=== PATIENT | male | born 1965 | race Caucasian/White ===

== ENCOUNTER 2019-11-11 19:24 | Emergency (ER) | payer MEDICAID ==
[~2019-11-11] VITALS: Ht 177.8 cm; Wt 80.2 kg
[~2019-11-11 19:24] MED LIST: AMLO2.5T2 PO; FURO-149 PO; LOSA100T57 PO; MULT-1161 PO; POTA8TAB8 PO; SILD20TA PO
[2019-11-11] MEDS ORDERED: ceFAZolin 1GM/D5W- ADD-VANTAGE 50 ML IV ONE (20:40)
[2019-11-11] MEDS ORDERED: AMBR5TAB3 PO (20:52)
[2019-11-11] MEDS ORDERED: UBID100C16 PO (20:52)
[2019-11-11 21:18] LABS: BASOPHILS # (AUTO) 0.1 X10'3 (0-0.2); BASOPHILS % (AUTO) 0.4 % (0-1); EOSINOPHILS # (AUTO) 0.1 X10'3 (0-0.9); HEMATOCRIT 43.8 % (42.0-52.0); HEMOGLOBIN 14.5 g/dl (14.0-17.9); LYMPHOCYTES % (AUTO) 12.8 % (21-51); MEAN CORPUSCULAR HEMOGLOBIN 31.4 PG (27.0-31.0); MEAN PLATELET VOLUME 8.3 FL (7.4-10.4); MONOCYTES # (AUTO) 2.1 X10'3 (0-0.9); MONOCYTES % (AUTO) 13.5 % (2-12); NEUTROPHILS % (AUTO) 72.3 % (42-75); PLATELET COUNT 187 X10'3 (140-440); RED BLOOD COUNT 4.61 X10'6 (4.70-6.10); RED CELL DISTRIBUTION WIDTH 14.1 % (11.5-14.5); WHITE BLOOD COUNT 15.3 X10'3 (4.5-11.0)
[2019-11-11 21:32] LABS: ALANINE AMINOTRANSFERASE 22 U/L (12-78); ALBUMIN 3.5 G/DL (3.4-5.0); ALBUMIN/GLOBULIN RATIO 0.9 (1.1-1.5); ALKALINE PHOSPHATASE 74 IU/L (46-116); ANION GAP 10 (8-16); ASPARTATE AMINO TRANSFERASE 26 U/L (10-37); BILIRUBIN,TOTAL 0.4 MG/DL (0.1-1.0); BLOOD UREA NITROGEN 28 MG/DL (7-18); BUN/CREATININE RATIO 18.5 (5.4-32.0); C-REACTIVE PROTEIN 7.92 MG/DL (0.0-0.5); CALCIUM 8.6 MG/DL (8.5-10.1); CHLORIDE 106 MMOL/L (99-107); CREATININE 1.51 MG/DL (0.60-1.10); GLUCOSE 103 MG/DL (70-104); SODIUM 141 MMOL/L (135-145); TOTAL CARBON DIOXIDE 24.9 MMOL/L (24-32); TOTAL PROTEIN 7.2 G/DL (6.4-8.2); eGFR 48 ML/MIN
[2019-11-11] MEDS ORDERED: CEPH-572 PO (21:55)
[2019-11-11] MEDS ORDERED: sulfamethoxazole/trimethoprim DS (800/160mg) tablet PO ONE (21:55)
[2019-11-11] MEDS ORDERED: SULF1TAB49 PO (21:55)
[2019-11-11 22:16] VITALS: BP 107/97
== END 2019-11-11 22:19 | disposition home or self-care (01) ==
LOC: ER 19:24
DX: L03.113 Cellulitis of right upper limb (principal); I50.9 Heart failure, unspecified; I11.0 Hypertensive heart disease with heart failure; I25.2 Old myocardial infarction; F41.9 Anxiety disorder, unspecified; F15.90 Other stimulant use, unspecified, uncomplicated; Z98.890 Other specified postprocedural states; Z88.0 Allergy status to penicillin; Z79.899 Other long term (current) drug therapy
CPT/HCPCS: 36415; 80053; 84145; 85025; 86140; 87070; 96365; 99284; J0690; 87077; 87186

== ENCOUNTER 2020-06-05 00:46 | Inpatient (IN) | payer MEDICAID ==
--- NOTE | 2019-07-28 23:45 | NUR ---
Pt had bout of emisis after coughing. Moderate amount of tube feed, estimated about half cup. RN stopped tube feed and connected to LIS. 500ml tube feed colored stomach contents aspirated. RN left Pt on LIS, notified sausage wrapper. No further water flushes given. *Residual at start of shift was 350. *in Report RN received information that Pt has emisis during day shift as well.
[2020-06-05] VITALS (7 sets, daily range): BP systolic 90–106; BP diastolic 57–75
[~2020-06-05] VITALS: Ht 175.3 cm; Wt 69.5 kg
[~2020-06-05 00:46] MED LIST changes: +AMBR5TAB3 PO; -LOSA100T57 PO; -MULT-1161 PO; +UBID100C16 PO
--- NOTE | 2020-06-05 01:21 | NUR ---
x ray at bedside
[2020-06-05 01:31] LABS: ALANINE AMINOTRANSFERASE 33 U/L (12-78); ALBUMIN 3.7 G/DL (3.4-5.0); ALBUMIN/GLOBULIN RATIO 0.9 (1.1-1.5); ALKALINE PHOSPHATASE 68 IU/L (46-116); ANION GAP 13 (8-16); ASPARTATE AMINO TRANSFERASE 42 U/L (10-37); BILIRUBIN,TOTAL 1.1 MG/DL (0.1-1.0); BLOOD UREA NITROGEN 25 MG/DL (7-18); BUN/CREATININE RATIO 14.6 (5.4-32.0); CALCIUM 8.8 MG/DL (8.5-10.1); CHLORIDE 97 MMOL/L (99-107); CREATININE 1.71 MG/DL (0.60-1.10); GLUCOSE 118 MG/DL (70-104); SODIUM 132 MMOL/L (135-145); TOTAL CARBON DIOXIDE 21.7 MMOL/L (24-32); TOTAL PROTEIN 7.9 G/DL (6.4-8.2); eGFR 42 ML/MIN
[2020-06-05 01:32] LABS: BASOPHILS % (AUTO) 0.1 % (0-1); EOSINOPHILS % (AUTO) 0.2 % (0-6); HEMATOCRIT 51.7 % (42.0-52.0); HEMOGLOBIN 17.6 g/dl (14.0-17.9); MEAN CORPUSCULAR HEMOGLOBIN 32.2 PG (27.0-31.0); MEAN CORPUSCULAR VOLUME 94.6 FL (78-98); MEAN PLATELET VOLUME 9.3 FL (7.4-10.4); MONOCYTES # (AUTO) 1.4 X10'3 (0-0.9); MONOCYTES % (AUTO) 13.6 % (2-12); NEUTROPHILS # (AUTO) 7.6 X10'3 (1.8-7.7); NEUTROPHILS % (AUTO) 76.1 % (42-75); PLATELET COUNT 161 X10'3 (140-440); RED BLOOD COUNT 5.47 X10'6 (4.70-6.10); RED CELL DISTRIBUTION WIDTH 13.6 % (11.5-14.5)
[2020-06-05 01:40] LABS: TROPONIN I 0.08 NG/ML (0.0-0.05)
[2020-06-05 01:45] LABS: ABG BASE EXCESS -3.2 mmol/L (-2.0-2.0); ABG HCO3 16.8 mmol/L (22.0-26.0); ABG OXYGEN SATURATION 83.8 % (94-97); ABG PCO2 (T) 21.4 mmHg (35.0-48.0); ABG PO2 (T) 43.4 mmHg (75.0-100.0); FCOHb 0.6 % (0.0-3.9); FLOW 15 L/min; FMetHb 0.1 % (0.0-1.5); FO2Hb 83.2 % (94-97); TOTAL HEMOGLOBIN 17.6 G/dl (14.0-18.0)
[2020-06-05] MEDS ORDERED: levoFLOXACIN-Levaquin 750MG/D5 150 ML IV ONE (01:45)
[2020-06-05] MEDS ORDERED: LORazepam 2 mg/ml vial IV ONE ×3 (01:55→03:25)
[2020-06-05] MEDS ORDERED: dexamethasone sod phosphate 10mg/ml inj IV STA (01:57)
[2020-06-05 02:29] LABS: C-REACTIVE PROTEIN 2.54 MG/DL (0.0-0.5); FERRITIN 945 NG/ML (26-388); LACTATE DEHYDROGENASE 396 U/L (85-227)
[2020-06-05] MEDS ORDERED: LOSA25TA96 PO (02:34)
--- NOTE | 2020-06-05 03:09 | NUR ---
Dereje repeat latic
--- NOTE | 2020-06-05 03:09 | NUR ---
paged rt for repeat abg
[2020-06-05 03:40] LABS: ABG BASE EXCESS -3.8 mmol/L (-2.0-2.0); ABG HCO3 16.3 mmol/L (22.0-26.0); ABG OXYGEN SATURATION 91.9 % (94-97); ABG PCO2 (T) 20.7 mmHg (35.0-48.0); ABG PO2 (T) 57.5 mmHg (75.0-100.0); FCOHb 0.5 % (0.0-3.9); FMetHb 0.1 % (0.0-1.5); FO2Hb 91.3 % (94-97); PATIENT TEMPERATURE 36.8; RESPIRATORY RATE 31 b/min; TOTAL HEMOGLOBIN 16.7 G/dl (14.0-18.0)
[2020-06-05] MEDS ORDERED: potassium CL 10mEq/100ml bag 100 ML IV PRN (04:10)
[2020-06-05] MEDS ORDERED: potassium Cl 20 mEq SR tablet PO PRN ×2 (04:10)
[2020-06-05] MEDS ORDERED: magnesium hydroxide 30ml (MOM) UD suspension PO PRN (04:10)
[2020-06-05] MEDS ORDERED: ipratropium/albuterol 3ml nebule NEB PRN (04:10)
[2020-06-05] MEDS ORDERED: acetaminophen 325mg tablet PO PRN ×2 (04:10)
[2020-06-05] MEDS: K, MAG and/or Phos replacement - Verify level? MC SCH ×2 (05:06→08:00)
[2020-06-05] MEDS: dexamethasone 4mg/ml inj IV SCH (07:39)
[2020-06-05] MEDS: potassium chloride 8mEq ER tablet PO SCH ×2 (07:40→20:26)
[2020-06-05] MEDS: sildenafil citrate 20mg tablet PO SCH ×3 (07:40→20:26)
[2020-06-05] MEDS: amLODIPine 2.5mg tablet PO SCH (07:40)
[2020-06-05] MEDS: furosemide 40mg tablet PO SCH (07:40)
[2020-06-05] MEDS: LORazepam 2 mg/ml vial IV PRN ×6 (07:41→22:23)
[2020-06-05] MEDS: AMBRISENTAN 5 MG PO SCH (08:00)
[2020-06-05] MEDS: levoFLOXACIN-Levaquin 500mg/D5 100 ML IV SCH (08:00)
[2020-06-05] MEDS ORDERED: etomidate 2mg/ml inj. ONE ×2 (08:00→09:00)
[2020-06-05] MEDS ORDERED: enoxaparin 40mg/0.4ml syringe SUBCUT SCH (08:00)
[2020-06-05] MEDS: enoxaparin 40mg/0.4ml syringe SUBCUT SCH ×2 (09:25→20:26)
--- NOTE | 2020-06-05 09:30 | NUR ---
Spoke with Aime in pharmacy regarding pt's home med. He is not sure if they can dispense it to us since he is COVID positive. He states that there are some others they can substitute, but needs to speak with his director first and will let us know.
[2020-06-05] MEDS: losartan 25mg tablet PO SCH (10:01)
--- NOTE | 2020-06-05 10:17 | NUR ---
Pt had a medium sized stool of diarrhea.
[2020-06-05 10:24] LABS: D-DIMER 0.46 MG/L FEU (0-0.50)
--- NOTE | 2020-06-05 11:25 | NUR ---
Pt very anxious asking for something to help him calm down. Let him know that this RN would be back with medication for him.
--- NOTE | 2020-06-05 12:05 | NUR ---
Luis Fernando baker in [facility] - 06/05/20 at 1211 by [email or web address] Spoke with Yosvany, he is heading this way from [place] now and should be here in about 20-30 minutes.
--- NOTE | 2020-06-05 12:06 | NUR ---
Note olivia in ED - 06/05/20 at 1211 by [email or web address] Spoke with Margarita, Grief Counsellor regarding pt and the stress test regarding pt's willingness to have the stress test. We are to call her back when Yosvany gets here to see if he is willing to walk the pt through the test.
--- NOTE | 2020-06-05 13:00 | NUR ---
Pt resting quietly on left side. Pt continues to be tachypnic.
--- NOTE | 2020-06-05 13:10 | NUR ---
Pt would like his significant other, Cornelia, to be the one who is the main contact for him. Called her to give her an update on the pt and answered the questions she had.
--- NOTE | 2020-06-05 13:20 | NUR ---
Pt talking on the phone with Cornelia, his significant other.
--- NOTE | 2020-06-05 13:46 | NUR ---
Pt is anxious. Pt given Ativan and denies any further needs at this time.
--- NOTE | 2020-06-05 14:45 | NUR ---
dr. manzano at bedside.
--- NOTE | 2020-06-05 14:53 | NUR ---
RT paged for decreased oxygen saturation.
--- NOTE | 2020-06-05 15:35 | NUR ---
RT aware of pt's O2 saturation. He is going to talk to the pt and Dr Vidales to see what the plan is.
--- NOTE | 2020-06-05 16:30 | NUR ---
Pt woke up from sleeping and started panicing and pulled off his mask. Pt stated he needed to use the restroom. RN able to get the CPAP mask back on the pt and explained to him the need for the mask. RT peaked into the room and said he will be back to see the pt. Pt asking for something to help him relax. Let pt know that his BP is a little on the low side, so we will wait to see if his BP comes up a little before giving him any. Pt is okay with that. Encouraged pt to focus on his slow breathing.
--- NOTE | 2020-06-05 17:01 | NUR ---
Received report from TONIA Peña
--- NOTE | 2020-06-05 17:42 | NUR ---
Pt arrived from ED via gurney and walked to bed. Transferred on NRB. Placed back on bipap once settled in ICU bed. Pt alert and oriented but in resp distress. Explained to pt importance of not talking and moving around much so that he can rest his lungs and focus on his breathing. Pt placed on monitor and in hospital gown and foam dsg placed on sacrum. Sats low 90s on 100% Fio2 on bipap. Pt tachycardic and tachypnic with labored breathing, but otherwise stable and able to communicate needs. Currently watching TV. Call light in hand
[2020-06-05] MEDS: morphine 2 MG/ML inj. syringe IV PRN (22:23)
[2020-06-06] VITALS (22 sets, daily range): BP systolic 84–108; BP diastolic 52–78
[2020-06-06] MEDS: morphine 2 MG/ML inj. syringe IV PRN (02:25)
[2020-06-06] MEDS: LORazepam 2 mg/ml vial IV PRN ×5 (04:25→21:06)
[2020-06-06 05:16] LABS: BASOPHILS % (AUTO) 0.1 % (0-1); EOSINOPHILS % (AUTO) 0 % (0-6); HEMATOCRIT 49.8 % (42.0-52.0); HEMOGLOBIN 16.7 g/dl (14.0-17.9); LYMPHOCYTES # (AUTO) 1.3 X10'3 (1.1-4.8); LYMPHOCYTES % (AUTO) 11.7 % (21-51); MEAN CORPUSCULAR HEMOGLOBIN 31.6 PG (27.0-31.0); MEAN CORPUSCULAR HGB CONC 33.6 g/dL (33.0-36.5); MEAN CORPUSCULAR VOLUME 94.1 FL (78-98); MEAN PLATELET VOLUME 9.2 FL (7.4-10.4); MONOCYTES # (AUTO) 1.8 X10'3 (0-0.9); MONOCYTES % (AUTO) 15.9 % (2-12); NEUTROPHILS # (AUTO) 8.3 X10'3 (1.8-7.7); NEUTROPHILS % (AUTO) 72.3 % (42-75); PLATELET COUNT 176 X10'3 (140-440); RED BLOOD COUNT 5.29 X10'6 (4.70-6.10); RED CELL DISTRIBUTION WIDTH 13.5 % (11.5-14.5); WHITE BLOOD COUNT 11.5 X10'3 (4.5-11.0)
[2020-06-06 05:17] LABS: D-DIMER 0.31 MG/L FEU (0-0.50)
[2020-06-06 05:25] LABS: ALANINE AMINOTRANSFERASE 35 U/L (12-78); ALBUMIN 3.1 G/DL (3.4-5.0); ALBUMIN/GLOBULIN RATIO 0.7 (1.1-1.5); ALKALINE PHOSPHATASE 60 IU/L (46-116); ANION GAP 10 (8-16); ASPARTATE AMINO TRANSFERASE 36 U/L (10-37); BILIRUBIN,TOTAL 0.6 MG/DL (0.1-1.0); BLOOD UREA NITROGEN 32 MG/DL (7-18); BUN/CREATININE RATIO 19.5 (5.4-32.0); C-REACTIVE PROTEIN 3.18 MG/DL (0.0-0.5); CALCIUM 9.3 MG/DL (8.5-10.1); CHLORIDE 99 MMOL/L (99-107); CREATININE 1.64 MG/DL (0.60-1.10); GLUCOSE 134 MG/DL (70-104); MAGNESIUM 1.9 MG/DL (1.5-2.4); PHOSPHORUS 4.4 MG/DL (2.3-4.5); POTASSIUM 4.5 MMOL/L (3.5-5.1); SODIUM 133 MMOL/L (135-145); TOTAL CARBON DIOXIDE 24.3 MMOL/L (24-32); TOTAL PROTEIN 7.4 G/DL (6.4-8.2); eGFR 44 ML/MIN
[2020-06-06] MEDS: K, MAG and/or Phos replacement - Verify level? MC SCH (06:43)
[2020-06-06] MEDS: potassium chloride 8mEq ER tablet PO SCH ×2 (06:43→21:07)
[2020-06-06] MEDS: losartan 25mg tablet PO SCH (06:43)
[2020-06-06] MEDS: amLODIPine 2.5mg tablet PO SCH (06:44)
[2020-06-06] MEDS: furosemide 40mg tablet PO SCH (06:44)
[2020-06-06] MEDS: levoFLOXACIN-Levaquin 500mg/D5 100 ML IV SCH (08:05)
[2020-06-06] MEDS: dexamethasone 4mg/ml inj IV SCH (08:05)
[2020-06-06] MEDS: enoxaparin 40mg/0.4ml syringe SUBCUT SCH ×2 (08:06→21:08)
[2020-06-06] MEDS: sildenafil citrate 20mg tablet PO SCH ×3 (08:33→21:07)
[2020-06-06] MEDS: AMBRISENTAN 5 MG PO SCH (08:34)
--- NOTE | 2020-06-06 09:00 | NUR ---
Patient on 100% bipap; tried patient on hi-flow 15L- Sats in the low 80's. placed patient back on bipap while RT went to get hi-flow tower. Able to titrate FI02 down to 70 while waiting for tower. Placed patient on 50L/100%; sats tolerated intitially, but after a few min of eating, sats in the low 80's. Placed patient back on bipap and now patient requiring 100% again
[2020-06-06] MEDS ORDERED: REMDESIVIR 100MG inj. 200 MG in normal saline 100ml IV soln 100 ML IV ONE (10:00)
[2020-06-06] MEDS: normal saline 1000ml 1,000 ML IV SCH (13:36)
--- NOTE | 2020-06-06 14:01 | NUR ---
Updated MD on patients lack of reserve on 100% fio2 bipap; orders to increase cpap to 10 and do not take bipap mask off for any reason
--- NOTE | 2020-06-06 19:00 | NUR ---
Patient in room CICU 2006. I have received report from Nnamdi RANDALL and had the opportunity to ask questions and assume patient care.
[2020-06-06] MEDS: lactobacillus rhamnosus 10,000 MMU CELLS/CAPSULE PO SCH (21:07)
[2020-06-07] VITALS (25 sets, daily range): BP systolic 88–107; BP diastolic 56–74
[2020-06-07] MEDS: LORazepam 2 mg/ml vial IV PRN ×8 (00:11→22:00)
[2020-06-07] MEDS: normal saline 1000ml 1,000 ML IV SCH ×2 (02:45→13:04)
[2020-06-07 05:20] LABS: BASOPHILS % (AUTO) 0.1 % (0-1); EOSINOPHILS % (AUTO) 0 % (0-6); HEMATOCRIT 44.1 % (42.0-52.0); HEMOGLOBIN 14.7 g/dl (14.0-17.9); LYMPHOCYTES # (AUTO) 1.4 X10'3 (1.1-4.8); MEAN CORPUSCULAR HGB CONC 33.3 g/dL (33.0-36.5); MEAN PLATELET VOLUME 9.5 FL (7.4-10.4); MONOCYTES # (AUTO) 2.1 X10'3 (0-0.9); NEUTROPHILS # (AUTO) 7.8 X10'3 (1.8-7.7); NEUTROPHILS % (AUTO) 68.9 % (42-75); PLATELET COUNT 192 X10'3 (140-440); RED BLOOD COUNT 4.74 X10'6 (4.70-6.10); RED CELL DISTRIBUTION WIDTH 13.5 % (11.5-14.5); WHITE BLOOD COUNT 11.3 X10'3 (4.5-11.0)
[2020-06-07 05:33] LABS: D-DIMER 0.27 MG/L FEU (0-0.50)
[2020-06-07 05:36] LABS: ALANINE AMINOTRANSFERASE 40 U/L (12-78); ALBUMIN 2.4 G/DL (3.4-5.0); ALBUMIN/GLOBULIN RATIO 0.7 (1.1-1.5); ALKALINE PHOSPHATASE 47 IU/L (46-116); ANION GAP 9 (8-16); ASPARTATE AMINO TRANSFERASE 43 U/L (10-37); BILIRUBIN,TOTAL 0.5 MG/DL (0.1-1.0); BLOOD UREA NITROGEN 30 MG/DL (7-18); BUN/CREATININE RATIO 24.8 (5.4-32.0); C-REACTIVE PROTEIN 2.01 MG/DL (0.0-0.5); CALCIUM 8.1 MG/DL (8.5-10.1); CHLORIDE 105 MMOL/L (99-107); CREATININE 1.21 MG/DL (0.60-1.10); GLUCOSE 107 MG/DL (70-104); MAGNESIUM 1.8 MG/DL (1.5-2.4); PHOSPHORUS 3.5 MG/DL (2.3-4.5); POTASSIUM 4.3 MMOL/L (3.5-5.1); SODIUM 136 MMOL/L (135-145); TOTAL CARBON DIOXIDE 22.3 MMOL/L (24-32); TOTAL PROTEIN 5.9 G/DL (6.4-8.2); eGFR 62 ML/MIN
[2020-06-07 06:43] LABS: PLATELET ESTIMATE NORMAL; TOTAL CELLS COUNTED 100
[2020-06-07] MEDS: levoFLOXACIN-Levaquin 500mg/D5 100 ML IV SCH (07:28)
[2020-06-07] MEDS: REMDESIVIR 100MG inj. 100 MG in normal saline 100ml IV soln 100 ML IV SCH (07:28)
[2020-06-07] MEDS: enoxaparin 40mg/0.4ml syringe SUBCUT SCH ×2 (07:31→20:32)
[2020-06-07] MEDS: dexamethasone 4mg/ml inj IV SCH (07:32)
[2020-06-07] MEDS: furosemide 40mg tablet PO SCH (07:33)
[2020-06-07] MEDS: potassium chloride 8mEq ER tablet PO SCH ×2 (07:34→20:30)
[2020-06-07] MEDS: sildenafil citrate 20mg tablet PO SCH ×3 (07:34→20:30)
[2020-06-07] MEDS: lactobacillus rhamnosus 10,000 MMU CELLS/CAPSULE PO SCH ×2 (07:34→20:29)
[2020-06-07] MEDS: amLODIPine 2.5mg tablet PO SCH (07:35)
[2020-06-07] MEDS: AMBRISENTAN 5 MG PO SCH (07:35)
[2020-06-07] MEDS: losartan 25mg tablet PO SCH (07:36)
[2020-06-07] MEDS: K, MAG and/or Phos replacement - Verify level? MC SCH (07:54)
[2020-06-07] MEDS: morphine 2 MG/ML inj. syringe IV PRN ×2 (13:04→20:34)
--- NOTE | 2020-06-07 13:31 | NUR ---
PICC inserted in Right Upper Arm (Basilic). Propers Provena Catheter Triple Lumen, 5 Fr. REF [id number], Lot [id number], Exp. 04/10/21. Patient tolerated procedure well, catheter tip in distal SVC near cavoatrial junction. 3CG confirmed. 45cm Length, 2cm Out, 36cm Arm Circumference.
--- NOTE | 2020-06-07 15:39 | NUR ---
TPN consult: Pt admit with COVID-19 with hx of a methamphetamine induced cardiomyopathy with an EF of about 20% per MD note. Pt initially on a regular diet documented with average 75% PO intake first meal however now NPO d/t SOB when off of BiPAP. New order in place for BiPAP to not be taken off. PICC already in place. TPN recommendations below have been d/w clinical pharmacist. LBM 06/05. Will continue to follow closely. Recommendations: 1) Continuous 3:1 Clinimix-E 11/28 with 100 mL 20% intralipids with goal rate of 105 mL/hr. To begin at 30 mL/hr and advance to goal after 12 hours if pt tolerating. Once at goal to provide: 2520 mL total volume/day, 2351 kcal, 120 g AA, 480 g dextrose (3.90 mg/kg/min dext load), and 24 g lipids (9.5% of kcal) 2) Prealbumin and TG q Wednesday/; daily weights 3) Bowel care per rx 4) PO diet advancement to heart healthy as medically indicated; regular diet if poor PO intake with diet advancement Addendum: 06/07/20 at [address] Amended: Links added.
[2020-06-07] MEDS ORDERED: Dextrose 10%-water IV solution 1,000 ML IV PRN (16:00)
--- NOTE | 2020-06-07 17:40 | NUR ---
Pt ripping off BiPap/CPAP mask, uncooperative, agitated. Highly anxious and angry about being NPO. Sats dropped down to 68% on RA. Education and instructions given to patient. Dr. Vidales notified. RT trying high flow NC- Sats 83%.
--- NOTE | 2020-06-07 19:00 | NUR ---
Patient in room CICU 2006. I have received report from SAMAN RN and had the opportunity to ask questions and assume patient care.
--- NOTE | 2020-06-07 19:05 | NUR ---
PT is agitated and states he is claustrophobic and refuses to put on his mask. PT informed of the potential risks of not adhering to the treatment. the RT placed him on a high flow nasal canula at 50L at 100% and a nonrebreather at 100%. PT is now having o2 saturations from 86 to 90 %. Will allow patient a rest from the cpap since he has been wearing it for nearly 2 days straight.
[2020-06-07] MEDS: [UNRECOGNIZED DRUG - REMARK] IV SCH (20:23)
[2020-06-08] VITALS (24 sets, daily range): BP systolic 93–121; BP diastolic 65–83
[2020-06-08] MEDS: LORazepam 2 mg/ml vial IV PRN ×9 (01:39→22:27)
[2020-06-08] MEDS: morphine 2 MG/ML inj. syringe IV PRN ×3 (02:30→23:13)
[2020-06-08 02:56] LABS: BASOPHILS % (AUTO) 0.1 % (0-1); EOSINOPHILS % (AUTO) 0.1 % (0-6); HEMATOCRIT 44.3 % (42.0-52.0); HEMOGLOBIN 14.9 g/dl (14.0-17.9); LYMPHOCYTES # (AUTO) 1.3 X10'3 (1.1-4.8); MEAN CORPUSCULAR HEMOGLOBIN 31.4 PG (27.0-31.0); MEAN CORPUSCULAR HGB CONC 33.8 g/dL (33.0-36.5); MEAN CORPUSCULAR VOLUME 92.9 FL (78-98); MEAN PLATELET VOLUME 9.1 FL (7.4-10.4); MONOCYTES # (AUTO) 2.2 X10'3 (0-0.9); NEUTROPHILS # (AUTO) 6.6 X10'3 (1.8-7.7); NEUTROPHILS % (AUTO) 64.8 % (42-75); PLATELET COUNT 199 X10'3 (140-440); RED BLOOD COUNT 4.76 X10'6 (4.70-6.10); RED CELL DISTRIBUTION WIDTH 13.4 % (11.5-14.5); WHITE BLOOD COUNT 10.2 X10'3 (4.5-11.0)
[2020-06-08 03:13] LABS: ALANINE AMINOTRANSFERASE 36 U/L (12-78); ALBUMIN 2.4 G/DL (3.4-5.0); ALBUMIN/GLOBULIN RATIO 0.7 (1.1-1.5); ALKALINE PHOSPHATASE 45 IU/L (46-116); ANION GAP 10 (8-16); ASPARTATE AMINO TRANSFERASE 35 U/L (10-37); BILIRUBIN,TOTAL 0.4 MG/DL (0.1-1.0); BLOOD UREA NITROGEN 27 MG/DL (7-18); BUN/CREATININE RATIO 26.5 (5.4-32.0); C-REACTIVE PROTEIN 1.24 MG/DL (0.0-0.5); CHLORIDE 104 MMOL/L (99-107); CREATININE 1.02 MG/DL (0.60-1.10); GLUCOSE 111 MG/DL (70-104); MAGNESIUM 2.1 MG/DL (1.5-2.4); POTASSIUM 4.4 MMOL/L (3.5-5.1); SODIUM 136 MMOL/L (135-145); TOTAL CARBON DIOXIDE 22.4 MMOL/L (24-32); TOTAL PROTEIN 5.9 G/DL (6.4-8.2); eGFR 76 ML/MIN
[2020-06-08 03:50] LABS: D-DIMER 0.33 MG/L FEU (0-0.50)
[2020-06-08] MEDS: normal saline 1000ml 1,000 ML IV SCH ×2 (05:46→18:01)
--- NOTE | 2020-06-08 06:28 | NUR ---
Patient in room CICU 2005. I have received report from TONIA Anguiano and had the opportunity to ask questions and assume patient care. Patient asleep in bed and in no acute distress.
[2020-06-08] MEDS: dexamethasone 4mg/ml inj IV SCH (07:33)
[2020-06-08] MEDS: enoxaparin 40mg/0.4ml syringe SUBCUT SCH ×2 (07:34→20:00)
[2020-06-08] MEDS: AMBRISENTAN 5 MG PO SCH (07:35)
[2020-06-08] MEDS: lactobacillus rhamnosus 10,000 MMU CELLS/CAPSULE PO SCH ×2 (07:35→20:00)
[2020-06-08] MEDS: potassium chloride 8mEq ER tablet PO SCH ×2 (07:35→20:00)
[2020-06-08] MEDS: sildenafil citrate 20mg tablet PO SCH ×3 (07:35→21:00)
[2020-06-08] MEDS: levoFLOXACIN-Levaquin 500mg/D5 100 ML IV SCH (07:41)
[2020-06-08] MEDS: amLODIPine 2.5mg tablet PO SCH (07:49)
[2020-06-08] MEDS: furosemide 40mg tablet PO SCH (07:49)
[2020-06-08] MEDS: losartan 25mg tablet PO SCH (07:49)
[2020-06-08] MEDS: K, MAG and/or Phos replacement - Verify level? MC SCH (07:49)
[2020-06-08] MEDS: REMDESIVIR 100MG inj. 100 MG in normal saline 100ml IV soln 100 ML IV SCH (08:09)
[2020-06-08] MEDS: [UNRECOGNIZED DRUG - REMARK] IV SCH (08:10)
--- NOTE | 2020-06-08 08:28 | NUR ---
TPN rate increased to goal rate of 105mL/hr.
--- NOTE | 2020-06-08 18:01 | NUR ---
Administered normal saline, bag wouldn't scan.
--- NOTE | 2020-06-08 18:09 | NUR ---
Problems reprioritized. Patient report given, questions answered & plan of care reviewed with TONIA Anguiano. Patient stable at transfer of care.
--- NOTE | 2020-06-08 18:20 | NUR ---
During patient report the patient ripped off his Cpap mask. he was desaturating into the 60's and told me to "stop strapping shit on his face" I tried to explain to him the importance of keeping the mask on and attempted to put on the high flow nasal canula, but he refused that as well. Then he sat there saying "I just want to breathe on my own for a moment". The patient had his oxygen off for 15 minutes while his lips turned blue and his face turned purple and saturating in the 50's and 60's. after giving ativan I was able to get his hi flow nasal canula back on and he saturated in the high 80's.
[2020-06-08] MEDS: morphine 4 MG/ML inj SYRINge IV PRN (19:36)
[2020-06-08] MEDS: ondansetron/PF 4mg/2ml inj IV PRN (19:44)
[2020-06-08] MEDS ORDERED: morphine 2 MG/ML inj. syringe IV ONE (22:40)
--- NOTE | 2020-06-08 23:40 | NUR ---
patient has repeatedly ripped off mask. He sat with 02 saturation dropping to 60's and 50's refusing cpap mask and high flow nasal canula saying he "just wants to breathe" while his lips and face are turning extremely cyanotic. He had no memory of talking to his girlfriend of getting sips of water, his coordination was suffering unable to grasp a cup that was right in front of his face. July POWER BENDER OPERATOR was notified, She said he was suffering from hypoxic encephalopathy and needed to be restrained, so we could keep his cpap mask on.
[2020-06-09] VITALS (24 sets, daily range): BP systolic 80–115; BP diastolic 51–85
[2020-06-09] MEDS: LORazepam 2 mg/ml vial IV PRN ×9 (00:24→17:33)
[2020-06-09] MEDS: [UNRECOGNIZED DRUG - REMARK] IV SCH ×2 (01:21→19:55)
--- NOTE | 2020-06-09 02:27 | NUR ---
Pt is panicking, O2 sats in the 60's and extremely cyanotic. Patient beginning to show signs of hypoxic encephalopathy, pt will not keep cpap on, which delivers high pressure 100% fio2. Restraints ordered so he can keep mask on and oxygenate for once. pt will be closely scrutinized and is already a one to one patient. Addendum: 06/09/20 at 0232 by Ben Silva RN Amended: Links added.
[2020-06-09 03:57] LABS: BASOPHILS % (AUTO) 0 % (0-1); EOSINOPHILS % (AUTO) 0.1 % (0-6); HEMATOCRIT 42.6 % (42.0-52.0); HEMOGLOBIN 14.3 g/dl (14.0-17.9); LYMPHOCYTES # (AUTO) 0.9 X10'3 (1.1-4.8); LYMPHOCYTES % (AUTO) 8.6 % (21-51); MEAN CORPUSCULAR HEMOGLOBIN 31.6 PG (27.0-31.0); MEAN CORPUSCULAR HGB CONC 33.6 g/dL (33.0-36.5); MEAN PLATELET VOLUME 8.9 FL (7.4-10.4); MONOCYTES # (AUTO) 1.8 X10'3 (0-0.9); MONOCYTES % (AUTO) 17.4 % (2-12); NEUTROPHILS # (AUTO) 7.7 X10'3 (1.8-7.7); NEUTROPHILS % (AUTO) 73.9 % (42-75); PLATELET COUNT 219 X10'3 (140-440); RED BLOOD COUNT 4.53 X10'6 (4.70-6.10); RED CELL DISTRIBUTION WIDTH 13.6 % (11.5-14.5); WHITE BLOOD COUNT 10.5 X10'3 (4.5-11.0)
[2020-06-09 04:08] LABS: ALANINE AMINOTRANSFERASE 31 U/L (12-78); ALBUMIN 2.3 G/DL (3.4-5.0); ALBUMIN/GLOBULIN RATIO 0.7 (1.1-1.5); ALKALINE PHOSPHATASE 40 IU/L (46-116); ANION GAP 9 (8-16); ASPARTATE AMINO TRANSFERASE 27 U/L (10-37); BILIRUBIN,TOTAL 0.4 MG/DL (0.1-1.0); BLOOD UREA NITROGEN 25 MG/DL (7-18); BUN/CREATININE RATIO 30.1 (5.4-32.0); CALCIUM 7.8 MG/DL (8.5-10.1); CHLORIDE 107 MMOL/L (99-107); CREATININE 0.83 MG/DL (0.60-1.10); GLUCOSE 142 MG/DL (70-104); PHOSPHORUS 2.6 MG/DL (2.3-4.5); POTASSIUM 4.1 MMOL/L (3.5-5.1); SODIUM 140 MMOL/L (135-145); TOTAL PROTEIN 5.7 G/DL (6.4-8.2); eGFR > 90 ML/MIN
[2020-06-09] MEDS: ondansetron/PF 4mg/2ml inj IV PRN (04:23)
[2020-06-09] MEDS: morphine 4 MG/ML inj SYRINge IV PRN ×2 (04:25→17:33)
[2020-06-09] MEDS: normal saline 1000ml 1,000 ML IV SCH ×2 (06:05→19:55)
[2020-06-09 07:22] LABS: BURR CELLS 1+; PLATELET ESTIMATE NORMAL; TOTAL CELLS COUNTED 100
[2020-06-09] MEDS: potassium chloride 8mEq ER tablet PO SCH ×2 (08:00→19:54)
[2020-06-09] MEDS: losartan 25mg tablet PO SCH (08:00)
[2020-06-09] MEDS: amLODIPine 2.5mg tablet PO SCH (08:00)
[2020-06-09] MEDS: furosemide 40mg tablet PO SCH (08:00)
[2020-06-09] MEDS: sildenafil citrate 20mg tablet PO SCH ×3 (08:00→19:54)
[2020-06-09] MEDS: K, MAG and/or Phos replacement - Verify level? MC SCH (08:00)
[2020-06-09] MEDS: AMBRISENTAN 5 MG PO SCH (08:00)
[2020-06-09] MEDS: lactobacillus rhamnosus 10,000 MMU CELLS/CAPSULE PO SCH ×2 (08:00→19:54)
[2020-06-09] MEDS: levoFLOXACIN-Levaquin 500mg/D5 100 ML IV SCH (08:12)
[2020-06-09] MEDS: enoxaparin 40mg/0.4ml syringe SUBCUT SCH ×2 (08:12→19:54)
[2020-06-09] MEDS: dexamethasone 4mg/ml inj IV SCH (08:12)
[2020-06-09] MEDS: REMDESIVIR 100MG inj. 100 MG in normal saline 100ml IV soln 100 ML IV SCH (08:12)
[2020-06-09] MEDS: dexmedetomidine/D5W 100mL 100 ML IV SCH (15:05)
[2020-06-09] MEDS ORDERED: midazolam 2 mg/2 ml injection ONE (17:16)
[2020-06-09] MEDS ORDERED: midazolam 2 mg/2 ml injection IV ONE (17:25)
[2020-06-09] MEDS ORDERED: ipratropium/albuterol 3ml nebule NEB PRN (17:25)
[2020-06-09] MEDS ORDERED: midazolam 100mg in NS 100ml 100 ML IV PRN (17:25)
[2020-06-09] MEDS ORDERED: fentaNYL/PF 50MCG/1 ML 2ML syringe IV PRN (17:25)
[2020-06-09] MEDS ORDERED: FENTANYL-0.9 % NACL/PF 100 ML IV PRN (17:25)
[2020-06-09] MEDS: midazolam 100mg in NS 100ml 100 ML IV PRN (17:33)
[2020-06-09 17:40] LABS: ABG BASE EXCESS -7.9 mmol/L (-2.0-2.0); ABG HCO3 17.7 mmol/L (22.0-26.0); ABG OXYGEN SATURATION 80.1 % (94-97); ABG PCO2 (T) 36.9 mmHg (35.0-48.0); ABG PO2 (T) 47.6 mmHg (75.0-100.0); ALLEN'S TEST POSITIVE; FCOHb 0.3 % (0.0-3.9); FMetHb 0.1 % (0.0-1.5); FO2Hb 79.8 % (94-97); PEEP 15 cm H2O; RESPIRATORY RATE 20 b/min; TIDAL VOLUME 400 mL; TOTAL HEMOGLOBIN 15.3 G/dl (14.0-18.0)
[2020-06-09] MEDS: FENTANYL-0.9 % NACL/PF 100 ML IV PRN (17:49)
[2020-06-09] MEDS ORDERED: normal saline 1000ml 1,000 ML IV ONE (17:55)
--- NOTE | 2020-06-09 18:18 | NUR ---
Report given to TONIA Rojas
--- NOTE | 2020-06-09 18:18 | NUR ---
Patient intubated at 1730. 15 peep and 100% FiO2.
[2020-06-09] MEDS: ipratropium/albuterol 3ml nebule NEB SCH ×2 (19:26→23:10)
[2020-06-10] VITALS (24 sets, daily range): BP systolic 88–114; BP diastolic 56–86
[2020-06-10] MEDS: dexmedetomidine/D5W 100mL 100 ML IV SCH (00:52)
[2020-06-10 03:29] LABS: BASOPHILS % (AUTO) 0.2 % (0-1); EOSINOPHILS % (AUTO) 0.2 % (0-6); HEMATOCRIT 41.8 % (42.0-52.0); HEMOGLOBIN 13.9 g/dl (14.0-17.9); LYMPHOCYTES % (AUTO) 6.2 % (21-51); MEAN CORPUSCULAR HEMOGLOBIN 31.2 PG (27.0-31.0); MEAN CORPUSCULAR HGB CONC 33.2 g/dL (33.0-36.5); MEAN PLATELET VOLUME 8.3 FL (7.4-10.4); MONOCYTES # (AUTO) 2.8 X10'3 (0-0.9); MONOCYTES % (AUTO) 17.5 % (2-12); NEUTROPHILS # (AUTO) 11.9 X10'3 (1.8-7.7); NEUTROPHILS % (AUTO) 75.9 % (42-75); PLATELET COUNT 283 X10'3 (140-440); RED BLOOD COUNT 4.45 X10'6 (4.70-6.10); RED CELL DISTRIBUTION WIDTH 13.7 % (11.5-14.5); WHITE BLOOD COUNT 15.7 X10'3 (4.5-11.0)
[2020-06-10] MEDS: ipratropium/albuterol 3ml nebule NEB SCH ×6 (03:35→23:13)
[2020-06-10 03:45] LABS: ABG BASE EXCESS -7.3 mmol/L (-2.0-2.0); ABG HCO3 18.8 mmol/L (22.0-26.0); ABG OXYGEN SATURATION 93.5 % (94-97); ABG PCO2 (T) 39.1 mmHg (35.0-48.0); ALLEN'S TEST POSITIVE; FCOHb 0.1 % (0.0-3.9); FMetHb 0.1 % (0.0-1.5); FO2Hb 93.3 % (94-97); PATIENT TEMPERATURE 36.5; PEEP 15 cm H2O; RESPIRATORY RATE 20 b/min; TIDAL VOLUME 400 mL; TOTAL HEMOGLOBIN 14.7 G/dl (14.0-18.0)
[2020-06-10 03:55] LABS: D-DIMER 0.59 MG/L FEU (0-0.50)
[2020-06-10 04:09] LABS: ALANINE AMINOTRANSFERASE 34 U/L (12-78); ALBUMIN 2.3 G/DL (3.4-5.0); ALBUMIN/GLOBULIN RATIO 0.6 (1.1-1.5); ALKALINE PHOSPHATASE 41 IU/L (46-116); ANION GAP 9 (8-16); ASPARTATE AMINO TRANSFERASE 26 U/L (10-37); BILIRUBIN,TOTAL 0.3 MG/DL (0.1-1.0); BLOOD UREA NITROGEN 23 MG/DL (7-18); BUN/CREATININE RATIO 28.8 (5.4-32.0); C-REACTIVE PROTEIN 1.09 MG/DL (0.0-0.5); CALCIUM 7.8 MG/DL (8.5-10.1); CHLORIDE 107 MMOL/L (99-107); GLUCOSE 218 MG/DL (70-104); MAGNESIUM 2.1 MG/DL (1.5-2.4); PHOSPHORUS 3.2 MG/DL (2.3-4.5); POTASSIUM 4.4 MMOL/L (3.5-5.1); PREALBUMIN 15.3 MG/DL (19-36); SODIUM 139 MMOL/L (135-145); TOTAL CARBON DIOXIDE 22.6 MMOL/L (24-32); TOTAL PROTEIN 5.9 G/DL (6.4-8.2); TRIGLYCERIDES 87 MG/DL (20-135); eGFR > 90 ML/MIN
[2020-06-10 04:48] LABS: PLATELET ESTIMATE NORMAL; TOTAL CELLS COUNTED 100
[2020-06-10] MEDS: FENTANYL-0.9 % NACL/PF 100 ML IV PRN ×3 (06:03→18:43)
[2020-06-10] MEDS: midazolam 100mg in NS 100ml 100 ML IV PRN ×3 (06:03→20:38)
--- NOTE | 2020-06-10 06:30 | NUR ---
Report received from TONIA Rojas
[2020-06-10] MEDS: losartan 25mg tablet PO SCH (06:50)
[2020-06-10] MEDS: potassium chloride 8mEq ER tablet PO SCH ×2 (06:51→19:27)
[2020-06-10] MEDS: amLODIPine 2.5mg tablet PO SCH (06:51)
[2020-06-10] MEDS: K, MAG and/or Phos replacement - Verify level? MC SCH (06:52)
[2020-06-10] MEDS: REMDESIVIR 100MG inj. 100 MG in normal saline 100ml IV soln 100 ML IV SCH (08:00)
[2020-06-10] MEDS: furosemide 40mg tablet PO SCH (08:00)
[2020-06-10] MEDS: levoFLOXACIN-Levaquin 500mg/D5 100 ML IV SCH (08:01)
[2020-06-10] MEDS: dexamethasone 4mg/ml inj IV SCH (08:02)
[2020-06-10] MEDS: lactobacillus rhamnosus 10,000 MMU CELLS/CAPSULE PO SCH (08:02)
[2020-06-10] MEDS: sildenafil citrate 20mg tablet PO SCH ×2 (08:02→12:28)
[2020-06-10] MEDS: enoxaparin 40mg/0.4ml syringe SUBCUT SCH ×2 (08:02→19:27)
[2020-06-10] MEDS: normal saline 1000ml 1,000 ML IV SCH ×2 (10:48→20:39)
[2020-06-10] MEDS ORDERED: levoFLOXACIN 500mg tablet PO SCH (11:00)
[2020-06-10 11:01] LABS: OXYGEN SATURATION (MIXED VEN) 79.8 % (60-80)
--- NOTE | 2020-06-10 12:17 | NUR ---
TF Consult: Pt intubated yesterday w/ OG in place to start OGTF per MD. EN recs below; previously tolerating PN at goal. TESSA d/w RN; recommend monitoring initial EN tolerance prior to weaning PN as medically indicated. LBM 06/05; would benefit from routine bowel care and opioid antagonist as medically indicated. Will continue to monitor for EN tolerance. Recommendations: 1) Continuous OGTF per MD using Vital High Protein at 75ml/hr goal; to provide 1800ml volume, 1512ml free water, 1800kcals, and 158g protein. 2) Continuous 3:1 Clinimix-E 11/28 with 100 mL 20% intralipids with goal rate of 105 mL/hr. To begin at 30 mL/hr and advance to goal after 12 hours if pt tolerating. Once at goal to provide: 2520 mL total volume/day, 2351 kcal, 120 g AA, 480 g dextrose (3.90 mg/kg/min dext load), and 24 g lipids (9.5% of kcal) 3) additional water flush per MD; monitor serum Na once off PN 4) monitor for EN/PN tolerance; wean PN as EN advances as medically indicated IF MD agreeable 5) Prealbumin and TG q Wednesday/; daily weights 6) routine bowel care; consider opioid antagonist receiving fentanyl and midazolam 7) upon extubation; advance diet as medically indicated to heart healthy Addendum: 06/10/20 at [address] Amended: Links added.
[2020-06-10] MEDS: AMBRISENTAN 5 MG PO SCH (12:28)
[2020-06-10] MEDS ORDERED: POTASSIUM BICARB 20meq eff tab 20 MEQ TABLET.EFF OGT PRN (15:06)
[2020-06-10] MEDS ORDERED: magnesium hydroxide 30ml (MOM) UD suspension OGT PRN (15:06)
--- NOTE | 2020-06-10 18:30 | NUR ---
Report given to TONIA Rojas
[2020-06-10] MEDS: sildenafil citrate 20mg tablet OGT SCH (19:27)
[2020-06-10] MEDS: lactobacillus rhamnosus 10,000 MMU CELLS/CAPSULE OGT SCH (19:28)
[2020-06-10] MEDS: mineral oil/petrolatum ophthal oint EACHEYE SCH (19:28)
[2020-06-11] VITALS (24 sets, daily range): BP systolic 94–130; BP diastolic 60–90
[2020-06-11] MEDS: mineral oil/petrolatum ophthal oint EACHEYE SCH ×4 (02:00→20:12)
[2020-06-11 02:36] LABS: BASOPHILS % (AUTO) 0.1 % (0-1); EOSINOPHILS % (AUTO) 0.3 % (0-6); HEMATOCRIT 40.9 % (42.0-52.0); HEMOGLOBIN 13.5 g/dl (14.0-17.9); LYMPHOCYTES # (AUTO) 0.9 X10'3 (1.1-4.8); LYMPHOCYTES % (AUTO) 4.9 % (21-51); MEAN CORPUSCULAR HEMOGLOBIN 31.1 PG (27.0-31.0); MEAN CORPUSCULAR VOLUME 94.5 FL (78-98); MEAN PLATELET VOLUME 8.3 FL (7.4-10.4); MONOCYTES # (AUTO) 2.4 X10'3 (0-0.9); NEUTROPHILS # (AUTO) 15.2 X10'3 (1.8-7.7); NEUTROPHILS % (AUTO) 81.7 % (42-75); PLATELET COUNT 312 X10'3 (140-440); RED BLOOD COUNT 4.33 X10'6 (4.70-6.10); RED CELL DISTRIBUTION WIDTH 13.8 % (11.5-14.5); WHITE BLOOD COUNT 18.6 X10'3 (4.5-11.0)
[2020-06-11 02:47] LABS: D-DIMER 0.37 MG/L FEU (0-0.50)
[2020-06-11 02:59] LABS: ALANINE AMINOTRANSFERASE 31 U/L (12-78); ALBUMIN 2.4 G/DL (3.4-5.0); ALBUMIN/GLOBULIN RATIO 0.6 (1.1-1.5); ALKALINE PHOSPHATASE 43 IU/L (46-116); ANION GAP 9 (8-16); ASPARTATE AMINO TRANSFERASE 18 U/L (10-37); BILIRUBIN,TOTAL 0.3 MG/DL (0.1-1.0); BLOOD UREA NITROGEN 21 MG/DL (7-18); BUN/CREATININE RATIO 23.6 (5.4-32.0); C-REACTIVE PROTEIN 2.67 MG/DL (0.0-0.5); CALCIUM 8.3 MG/DL (8.5-10.1); CHLORIDE 109 MMOL/L (99-107); CREATININE 0.89 MG/DL (0.60-1.10); GLUCOSE 101 MG/DL (70-104); MAGNESIUM 2.2 MG/DL (1.5-2.4); PHOSPHORUS 3.5 MG/DL (2.3-4.5); PREALBUMIN 16.7 MG/DL (19-36); SODIUM 141 MMOL/L (135-145); TOTAL CARBON DIOXIDE 23.1 MMOL/L (24-32); TOTAL PROTEIN 6.3 G/DL (6.4-8.2); TRIGLYCERIDES 112 MG/DL (20-135); eGFR 88 ML/MIN
[2020-06-11] MEDS: ipratropium/albuterol 3ml nebule NEB SCH ×6 (03:43→23:13)
[2020-06-11 04:01] LABS: ABG BASE EXCESS -5.8 mmol/L (-2.0-2.0); ABG HCO3 19.8 mmol/L (22.0-26.0); ABG OXYGEN SATURATION 97.8 % (94-97); ABG PCO2 (T) 38.7 mmHg (35.0-48.0); ABG PO2 (T) 103.8 mmHg (75.0-100.0); ALLEN'S TEST POSITIVE; FMetHb 0.1 % (0.0-1.5); FO2Hb 97.7 % (94-97); PATIENT TEMPERATURE 36.6; PEEP 15 cm H2O; RESPIRATORY RATE 20 b/min; TIDAL VOLUME 400 mL
[2020-06-11] MEDS: FENTANYL-0.9 % NACL/PF 100 ML IV PRN ×3 (04:37→20:47)
[2020-06-11] MEDS: midazolam 100mg in NS 100ml 100 ML IV PRN ×3 (05:42→22:15)
--- NOTE | 2020-06-11 06:58 | NUR ---
Patient in room CICU 2006. I have received report from Bob and had the opportunity to ask questions and assume patient care.
[2020-06-11] MEDS: levoFLOXACIN-Levaquin 500mg/D5 100 ML IV SCH (07:42)
[2020-06-11] MEDS: lactobacillus rhamnosus 10,000 MMU CELLS/CAPSULE OGT SCH ×2 (07:43→20:12)
[2020-06-11] MEDS: enoxaparin 40mg/0.4ml syringe SUBCUT SCH ×2 (07:45→20:12)
[2020-06-11] MEDS: dexamethasone 4mg/ml inj IV SCH (07:46)
[2020-06-11] MEDS: AMBRISENTAN 5 MG PO SCH (07:46)
[2020-06-11] MEDS: furosemide 40mg tablet OGT SCH (07:47)
[2020-06-11] MEDS: amLODIPine 2.5mg tablet OGT SCH (08:00)
[2020-06-11] MEDS: sildenafil citrate 20mg tablet OGT SCH ×4 (08:00→20:12)
[2020-06-11] MEDS: losartan 25mg tablet OGT SCH (08:00)
[2020-06-11] MEDS: K, MAG and/or Phos replacement - Verify level? MC SCH (08:00)
[2020-06-11] MEDS: NORepinephrine 8mg/ 250ml NS 250 ML IV PRN (10:41)
--- NOTE | 2020-06-11 11:48 | NUR ---
0800- Patient responds to name and physical stimulation, does not follow commands, attempts to bring arms up to ET tube when repostioned, grimaces with oral care. Edema to bilat hands, elevated on pillows, skin [id number]- Critical care rounds with Dr Taylor- Start bowel regimen,give revatio even while on levo- primarily for pulmonary HTN, decrease PEEP to 12 instead of decreasing FIO2.
--- NOTE | 2020-06-11 13:24 | NUR ---
F/u: Patient's tube feed is running at 60 mL/hr working towards goal rate of 75 mL/hr and pt tolerating with GRV WNL. TPN has been weaned off. Pt still with no BM. Routine Colace and Lactulose added to med list today. Will continue to follow closely. Addendum: 06/11/20 at [address] Amended: Links added.
[2020-06-11] MEDS: lactulose 20gm/30ml cup PO SCH ×2 (13:43→20:12)
--- NOTE | 2020-06-11 18:07 | NUR ---
Problems reprioritized. Patient report given, questions answered & plan of care reviewed with Gege.
--- NOTE | 2020-06-11 18:15 | NUR ---
Patient in room CICU 2006. I have received report from Myrna RANDALL and had the opportunity to ask questions and assume patient care.
--- NOTE | 2020-06-11 18:35 | NUR ---
PT is intubated and sedated. Vent settings are PRVC, FiO2 of 70%, PEEP 12, RR 20 and TV of 400, PT tolerating well with O2 sat >93%. Increased sedation d/t PT waking up agitated with oral care @ ETT suctioning. PT attempts to sit straight up and pulls against restraints (see IV spreadsheet). VSS remain stable on 0.3mcg/kg of Levo, zero changed have been made to Levo. Bed is locked and low, bilat soft wrist restraints in place and secure. Will continue to monitor.
[2020-06-11] MEDS: docusate sodium 100mg/10ml UD cup PO SCH (20:12)
[2020-06-11] MEDS ORDERED: dextrose 50%-water 50ml dispensing syringe IV PRN ×2 (21:00)
[2020-06-11] MEDS ORDERED: MESSAGE TO PHARMACY PO ONE (21:00)
[2020-06-11] MEDS ORDERED: glucagon, human recombinant 1mg kit SUBCUT PRN (21:00)
[2020-06-11] MEDS ORDERED: insulin Lispro (HumaLOG) vial - multi-dose SQ SCH (21:00)
[2020-06-11] MEDS ORDERED: dextrose ORAL solution 15 GM/59 ML bottle PO PRN ×2 (21:00)
[2020-06-11] MEDS: insulin glargine (Lantus) pen - multi-dose SQ SCH (22:33)
[2020-06-11] MEDS: insulin regular, human U-100 3ml vial - multi-dose SQ SCH (22:34)
[2020-06-12] VITALS (24 sets, daily range): BP systolic 84–112; BP diastolic 50–71
--- NOTE | 2020-06-12 00:27 | NUR ---
0000 gastric residual check yielded 355ml. 300ml returned per protocol and TF continued. Will continue to monitor.
[2020-06-12] MEDS: lactulose 20gm/30ml cup PO SCH ×4 (02:07→20:18)
[2020-06-12] MEDS: mineral oil/petrolatum ophthal oint EACHEYE SCH ×4 (02:07→20:19)
[2020-06-12 02:34] LABS: BASOPHILS # (AUTO) 0.1 X10'3 (0-0.2); BASOPHILS % (AUTO) 0.3 % (0-1); EOSINOPHILS % (AUTO) 0.1 % (0-6); HEMATOCRIT 37.2 % (42.0-52.0); HEMOGLOBIN 12.5 g/dl (14.0-17.9); LYMPHOCYTES # (AUTO) 1.1 X10'3 (1.1-4.8); LYMPHOCYTES % (AUTO) 5.5 % (21-51); MEAN CORPUSCULAR HEMOGLOBIN 31.9 PG (27.0-31.0); MEAN CORPUSCULAR HGB CONC 33.7 g/dL (33.0-36.5); MEAN CORPUSCULAR VOLUME 94.6 FL (78-98); MEAN PLATELET VOLUME 7.9 FL (7.4-10.4); MONOCYTES # (AUTO) 2.6 X10'3 (0-0.9); MONOCYTES % (AUTO) 13.6 % (2-12); NEUTROPHILS # (AUTO) 15.4 X10'3 (1.8-7.7); NEUTROPHILS % (AUTO) 80.5 % (42-75); PLATELET COUNT 336 X10'3 (140-440); RED BLOOD COUNT 3.93 X10'6 (4.70-6.10); RED CELL DISTRIBUTION WIDTH 13.5 % (11.5-14.5); WHITE BLOOD COUNT 19.1 X10'3 (4.5-11.0)
[2020-06-12 02:48] LABS: D-DIMER 0.29 MG/L FEU (0-0.50)
[2020-06-12] MEDS: insulin regular, human U-100 3ml vial - multi-dose SQ SCH ×4 (02:50→20:51)
[2020-06-12 02:56] LABS: ALANINE AMINOTRANSFERASE 29 U/L (12-78); ALBUMIN 2.2 G/DL (3.4-5.0); ALBUMIN/GLOBULIN RATIO 0.6 (1.1-1.5); ALKALINE PHOSPHATASE 45 IU/L (46-116); ANION GAP 6 (8-16); ASPARTATE AMINO TRANSFERASE 17 U/L (10-37); BILIRUBIN,TOTAL 0.3 MG/DL (0.1-1.0); BLOOD UREA NITROGEN 27 MG/DL (7-18); BUN/CREATININE RATIO 28.7 (5.4-32.0); CALCIUM 8.5 MG/DL (8.5-10.1); CHLORIDE 109 MMOL/L (99-107); CREATININE 0.94 MG/DL (0.60-1.10); GLUCOSE 127 MG/DL (70-104); MAGNESIUM 2.2 MG/DL (1.5-2.4); PHOSPHORUS 2.9 MG/DL (2.3-4.5); POTASSIUM 4.4 MMOL/L (3.5-5.1); SODIUM 142 MMOL/L (135-145); TOTAL CARBON DIOXIDE 26.9 MMOL/L (24-32); TOTAL PROTEIN 6.1 G/DL (6.4-8.2); eGFR 83 ML/MIN
[2020-06-12 02:59] LABS: HEMOGLOBIN A1C 7.2 % (4.5-6.2)
[2020-06-12] MEDS: ipratropium/albuterol 3ml nebule NEB SCH ×5 (03:26→19:47)
[2020-06-12 03:40] LABS: ABG BASE EXCESS -2.5 mmol/L (-2.0-2.0); ABG OXYGEN SATURATION 91.3 % (94-97); ABG PCO2 (T) 37.2 mmHg (35.0-48.0); ABG PO2 (T) 60.2 mmHg (75.0-100.0); FCOHb 0.3 % (0.0-3.9); FMetHb 0.1 % (0.0-1.5); FO2Hb 90.9 % (94-97); PATIENT TEMPERATURE 36.8; PEEP 12 cm H2O; RESPIRATORY RATE 20 b/min; TIDAL VOLUME 400 mL; TOTAL HEMOGLOBIN 13.6 G/dl (14.0-18.0)
--- NOTE | 2020-06-12 04:15 | NUR ---
0400 gastric residual check yielded 380ml. 300 ml returned per protocol and TF continued. Will continue to monitor.
[2020-06-12] MEDS: FENTANYL-0.9 % NACL/PF 100 ML IV PRN ×3 (05:08→20:18)
--- NOTE | 2020-06-12 06:15 | NUR ---
Problems reprioritized. Patient report given, questions answered & plan of care reviewed with Myrna RANDALL.
--- NOTE | 2020-06-12 06:38 | NUR ---
Patient in room CICU 2006. I have received report from Gege and had the opportunity to ask questions and assume patient care.
[2020-06-12] MEDS: midazolam 100mg in NS 100ml 100 ML IV PRN ×3 (07:09→22:16)
[2020-06-12] MEDS: AMBRISENTAN 5 MG PO SCH (07:10)
[2020-06-12] MEDS: furosemide 40mg tablet OGT SCH (07:11)
[2020-06-12] MEDS: lactobacillus rhamnosus 10,000 MMU CELLS/CAPSULE OGT SCH ×2 (07:11→20:19)
[2020-06-12] MEDS: amLODIPine 2.5mg tablet OGT SCH (07:11)
[2020-06-12] MEDS: sildenafil citrate 20mg tablet OGT SCH ×3 (07:11→20:19)
[2020-06-12] MEDS: docusate sodium 100mg/10ml UD cup PO SCH ×2 (07:11→20:18)
[2020-06-12] MEDS: dexamethasone 4mg/ml inj IV SCH (07:12)
[2020-06-12] MEDS: enoxaparin 40mg/0.4ml syringe SUBCUT SCH (07:12)
[2020-06-12] MEDS: K, MAG and/or Phos replacement - Verify level? MC SCH (08:05)
[2020-06-12] MEDS: losartan 25mg tablet OGT SCH (09:54)
[2020-06-12] MEDS: methylnaltrexone br 12mg/0.6ml inj***SubQ only SQ SCH (09:58)
[2020-06-12] MEDS: mupirocin 2% ointment 22GM TP SCH ×2 (12:45→20:52)
[2020-06-12] MEDS: metoclopramide 5 mg/ml inj IV SCH ×2 (14:03→20:18)
--- NOTE | 2020-06-12 14:24 | NUR ---
0700- swelling to hands pitting edema, trace edema to lower extremities, not following commands, strong cough. open draining abscess to left lower calf, warm, firm, scant amount of purulent, sanguineous drainage noted, cleaned with saline. 0800- Dr Estrada here, notified of abscess, he examined, order for mupirocin, no culture. 0830- Dr Taylor here. PaO2 am abg 61.4, no changes to vent settings. 1000- Critical care rounds, no BM, start relistor and reglan, Hgb A1c of 7.2, tolerated amlodopine and revatio this am, waiting on cozaar, only 1 Letairis in house (pt own med) nursing has been in contact with Dr Billings office and script to be sent here directly from mail rx, reported abscess, level 2 on protocol. 1200- few streaks of blood in residual. 1400- reported to Dr Taylro and that patient not on prophylaxis, protonix BID ordered.
--- NOTE | 2020-06-12 14:45 | NUR ---
Malnutrition consult: Patient's current scaled weight is stable with recent wt hx. Patient with average 75% PO intake x 1 meal and estimated nutrient needs are being met with TF at this time. Pt with no documented significant decrease in muscle strength though with BLE 1+ and bilat hand 3+ moderate edema. Pt seen at bedside with no visible fat or muscle wasting. Pt currently lacks a minimum of two criteria for malnutrition. Pt with A1c 7.2% with no documented hx of DM, RD discussed with care team at rounds. Pt would benefit from nutrition therapy education once patient stable following extubation after receiving official DM dx from physician. Will continue to follow closely. Addendum: 06/12/20 at [address] Amended: Links added.
--- NOTE | 2020-06-12 14:48 | NUR ---
1450- late entry for 1000- reported that sao2 keeps dropping slowly, currently at 89-92%
--- NOTE | 2020-06-12 18:31 | NUR ---
Problems reprioritized. Patient report given, questions answered & plan of care reviewed with Gege.
--- NOTE | 2020-06-12 18:35 | NUR ---
Patient in room CICU 2006. I have received report from Myrna RANDALL and had the opportunity to ask questions and assume patient care.
[2020-06-12] MEDS: pantoprazole 40 MG vial IV SCH (20:18)
[2020-06-12] MEDS: insulin glargine (Lantus) pen - multi-dose SQ SCH (20:52)
[2020-06-13] VITALS (23 sets, daily range): BP systolic 87–114; BP diastolic 55–72
[2020-06-13] MEDS: metoclopramide 5 mg/ml inj IV SCH ×4 (02:23→20:04)
[2020-06-13] MEDS: lactulose 20gm/30ml cup PO SCH ×4 (02:23→20:04)
[2020-06-13] MEDS: insulin regular, human U-100 3ml vial - multi-dose SQ SCH ×3 (02:25→13:49)
[2020-06-13] MEDS: mineral oil/petrolatum ophthal oint EACHEYE SCH ×4 (02:28→20:03)
[2020-06-13] MEDS: FENTANYL-0.9 % NACL/PF 100 ML IV PRN ×4 (03:01→18:57)
[2020-06-13] MEDS: ipratropium/albuterol 3ml nebule NEB SCH ×5 (03:02→19:21)
--- NOTE | 2020-06-13 04:24 | NUR ---
0400 Gastric residual check yielded 350ml. 300ml returned per protocol and TF continued. Will continue to monitor.
[2020-06-13 04:37] LABS: BASOPHILS % (AUTO) 0.1 % (0-1); EOSINOPHILS % (AUTO) 0.1 % (0-6); HEMATOCRIT 39.1 % (42.0-52.0); HEMOGLOBIN 12.9 g/dl (14.0-17.9); LYMPHOCYTES # (AUTO) 1.2 X10'3 (1.1-4.8); LYMPHOCYTES % (AUTO) 5.9 % (21-51); MEAN CORPUSCULAR HEMOGLOBIN 31.7 PG (27.0-31.0); MEAN CORPUSCULAR HGB CONC 33.1 g/dL (33.0-36.5); MEAN CORPUSCULAR VOLUME 95.6 FL (78-98); MEAN PLATELET VOLUME 8.4 FL (7.4-10.4); MONOCYTES # (AUTO) 3.2 X10'3 (0-0.9); MONOCYTES % (AUTO) 15.7 % (2-12); NEUTROPHILS # (AUTO) 15.8 X10'3 (1.8-7.7); NEUTROPHILS % (AUTO) 78.2 % (42-75); PLATELET COUNT 392 X10'3 (140-440); RED BLOOD COUNT 4.09 X10'6 (4.70-6.10); RED CELL DISTRIBUTION WIDTH 13.8 % (11.5-14.5); WHITE BLOOD COUNT 20.2 X10'3 (4.5-11.0)
[2020-06-13] MEDS: midazolam 100mg in NS 100ml 100 ML IV PRN ×4 (04:41→20:53)
[2020-06-13] MEDS: NORepinephrine 8mg/ 250ml NS 250 ML IV PRN (04:42)
[2020-06-13 04:56] LABS: ALANINE AMINOTRANSFERASE 30 U/L (12-78); ALBUMIN 2.2 G/DL (3.4-5.0); ALBUMIN/GLOBULIN RATIO 0.6 (1.1-1.5); ALKALINE PHOSPHATASE 48 IU/L (46-116); ANION GAP 8 (8-16); ASPARTATE AMINO TRANSFERASE 21 U/L (10-37); BILIRUBIN,TOTAL 0.5 MG/DL (0.1-1.0); BLOOD UREA NITROGEN 42 MG/DL (7-18); BUN/CREATININE RATIO 41.2 (5.4-32.0); C-REACTIVE PROTEIN 1.43 MG/DL (0.0-0.5); CALCIUM 8.5 MG/DL (8.5-10.1); CHLORIDE 109 MMOL/L (99-107); CREATININE 1.02 MG/DL (0.60-1.10); GLUCOSE 127 MG/DL (70-104); MAGNESIUM 2.2 MG/DL (1.5-2.4); POTASSIUM 4.2 MMOL/L (3.5-5.1); PREALBUMIN 17.4 MG/DL (19-36); SODIUM 144 MMOL/L (135-145); TOTAL PROTEIN 6.1 G/DL (6.4-8.2); TRIGLYCERIDES 76 MG/DL (20-135); eGFR 76 ML/MIN
[2020-06-13 05:00] LABS: TOTAL CELLS COUNTED 100
[2020-06-13 05:01] LABS: PLATELET ESTIMATE NORMAL
[2020-06-13 05:36] LABS: ABG BASE EXCESS -0.2 mmol/L (-2.0-2.0); ABG HCO3 24.9 mmol/L (22.0-26.0); ABG OXYGEN SATURATION 93.1 % (94-97); ABG PCO2 (T) 43.4 mmHg (35.0-48.0); ABG PO2 (T) 70.4 mmHg (75.0-100.0); ALLEN'S TEST Modified; FMetHb 0.1 % (0.0-1.5); PATIENT TEMPERATURE 37.4; PEEP 12 cm H2O; RESPIRATORY RATE 20 b/min; TIDAL VOLUME 400 mL; TOTAL HEMOGLOBIN 14.2 G/dl (14.0-18.0)
--- NOTE | 2020-06-13 06:30 | NUR ---
Problems reprioritized. Patient report given, questions answered & plan of care reviewed with Selene RANDALL.
[2020-06-13] MEDS: AMBRISENTAN 5 MG PO SCH (07:17)
[2020-06-13] MEDS: sildenafil citrate 20mg tablet OGT SCH ×3 (07:18→20:04)
[2020-06-13] MEDS: amLODIPine 2.5mg tablet OGT SCH (07:18)
[2020-06-13] MEDS: losartan 25mg tablet OGT SCH (07:19)
[2020-06-13] MEDS: docusate sodium 100mg/10ml UD cup PO SCH ×2 (07:20→20:04)
[2020-06-13] MEDS: furosemide 40mg tablet OGT SCH (07:20)
[2020-06-13] MEDS: pantoprazole 40 MG vial IV SCH ×2 (07:20→20:04)
[2020-06-13] MEDS: lactobacillus rhamnosus 10,000 MMU CELLS/CAPSULE OGT SCH ×2 (07:20→20:04)
[2020-06-13] MEDS: dexamethasone 4mg/ml inj IV SCH (07:22)
[2020-06-13] MEDS ORDERED: enoxaparin 40mg/0.4ml syringe SUBCUT SCH (08:00)
[2020-06-13] MEDS: K, MAG and/or Phos replacement - Verify level? MC SCH (08:00)
[2020-06-13] MEDS: mupirocin 2% ointment 22GM TP SCH ×3 (08:15→20:03)
[2020-06-13] MEDS: cefepime 2g/NS 100ml ADVANTAGE 100 ML IV SCH ×2 (12:35→20:04)
[2020-06-13] MEDS: acetaminophen 325mg/10.15ml oral unit dose solution OGT PRN (12:57)
[2020-06-13 14:13] LABS: CLARITY,URINE SLIGHTLY CLOUDY (Clear); COLOR,URINE YELLOW (Yellow); GLUCOSE, URINE NEGATIVE (Neg); KETONES,URINE NEGATIVE (Neg); LEUKOCYTE ESTERASE ,URINE NEGATIVE (Neg); NITRITES, URINE NEGATIVE (Neg); OCCULT BLOOD,URINE NEGATIVE (Neg); PROTEIN,URINE TRACE mg/dl (Neg)
[2020-06-13 14:14] LABS: UA COLLECTION TYPE FOLEY CATH
[2020-06-13 14:24] LABS: BACTERIA,URINE FEW /HPF (Neg); RBC,URINE 0-2 /HPF (0-2); SQUAMOUS EPITHELIAL CELL,UR FEW /LPF (FEW); WBC,URINE 0-4 /HPF (0-4)
[2020-06-13] MEDS: vancomycin/NS 1 GM ADD-VANTAGE 250 ML IV SCH (16:33)
[2020-06-13] MEDS: dextrose 5%-normal saline 1,000 ML IV SCH (16:50)
--- NOTE | 2020-06-13 17:16 | NUR ---
Pt has had multiple episodes of vomiting. Gastric residual remain >300. Pt continues to receive laxatives. LBM 06/05. Per Dr. Taylor hold TF until the morning and start D5NS at 50cc/hr.
--- NOTE | 2020-06-13 18:20 | NUR ---
Patient in room CICU 2006. I have received report from Selene RANDALL and had the opportunity to ask questions and assume patient care.
[2020-06-13] MEDS: insulin glargine (Lantus) pen - multi-dose SQ SCH (20:05)
[2020-06-13] MEDS: enoxaparin 40mg/0.4ml syringe SUBCUT SCH (20:05)
[2020-06-13 23:02] LABS: ALANINE AMINOTRANSFERASE 32 U/L (12-78); ALBUMIN 2.3 G/DL (3.4-5.0); ALBUMIN/GLOBULIN RATIO 0.5 (1.1-1.5); ALKALINE PHOSPHATASE 53 IU/L (46-116); ANION GAP 7 (8-16); ASPARTATE AMINO TRANSFERASE 26 U/L (10-37); BILIRUBIN,TOTAL 0.7 MG/DL (0.1-1.0); BLOOD UREA NITROGEN 51 MG/DL (7-18); BUN/CREATININE RATIO 38.6 (5.4-32.0); CHLORIDE 110 MMOL/L (99-107); CREATININE 1.32 MG/DL (0.60-1.10); GLUCOSE 100 MG/DL (70-104); MAGNESIUM 2.3 MG/DL (1.5-2.4); PHOSPHORUS 4.9 MG/DL (2.3-4.5); POTASSIUM 4.8 MMOL/L (3.5-5.1); PREALBUMIN 18.3 MG/DL (19-36); SODIUM 144 MMOL/L (135-145); TOTAL CARBON DIOXIDE 27.5 MMOL/L (24-32); TOTAL PROTEIN 6.7 G/DL (6.4-8.2); TRIGLYCERIDES 75 MG/DL (20-135); eGFR 56 ML/MIN
[2020-06-14] VITALS (24 sets, daily range): BP systolic 90–111; BP diastolic 56–74
[2020-06-14] MEDS: FENTANYL-0.9 % NACL/PF 100 ML IV PRN ×4 (00:08→21:43)
[2020-06-14] MEDS: ipratropium/albuterol 3ml nebule NEB SCH ×7 (00:19→23:06)
[2020-06-14] MEDS: lactulose 20gm/30ml cup PO SCH ×2 (02:02→07:11)
[2020-06-14] MEDS: vancomycin/NS 1 GM ADD-VANTAGE 250 ML IV SCH ×2 (02:02→13:41)
[2020-06-14] MEDS: metoclopramide 5 mg/ml inj IV SCH ×3 (02:02→13:41)
[2020-06-14] MEDS: mineral oil/petrolatum ophthal oint EACHEYE SCH ×4 (02:08→19:51)
[2020-06-14] MEDS: midazolam 100mg in NS 100ml 100 ML IV PRN ×4 (02:33→19:36)
[2020-06-14 02:41] LABS: BASOPHILS # (AUTO) 0.2 X10'3 (0-0.2); BASOPHILS % (AUTO) 0.8 % (0-1); EOSINOPHILS % (AUTO) 0.1 % (0-6); HEMATOCRIT 43.4 % (42.0-52.0); LYMPHOCYTES # (AUTO) 1.1 X10'3 (1.1-4.8); LYMPHOCYTES % (AUTO) 4.8 % (21-51); MEAN CORPUSCULAR HEMOGLOBIN 30.9 PG (27.0-31.0); MEAN CORPUSCULAR HGB CONC 32.3 g/dL (33.0-36.5); MEAN CORPUSCULAR VOLUME 95.8 FL (78-98); MEAN PLATELET VOLUME 8.1 FL (7.4-10.4); MONOCYTES % (AUTO) 16.7 % (2-12); NEUTROPHILS # (AUTO) 18.4 X10'3 (1.8-7.7); NEUTROPHILS % (AUTO) 77.6 % (42-75); PLATELET COUNT 425 X10'3 (140-440); RED BLOOD COUNT 4.53 X10'6 (4.70-6.10); RED CELL DISTRIBUTION WIDTH 13.9 % (11.5-14.5); WHITE BLOOD COUNT 23.7 X10'3 (4.5-11.0)
[2020-06-14 02:54] LABS: D-DIMER 1.62 MG/L FEU (0-0.50)
[2020-06-14 02:59] LABS: ALANINE AMINOTRANSFERASE 30 U/L (12-78); ALBUMIN 2.3 G/DL (3.4-5.0); ALBUMIN/GLOBULIN RATIO 0.5 (1.1-1.5); ALKALINE PHOSPHATASE 53 IU/L (46-116); ANION GAP 5 (8-16); ASPARTATE AMINO TRANSFERASE 24 U/L (10-37); BILIRUBIN,TOTAL 0.7 MG/DL (0.1-1.0); BLOOD UREA NITROGEN 51 MG/DL (7-18); BUN/CREATININE RATIO 41.8 (5.4-32.0); C-REACTIVE PROTEIN 4.45 MG/DL (0.0-0.5); CALCIUM 8.9 MG/DL (8.5-10.1); CHLORIDE 110 MMOL/L (99-107); CREATININE 1.22 MG/DL (0.60-1.10); GLUCOSE 94 MG/DL (70-104); MAGNESIUM 2.3 MG/DL (1.5-2.4); PHOSPHORUS 4.4 MG/DL (2.3-4.5); POTASSIUM 4.7 MMOL/L (3.5-5.1); SODIUM 144 MMOL/L (135-145); TOTAL CARBON DIOXIDE 28.6 MMOL/L (24-32); TOTAL PROTEIN 6.6 G/DL (6.4-8.2); eGFR 61 ML/MIN
[2020-06-14 03:05] LABS: PLATELET ESTIMATE NORMAL; TOTAL CELLS COUNTED 100
[2020-06-14 04:51] LABS: ABG BASE EXCESS -3.7 mmol/L (-2.0-2.0); ABG HCO3 21.1 mmol/L (22.0-26.0); ABG OXYGEN SATURATION 91.5 % (94-97); ABG PCO2 (T) 39.3 mmHg (35.0-48.0); ABG PO2 (T) 70.5 mmHg (75.0-100.0); ALLEN'S TEST Modified; FCOHb 0.1 % (0.0-3.9); FMetHb 0.3 % (0.0-1.5); FO2Hb 91.1 % (94-97); PATIENT TEMPERATURE 37.9; PEEP 12 cm H2O; RESPIRATORY RATE 20 b/min; TIDAL VOLUME 400 mL; TOTAL HEMOGLOBIN 14.7 G/dl (14.0-18.0)
--- NOTE | 2020-06-14 06:22 | NUR ---
Problems reprioritized. Patient report given, questions answered & plan of care reviewed with Selene RANDALL.
[2020-06-14] MEDS: methylnaltrexone br 12mg/0.6ml inj***SubQ only SQ SCH (07:10)
[2020-06-14] MEDS: pantoprazole 40 MG vial IV SCH ×2 (07:11→20:29)
[2020-06-14] MEDS: docusate sodium 100mg/10ml UD cup PO SCH (07:11)
[2020-06-14] MEDS: dexamethasone 4mg/ml inj IV SCH ×2 (07:11→20:30)
[2020-06-14] MEDS: enoxaparin 40mg/0.4ml syringe SUBCUT SCH ×2 (07:12→20:00)
[2020-06-14] MEDS: lactobacillus rhamnosus 10,000 MMU CELLS/CAPSULE OGT SCH ×2 (07:12→20:30)
[2020-06-14] MEDS: AMBRISENTAN 5 MG PO SCH (07:12)
[2020-06-14] MEDS: cefepime 2g/NS 100ml ADVANTAGE 100 ML IV SCH ×2 (07:12→20:29)
[2020-06-14] MEDS: furosemide 40mg tablet OGT SCH (07:13)
[2020-06-14] MEDS: sildenafil citrate 20mg tablet OGT SCH ×3 (07:13→20:30)
[2020-06-14] MEDS: losartan 25mg tablet OGT SCH (07:13)
[2020-06-14] MEDS: amLODIPine 2.5mg tablet OGT SCH (07:14)
[2020-06-14] MEDS: K, MAG and/or Phos replacement - Verify level? MC SCH (08:00)
[2020-06-14] MEDS ORDERED: mineral oil 133ml enema RC ONE (09:30)
[2020-06-14] MEDS: mupirocin 2% ointment 22GM TP SCH ×3 (10:29→22:13)
[2020-06-14] MEDS: metroNIDAZOLE-Flagyl 500mg/NS 100 ML IV SCH ×2 (10:58→16:02)
[2020-06-14] MEDS ORDERED: dextrose ORAL solution 15 GM/59 ML bottle OGT PRN ×2 (11:23)
--- NOTE | 2020-06-14 13:26 | NUR ---
Reassessment: Patient documented with GRV range of 200-400 mL and per RN notes with multiple episodes of emesis. TF on hold at this time and pt receiving D5 at 50 mL/hr providing 204 kcal. Pt still with no BM since 06/05 despite receiving routine bowel care (started 06/11), opioid antagonist (started 06/12), and a prokinetic agent (started 06/12). Pt received one time dose of mineral oil enema today. Pt s/p KUB which suggests a SBO per report. Pt would benefit from TPN if unable to resume TF in view of possible SBO. Will continue to follow closely. Recommendations: 1) Resume continuous OGTF as medically indicated using Vital High Protein at 75 ml/hr goal; to provide 1800 ml volume, 1512 ml water, 1800 kcals, and 158 g protein. 2) Once TF, additional water flush per MD; monitor serum Na 3) Once TF, prealbumin and TG q Wednesday/; daily weights 4) IF unable to resume TF, continuous TPN using 3:1 Clinimix-E 11/28 with 100 mL 20% intralipids at goal rate of 110 mL/hr 5) IF TPN, prealbumin and TG q Wednesday/; daily weights 6) routine bowel care; opioid antagonist and prokinetic agent per MD 7) upon extubation; advance diet as medically indicated to heart healthy CHO controlled 8) DM education following extubation once stable after receiving official DM dx from physician; A1c 7.2% Addendum: 06/14/20 at [address] Amended: Links added.
[2020-06-14] MEDS: lactulose 20gm/30ml cup OGT SCH ×2 (13:40→20:29)
[2020-06-14] MEDS: insulin regular, human U-100 3ml vial - multi-dose SQ SCH (15:17)
[2020-06-14] MEDS: NORepinephrine 8mg/ 250ml NS 250 ML IV PRN (16:40)
--- NOTE | 2020-06-14 18:03 | NUR ---
Pt abdomen remains firm and distended with hypoactive bowel sounds. TF continued to be held. Enema administered no bm. KUB shows increasing air in small bowel. NGT output 400 green with scants amount of red. Orders for CT abdomen with oral contrast in the am.
[2020-06-14] MEDS: dextrose 5%-normal saline 1,000 ML IV SCH (19:53)
--- NOTE | 2020-06-14 19:57 | NUR ---
1830:Patient in room [facility] 2006. I have received report from Inna RANDALL and had the opportunity to ask questions and assume patient care. 1956: Small amount of blood noted noted via OG tube. Suction device found to be set at high intermittent suction. Turned down to low, intermittent suction per protocol. OG placement reviewed on KUB. Repositioned OG and checked placement via auscultation. Will continue to monitor. Addendum: 06/14/20 at 2006 by Kezia Batista RN Amended: Links added.
[2020-06-14] MEDS: docusate sodium 100mg/10ml UD cup OGT SCH (20:29)
[2020-06-14] MEDS: diatr meglu/diatrizoate 30ml oral sol.-(3 dose) bottle PO SCH (20:31)
[2020-06-14] MEDS: insulin glargine (Lantus) pen - multi-dose SQ SCH (21:46)
[2020-06-14] MEDS ORDERED: insulin Lispro (HumaLOG) vial - multi-dose SQ SCH (21:55)
[2020-06-15] VITALS (24 sets, daily range): BP systolic 94–125; BP diastolic 56–76
[2020-06-15] MEDS: metroNIDAZOLE-Flagyl 500mg/NS 100 ML IV SCH ×3 (00:08→16:27)
[2020-06-15] MEDS ORDERED: VANCOMYCIN LEVEL IV ONE (01:30)
[2020-06-15] MEDS: lactulose 20gm/30ml cup OGT SCH ×4 (02:35→20:00)
[2020-06-15] MEDS: FENTANYL-0.9 % NACL/PF 100 ML IV PRN ×2 (02:36→08:31)
[2020-06-15] MEDS: vancomycin/NS 1 GM ADD-VANTAGE 250 ML IV SCH (02:36)
[2020-06-15] MEDS: mineral oil/petrolatum ophthal oint EACHEYE SCH ×4 (02:37→20:02)
[2020-06-15] MEDS: ipratropium/albuterol 3ml nebule NEB SCH ×6 (02:47→23:38)
[2020-06-15 02:49] LABS: EOSINOPHILS % (AUTO) 0 % (0-6); LYMPHOCYTES # (AUTO) 0.8 X10'3 (1.1-4.8)
[2020-06-15 02:51] LABS: BASOPHILS % (AUTO) 0 % (0-1); HEMOGLOBIN 12.7 g/dl (14.0-17.9); LYMPHOCYTES % (AUTO) 3.3 % (21-51); MEAN CORPUSCULAR HGB CONC 32.5 g/dL (33.0-36.5); MEAN CORPUSCULAR VOLUME 95.5 FL (78-98); MEAN PLATELET VOLUME 8.5 FL (7.4-10.4); MONOCYTES # (AUTO) 1.7 X10'3 (0-0.9); MONOCYTES % (AUTO) 6.8 % (2-12); NEUTROPHILS # (AUTO) 22.1 X10'3 (1.8-7.7); NEUTROPHILS % (AUTO) 89.9 % (42-75); PLATELET COUNT 368 X10'3 (140-440); RED BLOOD COUNT 4.08 X10'6 (4.70-6.10); RED CELL DISTRIBUTION WIDTH 13.6 % (11.5-14.5); WHITE BLOOD COUNT 24.6 X10'3 (4.5-11.0)
[2020-06-15 02:57] LABS: ALANINE AMINOTRANSFERASE 24 U/L (12-78); ALBUMIN 1.9 G/DL (3.4-5.0); ALBUMIN/GLOBULIN RATIO 0.5 (1.1-1.5); ALKALINE PHOSPHATASE 49 IU/L (46-116); ANION GAP 3 (8-16); ASPARTATE AMINO TRANSFERASE 18 U/L (10-37); BILIRUBIN,TOTAL 0.6 MG/DL (0.1-1.0); BLOOD UREA NITROGEN 45 MG/DL (7-18); BUN/CREATININE RATIO 43.7 (5.4-32.0); CALCIUM 8.4 MG/DL (8.5-10.1); CHLORIDE 109 MMOL/L (99-107); CREATININE 1.03 MG/DL (0.60-1.10); GLUCOSE 151 MG/DL (70-104); MAGNESIUM 2.3 MG/DL (1.5-2.4); PHOSPHORUS 3.4 MG/DL (2.3-4.5); POTASSIUM 4.7 MMOL/L (3.5-5.1); SODIUM 140 MMOL/L (135-145); TOTAL CARBON DIOXIDE 27.9 MMOL/L (24-32); TOTAL PROTEIN 5.9 G/DL (6.4-8.2); VANCOMYCIN,TROUGH 13.3 UG/ML (6.0-14.0); eGFR 75 ML/MIN
[2020-06-15 04:06] LABS: ABG BASE EXCESS 1.1 mmol/L (-2.0-2.0); ABG HCO3 26.9 mmol/L (22.0-26.0); ABG OXYGEN SATURATION 93.3 % (94-97); ABG PCO2 (T) 46.7 mmHg (35.0-48.0); ABG PO2 (T) 67.4 mmHg (75.0-100.0); ALLEN'S TEST POSITIVE; FCOHb 0.2 % (0.0-3.9); FMetHb 0.2 % (0.0-1.5); FO2Hb 92.9 % (94-97); PATIENT TEMPERATURE 36.7; PEEP 12 cm H2O; RESPIRATORY RATE 20 b/min; TIDAL VOLUME 400 mL; TOTAL HEMOGLOBIN 13.8 G/dl (14.0-18.0)
[2020-06-15 04:12] LABS: PLATELET ESTIMATE NORMAL; TOTAL CELLS COUNTED 100
--- NOTE | 2020-06-15 04:18 | NUR ---
Titrating sedation for patient comfort and synchrony with ventilator. Titrating Levophed as tolerated to maintain MAP of greater than 65. OG output observed to be light brown to clear.
--- NOTE | 2020-06-15 06:27 | NUR ---
Problems reprioritized. Patient report given, questions answered & plan of care reviewed with Nnamdi RANDALL.
[2020-06-15] MEDS: diatr meglu/diatrizoate 30ml oral sol.-(3 dose) bottle PO SCH ×2 (06:57→11:02)
[2020-06-15] MEDS: losartan 25mg tablet OGT SCH (07:29)
[2020-06-15] MEDS: AMBRISENTAN 5 MG PO SCH (08:00)
[2020-06-15] MEDS: amLODIPine 2.5mg tablet OGT SCH (08:00)
[2020-06-15] MEDS: K, MAG and/or Phos replacement - Verify level? MC SCH (08:00)
[2020-06-15] MEDS: furosemide 40mg tablet OGT SCH (08:21)
[2020-06-15] MEDS: sildenafil citrate 20mg tablet OGT SCH ×3 (08:21→20:08)
[2020-06-15] MEDS: pantoprazole 40 MG vial IV SCH ×2 (08:43→20:08)
[2020-06-15] MEDS: dexamethasone 4mg/ml inj IV SCH ×2 (08:44→20:00)
[2020-06-15] MEDS: lactobacillus rhamnosus 10,000 MMU CELLS/CAPSULE OGT SCH ×2 (08:44→20:00)
[2020-06-15] MEDS: docusate sodium 100mg/10ml UD cup OGT SCH ×2 (08:45→20:00)
[2020-06-15] MEDS: enoxaparin 40mg/0.4ml syringe SUBCUT SCH ×2 (08:45→20:00)
[2020-06-15] MEDS: mupirocin 2% ointment 22GM TP SCH ×3 (08:46→20:09)
[2020-06-15] MEDS: dextrose 5%-normal saline 1,000 ML IV SCH (08:50)
--- NOTE | 2020-06-15 08:54 | NUR ---
Patient on D5 while TF on hold for CT abd. Per DR Taylor, held AM insulin for BG 150, and reduced d5 to 25
[2020-06-15] MEDS: cefepime 2g/NS 100ml ADVANTAGE 100 ML IV SCH ×2 (11:10→20:01)
[2020-06-15] MEDS: midazolam 100mg in NS 100ml 100 ML IV PRN ×3 (12:06→20:02)
--- NOTE | 2020-06-15 12:36 | NUR ---
Echo called with results and asked me to report them to MD. Called Dr Taylor to report RVSP of 80 and EF of 55%. Also reported CT results. Order to increase d5 to 60
[2020-06-15] MEDS: dextrose 5%-1/2 normal saline 1,000 ML IV SCH (13:31)
--- NOTE | 2020-06-15 13:33 | NUR ---
holding lactulose per dr blevins note
[2020-06-15] MEDS: linezolid 600mg/300ml PREMIX 300 ML IV SCH ×2 (13:51→20:01)
[2020-06-15] MEDS ORDERED: VANCOmycin 1250MG/NS 250ml Bag 250 ML IV SCH (14:00)
[2020-06-15] MEDS ORDERED: insulin Lispro (HumaLOG) vial - multi-dose SQ SCH (14:05)
[2020-06-15] MEDS ORDERED: neostigmine methylsulfate 1 MG/ML 10ml vial IV ONE (15:45)
[2020-06-15] MEDS: HYDROmorphone 1 mg/ml syringe IV PRN ×3 (17:16→22:07)
--- NOTE | 2020-06-15 18:30 | NUR ---
Patient in room CICU 2006. I have received report from Nnamdi RANDALL and had the opportunity to ask questions and assume patient care.
[2020-06-15] MEDS: insulin glargine (Lantus) pen - multi-dose SQ SCH (20:20)
[2020-06-16] VITALS (24 sets, daily range): BP systolic 86–126; BP diastolic 50–77
[2020-06-16] MEDS: metroNIDAZOLE-Flagyl 500mg/NS 100 ML IV SCH ×3 (00:14→15:42)
[2020-06-16] MEDS: HYDROmorphone 1 mg/ml syringe IV PRN ×8 (00:18→22:30)
[2020-06-16] MEDS: lactulose 20gm/30ml cup OGT SCH ×3 (01:44→13:12)
[2020-06-16] MEDS: mineral oil/petrolatum ophthal oint EACHEYE SCH ×4 (02:19→20:04)
[2020-06-16] MEDS: midazolam 100mg in NS 100ml 100 ML IV PRN ×5 (02:20→20:03)
[2020-06-16] MEDS: NORepinephrine 8mg/ 250ml NS 250 ML IV PRN (02:20)
[2020-06-16] MEDS: ipratropium/albuterol 3ml nebule NEB SCH ×6 (02:48→23:10)
[2020-06-16 03:30] LABS: BASOPHILS % (AUTO) 0.1 % (0-1); EOSINOPHILS % (AUTO) 0.1 % (0-6); HEMATOCRIT 37.9 % (42.0-52.0); HEMOGLOBIN 12.3 g/dl (14.0-17.9); LYMPHOCYTES # (AUTO) 0.7 X10'3 (1.1-4.8); LYMPHOCYTES % (AUTO) 3.4 % (21-51); MEAN CORPUSCULAR HEMOGLOBIN 30.9 PG (27.0-31.0); MEAN CORPUSCULAR HGB CONC 32.5 g/dL (33.0-36.5); MEAN CORPUSCULAR VOLUME 95.2 FL (78-98); MEAN PLATELET VOLUME 9.7 FL (7.4-10.4); MONOCYTES # (AUTO) 1.1 X10'3 (0-0.9); MONOCYTES % (AUTO) 5.9 % (2-12); NEUTROPHILS # (AUTO) 17.6 X10'3 (1.8-7.7); NEUTROPHILS % (AUTO) 90.5 % (42-75); PLATELET COUNT 279 X10'3 (140-440); RED BLOOD COUNT 3.98 X10'6 (4.70-6.10); RED CELL DISTRIBUTION WIDTH 13.8 % (11.5-14.5); WHITE BLOOD COUNT 19.4 X10'3 (4.5-11.0)
[2020-06-16 03:42] LABS: ALANINE AMINOTRANSFERASE 21 U/L (12-78); ALBUMIN 1.9 G/DL (3.4-5.0); ALBUMIN/GLOBULIN RATIO 0.5 (1.1-1.5); ALKALINE PHOSPHATASE 44 IU/L (46-116); ANION GAP 5 (8-16); ASPARTATE AMINO TRANSFERASE 15 U/L (10-37); BILIRUBIN,TOTAL 0.4 MG/DL (0.1-1.0); BLOOD UREA NITROGEN 43 MG/DL (7-18); BUN/CREATININE RATIO 46.2 (5.4-32.0); C-REACTIVE PROTEIN 5.45 MG/DL (0.0-0.5); CALCIUM 8.8 MG/DL (8.5-10.1); CHLORIDE 111 MMOL/L (99-107); CREATININE 0.93 MG/DL (0.60-1.10); GLUCOSE 143 MG/DL (70-104); MAGNESIUM 2.3 MG/DL (1.5-2.4); POTASSIUM 4.4 MMOL/L (3.5-5.1); SODIUM 145 MMOL/L (135-145); TOTAL CARBON DIOXIDE 29.3 MMOL/L (24-32); TOTAL PROTEIN 5.8 G/DL (6.4-8.2); eGFR 84 ML/MIN
[2020-06-16 04:36] LABS: ABG HCO3 26.8 mmol/L (22.0-26.0); ABG OXYGEN SATURATION 93.2 % (94-97); ABG PCO2 (T) 40.5 mmHg (35.0-48.0); ABG PO2 (T) 63.9 mmHg (75.0-100.0); FCOHb 0.2 % (0.0-3.9); FMetHb 0.1 % (0.0-1.5); FO2Hb 92.9 % (94-97); PATIENT TEMPERATURE 36.1; PEEP 12 cm H2O; RESPIRATORY RATE 20 b/min; TIDAL VOLUME 400 mL; TOTAL HEMOGLOBIN 13.5 G/dl (14.0-18.0)
[2020-06-16] MEDS: dextrose 5%-1/2 normal saline 1,000 ML IV SCH ×2 (05:43→10:28)
--- NOTE | 2020-06-16 06:29 | NUR ---
Problems reprioritized. Patient report given, questions answered & plan of care reviewed with Myrna.
--- NOTE | 2020-06-16 06:54 | NUR ---
Patient in room CICU 2006. I have received report from Vivien and had the opportunity to ask questions and assume patient care.
[2020-06-16] MEDS: linezolid 600mg/300ml PREMIX 300 ML IV SCH ×2 (07:57→20:02)
[2020-06-16] MEDS: cefepime 2g/NS 100ml ADVANTAGE 100 ML IV SCH ×2 (07:57→20:02)
[2020-06-16] MEDS: lactobacillus rhamnosus 10,000 MMU CELLS/CAPSULE OGT SCH ×2 (07:58→20:02)
[2020-06-16] MEDS: dexamethasone 4mg/ml inj IV SCH ×2 (07:59→20:03)
[2020-06-16] MEDS: docusate sodium 100mg/10ml UD cup OGT SCH ×2 (07:59→20:02)
[2020-06-16] MEDS: K, MAG and/or Phos replacement - Verify level? MC SCH (08:00)
[2020-06-16] MEDS: AMBRISENTAN 5 MG PO SCH (08:00)
[2020-06-16] MEDS: sildenafil citrate 20mg tablet OGT SCH ×3 (08:00→20:02)
[2020-06-16] MEDS: losartan 25mg tablet OGT SCH (08:00)
[2020-06-16] MEDS: enoxaparin 40mg/0.4ml syringe SUBCUT SCH ×2 (08:00→20:03)
[2020-06-16] MEDS: amLODIPine 2.5mg tablet OGT SCH (08:00)
[2020-06-16] MEDS: pantoprazole 40 MG vial IV SCH ×2 (08:00→20:17)
[2020-06-16] MEDS: mupirocin 2% ointment 22GM TP SCH ×3 (08:04→20:04)
--- NOTE | 2020-06-16 11:05 | NUR ---
Zyvox consult: Pt started on zyvox today per EMR; ed deferred until more appropriate. Pt s/p CT showing pseudo-obstruction w/ one time neostigmine dosage yesterday per MD note. Small BM's noted yesterday though still no significant BM since admit 11 days; receiving routine lactulose. TF to restart at [facility] today per RN; D5/NS at 60ml/hr currently running w/ Na 145. RD d/w RN regarding opioid antagonist if MD agreeable since pt receiving dilaudid and midazolam; was previously receiving relistor and reglan though they were discontinued per EMR. Will monitor for EN tolerance and additional bowel care needs. Recommendations: 1) Resume continuous OGTF as medically indicated using Vital High Protein at 75 ml/hr goal; to provide 1800 ml volume, 1512 ml water, 1800 kcals, and 158 g protein. 2) Once TF, additional water flush per MD; monitor serum Na 3) prealbumin and TG q Wednesday/; daily weights 4) IF unable to resume TF, continuous TPN using 3:1 Clinimix-E 11/28 with 100 mL 20% intralipids at goal rate of 110 mL/hr 5) routine bowel care; opioid antagonist and prokinetic agent per MD 6) upon extubation; advance diet as medically indicated to heart healthy, CHO controlled 8) DM/zyvox educations following extubation once stable after receiving official DM dx from physician; A1c 7.2%. Started on zyvox this admit. Addendum: 06/16/20 at [address] Amended: Links added.
--- NOTE | 2020-06-16 11:14 | NUR ---
0800- patient opens eyes periodically, not following commands, will raise head and shoulders up off of bed. strong cough, copious oral secretions, generalized edema, with +4 at bilateral hands, patient cool to touch with discoloration at hands. Turned up heat in room and added a cover. abscess to left calf red with a dark open center, cleaned with normal saline and applied mupirocin and optifoam 1000- Dr plascencia
--- NOTE | 2020-06-16 11:17 | NUR ---
1000 Dr Taylor rounds, resume tube feed, start at 20 cc/hr, resume relistor, decrease to discontinue IVF as BGL tolerates, PEEP to decrease to 10, RT at bedside and aware of order.
--- NOTE | 2020-06-16 11:28 | NUR ---
TF Consult "Resume TF at 20ml/hr": Pt prior TF diet was cancelled for consult; will place prior recs again in EMR and monitor for EN tolerance. Recommendations: 1) Continuous OGTF per MD using Vital High Protein at 75 ml/hr goal; to provide 1800 ml volume, 1512 ml water, 1800 kcals, and 158 g protein. 2) additional water flush per MD; monitor serum Na and ensure EN tolerance before considering free water addition 3) prealbumin and TG q Wednesday/; daily weights 4) routine bowel care; opioid antagonist and prokinetic agent per MD 5) upon extubation; advance diet as medically indicated to heart healthy, CHO controlled 6) DM/zyvox educations following extubation once stable after receiving official DM dx from physician; A1c 7.2%. Started on zyvox this admit. Addendum: 06/16/20 at [address] Amended: Links added. Addendum: 06/18/20 at [address] CORRECTION: TF Consult "Resume TF at 20ml/hr": Will place prior recs again in EMR and monitor for EN tolerance.
[2020-06-16] MEDS: insulin regular, human U-100 3ml vial - multi-dose SQ SCH ×2 (13:08→20:16)
[2020-06-16] MEDS: methylnaltrexone br 12mg/0.6ml inj***SubQ only SQ SCH (13:13)
--- NOTE | 2020-06-16 18:23 | NUR ---
Problems reprioritized. Patient report given, questions answered & plan of care reviewed with Vivien.
--- NOTE | 2020-06-16 18:27 | NUR ---
Patient in room CICU 2006. I have received report from Myrna RANDALL and had the opportunity to ask questions and assume patient care.
[2020-06-16] MEDS: insulin glargine (Lantus) pen - multi-dose SQ SCH (20:17)
--- NOTE | 2020-06-16 21:39 | NUR ---
S/O left message that she has not been updated. Attempted to call number back that was left and there was no one at that number by that name. Attempted to call cell phone number that is on the chart and number not able to take calls at this time.
[2020-06-17] VITALS (24 sets, daily range): BP systolic 87–113; BP diastolic 54–71
[2020-06-17] MEDS: metroNIDAZOLE-Flagyl 500mg/NS 100 ML IV SCH ×2 (00:14→07:43)
[2020-06-17] MEDS: midazolam 100mg in NS 100ml 100 ML IV PRN ×6 (00:14→22:59)
[2020-06-17] MEDS ORDERED: VANCOMYCIN LEVEL IV ONE (01:30)
[2020-06-17] MEDS: insulin regular, human U-100 3ml vial - multi-dose SQ SCH ×4 (02:10→20:47)
[2020-06-17] MEDS: HYDROmorphone 1 mg/ml syringe IV PRN ×6 (02:11→18:39)
[2020-06-17] MEDS: mineral oil/petrolatum ophthal oint EACHEYE SCH ×4 (02:11→20:28)
[2020-06-17 03:10] LABS: BASOPHILS # (AUTO) 0.1 X10'3 (0-0.2); BASOPHILS % (AUTO) 0.3 % (0-1); EOSINOPHILS % (AUTO) 0 % (0-6); HEMATOCRIT 36.2 % (42.0-52.0); HEMOGLOBIN 11.7 g/dl (14.0-17.9); LYMPHOCYTES # (AUTO) 0.7 X10'3 (1.1-4.8); LYMPHOCYTES % (AUTO) 3.5 % (21-51); MEAN CORPUSCULAR HEMOGLOBIN 30.7 PG (27.0-31.0); MEAN CORPUSCULAR HGB CONC 32.3 g/dL (33.0-36.5); MEAN CORPUSCULAR VOLUME 95.2 FL (78-98); MONOCYTES # (AUTO) 1.1 X10'3 (0-0.9); MONOCYTES % (AUTO) 5.7 % (2-12); NEUTROPHILS # (AUTO) 18.2 X10'3 (1.8-7.7); NEUTROPHILS % (AUTO) 90.5 % (42-75); PLATELET COUNT 163 X10'3 (140-440); RED CELL DISTRIBUTION WIDTH 13.6 % (11.5-14.5); WHITE BLOOD COUNT 20.1 X10'3 (4.5-11.0)
[2020-06-17] MEDS: ipratropium/albuterol 3ml nebule NEB SCH ×6 (03:17→22:55)
[2020-06-17 03:18] LABS: D-DIMER 1.46 MG/L FEU (0-0.50)
[2020-06-17 03:24] LABS: ALANINE AMINOTRANSFERASE 19 U/L (12-78); ALBUMIN 1.7 G/DL (3.4-5.0); ALBUMIN/GLOBULIN RATIO 0.5 (1.1-1.5); ALKALINE PHOSPHATASE 39 IU/L (46-116); ANION GAP 5 (8-16); ASPARTATE AMINO TRANSFERASE 16 U/L (10-37); BILIRUBIN,TOTAL 0.4 MG/DL (0.1-1.0); BLOOD UREA NITROGEN 42 MG/DL (7-18); BUN/CREATININE RATIO 46.2 (5.4-32.0); C-REACTIVE PROTEIN 2.16 MG/DL (0.0-0.5); CALCIUM 8.3 MG/DL (8.5-10.1); CHLORIDE 111 MMOL/L (99-107); CREATININE 0.91 MG/DL (0.60-1.10); GLUCOSE 127 MG/DL (70-104); PHOSPHORUS 2.4 MG/DL (2.3-4.5); SODIUM 144 MMOL/L (135-145); TOTAL CARBON DIOXIDE 27.8 MMOL/L (24-32); TOTAL PROTEIN 5.2 G/DL (6.4-8.2); TRIGLYCERIDES 106 MG/DL (20-135); eGFR 86 ML/MIN
[2020-06-17 03:30] LABS: ABG BASE EXCESS 0.9 mmol/L (-2.0-2.0); ABG HCO3 24.7 mmol/L (22.0-26.0); ABG OXYGEN SATURATION 95.1 % (94-97); ABG PCO2 (T) 35.4 mmHg (35.0-48.0); ABG PO2 (T) 71.2 mmHg (75.0-100.0); ALLEN'S TEST POSITIVE; FCOHb 0.3 % (0.0-3.9); FO2Hb 94.8 % (94-97); PATIENT TEMPERATURE 36.1; PEEP 10 cm H2O; RESPIRATORY RATE 20 b/min; TIDAL VOLUME 400 mL; TOTAL HEMOGLOBIN 13.1 G/dl (14.0-18.0)
--- NOTE | 2020-06-17 06:20 | NUR ---
Problems reprioritized. Patient report given, questions answered & plan of care reviewed with Myrna RANDALL.
[2020-06-17] MEDS: cefepime 2g/NS 100ml ADVANTAGE 100 ML IV SCH (07:43)
[2020-06-17] MEDS: AMBRISENTAN 5 MG PO SCH (08:00)
[2020-06-17] MEDS: K, MAG and/or Phos replacement - Verify level? MC SCH (08:00)
[2020-06-17] MEDS: linezolid 600mg/300ml PREMIX 300 ML IV SCH ×2 (08:21→20:40)
[2020-06-17] MEDS: dexamethasone 4mg/ml inj IV SCH ×2 (08:21→20:29)
[2020-06-17] MEDS: pantoprazole 40 MG vial IV SCH ×2 (08:21→20:29)
[2020-06-17] MEDS: docusate sodium 100mg/10ml UD cup OGT SCH ×2 (08:22→20:29)
[2020-06-17] MEDS: sildenafil citrate 20mg tablet OGT SCH ×3 (08:23→20:29)
[2020-06-17] MEDS: losartan 25mg tablet OGT SCH (08:23)
[2020-06-17] MEDS: lactobacillus rhamnosus 10,000 MMU CELLS/CAPSULE OGT SCH ×2 (08:23→20:29)
[2020-06-17] MEDS: enoxaparin 40mg/0.4ml syringe SUBCUT SCH ×2 (08:23→20:29)
[2020-06-17] MEDS: amLODIPine 2.5mg tablet OGT SCH (08:23)
[2020-06-17] MEDS: mupirocin 2% ointment 22GM TP SCH ×3 (08:24→20:29)
[2020-06-17] MEDS: furosemide 40mg/4ml inj IV SCH (11:16)
--- NOTE | 2020-06-17 11:47 | NUR ---
0600- Received report, assumed care of patient [id number] Assessed, abdomen remains firm and distended, no worse from yesterdaynot tenderPatient stacking breaths, vent alarming low peak pressures, RT here adjusting settings, attempted spontaneous which patient appeared to "like", however does not maintain spontaneous breaths, adjusted TV to 500 and decreased rate to 18, nursing medicated patient with dilaudid, this seems to calm the cough and decrease the stacking of breaths, residual is 170, kept rate of TF at 60, will reassess. 09- Dr Estrada rounded, changes in anbx, no growth from blood cultures, lasix today. 929- Dr Taylor here, updated on vent settings, continue bowel care as has been occuring. 1100- Spoke with patients girlfriend and updated her on patient status, also discussed patients home med of letairis, GF states that Dr Billings office relayed to her that upon discharge Dr Ramachandran would confer with patients MD and decide upon continuing letairis. Relayed this info to in house pharmacy.
--- NOTE | 2020-06-17 12:52 | NUR ---
1230- Per edi programmer 200cc q 6 free water in light of trending up sodium, per edi programmer MD VALENTE with flush despite edema and lasix order this AM.
--- NOTE | 2020-06-17 18:20 | NUR ---
Problems reprioritized. Patient report given, questions answered & plan of care reviewed with Vivien.
--- NOTE | 2020-06-17 18:30 | NUR ---
Patient in room CICU 2006. I have received report from Myrna RANDALL and had the opportunity to ask questions and assume patient care.
--- NOTE | 2020-06-17 20:30 | NUR ---
Patient has 4 beat run of VTACH while suctioning patient. Will continue to monitor closely.
[2020-06-17] MEDS: insulin glargine (Lantus) pen - multi-dose SQ SCH (20:48)
--- NOTE | 2020-06-17 21:45 | NUR ---
Patient had another 2 beat run of VTACH, rythym now has a wide QRS, labs drawn awaiting results. Will continue to monitor closely.
[2020-06-17 22:17] LABS: BASOPHILS % (AUTO) 0.1 % (0-1); EOSINOPHILS % (AUTO) 0.2 % (0-6); HEMATOCRIT 36.7 % (42.0-52.0); HEMOGLOBIN 11.9 g/dl (14.0-17.9); LYMPHOCYTES % (AUTO) 5.2 % (21-51); MEAN CORPUSCULAR HEMOGLOBIN 30.8 PG (27.0-31.0); MEAN CORPUSCULAR HGB CONC 32.3 g/dL (33.0-36.5); MEAN CORPUSCULAR VOLUME 95.2 FL (78-98); MEAN PLATELET VOLUME 9.1 FL (7.4-10.4); MONOCYTES # (AUTO) 1.6 X10'3 (0-0.9); MONOCYTES % (AUTO) 7.8 % (2-12); NEUTROPHILS # (AUTO) 17.4 X10'3 (1.8-7.7); NEUTROPHILS % (AUTO) 86.7 % (42-75); PLATELET COUNT 200 X10'3 (140-440); RED BLOOD COUNT 3.85 X10'6 (4.70-6.10); RED CELL DISTRIBUTION WIDTH 13.7 % (11.5-14.5)
[2020-06-17 22:32] LABS: ALANINE AMINOTRANSFERASE 22 U/L (12-78); ALBUMIN 1.8 G/DL (3.4-5.0); ALBUMIN/GLOBULIN RATIO 0.5 (1.1-1.5); ALKALINE PHOSPHATASE 39 IU/L (46-116); ANION GAP 5 (8-16); ASPARTATE AMINO TRANSFERASE 21 U/L (10-37); BILIRUBIN,TOTAL 0.5 MG/DL (0.1-1.0); BLOOD UREA NITROGEN 50 MG/DL (7-18); BUN/CREATININE RATIO 53.8 (5.4-32.0); CALCIUM 7.8 MG/DL (8.5-10.1); CHLORIDE 108 MMOL/L (99-107); CREATININE 0.93 MG/DL (0.60-1.10); GLUCOSE 151 MG/DL (70-104); MAGNESIUM 1.8 MG/DL (1.5-2.4); PHOSPHORUS 2.2 MG/DL (2.3-4.5); POTASSIUM 3.8 MMOL/L (3.5-5.1); PREALBUMIN 17.4 MG/DL (19-36); SODIUM 141 MMOL/L (135-145); TOTAL PROTEIN 5.3 G/DL (6.4-8.2); TRIGLYCERIDES 94 MG/DL (20-135); eGFR 84 ML/MIN
[2020-06-18] VITALS (24 sets, daily range): BP systolic 87–114; BP diastolic 55–74
[2020-06-18] MEDS: HYDROmorphone 1 mg/ml syringe IV PRN ×5 (00:07→23:25)
[2020-06-18] MEDS: mineral oil/petrolatum ophthal oint EACHEYE SCH ×4 (02:08→20:00)
[2020-06-18] MEDS: insulin regular, human U-100 3ml vial - multi-dose SQ SCH ×4 (02:16→21:45)
[2020-06-18] MEDS: ipratropium/albuterol 3ml nebule NEB SCH ×6 (02:32→22:52)
[2020-06-18 03:00] LABS: EOSINOPHILS % (AUTO) 0.1 % (0-6); LYMPHOCYTES # (AUTO) 0.8 X10'3 (1.1-4.8); PLATELET COUNT 157 X10'3 (140-440); RED CELL DISTRIBUTION WIDTH 13.7 % (11.5-14.5)
[2020-06-18 03:02] LABS: BASOPHILS % (AUTO) 0.1 % (0-1); HEMATOCRIT 37.7 % (42.0-52.0); HEMOGLOBIN 12.1 g/dl (14.0-17.9); LYMPHOCYTES % (AUTO) 4.2 % (21-51); MEAN CORPUSCULAR HEMOGLOBIN 30.7 PG (27.0-31.0); MEAN CORPUSCULAR HGB CONC 32.2 g/dL (33.0-36.5); MEAN CORPUSCULAR VOLUME 95.2 FL (78-98); MEAN PLATELET VOLUME 10.6 FL (7.4-10.4); MONOCYTES # (AUTO) 1.3 X10'3 (0-0.9); MONOCYTES % (AUTO) 6.6 % (2-12); RED BLOOD COUNT 3.96 X10'6 (4.70-6.10); WHITE BLOOD COUNT 19.1 X10'3 (4.5-11.0)
[2020-06-18 03:05] LABS: D-DIMER 2.07 MG/L FEU (0-0.50)
[2020-06-18 03:14] LABS: ALANINE AMINOTRANSFERASE 25 U/L (12-78); ALBUMIN 1.8 G/DL (3.4-5.0); ALBUMIN/GLOBULIN RATIO 0.5 (1.1-1.5); ALKALINE PHOSPHATASE 42 IU/L (46-116); ANION GAP 5 (8-16); ASPARTATE AMINO TRANSFERASE 23 U/L (10-37); BILIRUBIN,TOTAL 0.5 MG/DL (0.1-1.0); BLOOD UREA NITROGEN 50 MG/DL (7-18); BUN/CREATININE RATIO 59.5 (5.4-32.0); C-REACTIVE PROTEIN 1.02 MG/DL (0.0-0.5); CALCIUM 7.7 MG/DL (8.5-10.1); CHLORIDE 109 MMOL/L (99-107); CREATININE 0.84 MG/DL (0.60-1.10); GLUCOSE 127 MG/DL (70-104); MAGNESIUM 1.8 MG/DL (1.5-2.4); PHOSPHORUS 2.3 MG/DL (2.3-4.5); POTASSIUM 3.9 MMOL/L (3.5-5.1); SODIUM 141 MMOL/L (135-145); TOTAL CARBON DIOXIDE 26.9 MMOL/L (24-32); TOTAL PROTEIN 5.4 G/DL (6.4-8.2); eGFR > 90 ML/MIN
[2020-06-18] MEDS: midazolam 100mg in NS 100ml 100 ML IV PRN ×5 (03:53→22:29)
[2020-06-18 04:40] LABS: ABG BASE EXCESS 0.6 mmol/L (-2.0-2.0); ABG HCO3 24.9 mmol/L (22.0-26.0); ABG OXYGEN SATURATION 96.4 % (94-97); ABG PCO2 (T) 37.3 mmHg (35.0-48.0); ABG PO2 (T) 78.9 mmHg (75.0-100.0); FMetHb 0.1 % (0.0-1.5); FO2Hb 96.3 % (94-97); PATIENT TEMPERATURE 36.1; PEEP 10 cm H2O; RESPIRATORY RATE 18 b/min; TIDAL VOLUME 500 mL; TOTAL HEMOGLOBIN 13.2 G/dl (14.0-18.0)
--- NOTE | 2020-06-18 06:30 | NUR ---
Received report from TONIA Puga
--- NOTE | 2020-06-18 06:40 | NUR ---
Problems reprioritized. Patient report given, questions answered & plan of care reviewed with Norma RANDALL.
[2020-06-18] MEDS: mupirocin 2% ointment 22GM TP SCH ×3 (08:00→21:29)
[2020-06-18] MEDS: K, MAG and/or Phos replacement - Verify level? MC SCH (08:00)
[2020-06-18] MEDS: linezolid 600mg/300ml PREMIX 300 ML IV SCH ×2 (08:31→21:13)
[2020-06-18] MEDS: docusate sodium 100mg/10ml UD cup OGT SCH ×2 (08:32→21:12)
[2020-06-18] MEDS: losartan 25mg tablet OGT SCH (08:32)
[2020-06-18] MEDS: lactobacillus rhamnosus 10,000 MMU CELLS/CAPSULE OGT SCH ×2 (08:32→21:12)
[2020-06-18] MEDS: sildenafil citrate 20mg tablet OGT SCH ×3 (08:32→21:12)
[2020-06-18] MEDS: methylnaltrexone br 12mg/0.6ml inj***SubQ only SQ SCH (08:33)
[2020-06-18] MEDS: amLODIPine 2.5mg tablet OGT SCH (08:33)
[2020-06-18] MEDS: pantoprazole 40 MG vial IV SCH ×2 (08:33→21:12)
[2020-06-18] MEDS: furosemide 40mg/4ml inj IV SCH (08:33)
[2020-06-18] MEDS: enoxaparin 40mg/0.4ml syringe SUBCUT SCH ×2 (08:34→21:13)
[2020-06-18] MEDS: dexamethasone 4mg/ml inj IV SCH ×2 (08:34→21:13)
[2020-06-18 09:21] LABS: TOTAL CELLS COUNTED 100
[2020-06-18 09:22] LABS: ANISOCYTOSIS 1+; LARGE PLATELETS FEW; PLATELET ESTIMATE NORMAL; TOXIC GRANULATION 1+; TOXIC VACUOLATION 2+
--- NOTE | 2020-06-18 18:25 | NUR ---
Patient in room CICU 2006. I have received report from Norma RANDALL and had the opportunity to ask questions and assume patient care.
--- NOTE | 2020-06-18 18:44 | NUR ---
Report given to TONIA De Guzman
[2020-06-18] MEDS: insulin glargine (Lantus) pen - multi-dose SQ SCH (21:44)
[2020-06-19] VITALS (24 sets, daily range): BP systolic 80–115; BP diastolic 52–83
[2020-06-19] MEDS: mineral oil/petrolatum ophthal oint EACHEYE SCH ×4 (02:03→20:00)
[2020-06-19] MEDS: ipratropium/albuterol 3ml nebule NEB SCH ×6 (02:31→23:02)
[2020-06-19] MEDS: insulin regular, human U-100 3ml vial - multi-dose SQ SCH ×3 (02:32→14:14)
[2020-06-19 03:13] LABS: BASOPHILS % (AUTO) 0.2 % (0-1); EOSINOPHILS % (AUTO) 0.3 % (0-6); HEMATOCRIT 38.9 % (42.0-52.0); HEMOGLOBIN 12.5 g/dl (14.0-17.9); LYMPHOCYTES # (AUTO) 1.2 X10'3 (1.1-4.8); LYMPHOCYTES % (AUTO) 6.1 % (21-51); MEAN CORPUSCULAR HEMOGLOBIN 30.5 PG (27.0-31.0); MEAN CORPUSCULAR HGB CONC 32.1 g/dL (33.0-36.5); MEAN CORPUSCULAR VOLUME 95.1 FL (78-98); MONOCYTES # (AUTO) 1.3 X10'3 (0-0.9); MONOCYTES % (AUTO) 6.9 % (2-12); NEUTROPHILS # (AUTO) 16.3 X10'3 (1.8-7.7); NEUTROPHILS % (AUTO) 86.5 % (42-75); PLATELET COUNT 110 X10'3 (140-440); RED BLOOD COUNT 4.09 X10'6 (4.70-6.10); RED CELL DISTRIBUTION WIDTH 13.8 % (11.5-14.5); WHITE BLOOD COUNT 18.8 X10'3 (4.5-11.0)
[2020-06-19 03:20] LABS: D-DIMER 1.81 MG/L FEU (0-0.50)
[2020-06-19 03:24] LABS: ALANINE AMINOTRANSFERASE 40 U/L (12-78); ALBUMIN 1.9 G/DL (3.4-5.0); ALBUMIN/GLOBULIN RATIO 0.5 (1.1-1.5); ALKALINE PHOSPHATASE 43 IU/L (46-116); ANION GAP 7 (8-16); ASPARTATE AMINO TRANSFERASE 35 U/L (10-37); BILIRUBIN,TOTAL 0.4 MG/DL (0.1-1.0); BLOOD UREA NITROGEN 49 MG/DL (7-18); BUN/CREATININE RATIO 60.5 (5.4-32.0); CALCIUM 7.9 MG/DL (8.5-10.1); CHLORIDE 105 MMOL/L (99-107); CREATININE 0.81 MG/DL (0.60-1.10); GLUCOSE 108 MG/DL (70-104); MAGNESIUM 1.7 MG/DL (1.5-2.4); PHOSPHORUS 2.4 MG/DL (2.3-4.5); POTASSIUM 4.1 MMOL/L (3.5-5.1); SODIUM 140 MMOL/L (135-145); TOTAL CARBON DIOXIDE 28.3 MMOL/L (24-32); TOTAL PROTEIN 5.5 G/DL (6.4-8.2); eGFR > 90 ML/MIN
[2020-06-19] MEDS: midazolam 100mg in NS 100ml 100 ML IV PRN ×5 (03:37→23:00)
[2020-06-19 04:35] LABS: ABG BASE EXCESS 3.9 mmol/L (-2.0-2.0); ABG HCO3 27.1 mmol/L (22.0-26.0); ABG OXYGEN SATURATION 95.3 % (94-97); ABG PCO2 (T) 36.1 mmHg (35.0-48.0); ABG PO2 (T) 73.4 mmHg (75.0-100.0); ALLEN'S TEST POSITIVE; FCOHb 0.1 % (0.0-3.9); FMetHb 0.1 % (0.0-1.5); FO2Hb 95.1 % (94-97); PATIENT TEMPERATURE 37.1; PEEP 8 cm H2O; RESPIRATORY RATE 18 b/min; TIDAL VOLUME 500 mL; TOTAL HEMOGLOBIN 13.7 G/dl (14.0-18.0)
[2020-06-19] MEDS: HYDROmorphone 1 mg/ml syringe IV PRN ×4 (05:40→21:18)
--- NOTE | 2020-06-19 06:45 | NUR ---
Problems reprioritized. Patient report given, questions answered & plan of care reviewed with Nnamdi RANDALL.
[2020-06-19] MEDS: pantoprazole 40 MG vial IV SCH ×2 (07:57→21:17)
[2020-06-19] MEDS: docusate sodium 100mg/10ml UD cup OGT SCH ×2 (07:57→21:17)
[2020-06-19] MEDS: linezolid 600mg/300ml PREMIX 300 ML IV SCH ×2 (07:57→21:17)
[2020-06-19] MEDS: sildenafil citrate 20mg tablet OGT SCH ×3 (07:58→21:17)
[2020-06-19] MEDS: lactobacillus rhamnosus 10,000 MMU CELLS/CAPSULE OGT SCH ×2 (07:58→21:17)
[2020-06-19] MEDS: furosemide 40mg/4ml inj IV SCH (07:58)
[2020-06-19] MEDS: enoxaparin 40mg/0.4ml syringe SUBCUT SCH ×2 (07:58→21:18)
[2020-06-19] MEDS: dexamethasone 4mg/ml inj IV SCH ×2 (07:58→21:18)
[2020-06-19] MEDS: K, MAG and/or Phos replacement - Verify level? MC SCH (07:59)
[2020-06-19] MEDS: mupirocin 2% ointment 22GM TP SCH ×3 (08:00→21:25)
[2020-06-19] MEDS: amLODIPine 2.5mg tablet OGT SCH (10:17)
[2020-06-19] MEDS: losartan 25mg tablet OGT SCH (10:17)
[2020-06-19] MEDS: lactulose 20gm/30ml cup OGT PRN (12:15)
--- NOTE | 2020-06-19 12:21 | NUR ---
Reassessment: Pt remains intubated and tolerating TF at goal rate with GRV WNL. LBM 06/17 though documented with only krystyna and smears, MD aware. Pt receiving routine bowel care and opioid antagonist. PRN bowel care available however not documented to be given, left message for RN regarding admin of bowel care. Will continue to follow closely. Recommendations: 1) Continuous OGTF per MD using Vital High Protein at 75 ml/hr goal; to provide 1800 ml volume, 1512 ml water, 1800 kcals, and 158 g protein. 2) additional water flush per MD given CHF hx 3) prealbumin and TG q Wednesday/; daily weights 4) routine bowel care; opioid antagonist per MD; consider resuming prokinetic agent (discontinued 06/14) 5) upon extubation; advance diet as medically indicated to heart healthy, CHO controlled 6) DM/zyvox educations following extubation once stable after receiving official DM dx from physician; A1c 7.2%. Started on zyvox this admit. Addendum: 06/19/20 at [address] Amended: Links added.
--- NOTE | 2020-06-19 18:25 | NUR ---
Patient in room CICU 2006. I have received report from Nnamdi RANDALL and had the opportunity to ask questions and assume patient care.
[2020-06-19] MEDS: insulin glargine (Lantus) pen - multi-dose SQ SCH (22:07)
[2020-06-20] VITALS (24 sets, daily range): BP systolic 83–123; BP diastolic 56–85
[2020-06-20] MEDS: HYDROmorphone 1 mg/ml syringe IV PRN ×3 (00:35→09:16)
[2020-06-20] MEDS: mineral oil/petrolatum ophthal oint EACHEYE SCH ×4 (02:03→20:38)
[2020-06-20] MEDS: insulin regular, human U-100 3ml vial - multi-dose SQ SCH ×3 (02:40→13:42)
[2020-06-20] MEDS: ipratropium/albuterol 3ml nebule NEB SCH ×6 (02:55→23:00)
[2020-06-20 03:48] LABS: D-DIMER 2.58 MG/L FEU (0-0.50)
[2020-06-20 03:51] LABS: BASOPHILS % (AUTO) 0 % (0-1); EOSINOPHILS # (AUTO) 0.1 X10'3 (0-0.9); EOSINOPHILS % (AUTO) 0.4 % (0-6); HEMOGLOBIN 12.8 g/dl (14.0-17.9); LYMPHOCYTES # (AUTO) 1.9 X10'3 (1.1-4.8); LYMPHOCYTES % (AUTO) 8.6 % (21-51); MEAN CORPUSCULAR HEMOGLOBIN 31.3 PG (27.0-31.0); MEAN CORPUSCULAR HGB CONC 32.8 g/dL (33.0-36.5); MEAN CORPUSCULAR VOLUME 95.3 FL (78-98); MEAN PLATELET VOLUME 8.5 FL (7.4-10.4); MONOCYTES # (AUTO) 1.4 X10'3 (0-0.9); MONOCYTES % (AUTO) 6.4 % (2-12); NEUTROPHILS # (AUTO) 18.6 X10'3 (1.8-7.7); NEUTROPHILS % (AUTO) 84.6 % (42-75); PLATELET COUNT 109 X10'3 (140-440); RED CELL DISTRIBUTION WIDTH 13.6 % (11.5-14.5)
[2020-06-20 03:55] LABS: ALANINE AMINOTRANSFERASE 51 U/L (12-78); ALBUMIN 2.1 G/DL (3.4-5.0); ALBUMIN/GLOBULIN RATIO 0.6 (1.1-1.5); ALKALINE PHOSPHATASE 48 IU/L (46-116); ANION GAP 5 (8-16); ASPARTATE AMINO TRANSFERASE 30 U/L (10-37); BILIRUBIN,TOTAL 0.5 MG/DL (0.1-1.0); BLOOD UREA NITROGEN 47 MG/DL (7-18); BUN/CREATININE RATIO 66.2 (5.4-32.0); C-REACTIVE PROTEIN 0.37 MG/DL (0.0-0.5); CALCIUM 8.1 MG/DL (8.5-10.1); CHLORIDE 104 MMOL/L (99-107); CREATININE 0.71 MG/DL (0.60-1.10); GLUCOSE 117 MG/DL (70-104); MAGNESIUM 1.7 MG/DL (1.5-2.4); PHOSPHORUS 2.6 MG/DL (2.3-4.5); POTASSIUM 3.9 MMOL/L (3.5-5.1); PREALBUMIN 31.5 MG/DL (19-36); SODIUM 139 MMOL/L (135-145); TOTAL CARBON DIOXIDE 30.2 MMOL/L (24-32); TOTAL PROTEIN 5.8 G/DL (6.4-8.2); TRIGLYCERIDES 123 MG/DL (20-135); eGFR > 90 ML/MIN
[2020-06-20] MEDS: midazolam 100mg in NS 100ml 100 ML IV PRN ×4 (03:59→20:40)
[2020-06-20 04:20] LABS: ABG BASE EXCESS -2.1 mmol/L (-2.0-2.0); ABG HCO3 21.6 mmol/L (22.0-26.0); ABG OXYGEN SATURATION 90.7 % (94-97); ABG PCO2 (T) 33.4 mmHg (35.0-48.0); ABG PO2 (T) 51.9 mmHg (75.0-100.0); ALLEN'S TEST POSITIVE; FCOHb 0.2 % (0.0-3.9); FMetHb 0.1 % (0.0-1.5); FO2Hb 90.4 % (94-97); PATIENT TEMPERATURE 36.5; PEEP 10 cm H2O; RESPIRATORY RATE 18 b/min; TIDAL VOLUME 500 mL; TOTAL HEMOGLOBIN 13.9 G/dl (14.0-18.0)
--- NOTE | 2020-06-20 04:38 | NUR ---
Critical PO2 on morning ABG, RT increased FiO2 from 50-60%. Will continue to monitor.
--- NOTE | 2020-06-20 06:30 | NUR ---
Patient in room CICU 2006. I have received report from Sheron RANDALL and had the opportunity to ask questions and assume patient care.
--- NOTE | 2020-06-20 06:42 | NUR ---
Problems reprioritized. Patient report given, questions answered & plan of care reviewed with Sheron RANDALL.
[2020-06-20] MEDS: K, MAG and/or Phos replacement - Verify level? MC SCH (08:00)
[2020-06-20] MEDS: linezolid 600mg/300ml PREMIX 300 ML IV SCH ×2 (08:48→20:39)
[2020-06-20] MEDS: lactobacillus rhamnosus 10,000 MMU CELLS/CAPSULE OGT SCH ×2 (08:48→20:39)
[2020-06-20] MEDS: amLODIPine 2.5mg tablet OGT SCH (08:49)
[2020-06-20] MEDS: methylnaltrexone br 12mg/0.6ml inj***SubQ only SQ SCH (08:49)
[2020-06-20] MEDS: losartan 25mg tablet OGT SCH (08:49)
[2020-06-20] MEDS: docusate sodium 100mg/10ml UD cup OGT SCH ×2 (08:49→20:39)
[2020-06-20] MEDS: sildenafil citrate 20mg tablet OGT SCH ×3 (08:49→20:40)
[2020-06-20] MEDS: enoxaparin 40mg/0.4ml syringe SUBCUT SCH ×2 (08:50→20:40)
[2020-06-20] MEDS: mupirocin 2% ointment 22GM TP SCH ×3 (08:50→21:49)
[2020-06-20] MEDS: dexamethasone 4mg/ml inj IV SCH ×2 (08:51→20:39)
[2020-06-20] MEDS: pantoprazole 40 MG vial IV SCH ×2 (08:51→20:39)
[2020-06-20] MEDS: furosemide 40mg/4ml inj IV SCH (08:51)
--- NOTE | 2020-06-20 10:30 | NUR ---
Dr. Taylor at bedside. New order for Morphine gtt for sedation and stop Dilaudid IV push.
[2020-06-20] MEDS: morphine/NS 100mg/100ml bag 100 ML IV SCH (12:06)
[2020-06-20] MEDS: insulin glargine (Lantus) pen - multi-dose SQ SCH (21:00)
[2020-06-21] VITALS (24 sets, daily range): BP systolic 78–105; BP diastolic 49–75
[2020-06-21] MEDS: mineral oil/petrolatum ophthal oint EACHEYE SCH ×4 (02:25→19:48)
[2020-06-21] MEDS: insulin regular, human U-100 3ml vial - multi-dose SQ SCH ×3 (02:27→22:10)
[2020-06-21] MEDS: ipratropium/albuterol 3ml nebule NEB SCH ×6 (03:15→23:49)
[2020-06-21 03:37] LABS: BASOPHILS % (AUTO) 0.1 % (0-1); EOSINOPHILS # (AUTO) 0.1 X10'3 (0-0.9); EOSINOPHILS % (AUTO) 0.4 % (0-6); HEMATOCRIT 37.8 % (42.0-52.0); HEMOGLOBIN 12.4 g/dl (14.0-17.9); LYMPHOCYTES # (AUTO) 1.7 X10'3 (1.1-4.8); LYMPHOCYTES % (AUTO) 8.4 % (21-51); MEAN CORPUSCULAR HEMOGLOBIN 31.2 PG (27.0-31.0); MEAN CORPUSCULAR HGB CONC 32.7 g/dL (33.0-36.5); MEAN CORPUSCULAR VOLUME 95.4 FL (78-98); MEAN PLATELET VOLUME 10.8 FL (7.4-10.4); MONOCYTES # (AUTO) 1.1 X10'3 (0-0.9); MONOCYTES % (AUTO) 5.7 % (2-12); NEUTROPHILS # (AUTO) 17.2 X10'3 (1.8-7.7); NEUTROPHILS % (AUTO) 85.4 % (42-75); PLATELET COUNT 119 X10'3 (140-440); RED BLOOD COUNT 3.97 X10'6 (4.70-6.10); RED CELL DISTRIBUTION WIDTH 13.5 % (11.5-14.5); WHITE BLOOD COUNT 20.1 X10'3 (4.5-11.0)
[2020-06-21 03:38] LABS: D-DIMER 1.79 MG/L FEU (0-0.50)
[2020-06-21 03:40] LABS: ABG BASE EXCESS 2.8 mmol/L (-2.0-2.0); ABG HCO3 27.8 mmol/L (22.0-26.0); ABG OXYGEN SATURATION 93.2 % (94-97); ABG PCO2 (T) 42.5 mmHg (35.0-48.0); ABG PO2 (T) 65.3 mmHg (75.0-100.0); ALLEN'S TEST POSITIVE; FCOHb 0.4 % (0.0-3.9); FMetHb 0.1 % (0.0-1.5); FO2Hb 92.7 % (94-97); PATIENT TEMPERATURE 36.3; PEEP 10 cm H2O; RESPIRATORY RATE 18 b/min; TIDAL VOLUME 500 mL; TOTAL HEMOGLOBIN 13.6 G/dl (14.0-18.0)
[2020-06-21 03:50] LABS: ALANINE AMINOTRANSFERASE 39 U/L (12-78); ALBUMIN 2.1 G/DL (3.4-5.0); ALBUMIN/GLOBULIN RATIO 0.6 (1.1-1.5); ALKALINE PHOSPHATASE 50 IU/L (46-116); ANION GAP 2 (8-16); ASPARTATE AMINO TRANSFERASE 21 U/L (10-37); BILIRUBIN,TOTAL 0.4 MG/DL (0.1-1.0); BLOOD UREA NITROGEN 41 MG/DL (7-18); BUN/CREATININE RATIO 57.7 (5.4-32.0); C-REACTIVE PROTEIN 0.52 MG/DL (0.0-0.5); CHLORIDE 103 MMOL/L (99-107); CREATININE 0.71 MG/DL (0.60-1.10); GLUCOSE 99 MG/DL (70-104); MAGNESIUM 1.8 MG/DL (1.5-2.4); PHOSPHORUS 2.8 MG/DL (2.3-4.5); POTASSIUM 4.3 MMOL/L (3.5-5.1); SODIUM 138 MMOL/L (135-145); TOTAL CARBON DIOXIDE 33.3 MMOL/L (24-32); TOTAL PROTEIN 5.7 G/DL (6.4-8.2); eGFR > 90 ML/MIN
[2020-06-21] MEDS: midazolam 100mg in NS 100ml 100 ML IV PRN ×4 (04:03→23:15)
--- NOTE | 2020-06-21 06:30 | NUR ---
Problems reprioritized. Patient report given, questions answered & plan of care reviewed with Elaine RANDALL.
[2020-06-21] MEDS: dexamethasone 4mg/ml inj IV SCH ×2 (08:14→19:48)
[2020-06-21] MEDS: docusate sodium 100mg/10ml UD cup OGT SCH ×2 (08:14→19:48)
[2020-06-21] MEDS: furosemide 40mg/4ml inj IV SCH (08:14)
[2020-06-21] MEDS: enoxaparin 40mg/0.4ml syringe SUBCUT SCH ×2 (08:14→19:50)
[2020-06-21] MEDS: pantoprazole 40 MG vial IV SCH ×2 (08:14→19:48)
[2020-06-21] MEDS: sildenafil citrate 20mg tablet OGT SCH ×3 (08:15→21:00)
[2020-06-21] MEDS: losartan 25mg tablet OGT SCH (08:15)
[2020-06-21] MEDS: lactobacillus rhamnosus 10,000 MMU CELLS/CAPSULE OGT SCH ×2 (08:15→19:49)
[2020-06-21] MEDS: amLODIPine 2.5mg tablet OGT SCH (08:16)
[2020-06-21] MEDS: mupirocin 2% ointment 22GM TP SCH ×3 (08:16→20:52)
[2020-06-21] MEDS: K, MAG and/or Phos replacement - Verify level? MC SCH (08:17)
[2020-06-21] MEDS: linezolid 600mg/300ml PREMIX 300 ML IV SCH ×2 (08:34→19:44)
--- NOTE | 2020-06-21 18:30 | NUR ---
Patient in room CICU 2006. I have received report from Fawn RANDALL and had the opportunity to ask questions and assume patient care.
[2020-06-21] MEDS: insulin glargine (Lantus) pen - multi-dose SQ SCH (21:00)
--- NOTE | 2020-06-21 21:00 | NUR ---
Pt has had low blood pressures, discussed with Jessica Keen CONSTRUCTION GRIP, Holding night dose of Sildenafil. Also did digital check of rectal vault during bath to make sure pt isn't impacted, vault empty.
[2020-06-21] MEDS: morphine/NS 100mg/100ml bag 100 ML IV SCH (23:35)
[2020-06-22] VITALS (24 sets, daily range): BP systolic 86–119; BP diastolic 56–85
[2020-06-22] MEDS: mineral oil/petrolatum ophthal oint EACHEYE SCH ×4 (02:00→20:05)
[2020-06-22] MEDS: insulin regular, human U-100 3ml vial - multi-dose SQ SCH ×4 (02:31→20:00)
[2020-06-22 03:04] LABS: ALANINE AMINOTRANSFERASE 37 U/L (12-78); ALBUMIN 2.1 G/DL (3.4-5.0); ALBUMIN/GLOBULIN RATIO 0.6 (1.1-1.5); ALKALINE PHOSPHATASE 56 IU/L (46-116); ANION GAP 3 (8-16); ASPARTATE AMINO TRANSFERASE 24 U/L (10-37); BILIRUBIN,TOTAL 0.4 MG/DL (0.1-1.0); BLOOD UREA NITROGEN 40 MG/DL (7-18); C-REACTIVE PROTEIN 0.64 MG/DL (0.0-0.5); CHLORIDE 103 MMOL/L (99-107); CREATININE 0.69 MG/DL (0.60-1.10); GLUCOSE 104 MG/DL (70-104); MAGNESIUM 1.7 MG/DL (1.5-2.4); PHOSPHORUS 2.9 MG/DL (2.3-4.5); POTASSIUM 4.5 MMOL/L (3.5-5.1); SODIUM 138 MMOL/L (135-145); TOTAL CARBON DIOXIDE 31.7 MMOL/L (24-32); TOTAL PROTEIN 5.5 G/DL (6.4-8.2); eGFR > 90 ML/MIN
[2020-06-22 03:26] LABS: D-DIMER 0.94 MG/L FEU (0-0.50)
[2020-06-22] MEDS: ipratropium/albuterol 3ml nebule NEB SCH ×6 (03:29→22:54)
[2020-06-22] MEDS: midazolam 100mg in NS 100ml 100 ML IV PRN ×3 (04:54→19:03)
--- NOTE | 2020-06-22 06:29 | NUR ---
Problems reprioritized. Patient report given, questions answered & plan of care reviewed with Fawn RANDALL.
[2020-06-22] MEDS: enoxaparin 40mg/0.4ml syringe SUBCUT SCH ×2 (08:00→20:07)
[2020-06-22] MEDS: losartan 25mg tablet OGT SCH (08:00)
[2020-06-22] MEDS: K, MAG and/or Phos replacement - Verify level? MC SCH (08:08)
[2020-06-22] MEDS: furosemide 40mg/4ml inj IV SCH (08:18)
[2020-06-22] MEDS: pantoprazole 40 MG vial IV SCH ×2 (08:18→20:05)
[2020-06-22] MEDS: docusate sodium 100mg/10ml UD cup OGT SCH ×2 (08:18→20:06)
[2020-06-22] MEDS: methylnaltrexone br 12mg/0.6ml inj***SubQ only SQ SCH (08:18)
[2020-06-22] MEDS: lactobacillus rhamnosus 10,000 MMU CELLS/CAPSULE OGT SCH ×2 (08:19→20:06)
[2020-06-22] MEDS: amLODIPine 2.5mg tablet OGT SCH (08:19)
[2020-06-22] MEDS: dexamethasone 4mg/ml inj IV SCH ×2 (08:19→20:05)
[2020-06-22] MEDS: sildenafil citrate 20mg tablet OGT SCH ×3 (08:19→21:45)
[2020-06-22] MEDS: mupirocin 2% ointment 22GM TP SCH ×3 (08:19→20:06)
[2020-06-22] MEDS: linezolid 600mg/300ml PREMIX 300 ML IV SCH ×2 (08:20→20:06)
[2020-06-22 09:41] LABS: ABG BASE EXCESS 4.5 mmol/L (-2.0-2.0); ABG HCO3 29.6 mmol/L (22.0-26.0); ABG OXYGEN SATURATION 94.9 % (94-97); ABG PCO2 (T) 44.9 mmHg (35.0-48.0); ABG PO2 (T) 72.8 mmHg (75.0-100.0); ALLEN'S TEST POSITIVE; FCOHb 0.3 % (0.0-3.9); FO2Hb 94.6 % (94-97); PATIENT TEMPERATURE 36.6; PEEP 10 cm H2O; RESPIRATORY RATE 18 b/min; TIDAL VOLUME 500 mL; TOTAL HEMOGLOBIN 13.3 G/dl (14.0-18.0)
[2020-06-22 12:25] LABS: BASOPHILS # (AUTO) 0.1 X10'3 (0-0.2); BASOPHILS % (AUTO) 0.3 % (0-1); EOSINOPHILS # (AUTO) 0.1 X10'3 (0-0.9); EOSINOPHILS % (AUTO) 0.3 % (0-6); LYMPHOCYTES # (AUTO) 1.7 X10'3 (1.1-4.8); LYMPHOCYTES % (AUTO) 6.6 % (21-51); MEAN CORPUSCULAR HEMOGLOBIN 30.7 PG (27.0-31.0); MEAN CORPUSCULAR HGB CONC 32.4 g/dL (33.0-36.5); MEAN CORPUSCULAR VOLUME 94.8 FL (78-98); MEAN PLATELET VOLUME 10.7 FL (7.4-10.4); MONOCYTES # (AUTO) 1.7 X10'3 (0-0.9); MONOCYTES % (AUTO) 6.3 % (2-12); NEUTROPHILS # (AUTO) 22.6 X10'3 (1.8-7.7); NEUTROPHILS % (AUTO) 86.5 % (42-75); PLATELET COUNT 264 X10'3 (140-440); RED BLOOD COUNT 4.22 X10'6 (4.70-6.10); RED CELL DISTRIBUTION WIDTH 13.6 % (11.5-14.5)
[2020-06-22 13:03] LABS: WHITE BLOOD COUNT 26.2 X10'3 (4.5-11.0)
--- NOTE | 2020-06-22 14:23 | NUR ---
Reassessment: Pt remains intubated and tolerating TF at goal rate with GRV 125-350 mL over the last 24 hrs which is WNL. Still no BM since 06/19. Attempted TC with RN to discuss bowel care however RN unavailable. Pt received PRN Lactulose for the first time 06/19 and continues with PRN MoM not yet given as well as routine Colace and Relistor. Pt received one time dose of mineral oil enema 06/14. Will continue to follow closely. Recommendations: 1) Continuous OGTF per MD using Vital High Protein at 75 ml/hr goal; to provide 1800 ml volume, 1512 ml water, 1800 kcals, and 158 g protein. 2) additional water flush per MD given CHF hx 3) prealbumin and TG q Wednesday/; daily weights 4) routine bowel care; opioid antagonist per MD; consider resuming prokinetic agent (discontinued 06/14); would benefit from additional bowel care given no significant BM in 17 days 5) upon extubation; advance diet as medically indicated to heart healthy, CHO controlled 6) DM/low tyramine educations following extubation once stable after receiving official DM dx from physician; A1c 7.2%. Started on Zyvox this admit. Addendum: 06/22/20 at [address] Amended: Links added.
[2020-06-22] MEDS: morphine/NS 100mg/100ml bag 100 ML IV SCH (17:00)
--- NOTE | 2020-06-22 18:30 | NUR ---
Patient in room CICU 2006. I have received report from Fawn RANDALL and had the opportunity to ask questions and assume patient care.
[2020-06-22] MEDS: insulin glargine (Lantus) pen - multi-dose SQ SCH (21:00)
--- NOTE | 2020-06-22 23:26 | NUR ---
FiO2 increased, pt sounds more diminished than previous shift. Discussed with RT and Jessica Keen ANIMAL CARETAKER.
[2020-06-23] VITALS (24 sets, daily range): BP systolic 86–123; BP diastolic 52–83
[2020-06-23] MEDS: midazolam 100mg in NS 100ml 100 ML IV PRN ×5 (01:35→21:11)
[2020-06-23] MEDS: mineral oil/petrolatum ophthal oint EACHEYE SCH ×4 (02:50→20:00)
[2020-06-23] MEDS: insulin regular, human U-100 3ml vial - multi-dose SQ SCH ×4 (02:51→21:45)
[2020-06-23] MEDS: ipratropium/albuterol 3ml nebule NEB SCH ×6 (03:09→22:52)
[2020-06-23 03:22] LABS: ALANINE AMINOTRANSFERASE 35 U/L (12-78); ALBUMIN 2.1 G/DL (3.4-5.0); ALBUMIN/GLOBULIN RATIO 0.6 (1.1-1.5); ALKALINE PHOSPHATASE 59 IU/L (46-116); ANION GAP 3 (8-16); ASPARTATE AMINO TRANSFERASE 24 U/L (10-37); BILIRUBIN,TOTAL 0.4 MG/DL (0.1-1.0); BLOOD UREA NITROGEN 38 MG/DL (7-18); BUN/CREATININE RATIO 55.1 (5.4-32.0); CALCIUM 7.9 MG/DL (8.5-10.1); CHLORIDE 102 MMOL/L (99-107); CREATININE 0.69 MG/DL (0.60-1.10); GLUCOSE 109 MG/DL (70-104); MAGNESIUM 1.6 MG/DL (1.5-2.4); PHOSPHORUS 2.9 MG/DL (2.3-4.5); POTASSIUM 4.2 MMOL/L (3.5-5.1); SODIUM 139 MMOL/L (135-145); TOTAL CARBON DIOXIDE 33.8 MMOL/L (24-32); TOTAL PROTEIN 5.6 G/DL (6.4-8.2); eGFR > 90 ML/MIN
[2020-06-23 03:26] LABS: ABG BASE EXCESS 7.5 mmol/L (-2.0-2.0); ABG HCO3 32.1 mmol/L (22.0-26.0); ABG OXYGEN SATURATION 97.4 % (94-97); ABG PCO2 (T) 43.5 mmHg (35.0-48.0); ABG PO2 (T) 89.2 mmHg (75.0-100.0); ALLEN'S TEST POSITIVE; FCOHb 0.2 % (0.0-3.9); FMetHb 0.1 % (0.0-1.5); FO2Hb 97.1 % (94-97); PATIENT TEMPERATURE 36.3; PEEP 10 cm H2O; RESPIRATORY RATE 18 b/min; TIDAL VOLUME 500 mL; TOTAL HEMOGLOBIN 12.8 G/dl (14.0-18.0)
--- NOTE | 2020-06-23 06:32 | NUR ---
Problems reprioritized. Patient report given, questions answered & plan of care reviewed with Norma RANDALL.
--- NOTE | 2020-06-23 06:43 | NUR ---
Received report from TONIA Meadows
[2020-06-23] MEDS: amLODIPine 2.5mg tablet OGT SCH ×2 (08:00→09:16)
[2020-06-23] MEDS: mupirocin 2% ointment 22GM TP SCH ×3 (08:00→21:02)
[2020-06-23] MEDS: losartan 25mg tablet OGT SCH (08:00)
[2020-06-23] MEDS: K, MAG and/or Phos replacement - Verify level? MC SCH (08:00)
[2020-06-23] MEDS ORDERED: etomidate 2mg/ml inj. IV ONE (08:45)
[2020-06-23] MEDS: docusate sodium 100mg/10ml UD cup OGT SCH ×2 (09:14→21:02)
[2020-06-23] MEDS: linezolid 600mg/300ml PREMIX 300 ML IV SCH ×2 (09:14→21:01)
[2020-06-23] MEDS: dexamethasone 4mg/ml inj IV SCH ×2 (09:15→21:02)
[2020-06-23] MEDS: pantoprazole 40 MG vial IV SCH ×2 (09:15→21:01)
[2020-06-23] MEDS: furosemide 40mg/4ml inj IV SCH (09:15)
[2020-06-23] MEDS: sildenafil citrate 20mg tablet OGT SCH ×3 (09:15→21:01)
[2020-06-23] MEDS: enoxaparin 40mg/0.4ml syringe SUBCUT SCH ×2 (09:15→21:03)
[2020-06-23] MEDS: lactobacillus rhamnosus 10,000 MMU CELLS/CAPSULE OGT SCH ×2 (09:16→21:01)
[2020-06-23 09:45] LABS: HEMATOCRIT 34.5 % (42.0-52.0); HEMOGLOBIN 11.5 g/dl (14.0-17.9); MEAN CORPUSCULAR HEMOGLOBIN 31.9 PG (27.0-31.0); MEAN CORPUSCULAR HGB CONC 33.2 g/dL (33.0-36.5); MEAN CORPUSCULAR VOLUME 95.9 FL (78-98); RED CELL DISTRIBUTION WIDTH 13.3 % (11.5-14.5); WHITE BLOOD COUNT 14.6 X10'3 (4.5-11.0)
[2020-06-23 10:20] LABS: PLATELET ESTIMATE NORMAL; TOTAL CELLS COUNTED 100
[2020-06-23 10:21] LABS: POLYCHROMASIA 1+; TOXIC GRANULATION 1+; TOXIC VACUOLATION 1+
[2020-06-23] MEDS: morphine/NS 100mg/100ml bag 100 ML IV SCH (10:30)
[2020-06-23] MEDS: lactulose 20gm/30ml cup OGT PRN (13:18)
--- NOTE | 2020-06-23 14:10 | NUR ---
F/u 06/23: TESSA d/w rn hemodialysis charge regarding no significant BM since 06/05 only krystyna/smears past 17 days and pt would benefit from additional bowel care if MD agreeable. Addendum: 06/23/20 at [address] Amended: Links added.
--- NOTE | 2020-06-23 17:58 | NUR ---
Late Entry: At 0830 patient was restless and anxious, turning head back and forth forcefully. ETT pushed out. Patient maintained O2 saturation. RT at bedside. Charge nurse notified. Charge nurse called Dr. Grier in ER and he intubated patient at 0850. Size 8 tube at 24 at teeth. 20 mg Etomidate given per Dr. Grier order.
--- NOTE | 2020-06-23 18:29 | NUR ---
Report given to TONIA Rice
[2020-06-23] MEDS: insulin glargine (Lantus) pen - multi-dose SQ SCH (21:46)
[2020-06-24] VITALS (23 sets, daily range): BP systolic 83–107; BP diastolic 54–67
[2020-06-24] MEDS: ipratropium/albuterol 3ml nebule NEB SCH ×6 (02:29→22:41)
[2020-06-24 02:50] LABS: ABG BASE EXCESS 3.8 mmol/L (-2.0-2.0); ABG HCO3 28.4 mmol/L (22.0-26.0); ABG OXYGEN SATURATION 94.5 % (94-97); ABG PCO2 (T) 42.2 mmHg (35.0-48.0); ABG PO2 (T) 71.3 mmHg (75.0-100.0); ALLEN'S TEST POSITIVE; FCOHb 0.3 % (0.0-3.9); FMetHb 0.1 % (0.0-1.5); FO2Hb 94.1 % (94-97); PATIENT TEMPERATURE 36.5; PEEP 10 cm H2O; RESPIRATORY RATE 18 b/min; TIDAL VOLUME 500 mL; TOTAL HEMOGLOBIN 12.5 G/dl (14.0-18.0)
[2020-06-24] MEDS: mineral oil/petrolatum ophthal oint EACHEYE SCH ×4 (02:51→19:58)
[2020-06-24] MEDS: insulin regular, human U-100 3ml vial - multi-dose SQ SCH ×3 (02:55→20:27)
[2020-06-24] MEDS: midazolam 100mg in NS 100ml 100 ML IV PRN ×4 (03:26→19:56)
[2020-06-24 04:11] LABS: ALANINE AMINOTRANSFERASE 37 U/L (12-78); ALBUMIN 2.2 G/DL (3.4-5.0); ALBUMIN/GLOBULIN RATIO 0.6 (1.1-1.5); ALKALINE PHOSPHATASE 60 IU/L (46-116); ANION GAP 4 (8-16); ASPARTATE AMINO TRANSFERASE 23 U/L (10-37); BILIRUBIN,TOTAL 0.4 MG/DL (0.1-1.0); BLOOD UREA NITROGEN 37 MG/DL (7-18); BUN/CREATININE RATIO 48.7 (5.4-32.0); CALCIUM 8.1 MG/DL (8.5-10.1); CHLORIDE 100 MMOL/L (99-107); CREATININE 0.76 MG/DL (0.60-1.10); GLUCOSE 111 MG/DL (70-104); MAGNESIUM 1.6 MG/DL (1.5-2.4); PHOSPHORUS 3.2 MG/DL (2.3-4.5); POTASSIUM 4.3 MMOL/L (3.5-5.1); PREALBUMIN 33.9 MG/DL (19-36); SODIUM 137 MMOL/L (135-145); TOTAL CARBON DIOXIDE 32.7 MMOL/L (24-32); TOTAL PROTEIN 5.7 G/DL (6.4-8.2); TRIGLYCERIDES 62 MG/DL (20-135); eGFR > 90 ML/MIN
--- NOTE | 2020-06-24 06:28 | NUR ---
Problems reprioritized. Patient report given, questions answered & plan of care reviewed with TONIA Green.
[2020-06-24] MEDS: amLODIPine 2.5mg tablet OGT SCH (08:00)
[2020-06-24] MEDS: losartan 25mg tablet OGT SCH (08:00)
[2020-06-24] MEDS: K, MAG and/or Phos replacement - Verify level? MC SCH (08:00)
[2020-06-24] MEDS: linezolid 600mg/300ml PREMIX 300 ML IV SCH ×2 (08:15→20:08)
[2020-06-24] MEDS: furosemide 40mg/4ml inj IV SCH (08:18)
[2020-06-24] MEDS: lactulose 20gm/30ml cup OGT PRN (08:18)
[2020-06-24] MEDS: lactobacillus rhamnosus 10,000 MMU CELLS/CAPSULE OGT SCH ×2 (08:18→19:56)
[2020-06-24] MEDS: pantoprazole 40 MG vial IV SCH ×2 (08:18→19:57)
[2020-06-24] MEDS: docusate sodium 100mg/10ml UD cup OGT SCH ×2 (08:18→19:57)
[2020-06-24] MEDS: dexamethasone 4mg/ml inj IV SCH (08:18)
[2020-06-24] MEDS: sildenafil citrate 20mg tablet OGT SCH ×3 (08:18→20:08)
[2020-06-24] MEDS: methylnaltrexone br 12mg/0.6ml inj***SubQ only SQ SCH (08:19)
[2020-06-24] MEDS: mupirocin 2% ointment 22GM TP SCH ×3 (08:19→21:27)
[2020-06-24] MEDS: enoxaparin 40mg/0.4ml syringe SUBCUT SCH ×2 (08:19→19:58)
[2020-06-24 09:10] LABS: BASOPHILS # (AUTO) 0.1 X10'3 (0-0.2); BASOPHILS % (AUTO) 0.5 % (0-1); EOSINOPHILS # (AUTO) 0.1 X10'3 (0-0.9); EOSINOPHILS % (AUTO) 0.5 % (0-6); HEMATOCRIT 34.6 % (42.0-52.0); HEMOGLOBIN 11.5 g/dl (14.0-17.9); LYMPHOCYTES # (AUTO) 2.1 X10'3 (1.1-4.8); LYMPHOCYTES % (AUTO) 12.9 % (21-51); MEAN CORPUSCULAR HEMOGLOBIN 31.9 PG (27.0-31.0); MEAN CORPUSCULAR HGB CONC 33.3 g/dL (33.0-36.5); MEAN CORPUSCULAR VOLUME 95.9 FL (78-98); MEAN PLATELET VOLUME 9.1 FL (7.4-10.4); MONOCYTES # (AUTO) 1.3 X10'3 (0-0.9); MONOCYTES % (AUTO) 8.3 % (2-12); NEUTROPHILS # (AUTO) 12.6 X10'3 (1.8-7.7); NEUTROPHILS % (AUTO) 77.8 % (42-75); PLATELET COUNT 173 X10'3 (140-440); RED BLOOD COUNT 3.61 X10'6 (4.70-6.10); RED CELL DISTRIBUTION WIDTH 13.3 % (11.5-14.5); WHITE BLOOD COUNT 16.2 X10'3 (4.5-11.0)
--- NOTE | 2020-06-24 18:26 | NUR ---
Patient in room CICU 2006. I have received report from TONIA Green and had the opportunity to ask questions and assume patient care.
[2020-06-24] MEDS: insulin glargine (Lantus) pen - multi-dose SQ SCH (20:28)
[2020-06-25] VITALS (23 sets, daily range): BP systolic 81–150; BP diastolic 50–77
[2020-06-25] MEDS: midazolam 100mg in NS 100ml 100 ML IV PRN ×4 (01:16→18:10)
[2020-06-25] MEDS: mineral oil/petrolatum ophthal oint EACHEYE SCH ×5 (02:28→22:00)
[2020-06-25] MEDS: insulin regular, human U-100 3ml vial - multi-dose SQ SCH ×4 (02:30→22:12)
[2020-06-25] MEDS: ipratropium/albuterol 3ml nebule NEB SCH ×6 (02:42→22:30)
[2020-06-25 03:00] LABS: ABG BASE EXCESS 7.5 mmol/L (-2.0-2.0); ABG HCO3 31.8 mmol/L (22.0-26.0); ABG OXYGEN SATURATION 96.9 % (94-97); ABG PCO2 (T) 43.2 mmHg (35.0-48.0); ABG PO2 (T) 90.5 mmHg (75.0-100.0); ALLEN'S TEST POSITIVE; FCOHb 0.3 % (0.0-3.9); FMetHb 0.1 % (0.0-1.5); FO2Hb 96.5 % (94-97); PATIENT TEMPERATURE 36.8; PEEP 10 cm H2O; RESPIRATORY RATE 18 b/min; TOTAL HEMOGLOBIN 12.4 G/dl (14.0-18.0)
[2020-06-25 03:16] LABS: BASOPHILS # (AUTO) 0.1 X10'3 (0-0.2); BASOPHILS % (AUTO) 0.4 % (0-1); EOSINOPHILS # (AUTO) 0.1 X10'3 (0-0.9); EOSINOPHILS % (AUTO) 0.8 % (0-6); HEMATOCRIT 34.7 % (42.0-52.0); HEMOGLOBIN 11.7 g/dl (14.0-17.9); LYMPHOCYTES # (AUTO) 2.7 X10'3 (1.1-4.8); LYMPHOCYTES % (AUTO) 16.3 % (21-51); MEAN CORPUSCULAR HEMOGLOBIN 32.1 PG (27.0-31.0); MEAN CORPUSCULAR HGB CONC 33.6 g/dL (33.0-36.5); MEAN CORPUSCULAR VOLUME 95.4 FL (78-98); MEAN PLATELET VOLUME 9.1 FL (7.4-10.4); MONOCYTES # (AUTO) 1.5 X10'3 (0-0.9); MONOCYTES % (AUTO) 9.2 % (2-12); NEUTROPHILS % (AUTO) 73.3 % (42-75); RED BLOOD COUNT 3.64 X10'6 (4.70-6.10); RED CELL DISTRIBUTION WIDTH 13.5 % (11.5-14.5); WHITE BLOOD COUNT 16.4 X10'3 (4.5-11.0)
[2020-06-25 03:21] LABS: PLATELET COUNT 131 X10'3 (140-440)
[2020-06-25 04:03] LABS: ALANINE AMINOTRANSFERASE 36 U/L (12-78); ALBUMIN 2.2 G/DL (3.4-5.0); ALBUMIN/GLOBULIN RATIO 0.6 (1.1-1.5); ALKALINE PHOSPHATASE 65 IU/L (46-116); ANION GAP 5 (8-16); ASPARTATE AMINO TRANSFERASE 23 U/L (10-37); BILIRUBIN,TOTAL 0.4 MG/DL (0.1-1.0); BLOOD UREA NITROGEN 32 MG/DL (7-18); BUN/CREATININE RATIO 38.1 (5.4-32.0); C-REACTIVE PROTEIN 0.69 MG/DL (0.0-0.5); CALCIUM 7.8 MG/DL (8.5-10.1); CHLORIDE 101 MMOL/L (99-107); CREATININE 0.84 MG/DL (0.60-1.10); GLUCOSE 85 MG/DL (70-104); MAGNESIUM 1.6 MG/DL (1.5-2.4); PHOSPHORUS 3.2 MG/DL (2.3-4.5); POTASSIUM 4.2 MMOL/L (3.5-5.1); PREALBUMIN 32.3 MG/DL (19-36); SODIUM 139 MMOL/L (135-145); TOTAL CARBON DIOXIDE 33.4 MMOL/L (24-32); TOTAL PROTEIN 5.7 G/DL (6.4-8.2); TRIGLYCERIDES 56 MG/DL (20-135); eGFR > 90 ML/MIN
--- NOTE | 2020-06-25 06:25 | NUR ---
Problems reprioritized. Patient report given, questions answered & plan of care reviewed with TONIA Carballo.
[2020-06-25] MEDS: dexamethasone 4mg/ml inj IV SCH (07:34)
[2020-06-25] MEDS: pantoprazole 40 MG vial IV SCH ×2 (07:34→21:59)
[2020-06-25] MEDS: furosemide 40mg/4ml inj IV SCH (07:35)
[2020-06-25] MEDS: docusate sodium 100mg/10ml UD cup OGT SCH ×2 (07:35→21:58)
[2020-06-25] MEDS: lactobacillus rhamnosus 10,000 MMU CELLS/CAPSULE OGT SCH ×2 (07:35→21:58)
[2020-06-25] MEDS: linezolid 600mg/300ml PREMIX 300 ML IV SCH ×2 (07:35→21:57)
[2020-06-25] MEDS: sildenafil citrate 20mg tablet OGT SCH ×3 (07:35→21:59)
[2020-06-25] MEDS: amLODIPine 2.5mg tablet OGT SCH (08:00)
[2020-06-25] MEDS: K, MAG and/or Phos replacement - Verify level? MC SCH (08:00)
[2020-06-25] MEDS: losartan 25mg tablet OGT SCH (08:00)
[2020-06-25] MEDS: enoxaparin 40mg/0.4ml syringe SUBCUT SCH ×2 (08:04→21:59)
[2020-06-25] MEDS: morphine/NS 100mg/100ml bag 100 ML IV SCH ×2 (09:11→22:41)
[2020-06-25 10:56] LABS: ABG BASE EXCESS 9.1 mmol/L (-2.0-2.0); ABG HCO3 34.6 mmol/L (22.0-26.0); ABG OXYGEN SATURATION 92.3 % (94-97); ABG PCO2 (T) 50.4 mmHg (35.0-48.0); ABG PO2 (T) 63.3 mmHg (75.0-100.0); ALLEN'S TEST POSITIVE; FCOHb 0.4 % (0.0-3.9); FMetHb 0.1 % (0.0-1.5); FO2Hb 91.8 % (94-97); PEEP 10 cm H2O; RESPIRATORY RATE 18 b/min; TIDAL VOLUME 500 mL; TOTAL HEMOGLOBIN 13.4 G/dl (14.0-18.0)
[2020-06-25] MEDS: mupirocin 2% ointment 22GM TP SCH ×3 (12:59→21:00)
--- NOTE | 2020-06-25 13:58 | NUR ---
Reassessment: Pt remains intubated and tolerating TF at goal rate with GRV WNL. LBM 06/24 though documented as a smear, still with no significant BM since 06/05 (20 days), d/w interdisciplinary team at critical care rounds. Pt receiving routine Colace and Relistor and was last given PRN Lactulose 06/24. PRN MoM given for the first time today. Will continue to follow closely. Recommendations: 1) Continuous OGTF per MD using Vital High Protein at 75 ml/hr goal; to provide 1800 ml volume, 1512 ml water, 1800 kcals, and 158 g protein. 2) additional water flush per MD given CHF hx 3) prealbumin and TG q Wednesday/; daily weights 4) routine bowel care; opioid antagonist per MD; would benefit from additional bowel care given no significant BM in 20 days 5) upon extubation; advance diet as medically indicated to heart healthy, CHO controlled 6) DM/low tyramine educations following extubation once stable after receiving official DM dx from physician; A1c 7.2%. Started on Zyvox this admit. Addendum: 06/25/20 at [address] Amended: Links added.
[2020-06-25] MEDS: lactulose 20gm/30ml cup OGT PRN (15:16)
[2020-06-25] MEDS: acetaZOLAMIDE 250mg tablet PO SCH ×2 (16:56→22:09)
--- NOTE | 2020-06-25 18:20 | NUR ---
Patient in room CICU 2006. I have received report from TONIA Carballo and had the opportunity to ask questions and assume patient care.
--- NOTE | 2020-06-25 19:58 | NUR ---
Problems reprioritized. Patient report given, questions answered & plan of care reviewed with TONIA Do.
[2020-06-25] MEDS: insulin glargine (Lantus) pen - multi-dose SQ SCH (22:13)
[2020-06-26] VITALS (23 sets, daily range): BP systolic 84–121; BP diastolic 36–81
[2020-06-26] MEDS: ipratropium/albuterol 3ml nebule NEB SCH ×6 (02:31→23:08)
[2020-06-26] MEDS: insulin regular, human U-100 3ml vial - multi-dose SQ SCH ×4 (02:52→20:51)
[2020-06-26 02:55] LABS: ABG BASE EXCESS 5.9 mmol/L (-2.0-2.0); ABG HCO3 31.4 mmol/L (22.0-26.0); ABG OXYGEN SATURATION 97.2 % (94-97); ABG PCO2 (T) 48.9 mmHg (35.0-48.0); ABG PO2 (T) 92.6 mmHg (75.0-100.0); ALLEN'S TEST POSITIVE; FCOHb 0.1 % (0.0-3.9); FMetHb 0.1 % (0.0-1.5); PATIENT TEMPERATURE 36.9; PEEP 10 cm H2O; RESPIRATORY RATE 18 b/min; TIDAL VOLUME 500 mL; TOTAL HEMOGLOBIN 13.1 G/dl (14.0-18.0)
[2020-06-26 03:25] LABS: ALANINE AMINOTRANSFERASE 34 U/L (12-78); ALBUMIN 2.3 G/DL (3.4-5.0); ALBUMIN/GLOBULIN RATIO 0.7 (1.1-1.5); ALKALINE PHOSPHATASE 88 IU/L (46-116); ANION GAP 4 (8-16); ASPARTATE AMINO TRANSFERASE 22 U/L (10-37); BILIRUBIN,TOTAL 0.3 MG/DL (0.1-1.0); BLOOD UREA NITROGEN 33 MG/DL (7-18); BUN/CREATININE RATIO 41.8 (5.4-32.0); CALCIUM 7.9 MG/DL (8.5-10.1); CHLORIDE 100 MMOL/L (99-107); CREATININE 0.79 MG/DL (0.60-1.10); GLUCOSE 130 MG/DL (70-104); MAGNESIUM 1.8 MG/DL (1.5-2.4); PHOSPHORUS 3.3 MG/DL (2.3-4.5); POTASSIUM 3.3 MMOL/L (3.5-5.1); SODIUM 136 MMOL/L (135-145); TOTAL CARBON DIOXIDE 32.1 MMOL/L (24-32); TOTAL PROTEIN 5.8 G/DL (6.4-8.2); eGFR > 90 ML/MIN
[2020-06-26] MEDS: midazolam 100mg in NS 100ml 100 ML IV PRN ×3 (04:35→19:32)
[2020-06-26] MEDS: POTASSIUM BICARB 20meq eff tab 20 MEQ TABLET.EFF OGT PRN ×3 (05:35→15:08)
[2020-06-26] MEDS: furosemide 40mg/4ml inj IV SCH (08:00)
[2020-06-26] MEDS: amLODIPine 2.5mg tablet OGT SCH (08:00)
[2020-06-26] MEDS: losartan 25mg tablet OGT SCH (08:00)
[2020-06-26] MEDS: K, MAG and/or Phos replacement - Verify level? MC SCH (08:00)
[2020-06-26] MEDS: mupirocin 2% ointment 22GM TP SCH ×3 (08:00→20:53)
[2020-06-26] MEDS: mineral oil/petrolatum ophthal oint EACHEYE SCH ×3 (08:55→20:30)
[2020-06-26] MEDS: pantoprazole 40 MG vial IV SCH ×2 (08:56→20:30)
[2020-06-26] MEDS: enoxaparin 40mg/0.4ml syringe SUBCUT SCH ×2 (08:56→20:25)
[2020-06-26] MEDS: methylnaltrexone br 12mg/0.6ml inj***SubQ only SQ SCH (08:57)
[2020-06-26] MEDS: docusate sodium 100mg/10ml UD cup OGT SCH ×2 (08:57→20:24)
[2020-06-26] MEDS: lactobacillus rhamnosus 10,000 MMU CELLS/CAPSULE OGT SCH ×2 (08:57→20:24)
[2020-06-26] MEDS: sildenafil citrate 20mg tablet OGT SCH ×3 (08:58→20:30)
[2020-06-26] MEDS: dexamethasone 4mg/ml inj IV SCH (08:58)
[2020-06-26] MEDS: acetaZOLAMIDE 250mg tablet PO SCH ×3 (08:59→17:08)
[2020-06-26] MEDS: linezolid 600mg/300ml PREMIX 300 ML IV SCH ×2 (09:05→20:24)
--- NOTE | 2020-06-26 10:40 | NUR ---
Dr. Vidales at bedside, no new orders at this time .
[2020-06-26] MEDS: morphine/NS 100mg/100ml bag 100 ML IV SCH (19:35)
[2020-06-26] MEDS: insulin glargine (Lantus) pen - multi-dose SQ SCH (20:52)
[2020-06-27] VITALS (24 sets, daily range): BP systolic 77–106; BP diastolic 7–69
[2020-06-27 02:22] LABS: BASOPHILS # (AUTO) 0.1 X10'3 (0-0.2); BASOPHILS % (AUTO) 0.4 % (0-1); EOSINOPHILS # (AUTO) 0.2 X10'3 (0-0.9); EOSINOPHILS % (AUTO) 1.3 % (0-6); HEMATOCRIT 36.3 % (42.0-52.0); HEMOGLOBIN 11.8 g/dl (14.0-17.9); LYMPHOCYTES # (AUTO) 1.8 X10'3 (1.1-4.8); LYMPHOCYTES % (AUTO) 12.5 % (21-51); MEAN CORPUSCULAR HEMOGLOBIN 31.4 PG (27.0-31.0); MEAN CORPUSCULAR HGB CONC 32.6 g/dL (33.0-36.5); MEAN CORPUSCULAR VOLUME 96.5 FL (78-98); MEAN PLATELET VOLUME 9.4 FL (7.4-10.4); MONOCYTES # (AUTO) 1.3 X10'3 (0-0.9); MONOCYTES % (AUTO) 8.9 % (2-12); NEUTROPHILS % (AUTO) 76.9 % (42-75); PLATELET COUNT 117 X10'3 (140-440); RED BLOOD COUNT 3.76 X10'6 (4.70-6.10); RED CELL DISTRIBUTION WIDTH 14.2 % (11.5-14.5); WHITE BLOOD COUNT 14.4 X10'3 (4.5-11.0)
[2020-06-27] MEDS: mineral oil/petrolatum ophthal oint EACHEYE SCH ×4 (02:30→20:00)
[2020-06-27 02:46] LABS: ALANINE AMINOTRANSFERASE 32 U/L (12-78); ALBUMIN 2.4 G/DL (3.4-5.0); ALBUMIN/GLOBULIN RATIO 0.6 (1.1-1.5); ALKALINE PHOSPHATASE 79 IU/L (46-116); ANION GAP 3 (8-16); ASPARTATE AMINO TRANSFERASE 21 U/L (10-37); BILIRUBIN,TOTAL 0.4 MG/DL (0.1-1.0); BLOOD UREA NITROGEN 35 MG/DL (7-18); BUN/CREATININE RATIO 42.7 (5.4-32.0); C-REACTIVE PROTEIN 3.37 MG/DL (0.0-0.5); CALCIUM 8.4 MG/DL (8.5-10.1); CHLORIDE 99 MMOL/L (99-107); CREATININE 0.82 MG/DL (0.60-1.10); GLUCOSE 92 MG/DL (70-104); POTASSIUM 3.4 MMOL/L (3.5-5.1); PREALBUMIN 27.5 MG/DL (19-36); SODIUM 135 MMOL/L (135-145); TOTAL CARBON DIOXIDE 33.3 MMOL/L (24-32); TOTAL PROTEIN 6.1 G/DL (6.4-8.2); TRIGLYCERIDES 42 MG/DL (20-135); eGFR > 90 ML/MIN
[2020-06-27] MEDS: insulin regular, human U-100 3ml vial - multi-dose SQ SCH ×4 (02:50→21:30)
[2020-06-27] MEDS: ipratropium/albuterol 3ml nebule NEB SCH ×6 (03:09→23:15)
[2020-06-27 03:10] LABS: ABG BASE EXCESS 3.7 mmol/L (-2.0-2.0); ABG HCO3 28.7 mmol/L (22.0-26.0); ABG OXYGEN SATURATION 98.5 % (94-97); ABG PCO2 (T) 44.5 mmHg (35.0-48.0); ABG PO2 (T) 126.6 mmHg (75.0-100.0); ALLEN'S TEST POSITIVE; FCOHb 0.1 % (0.0-3.9); FMetHb 0.2 % (0.0-1.5); FO2Hb 98.2 % (94-97); PATIENT TEMPERATURE 36.8; PEEP 10 cm H2O; RESPIRATORY RATE 18 b/min; TIDAL VOLUME 500 mL; TOTAL HEMOGLOBIN 13.1 G/dl (14.0-18.0)
[2020-06-27] MEDS: midazolam 100mg in NS 100ml 100 ML IV PRN ×4 (04:46→23:34)
[2020-06-27] MEDS: potassium CL 10mEq/100ml bag 100 ML IV PRN ×4 (05:48→12:44)
--- NOTE | 2020-06-27 06:31 | NUR ---
report given to EMILY RANDALL
[2020-06-27 07:27] LABS: MAGNESIUM 1.8 MG/DL (1.5-2.4)
[2020-06-27] MEDS: furosemide 40mg/4ml inj IV SCH (07:51)
[2020-06-27] MEDS: pantoprazole 40 MG vial IV SCH ×2 (07:52→21:39)
[2020-06-27] MEDS: linezolid 600mg/300ml PREMIX 300 ML IV SCH ×2 (07:52→21:49)
[2020-06-27] MEDS: enoxaparin 40mg/0.4ml syringe SUBCUT SCH ×2 (07:52→21:42)
[2020-06-27] MEDS: dexamethasone 4mg/ml inj IV SCH (07:52)
[2020-06-27] MEDS: docusate sodium 100mg/10ml UD cup OGT SCH ×2 (07:52→21:44)
[2020-06-27] MEDS: lactobacillus rhamnosus 10,000 MMU CELLS/CAPSULE OGT SCH ×2 (07:52→21:43)
[2020-06-27] MEDS: sildenafil citrate 20mg tablet OGT SCH ×3 (07:53→21:43)
[2020-06-27] MEDS: mupirocin 2% ointment 22GM TP SCH ×3 (07:53→21:00)
[2020-06-27] MEDS: K, MAG and/or Phos replacement - Verify level? MC SCH (08:00)
[2020-06-27] MEDS: amLODIPine 2.5mg tablet OGT SCH (08:00)
[2020-06-27] MEDS: losartan 25mg tablet OGT SCH (08:00)
[2020-06-27] MEDS: morphine/NS 100mg/100ml bag 100 ML IV SCH (17:58)
[2020-06-27] MEDS: insulin glargine (Lantus) pen - multi-dose SQ SCH (21:32)
[2020-06-28] VITALS (24 sets, daily range): BP systolic 81–120; BP diastolic 45–69
[2020-06-28] MEDS: mineral oil/petrolatum ophthal oint EACHEYE SCH ×4 (02:00→20:00)
[2020-06-28] MEDS: ipratropium/albuterol 3ml nebule NEB SCH ×6 (02:59→23:29)
[2020-06-28 03:15] LABS: ABG BASE EXCESS 4.3 mmol/L (-2.0-2.0); ABG HCO3 29.5 mmol/L (22.0-26.0); ABG PCO2 (T) 45.8 mmHg (35.0-48.0); ABG PO2 (T) 73.4 mmHg (75.0-100.0); ALLEN'S TEST POSITIVE; FCOHb 0.1 % (0.0-3.9); FMetHb 0.1 % (0.0-1.5); FO2Hb 94.8 % (94-97); PATIENT TEMPERATURE 36.6; PEEP 10 cm H2O; RESPIRATORY RATE 18 b/min; TIDAL VOLUME 500 mL; TOTAL HEMOGLOBIN 12.6 G/dl (14.0-18.0)
[2020-06-28 04:02] LABS: BASOPHILS # (AUTO) 0.1 X10'3 (0-0.2); BASOPHILS % (AUTO) 0.6 % (0-1); EOSINOPHILS # (AUTO) 0.2 X10'3 (0-0.9); EOSINOPHILS % (AUTO) 1.5 % (0-6); HEMATOCRIT 35.1 % (42.0-52.0); HEMOGLOBIN 11.5 g/dl (14.0-17.9); LYMPHOCYTES % (AUTO) 16.9 % (21-51); MEAN CORPUSCULAR HEMOGLOBIN 31.4 PG (27.0-31.0); MEAN CORPUSCULAR HGB CONC 32.6 g/dL (33.0-36.5); MEAN CORPUSCULAR VOLUME 96.2 FL (78-98); MEAN PLATELET VOLUME 9.5 FL (7.4-10.4); MONOCYTES # (AUTO) 1.1 X10'3 (0-0.9); MONOCYTES % (AUTO) 9.3 % (2-12); NEUTROPHILS # (AUTO) 8.5 X10'3 (1.8-7.7); NEUTROPHILS % (AUTO) 71.7 % (42-75); PLATELET COUNT 106 X10'3 (140-440); RED BLOOD COUNT 3.65 X10'6 (4.70-6.10); RED CELL DISTRIBUTION WIDTH 14.1 % (11.5-14.5); WHITE BLOOD COUNT 11.9 X10'3 (4.5-11.0)
[2020-06-28 04:17] LABS: ALANINE AMINOTRANSFERASE 34 U/L (12-78); ALBUMIN 2.4 G/DL (3.4-5.0); ALBUMIN/GLOBULIN RATIO 0.6 (1.1-1.5); ALKALINE PHOSPHATASE 74 IU/L (46-116); ANION GAP 6 (8-16); ASPARTATE AMINO TRANSFERASE 20 U/L (10-37); BILIRUBIN,TOTAL 0.3 MG/DL (0.1-1.0); BLOOD UREA NITROGEN 45 MG/DL (7-18); C-REACTIVE PROTEIN 2.99 MG/DL (0.0-0.5); CALCIUM 8.5 MG/DL (8.5-10.1); CHLORIDE 98 MMOL/L (99-107); GLUCOSE 86 MG/DL (70-104); MAGNESIUM 1.9 MG/DL (1.5-2.4); PHOSPHORUS 3.7 MG/DL (2.3-4.5); POTASSIUM 3.6 MMOL/L (3.5-5.1); PREALBUMIN 25.4 MG/DL (19-36); SODIUM 136 MMOL/L (135-145); TOTAL CARBON DIOXIDE 31.9 MMOL/L (24-32); TOTAL PROTEIN 6.2 G/DL (6.4-8.2); TRIGLYCERIDES 46 MG/DL (20-135); eGFR 87 ML/MIN
[2020-06-28] MEDS: midazolam 100mg in NS 100ml 100 ML IV PRN ×4 (05:14→21:47)
[2020-06-28] MEDS: amLODIPine 2.5mg tablet OGT SCH (08:00)
[2020-06-28] MEDS: losartan 25mg tablet OGT SCH (08:00)
[2020-06-28] MEDS: furosemide 40mg/4ml inj IV SCH (08:04)
[2020-06-28] MEDS: dexamethasone 4mg/ml inj IV SCH (08:07)
[2020-06-28] MEDS: pantoprazole 40 MG vial IV SCH ×2 (08:08→20:59)
[2020-06-28] MEDS: linezolid 600mg/300ml PREMIX 300 ML IV SCH ×2 (08:09→21:05)
[2020-06-28] MEDS: docusate sodium 100mg/10ml UD cup OGT SCH ×2 (08:12→21:08)
[2020-06-28] MEDS: K, MAG and/or Phos replacement - Verify level? MC SCH (08:12)
[2020-06-28] MEDS: lactobacillus rhamnosus 10,000 MMU CELLS/CAPSULE OGT SCH ×2 (08:12→21:08)
[2020-06-28] MEDS: sildenafil citrate 20mg tablet OGT SCH ×3 (08:13→21:08)
[2020-06-28] MEDS: methylnaltrexone br 12mg/0.6ml inj***SubQ only SQ SCH (08:13)
[2020-06-28] MEDS: enoxaparin 40mg/0.4ml syringe SUBCUT SCH ×2 (08:14→21:09)
[2020-06-28] MEDS: mupirocin 2% ointment 22GM TP SCH ×3 (08:14→21:15)
[2020-06-28] MEDS: insulin regular, human U-100 3ml vial - multi-dose SQ SCH (08:16)
[2020-06-28 12:08] LABS: D-DIMER 1.38 MG/L FEU (0-0.50)
--- NOTE | 2020-06-28 12:24 | NUR ---
Reassessment: Pt remains intubated and tolerating TF at goal rate with GRV WNL. Noted that pt documented to be receiving 200 mL water flushes Q6H despite order for water flush being discontinued the day of order (06/17). Serum Na 136 today. D/w RN recommendation to hold water flushes at this time given no active order. Will monitor serum Na and make further recommendations as appropriate. Still no BM since 06/24 which was a smear. Now 23 days with no significant BM. Pt receiving routine Colace and Relistor and has not received PRN bowel care since 06/25. RD f/u with RN today to discuss recommendation to admin PRN bowel care for bowel regularity. Will continue to follow closely. Recommendations: 1) Continuous OGTF per MD using Vital High Protein at 75 ml/hr goal; to provide 1800 ml volume, 1512 ml water, 1800 kcals, and 158 g protein. 2) additional water flush per MD given CHF hx; monitor serum Na 3) prealbumin and TG q Wednesday/; daily weights 4) routine bowel care; opioid antagonist per MD; would benefit from additional bowel care given no significant BM in 20 days 5) upon extubation; advance diet as medically indicated to heart healthy, CHO controlled 6) DM/low tyramine educations following extubation once stable after receiving official DM dx from physician; A1c 7.2%. Started on Zyvox this admit. Addendum: 06/28/20 at [address] Amended: Links added.
[2020-06-28] MEDS: morphine/NS 100mg/100ml bag 100 ML IV SCH (15:03)
[2020-06-28] MEDS: insulin glargine (Lantus) pen - multi-dose SQ SCH (21:00)
[2020-06-29] VITALS (24 sets, daily range): BP systolic 81–156; BP diastolic 51–96
[2020-06-29] MEDS: mineral oil/petrolatum ophthal oint EACHEYE SCH ×4 (02:25→20:12)
[2020-06-29] MEDS: midazolam 100mg in NS 100ml 100 ML IV PRN ×5 (02:26→23:15)
[2020-06-29] MEDS: ipratropium/albuterol 3ml nebule NEB SCH ×6 (03:37→23:29)
[2020-06-29 03:54] LABS: BASOPHILS # (AUTO) 0.1 X10'3 (0-0.2); BASOPHILS % (AUTO) 0.5 % (0-1); EOSINOPHILS # (AUTO) 0.2 X10'3 (0-0.9); EOSINOPHILS % (AUTO) 1.7 % (0-6); HEMATOCRIT 32.9 % (42.0-52.0); HEMOGLOBIN 10.8 g/dl (14.0-17.9); LYMPHOCYTES # (AUTO) 2.2 X10'3 (1.1-4.8); LYMPHOCYTES % (AUTO) 20.4 % (21-51); MEAN CORPUSCULAR HEMOGLOBIN 31.8 PG (27.0-31.0); MEAN CORPUSCULAR HGB CONC 32.9 g/dL (33.0-36.5); MEAN CORPUSCULAR VOLUME 96.7 FL (78-98); MEAN PLATELET VOLUME 10.6 FL (7.4-10.4); MONOCYTES % (AUTO) 9.6 % (2-12); NEUTROPHILS # (AUTO) 7.4 X10'3 (1.8-7.7); NEUTROPHILS % (AUTO) 67.8 % (42-75); PLATELET COUNT 99 X10'3 (140-440); RED BLOOD COUNT 3.41 X10'6 (4.70-6.10); RED CELL DISTRIBUTION WIDTH 14.1 % (11.5-14.5); WHITE BLOOD COUNT 10.9 X10'3 (4.5-11.0)
[2020-06-29 04:05] LABS: D-DIMER 1.16 MG/L FEU (0-0.50)
[2020-06-29 04:09] LABS: ALANINE AMINOTRANSFERASE 31 U/L (12-78); ALBUMIN 2.2 G/DL (3.4-5.0); ALBUMIN/GLOBULIN RATIO 0.6 (1.1-1.5); ALKALINE PHOSPHATASE 62 IU/L (46-116); ANION GAP 4 (8-16); ASPARTATE AMINO TRANSFERASE 20 U/L (10-37); BILIRUBIN,TOTAL 0.3 MG/DL (0.1-1.0); BLOOD UREA NITROGEN 44 MG/DL (7-18); C-REACTIVE PROTEIN 2.03 MG/DL (0.0-0.5); CALCIUM 8.3 MG/DL (8.5-10.1); CHLORIDE 100 MMOL/L (99-107); CREATININE 0.88 MG/DL (0.60-1.10); GLUCOSE 65 MG/DL (70-104); MAGNESIUM 1.9 MG/DL (1.5-2.4); PHOSPHORUS 3.2 MG/DL (2.3-4.5); POTASSIUM 3.4 MMOL/L (3.5-5.1); SODIUM 137 MMOL/L (135-145); TOTAL CARBON DIOXIDE 33.5 MMOL/L (24-32); TOTAL PROTEIN 5.7 G/DL (6.4-8.2); eGFR 90 ML/MIN
[2020-06-29 04:30] LABS: ABG BASE EXCESS 4.5 mmol/L (-2.0-2.0); ABG HCO3 27.8 mmol/L (22.0-26.0); ABG OXYGEN SATURATION 89.5 % (94-97); ABG PCO2 (T) 35.4 mmHg (35.0-48.0); ABG PO2 (T) 53.7 mmHg (75.0-100.0); ALLEN'S TEST POSITIVE; FCOHb 0.3 % (0.0-3.9); FMetHb 0.3 % (0.0-1.5); PATIENT TEMPERATURE 36.2; PEEP 10 cm H2O; RESPIRATORY RATE 18 b/min; TIDAL VOLUME 500 mL; TOTAL HEMOGLOBIN 11.5 G/dl (14.0-18.0)
[2020-06-29] MEDS: potassium CL 10mEq/100ml bag 100 ML IV PRN ×4 (06:16→17:16)
[2020-06-29] MEDS: mupirocin 2% ointment 22GM TP SCH ×3 (07:07→20:13)
[2020-06-29] MEDS: linezolid 600mg/300ml PREMIX 300 ML IV SCH (07:07)
[2020-06-29] MEDS: enoxaparin 40mg/0.4ml syringe SUBCUT SCH ×2 (07:08→20:12)
[2020-06-29] MEDS: furosemide 40mg/4ml inj IV SCH (07:08)
[2020-06-29] MEDS: lactulose 20gm/30ml cup OGT PRN (07:09)
[2020-06-29] MEDS: sildenafil citrate 20mg tablet OGT SCH ×3 (07:09→20:12)
[2020-06-29] MEDS: losartan 25mg tablet OGT SCH (07:09)
[2020-06-29] MEDS: lactobacillus rhamnosus 10,000 MMU CELLS/CAPSULE OGT SCH ×2 (07:09→20:12)
[2020-06-29] MEDS: docusate sodium 100mg/10ml UD cup OGT SCH ×2 (07:09→20:12)
[2020-06-29] MEDS: pantoprazole 40 MG vial IV SCH ×2 (07:09→20:12)
[2020-06-29] MEDS: amLODIPine 2.5mg tablet OGT SCH (07:09)
[2020-06-29] MEDS: K, MAG and/or Phos replacement - Verify level? MC SCH (07:10)
[2020-06-29] MEDS: dexamethasone 4mg/ml inj IV SCH (07:11)
[2020-06-29] MEDS: morphine/NS 100mg/100ml bag 100 ML IV SCH (11:36)
[2020-06-29] MEDS: insulin glargine (Lantus) pen - multi-dose SQ SCH (20:13)
[2020-06-30] VITALS (24 sets, daily range): BP systolic 79–116; BP diastolic 50–80
[2020-06-30] MEDS: mineral oil/petrolatum ophthal oint EACHEYE SCH ×4 (02:00→20:27)
[2020-06-30 02:30] LABS: BASOPHILS % (AUTO) 0.3 % (0-1); MEAN CORPUSCULAR HEMOGLOBIN 32.2 PG (27.0-31.0); MEAN CORPUSCULAR HGB CONC 33.5 g/dL (33.0-36.5)
[2020-06-30 02:32] LABS: EOSINOPHILS # (AUTO) 0.2 X10'3 (0-0.9); HEMATOCRIT 31.6 % (42.0-52.0); HEMOGLOBIN 10.6 g/dl (14.0-17.9); LYMPHOCYTES # (AUTO) 1.9 X10'3 (1.1-4.8); MEAN CORPUSCULAR VOLUME 96.3 FL (78-98); MEAN PLATELET VOLUME 8.3 FL (7.4-10.4); MONOCYTES # (AUTO) 1.1 X10'3 (0-0.9); MONOCYTES % (AUTO) 10.3 % (2-12); NEUTROPHILS # (AUTO) 7.7 X10'3 (1.8-7.7); NEUTROPHILS % (AUTO) 70.4 % (42-75); PLATELET COUNT 95 X10'3 (140-440); RED BLOOD COUNT 3.29 X10'6 (4.70-6.10); RED CELL DISTRIBUTION WIDTH 13.9 % (11.5-14.5)
[2020-06-30 02:47] LABS: ALANINE AMINOTRANSFERASE 30 U/L (12-78); ALBUMIN 2.2 G/DL (3.4-5.0); ALBUMIN/GLOBULIN RATIO 0.7 (1.1-1.5); ALKALINE PHOSPHATASE 63 IU/L (46-116); ANION GAP 7 (8-16); ASPARTATE AMINO TRANSFERASE 30 U/L (10-37); BILIRUBIN,TOTAL 0.4 MG/DL (0.1-1.0); BLOOD UREA NITROGEN 36 MG/DL (7-18); BUN/CREATININE RATIO 38.7 (5.4-32.0); C-REACTIVE PROTEIN 2.14 MG/DL (0.0-0.5); CHLORIDE 101 MMOL/L (99-107); CREATININE 0.93 MG/DL (0.60-1.10); GLUCOSE 72 MG/DL (70-104); MAGNESIUM 1.8 MG/DL (1.5-2.4); PHOSPHORUS 3.5 MG/DL (2.3-4.5); POTASSIUM 3.7 MMOL/L (3.5-5.1); SODIUM 138 MMOL/L (135-145); TOTAL CARBON DIOXIDE 30.3 MMOL/L (24-32); TOTAL PROTEIN 5.5 G/DL (6.4-8.2); eGFR 84 ML/MIN
[2020-06-30] MEDS: ipratropium/albuterol 3ml nebule NEB SCH ×6 (04:06→23:43)
[2020-06-30] MEDS: midazolam 100mg in NS 100ml 100 ML IV PRN ×3 (04:36→17:09)
[2020-06-30 05:01] LABS: ABG BASE EXCESS 4.9 mmol/L (-2.0-2.0); ABG OXYGEN SATURATION 95.8 % (94-97); ABG PCO2 (T) 40.2 mmHg (35.0-48.0); ABG PO2 (T) 78.9 mmHg (75.0-100.0); ALLEN'S TEST POSITIVE; FCOHb 0.3 % (0.0-3.9); FMetHb 0.1 % (0.0-1.5); FO2Hb 95.4 % (94-97); PATIENT TEMPERATURE 36.4; PEEP 10 cm H2O; RESPIRATORY RATE 18 b/min; TIDAL VOLUME 500 mL
[2020-06-30] MEDS: methylnaltrexone br 12mg/0.6ml inj***SubQ only SQ SCH (07:09)
[2020-06-30] MEDS: dexamethasone 4mg/ml inj IV SCH (07:09)
[2020-06-30] MEDS: docusate sodium 100mg/10ml UD cup OGT SCH ×2 (07:09→20:26)
[2020-06-30] MEDS: enoxaparin 40mg/0.4ml syringe SUBCUT SCH ×2 (07:09→20:26)
[2020-06-30] MEDS: furosemide 40mg/4ml inj IV SCH (07:09)
[2020-06-30] MEDS: pantoprazole 40 MG vial IV SCH ×2 (07:09→20:26)
[2020-06-30] MEDS: amLODIPine 2.5mg tablet OGT SCH (07:10)
[2020-06-30] MEDS: lactobacillus rhamnosus 10,000 MMU CELLS/CAPSULE OGT SCH ×2 (07:10→20:26)
[2020-06-30] MEDS: losartan 25mg tablet OGT SCH (07:10)
[2020-06-30] MEDS: sildenafil citrate 20mg tablet OGT SCH ×3 (07:10→20:26)
[2020-06-30] MEDS: mupirocin 2% ointment 22GM TP SCH ×3 (07:11→20:27)
[2020-06-30] MEDS: K, MAG and/or Phos replacement - Verify level? MC SCH (08:00)
--- NOTE | 2020-06-30 18:30 | NUR ---
Patient in room CICU 2009. I have received report from TONIA Shelley and had the opportunity to ask questions and assume patient care.
[2020-06-30] MEDS: insulin glargine (Lantus) pen - multi-dose SQ SCH (20:29)
[2020-07-01] VITALS (24 sets, daily range): BP systolic 84–123; BP diastolic 51–81
[2020-07-01] MEDS: midazolam 100mg in NS 100ml 100 ML IV PRN ×4 (00:24→21:51)
[2020-07-01] MEDS: mineral oil/petrolatum ophthal oint EACHEYE SCH ×4 (02:08→20:20)
[2020-07-01 03:19] LABS: BASOPHILS % (AUTO) 0.3 % (0-1); EOSINOPHILS # (AUTO) 0.2 X10'3 (0-0.9); EOSINOPHILS % (AUTO) 1.9 % (0-6); HEMATOCRIT 31.3 % (42.0-52.0); HEMOGLOBIN 10.5 g/dl (14.0-17.9); LYMPHOCYTES # (AUTO) 1.7 X10'3 (1.1-4.8); MEAN CORPUSCULAR HEMOGLOBIN 32.3 PG (27.0-31.0); MEAN CORPUSCULAR HGB CONC 33.4 g/dL (33.0-36.5); MEAN CORPUSCULAR VOLUME 96.8 FL (78-98); MEAN PLATELET VOLUME 9.8 FL (7.4-10.4); MONOCYTES # (AUTO) 1.1 X10'3 (0-0.9); MONOCYTES % (AUTO) 10.8 % (2-12); NEUTROPHILS # (AUTO) 6.9 X10'3 (1.8-7.7); PLATELET COUNT 70 X10'3 (140-440); RED BLOOD COUNT 3.24 X10'6 (4.70-6.10); RED CELL DISTRIBUTION WIDTH 14.5 % (11.5-14.5); WHITE BLOOD COUNT 9.9 X10'3 (4.5-11.0)
[2020-07-01] MEDS: ipratropium/albuterol 3ml nebule NEB SCH ×6 (03:20→23:21)
[2020-07-01 03:26] LABS: ALANINE AMINOTRANSFERASE 35 U/L (12-78); ALBUMIN 2.1 G/DL (3.4-5.0); ALBUMIN/GLOBULIN RATIO 0.7 (1.1-1.5); ALKALINE PHOSPHATASE 63 IU/L (46-116); ANION GAP 5 (8-16); ASPARTATE AMINO TRANSFERASE 35 U/L (10-37); BILIRUBIN,TOTAL 0.5 MG/DL (0.1-1.0); BLOOD UREA NITROGEN 30 MG/DL (7-18); BUN/CREATININE RATIO 37.5 (5.4-32.0); CALCIUM 8.2 MG/DL (8.5-10.1); CHLORIDE 101 MMOL/L (99-107); GLUCOSE 82 MG/DL (70-104); MAGNESIUM 1.9 MG/DL (1.5-2.4); PHOSPHORUS 2.7 MG/DL (2.3-4.5); POTASSIUM 3.2 MMOL/L (3.5-5.1); SODIUM 138 MMOL/L (135-145); TOTAL CARBON DIOXIDE 31.7 MMOL/L (24-32); TOTAL PROTEIN 5.3 G/DL (6.4-8.2); TRIGLYCERIDES 82 MG/DL (20-135); eGFR > 90 ML/MIN
[2020-07-01] MEDS: potassium Cl 20mEq/100mL bag 100 ML IV PRN ×2 (04:30→05:54)
[2020-07-01 05:25] LABS: ABG BASE EXCESS 5.4 mmol/L (-2.0-2.0); ABG HCO3 28.8 mmol/L (22.0-26.0); ABG OXYGEN SATURATION 95.9 % (94-97); ABG PCO2 (T) 37.5 mmHg (35.0-48.0); ABG PO2 (T) 80.5 mmHg (75.0-100.0); ALLEN'S TEST POSITIVE; FCOHb 0.3 % (0.0-3.9); FMetHb 0.1 % (0.0-1.5); FO2Hb 95.5 % (94-97); PATIENT TEMPERATURE 36.8; PEEP 10 cm H2O; RESPIRATORY RATE 18 b/min; TIDAL VOLUME 500 mL; TOTAL HEMOGLOBIN 12.1 G/dl (14.0-18.0)
--- NOTE | 2020-07-01 06:18 | NUR ---
Problems reprioritized. Patient report given, questions answered & plan of care reviewed with TONIA Catherine.
[2020-07-01] MEDS: furosemide 40mg/4ml inj IV SCH (07:04)
[2020-07-01] MEDS: pantoprazole 40 MG vial IV SCH ×2 (07:04→20:18)
[2020-07-01] MEDS: dexamethasone 4mg/ml inj IV SCH (07:04)
[2020-07-01] MEDS: POTASSIUM BICARB 20meq eff tab 20 MEQ TABLET.EFF OGT PRN ×2 (07:05→13:09)
[2020-07-01] MEDS: enoxaparin 40mg/0.4ml syringe SUBCUT SCH ×2 (07:05→20:20)
[2020-07-01] MEDS: lactobacillus rhamnosus 10,000 MMU CELLS/CAPSULE OGT SCH ×2 (07:06→20:18)
[2020-07-01] MEDS: sildenafil citrate 20mg tablet OGT SCH ×3 (07:06→20:21)
[2020-07-01] MEDS: mupirocin 2% ointment 22GM TP SCH ×3 (07:08→20:20)
[2020-07-01] MEDS: docusate sodium 100mg/10ml UD cup OGT SCH ×2 (07:18→20:00)
[2020-07-01] MEDS: amLODIPine 2.5mg tablet OGT SCH (07:19)
[2020-07-01] MEDS: losartan 25mg tablet OGT SCH (07:19)
[2020-07-01] MEDS: K, MAG and/or Phos replacement - Verify level? MC SCH (08:43)
--- NOTE | 2020-07-01 13:56 | NUR ---
Reassessment: Pt remains intubated. Per MD note TF has been on hold since Wednesday (06/28) d/t ileus. Pt having good BMs now with LBM 06/30 documented with moderate to large BMs. Pt previously without a significant BM since admit. Pt started on PRN Reglan and TF resumed at 10 mL/hr per MD. Pt possibly to get trach/PEG per MD. Recommend advancing TF to goal as medically indicated as pt previously tolerating with GRV WNL and now with adequate BMs. Zyvox discontinued 06/29. Will continue to follow closely. Recommendations: 1) Continuous OGTF per MD using Vital High Protein at 75 ml/hr goal; to provide 1800 ml volume, 1512 ml water, 1800 kcals, and 158 g protein. 2) additional water flush per MD given CHF hx; monitor serum Na 3) prealbumin and TG q Wednesday/; daily weights 4) routine bowel care; opioid antagonist and prokinetic agent per MD 5) upon extubation; advance diet as medically indicated to heart healthy, CHO controlled 6) DM education following extubation once stable after receiving official DM dx from physician; A1c 7.2% Addendum: 07/01/20 at [address] Amended: Links added.
[2020-07-01] MEDS: morphine/NS 100mg/100ml bag 100 ML IV SCH (17:17)
--- NOTE | 2020-07-01 18:00 | NUR ---
Patient in room CICU 2008. I have received report from TONIA Augustine and had the opportunity to ask questions and assume patient care.
--- NOTE | 2020-07-01 18:30 | NUR ---
Patient in room CICU 2008. I have received report from TONIA Catherine and had the opportunity to ask questions and assume patient care.
[2020-07-01] MEDS: insulin glargine (Lantus) pen - multi-dose SQ SCH (20:36)
[2020-07-02] VITALS (24 sets, daily range): BP systolic 78–138; BP diastolic 48–103
[2020-07-02] MEDS: mineral oil/petrolatum ophthal oint EACHEYE SCH ×4 (02:18→20:25)
[2020-07-02] MEDS: ipratropium/albuterol 3ml nebule NEB SCH ×6 (02:56→23:14)
[2020-07-02 03:00] LABS: BASOPHILS # (AUTO) 0.1 X10'3 (0-0.2); BASOPHILS % (AUTO) 0.7 % (0-1); EOSINOPHILS # (AUTO) 0.3 X10'3 (0-0.9); EOSINOPHILS % (AUTO) 2.9 % (0-6); HEMOGLOBIN 11.1 g/dl (14.0-17.9); LYMPHOCYTES # (AUTO) 1.8 X10'3 (1.1-4.8); LYMPHOCYTES % (AUTO) 17.2 % (21-51); MEAN CORPUSCULAR HEMOGLOBIN 32.5 PG (27.0-31.0); MEAN CORPUSCULAR HGB CONC 33.6 g/dL (33.0-36.5); MEAN CORPUSCULAR VOLUME 96.6 FL (78-98); MEAN PLATELET VOLUME 8.9 FL (7.4-10.4); MONOCYTES # (AUTO) 1.3 X10'3 (0-0.9); MONOCYTES % (AUTO) 12.4 % (2-12); NEUTROPHILS # (AUTO) 7.1 X10'3 (1.8-7.7); NEUTROPHILS % (AUTO) 66.8 % (42-75); PLATELET COUNT 89 X10'3 (140-440); RED BLOOD COUNT 3.41 X10'6 (4.70-6.10); RED CELL DISTRIBUTION WIDTH 14.6 % (11.5-14.5); WHITE BLOOD COUNT 10.6 X10'3 (4.5-11.0)
[2020-07-02 03:10] LABS: ABG HCO3 28.1 mmol/L (22.0-26.0); ABG OXYGEN SATURATION 91.8 % (94-97); ABG PCO2 (T) 36.1 mmHg (35.0-48.0); ABG PO2 (T) 62.7 mmHg (75.0-100.0); ALLEN'S TEST POSITIVE; FCOHb 0.3 % (0.0-3.9); FMetHb 0.1 % (0.0-1.5); FO2Hb 91.4 % (94-97); PEEP 10 cm H2O; RESPIRATORY RATE 18 b/min; TIDAL VOLUME 500 mL; TOTAL HEMOGLOBIN 11.8 G/dl (14.0-18.0)
[2020-07-02 03:31] LABS: ALANINE AMINOTRANSFERASE 50 U/L (12-78); ALBUMIN 2.4 G/DL (3.4-5.0); ALBUMIN/GLOBULIN RATIO 0.8 (1.1-1.5); ALKALINE PHOSPHATASE 68 IU/L (46-116); ANION GAP 6 (8-16); ASPARTATE AMINO TRANSFERASE 54 U/L (10-37); BILIRUBIN,TOTAL 0.5 MG/DL (0.1-1.0); BLOOD UREA NITROGEN 24 MG/DL (7-18); BUN/CREATININE RATIO 27.9 (5.4-32.0); C-REACTIVE PROTEIN 3.03 MG/DL (0.0-0.5); CALCIUM 8.2 MG/DL (8.5-10.1); CHLORIDE 103 MMOL/L (99-107); CREATININE 0.86 MG/DL (0.60-1.10); GLUCOSE 83 MG/DL (70-104); MAGNESIUM 1.8 MG/DL (1.5-2.4); PHOSPHORUS 2.5 MG/DL (2.3-4.5); POTASSIUM 3.7 MMOL/L (3.5-5.1); PREALBUMIN 17.5 MG/DL (19-36); SODIUM 140 MMOL/L (135-145); TOTAL CARBON DIOXIDE 30.7 MMOL/L (24-32); TOTAL PROTEIN 5.6 G/DL (6.4-8.2); TRIGLYCERIDES 89 MG/DL (20-135); eGFR > 90 ML/MIN
[2020-07-02] MEDS: midazolam 100mg in NS 100ml 100 ML IV PRN ×3 (03:53→22:25)
--- NOTE | 2020-07-02 06:30 | NUR ---
I have reviewed and agree with all interventions, assessments, and medication administrations performed and documented by TONIA Mast.
--- NOTE | 2020-07-02 06:36 | NUR ---
Problems reprioritized. Patient report given, questions answered & plan of care reviewed with TONIA Ornelas.
[2020-07-02] MEDS: docusate sodium 100mg/10ml UD cup OGT SCH ×2 (08:00→20:00)
[2020-07-02] MEDS: K, MAG and/or Phos replacement - Verify level? MC SCH (08:00)
[2020-07-02] MEDS: methylnaltrexone br 12mg/0.6ml inj***SubQ only SQ SCH (08:00)
[2020-07-02] MEDS: amLODIPine 2.5mg tablet OGT SCH (08:00)
[2020-07-02] MEDS: losartan 25mg tablet OGT SCH (08:00)
[2020-07-02] MEDS: enoxaparin 40mg/0.4ml syringe SUBCUT SCH ×2 (08:33→20:23)
[2020-07-02] MEDS: furosemide 40mg/4ml inj IV SCH (08:33)
[2020-07-02] MEDS: mupirocin 2% ointment 22GM TP SCH ×2 (08:33→13:47)
[2020-07-02] MEDS: lactobacillus rhamnosus 10,000 MMU CELLS/CAPSULE OGT SCH ×2 (08:33→20:23)
[2020-07-02] MEDS: sildenafil citrate 20mg tablet OGT SCH ×3 (08:33→20:23)
[2020-07-02] MEDS: pantoprazole 40 MG vial IV SCH ×2 (08:33→20:22)
--- NOTE | 2020-07-02 09:00 | NUR ---
Report received from nurse Ornelas this AM. Obtained patient care at 0900.
[2020-07-02] MEDS: dexmedetomidine/D5W 100mL 100 ML IV SCH ×2 (09:57→18:32)
[2020-07-02] MEDS ORDERED: normal saline 1000ml 1,000 ML IV ONE ×2 (16:35→16:40)
[2020-07-02] MEDS: morphine/NS 100mg/100ml bag 100 ML IV SCH (16:51)
[2020-07-02] MEDS: insulin glargine (Lantus) pen - multi-dose SQ SCH (21:00)
--- NOTE | 2020-07-02 22:25 | NUR ---
Aime Hester, BLOOD TYPER notified of patient's QT being 0.60. Patient was started on precedex earlier today during day shift. QT was charted as 0.44 during day shift and 0.36 the night before. Patient is now in sinus bradycardia with a first degree heart block. BLOOD TYPER ordered to have precedex turned off and continue to monitor patient and bolus patient with morphine or versed for agitation. Will continue to monitor.
[2020-07-03] VITALS (24 sets, daily range): BP systolic 82–129; BP diastolic 49–87
[2020-07-03] MEDS: mupirocin 2% ointment 22GM TP SCH ×4 (00:02→21:00)
[2020-07-03] MEDS ORDERED: Dextrose 10%-water IV solution 1,000 ML IV SCH (00:25)
[2020-07-03] MEDS: mineral oil/petrolatum ophthal oint EACHEYE SCH ×4 (02:51→20:51)
[2020-07-03 03:47] LABS: BASOPHILS # (AUTO) 0.1 X10'3 (0-0.2); BASOPHILS % (AUTO) 0.6 % (0-1); EOSINOPHILS # (AUTO) 0.3 X10'3 (0-0.9); EOSINOPHILS % (AUTO) 2.6 % (0-6); HEMATOCRIT 35.7 % (42.0-52.0); LYMPHOCYTES # (AUTO) 1.8 X10'3 (1.1-4.8); LYMPHOCYTES % (AUTO) 16.9 % (21-51); MEAN CORPUSCULAR HEMOGLOBIN 32.4 PG (27.0-31.0); MEAN CORPUSCULAR HGB CONC 33.5 g/dL (33.0-36.5); MEAN CORPUSCULAR VOLUME 96.9 FL (78-98); MEAN PLATELET VOLUME 9.8 FL (7.4-10.4); MONOCYTES # (AUTO) 1.1 X10'3 (0-0.9); MONOCYTES % (AUTO) 10.8 % (2-12); NEUTROPHILS # (AUTO) 7.3 X10'3 (1.8-7.7); NEUTROPHILS % (AUTO) 69.1 % (42-75); PLATELET COUNT 98 X10'3 (140-440); RED BLOOD COUNT 3.69 X10'6 (4.70-6.10); RED CELL DISTRIBUTION WIDTH 15.1 % (11.5-14.5); WHITE BLOOD COUNT 10.5 X10'3 (4.5-11.0)
[2020-07-03] MEDS: ipratropium/albuterol 3ml nebule NEB SCH ×6 (03:47→23:26)
[2020-07-03 04:10] LABS: ABG BASE EXCESS -1.1 mmol/L (-2.0-2.0); ABG HCO3 20.8 mmol/L (22.0-26.0); ABG OXYGEN SATURATION 96.3 % (94-97); ABG PCO2 (T) 26.2 mmHg (35.0-48.0); ABG PO2 (T) 77.7 mmHg (75.0-100.0); ALLEN'S TEST POSITIVE; FCOHb 0.2 % (0.0-3.9); FMetHb 0.3 % (0.0-1.5); FO2Hb 95.8 % (94-97); PATIENT TEMPERATURE 36.4; PEEP 10 cm H2O; RESPIRATORY RATE 18 b/min; TIDAL VOLUME 500 mL; TOTAL HEMOGLOBIN 12.6 G/dl (14.0-18.0)
[2020-07-03 04:13] LABS: ALANINE AMINOTRANSFERASE 61 U/L (12-78); ALBUMIN 2.4 G/DL (3.4-5.0); ALBUMIN/GLOBULIN RATIO 0.7 (1.1-1.5); ALKALINE PHOSPHATASE 79 IU/L (46-116); ANION GAP 4 (8-16); ASPARTATE AMINO TRANSFERASE 46 U/L (10-37); BILIRUBIN,TOTAL 0.4 MG/DL (0.1-1.0); BLOOD UREA NITROGEN 26 MG/DL (7-18); BUN/CREATININE RATIO 32.9 (5.4-32.0); C-REACTIVE PROTEIN 3.01 MG/DL (0.0-0.5); CALCIUM 8.4 MG/DL (8.5-10.1); CHLORIDE 103 MMOL/L (99-107); CREATININE 0.79 MG/DL (0.60-1.10); GLUCOSE 104 MG/DL (70-104); MAGNESIUM 1.8 MG/DL (1.5-2.4); PHOSPHORUS 2.8 MG/DL (2.3-4.5); SODIUM 139 MMOL/L (135-145); TOTAL CARBON DIOXIDE 31.6 MMOL/L (24-32); eGFR > 90 ML/MIN
[2020-07-03] MEDS: midazolam 100mg in NS 100ml 100 ML IV PRN ×3 (06:11→18:02)
--- NOTE | 2020-07-03 06:16 | NUR ---
I have reviewed and agree with all interventions, assessments, and medication administrations performed and documented by TONIA Mast.
--- NOTE | 2020-07-03 06:43 | NUR ---
Problems reprioritized. Patient report given, questions answered & plan of care reviewed with TONIA Rausch.
[2020-07-03] MEDS: dexmedetomidine/D5W 100mL 100 ML IV SCH (07:32)
[2020-07-03] MEDS: K, MAG and/or Phos replacement - Verify level? MC SCH (09:21)
[2020-07-03] MEDS: enoxaparin 40mg/0.4ml syringe SUBCUT SCH ×2 (09:32→20:42)
[2020-07-03] MEDS: losartan 25mg tablet OGT SCH (09:32)
[2020-07-03] MEDS: sildenafil citrate 20mg tablet OGT SCH ×3 (09:33→20:41)
[2020-07-03] MEDS: furosemide 40mg/4ml inj IV SCH (09:33)
[2020-07-03] MEDS: pantoprazole 40 MG vial IV SCH ×2 (09:33→20:38)
[2020-07-03] MEDS: amLODIPine 2.5mg tablet OGT SCH (09:34)
[2020-07-03] MEDS: lactobacillus rhamnosus 10,000 MMU CELLS/CAPSULE OGT SCH ×2 (09:34→20:41)
[2020-07-03] MEDS: docusate sodium 100mg/10ml UD cup OGT SCH ×2 (09:34→20:00)
[2020-07-03] MEDS: morphine/NS 100mg/100ml bag 100 ML IV SCH (17:04)
--- NOTE | 2020-07-03 19:00 | NUR ---
Patient in room CICU 2008. I have received report from Shalom Doty RN and had the opportunity to ask questions and assume patient care.
[2020-07-03] MEDS: insulin glargine (Lantus) pen - multi-dose SQ SCH (21:00)
[2020-07-04] VITALS (24 sets, daily range): BP systolic 80–122; BP diastolic 49–83
[2020-07-04] MEDS: midazolam 100mg in NS 100ml 100 ML IV PRN ×4 (02:09→18:59)
[2020-07-04] MEDS: mineral oil/petrolatum ophthal oint EACHEYE SCH ×4 (02:14→20:00)
[2020-07-04] MEDS: ipratropium/albuterol 3ml nebule NEB SCH ×6 (03:16→23:18)
[2020-07-04 03:39] LABS: BASOPHILS % (AUTO) 0.4 % (0-1); EOSINOPHILS # (AUTO) 0.3 X10'3 (0-0.9); EOSINOPHILS % (AUTO) 3.1 % (0-6); HEMATOCRIT 33.6 % (42.0-52.0); HEMOGLOBIN 11.1 g/dl (14.0-17.9); LYMPHOCYTES # (AUTO) 1.6 X10'3 (1.1-4.8); LYMPHOCYTES % (AUTO) 17.6 % (21-51); MEAN CORPUSCULAR HEMOGLOBIN 32.3 PG (27.0-31.0); MEAN CORPUSCULAR HGB CONC 32.9 g/dL (33.0-36.5); MEAN CORPUSCULAR VOLUME 98.2 FL (78-98); MEAN PLATELET VOLUME 10.1 FL (7.4-10.4); MONOCYTES % (AUTO) 11.6 % (2-12); NEUTROPHILS # (AUTO) 6.1 X10'3 (1.8-7.7); NEUTROPHILS % (AUTO) 67.3 % (42-75); PLATELET COUNT 69 X10'3 (140-440); RED BLOOD COUNT 3.42 X10'6 (4.70-6.10); RED CELL DISTRIBUTION WIDTH 16.9 % (11.5-14.5)
[2020-07-04 03:40] LABS: ABG BASE EXCESS 3.5 mmol/L (-2.0-2.0); ABG HCO3 27.6 mmol/L (22.0-26.0); ABG PCO2 (T) 39.4 mmHg (35.0-48.0); ABG PO2 (T) 63.9 mmHg (75.0-100.0); ALLEN'S TEST POSITIVE; FCOHb 0.3 % (0.0-3.9); FO2Hb 93.7 % (94-97); PATIENT TEMPERATURE 36.6; PEEP 8 cm H2O; RESPIRATORY RATE 14 b/min; TIDAL VOLUME 500 mL; TOTAL HEMOGLOBIN 12.2 G/dl (14.0-18.0)
[2020-07-04 03:57] LABS: ALANINE AMINOTRANSFERASE 60 U/L (12-78); ALBUMIN 2.3 G/DL (3.4-5.0); ALBUMIN/GLOBULIN RATIO 0.7 (1.1-1.5); ALKALINE PHOSPHATASE 83 IU/L (46-116); ANION GAP 5 (8-16); ASPARTATE AMINO TRANSFERASE 39 U/L (10-37); BILIRUBIN,TOTAL 0.3 MG/DL (0.1-1.0); BLOOD UREA NITROGEN 29 MG/DL (7-18); BUN/CREATININE RATIO 37.7 (5.4-32.0); C-REACTIVE PROTEIN 2.28 MG/DL (0.0-0.5); CALCIUM 7.7 MG/DL (8.5-10.1); CHLORIDE 106 MMOL/L (99-107); CREATININE 0.77 MG/DL (0.60-1.10); GLUCOSE 106 MG/DL (70-104); MAGNESIUM 1.7 MG/DL (1.5-2.4); PHOSPHORUS 3.5 MG/DL (2.3-4.5); POTASSIUM 3.4 MMOL/L (3.5-5.1); PREALBUMIN 16.3 MG/DL (19-36); SODIUM 142 MMOL/L (135-145); TOTAL CARBON DIOXIDE 30.6 MMOL/L (24-32); TOTAL PROTEIN 5.7 G/DL (6.4-8.2); TRIGLYCERIDES 79 MG/DL (20-135); eGFR > 90 ML/MIN
[2020-07-04] MEDS: furosemide 40mg/4ml inj IV SCH (07:26)
[2020-07-04] MEDS: mupirocin 2% ointment 22GM TP SCH ×3 (07:26→21:55)
[2020-07-04] MEDS: sildenafil citrate 20mg tablet OGT SCH ×3 (07:26→21:45)
[2020-07-04] MEDS: pantoprazole 40 MG vial IV SCH ×2 (07:26→21:45)
[2020-07-04] MEDS: docusate sodium 100mg/10ml UD cup OGT SCH ×2 (07:26→21:45)
[2020-07-04] MEDS: amLODIPine 2.5mg tablet OGT SCH (07:27)
[2020-07-04] MEDS: methylnaltrexone br 12mg/0.6ml inj***SubQ only SQ SCH (07:27)
[2020-07-04] MEDS: lactobacillus rhamnosus 10,000 MMU CELLS/CAPSULE OGT SCH ×2 (07:27→21:46)
[2020-07-04] MEDS: potassium Cl 20mEq/100mL bag 100 ML IV PRN ×2 (07:28→08:53)
[2020-07-04] MEDS: losartan 25mg tablet OGT SCH (08:00)
[2020-07-04] MEDS: K, MAG and/or Phos replacement - Verify level? MC SCH (08:00)
[2020-07-04] MEDS: enoxaparin 40mg/0.4ml syringe SUBCUT SCH ×2 (11:29→21:46)
--- NOTE | 2020-07-04 12:32 | NUR ---
Reassessment: Intubated, sedated. TF at goal rate. Residuals under 20 ml.Last BM 07/04. Tolerating TF, meeting nutrition needs. Recommendations: 1) Continuous OGTF per MD using Vital High Protein at 75 ml/hr goal; to provide 1800 ml volume, 1512 ml water, 1800 kcals, and 158 g protein. 2) additional water flush per MD given CHF hx; monitor serum Na 3) prealbumin and TG q Wednesday/; daily weights 4) routine bowel care; opioid antagonist and prokinetic agent per MD Addendum: 07/04/20 at [address] Amended: Links added.
--- NOTE | 2020-07-04 18:15 | NUR ---
Patient in room CICU 2008. I have received report from Rozina RANDALL and had the opportunity to ask questions and assume patient care.
[2020-07-04] MEDS: morphine/NS 100mg/100ml bag 100 ML IV SCH (19:01)
[2020-07-04] MEDS: insulin glargine (Lantus) pen - multi-dose SQ SCH (21:00)
[2020-07-05] VITALS (24 sets, daily range): BP systolic 83–97; BP diastolic 54–68
[2020-07-05] MEDS: midazolam 100mg in NS 100ml 100 ML IV PRN ×3 (01:19→14:22)
[2020-07-05] MEDS: mineral oil/petrolatum ophthal oint EACHEYE SCH ×4 (02:00→20:27)
[2020-07-05] MEDS: ipratropium/albuterol 3ml nebule NEB SCH ×6 (03:13→23:09)
[2020-07-05 03:25] LABS: BASOPHILS % (AUTO) 0.4 % (0-1); EOSINOPHILS # (AUTO) 0.3 X10'3 (0-0.9); EOSINOPHILS % (AUTO) 3.2 % (0-6); HEMATOCRIT 32.5 % (42.0-52.0); HEMOGLOBIN 10.6 g/dl (14.0-17.9); LYMPHOCYTES # (AUTO) 1.4 X10'3 (1.1-4.8); LYMPHOCYTES % (AUTO) 16.2 % (21-51); MEAN CORPUSCULAR HGB CONC 32.7 g/dL (33.0-36.5); MEAN CORPUSCULAR VOLUME 97.9 FL (78-98); MEAN PLATELET VOLUME 10.8 FL (7.4-10.4); MONOCYTES % (AUTO) 11.2 % (2-12); PLATELET COUNT 92 X10'3 (140-440); RED BLOOD COUNT 3.32 X10'6 (4.70-6.10); RED CELL DISTRIBUTION WIDTH 16.1 % (11.5-14.5); WHITE BLOOD COUNT 8.6 X10'3 (4.5-11.0)
[2020-07-05 03:45] LABS: ABG BASE EXCESS 3.8 mmol/L (-2.0-2.0); ABG OXYGEN SATURATION 95.4 % (94-97); ABG PCO2 (T) 38.5 mmHg (35.0-48.0); ABG PO2 (T) 70.4 mmHg (75.0-100.0); ALLEN'S TEST POSITIVE; FCOHb 0.2 % (0.0-3.9); FMetHb 0.3 % (0.0-1.5); FO2Hb 94.9 % (94-97); PATIENT TEMPERATURE 35.8; PEEP 8 cm H2O; RESPIRATORY RATE 14 b/min; TIDAL VOLUME 500 mL; TOTAL HEMOGLOBIN 11.9 G/dl (14.0-18.0)
[2020-07-05 03:46] LABS: ALANINE AMINOTRANSFERASE 71 U/L (12-78); ALBUMIN 2.2 G/DL (3.4-5.0); ALBUMIN/GLOBULIN RATIO 0.6 (1.1-1.5); ALKALINE PHOSPHATASE 101 IU/L (46-116); ANION GAP 6 (8-16); ASPARTATE AMINO TRANSFERASE 57 U/L (10-37); BILIRUBIN,TOTAL 0.4 MG/DL (0.1-1.0); BLOOD UREA NITROGEN 32 MG/DL (7-18); BUN/CREATININE RATIO 46.4 (5.4-32.0); CALCIUM 7.7 MG/DL (8.5-10.1); CHLORIDE 106 MMOL/L (99-107); CREATININE 0.69 MG/DL (0.60-1.10); GLUCOSE 105 MG/DL (70-104); MAGNESIUM 1.7 MG/DL (1.5-2.4); PHOSPHORUS 3.2 MG/DL (2.3-4.5); POTASSIUM 3.7 MMOL/L (3.5-5.1); SODIUM 143 MMOL/L (135-145); TOTAL CARBON DIOXIDE 31.5 MMOL/L (24-32); TOTAL PROTEIN 5.6 G/DL (6.4-8.2); eGFR > 90 ML/MIN
--- NOTE | 2020-07-05 06:34 | NUR ---
Problems reprioritized. Patient report given, questions answered & plan of care reviewed with Fawn RANDALL.
[2020-07-05] MEDS: losartan 25mg tablet OGT SCH (08:00)
[2020-07-05] MEDS: docusate sodium 100mg/10ml UD cup OGT SCH ×2 (08:00→20:27)
[2020-07-05] MEDS: amLODIPine 2.5mg tablet OGT SCH (08:00)
[2020-07-05] MEDS: furosemide 40mg/4ml inj IV SCH ×3 (08:00→08:20)
[2020-07-05] MEDS: sildenafil citrate 20mg tablet OGT SCH ×3 (08:18→20:27)
[2020-07-05] MEDS: lactobacillus rhamnosus 10,000 MMU CELLS/CAPSULE OGT SCH ×2 (08:18→20:26)
[2020-07-05] MEDS: pantoprazole 40 MG vial IV SCH ×2 (08:18→20:27)
[2020-07-05] MEDS: mupirocin 2% ointment 22GM TP SCH ×2 (08:20→13:18)
[2020-07-05] MEDS: enoxaparin 40mg/0.4ml syringe SUBCUT SCH ×2 (08:20→20:26)
[2020-07-05] MEDS: K, MAG and/or Phos replacement - Verify level? MC SCH (08:36)
[2020-07-05] MEDS: insulin glargine (Lantus) pen - multi-dose SQ SCH (21:00)
[2020-07-05] MEDS ORDERED: mupirocin 2% nasal ointment 1gm UD NS ONE (22:30)
--- NOTE | 2020-07-05 22:58 | NUR ---
Patient had 8 beat run of V-tach
[2020-07-06] VITALS (25 sets, daily range): BP systolic 90–123; BP diastolic 57–97
[2020-07-06] MEDS: morphine/NS 100mg/100ml bag 100 ML IV SCH (00:38)
[2020-07-06] MEDS: midazolam 100mg in NS 100ml 100 ML IV PRN ×2 (02:13→11:21)
[2020-07-06] MEDS: mineral oil/petrolatum ophthal oint EACHEYE SCH ×4 (02:14→20:59)
[2020-07-06 03:10] LABS: BASOPHILS # (AUTO) 0.1 X10'3 (0-0.2); EOSINOPHILS # (AUTO) 0.3 X10'3 (0-0.9); EOSINOPHILS % (AUTO) 3.5 % (0-6); HEMATOCRIT 33.8 % (42.0-52.0); HEMOGLOBIN 11.4 g/dl (14.0-17.9); LYMPHOCYTES # (AUTO) 1.3 X10'3 (1.1-4.8); LYMPHOCYTES % (AUTO) 14.6 % (21-51); MEAN CORPUSCULAR HGB CONC 33.6 g/dL (33.0-36.5); MEAN CORPUSCULAR VOLUME 98.3 FL (78-98); MEAN PLATELET VOLUME 8.8 FL (7.4-10.4); MONOCYTES # (AUTO) 1.1 X10'3 (0-0.9); MONOCYTES % (AUTO) 12.2 % (2-12); NEUTROPHILS # (AUTO) 6.2 X10'3 (1.8-7.7); NEUTROPHILS % (AUTO) 68.7 % (42-75); PLATELET COUNT 66 X10'3 (140-440); RED BLOOD COUNT 3.44 X10'6 (4.70-6.10); RED CELL DISTRIBUTION WIDTH 16.1 % (11.5-14.5)
[2020-07-06] MEDS: ipratropium/albuterol 3ml nebule NEB SCH ×6 (03:10→22:57)
[2020-07-06 03:20] LABS: ABG BASE EXCESS 2.1 mmol/L (-2.0-2.0); ABG HCO3 26.7 mmol/L (22.0-26.0); ABG OXYGEN SATURATION 95.7 % (94-97); ABG PCO2 (T) 42.4 mmHg (35.0-48.0); ABG PO2 (T) 83.4 mmHg (75.0-100.0); ALLEN'S TEST POSITIVE; FCOHb 0.3 % (0.0-3.9); FMetHb 0.3 % (0.0-1.5); FO2Hb 95.1 % (94-97); PATIENT TEMPERATURE 37.4; PEEP 8 cm H2O; RESPIRATORY RATE 14 b/min; TIDAL VOLUME 500 mL; TOTAL HEMOGLOBIN 12.2 G/dl (14.0-18.0)
[2020-07-06 03:24] LABS: ALANINE AMINOTRANSFERASE 68 U/L (12-78); ALBUMIN 2.3 G/DL (3.4-5.0); ALBUMIN/GLOBULIN RATIO 0.6 (1.1-1.5); ALKALINE PHOSPHATASE 123 IU/L (46-116); ANION GAP 8 (8-16); ASPARTATE AMINO TRANSFERASE 34 U/L (10-37); BILIRUBIN,TOTAL 0.3 MG/DL (0.1-1.0); BLOOD UREA NITROGEN 37 MG/DL (7-18); BUN/CREATININE RATIO 52.9 (5.4-32.0); CALCIUM 8.2 MG/DL (8.5-10.1); CHLORIDE 105 MMOL/L (99-107); GLUCOSE 110 MG/DL (70-104); MAGNESIUM 1.7 MG/DL (1.5-2.4); PHOSPHORUS 3.7 MG/DL (2.3-4.5); POTASSIUM 3.8 MMOL/L (3.5-5.1); SODIUM 143 MMOL/L (135-145); TOTAL CARBON DIOXIDE 29.7 MMOL/L (24-32); TOTAL PROTEIN 5.9 G/DL (6.4-8.2); eGFR > 90 ML/MIN
[2020-07-06] MEDS: methylnaltrexone br 12mg/0.6ml inj***SubQ only SQ SCH (07:36)
[2020-07-06] MEDS: docusate sodium 100mg/10ml UD cup OGT SCH ×2 (07:37→20:59)
[2020-07-06] MEDS: pantoprazole 40 MG vial IV SCH ×2 (07:37→20:58)
[2020-07-06] MEDS: enoxaparin 40mg/0.4ml syringe SUBCUT SCH ×2 (07:37→20:58)
[2020-07-06] MEDS: furosemide 40mg/4ml inj IV SCH (07:37)
[2020-07-06] MEDS: mupirocin 2% nasal ointment 1gm UD NS SCH ×3 (07:38→20:59)
[2020-07-06] MEDS: sildenafil citrate 20mg tablet OGT SCH ×3 (07:39→21:02)
[2020-07-06] MEDS: amLODIPine 2.5mg tablet OGT SCH ×2 (07:39→08:00)
[2020-07-06] MEDS: losartan 25mg tablet OGT SCH (07:39)
[2020-07-06] MEDS: lactobacillus rhamnosus 10,000 MMU CELLS/CAPSULE OGT SCH ×2 (07:40→20:59)
[2020-07-06] MEDS: K, MAG and/or Phos replacement - Verify level? MC SCH (08:06)
[2020-07-06] MEDS: insulin glargine (Lantus) pen - multi-dose SQ SCH (20:59)
[2020-07-07] VITALS (24 sets, daily range): BP systolic 83–128; BP diastolic 54–85
[2020-07-07] MEDS: ipratropium/albuterol 3ml nebule NEB SCH ×6 (02:50→23:58)
[2020-07-07 04:06] LABS: ALANINE AMINOTRANSFERASE 55 U/L (12-78); ALBUMIN 2.3 G/DL (3.4-5.0); ALBUMIN/GLOBULIN RATIO 0.7 (1.1-1.5); ALKALINE PHOSPHATASE 129 IU/L (46-116); ANION GAP 8 (8-16); ASPARTATE AMINO TRANSFERASE 26 U/L (10-37); BILIRUBIN,TOTAL 0.4 MG/DL (0.1-1.0); BLOOD UREA NITROGEN 37 MG/DL (7-18); BUN/CREATININE RATIO 56.9 (5.4-32.0); CALCIUM 8.2 MG/DL (8.5-10.1); CHLORIDE 106 MMOL/L (99-107); CREATININE 0.65 MG/DL (0.60-1.10); GLUCOSE 105 MG/DL (70-104); MAGNESIUM 1.7 MG/DL (1.5-2.4); PHOSPHORUS 3.1 MG/DL (2.3-4.5); POTASSIUM 3.3 MMOL/L (3.5-5.1); SODIUM 145 MMOL/L (135-145); TOTAL CARBON DIOXIDE 31.4 MMOL/L (24-32); TOTAL PROTEIN 5.8 G/DL (6.4-8.2); eGFR > 90 ML/MIN
[2020-07-07 04:14] LABS: BASOPHILS % (AUTO) 0.7 % (0-1); EOSINOPHILS # (AUTO) 0.3 X10'3 (0-0.9); EOSINOPHILS % (AUTO) 4.1 % (0-6); HEMATOCRIT 32.2 % (42.0-52.0); HEMOGLOBIN 10.5 g/dl (14.0-17.9); LYMPHOCYTES # (AUTO) 1.2 X10'3 (1.1-4.8); LYMPHOCYTES % (AUTO) 17.1 % (21-51); MEAN CORPUSCULAR HEMOGLOBIN 32.2 PG (27.0-31.0); MEAN CORPUSCULAR HGB CONC 32.6 g/dL (33.0-36.5); MEAN CORPUSCULAR VOLUME 98.8 FL (78-98); MEAN PLATELET VOLUME 11.2 FL (7.4-10.4); MONOCYTES # (AUTO) 0.9 X10'3 (0-0.9); MONOCYTES % (AUTO) 12.9 % (2-12); NEUTROPHILS # (AUTO) 4.7 X10'3 (1.8-7.7); NEUTROPHILS % (AUTO) 65.2 % (42-75); PLATELET COUNT 69 X10'3 (140-440); RED BLOOD COUNT 3.26 X10'6 (4.70-6.10); RED CELL DISTRIBUTION WIDTH 16.3 % (11.5-14.5); WHITE BLOOD COUNT 7.2 X10'3 (4.5-11.0)
[2020-07-07 05:11] LABS: ABG BASE EXCESS 4.6 mmol/L (-2.0-2.0); ABG HCO3 28.6 mmol/L (22.0-26.0); ABG OXYGEN SATURATION 92.5 % (94-97); ABG PCO2 (T) 38.8 mmHg (35.0-48.0); ABG PO2 (T) 62.6 mmHg (75.0-100.0); ALLEN'S TEST POSITIVE; FCOHb 0.3 % (0.0-3.9); FMetHb 0.1 % (0.0-1.5); FO2Hb 92.1 % (94-97); PATIENT TEMPERATURE 36.2; PEEP 8 cm H2O; RESPIRATORY RATE 14 b/min; TIDAL VOLUME 500 mL; TOTAL HEMOGLOBIN 11.6 G/dl (14.0-18.0)
[2020-07-07] MEDS: mineral oil/petrolatum ophthal oint EACHEYE SCH ×4 (05:50→20:54)
[2020-07-07] MEDS: morphine/NS 100mg/100ml bag 100 ML IV SCH (05:50)
--- NOTE | 2020-07-07 06:34 | NUR ---
Patient in room CICU 2008. I have received report from Reena and had the opportunity to ask questions and assume patient care.
--- NOTE | 2020-07-07 06:35 | NUR ---
Problems reprioritized. Patient report given, questions answered & plan of care reviewed with Myrna RANDALL.
[2020-07-07] MEDS: docusate sodium 100mg/10ml UD cup OGT SCH ×2 (08:00→20:54)
[2020-07-07] MEDS: K, MAG and/or Phos replacement - Verify level? MC SCH (08:00)
[2020-07-07] MEDS: enoxaparin 40mg/0.4ml syringe SUBCUT SCH ×2 (09:18→20:54)
[2020-07-07] MEDS: mupirocin 2% nasal ointment 1gm UD NS SCH ×3 (09:18→20:54)
[2020-07-07] MEDS: pantoprazole 40 MG vial IV SCH ×2 (09:19→20:54)
[2020-07-07] MEDS: losartan 25mg tablet OGT SCH (09:19)
[2020-07-07] MEDS: furosemide 40mg/4ml inj IV SCH (09:19)
[2020-07-07] MEDS: sildenafil citrate 20mg tablet OGT SCH ×3 (09:20→20:54)
[2020-07-07] MEDS: amLODIPine 2.5mg tablet OGT SCH (09:20)
[2020-07-07] MEDS: midazolam 100mg in NS 100ml 100 ML IV PRN ×3 (09:21→22:20)
[2020-07-07] MEDS: lactobacillus rhamnosus 10,000 MMU CELLS/CAPSULE OGT SCH ×2 (09:21→20:54)
[2020-07-07] MEDS: potassium Cl 20mEq/100mL bag 100 ML IV PRN ×2 (09:22→13:13)
--- NOTE | 2020-07-07 14:49 | NUR ---
1100- intertriginous dermatitis at neck and groin, severe edema to scrotum and penis, interdry to stated areas, with sling made at scrotum. Diffuse white fluid filled pustules over upper back, cleaned and sheet between patient and bed. generalized edema, with increase at hands, elevated on pillows. Sats running 85%, tolerated SBT for a couple hours, call placed to RT to place back on a rate and increased FIO2 up to 70%, after reposition copious amounts of urine drained and patient settled down. 1400- Spoke with Dr Schwartz via phone, reported rash, FIO2 demands, and stable BGL. 1500- Dr Schwartz rounded, ok to dc accucheck, ok to start fluconzole today vs. morning.
[2020-07-07] MEDS: fluconazole/NS 400mg/200ml bag 200 ML IV SCH (15:09)
--- NOTE | 2020-07-07 18:22 | NUR ---
Problems reprioritized. Patient report given, questions answered & plan of care reviewed with Bob.
[2020-07-07] MEDS: insulin glargine (Lantus) pen - multi-dose SQ SCH (20:57)
[2020-07-08] VITALS (24 sets, daily range): BP systolic 88–107; BP diastolic 44–72
[2020-07-08] MEDS: mineral oil/petrolatum ophthal oint EACHEYE SCH ×4 (02:00→21:54)
[2020-07-08 02:06] LABS: ALANINE AMINOTRANSFERASE 47 U/L (12-78); ALBUMIN 2.3 G/DL (3.4-5.0); ALBUMIN/GLOBULIN RATIO 0.7 (1.1-1.5); ALKALINE PHOSPHATASE 130 IU/L (46-116); ANION GAP 5 (8-16); ASPARTATE AMINO TRANSFERASE 24 U/L (10-37); BILIRUBIN,TOTAL 0.4 MG/DL (0.1-1.0); BLOOD UREA NITROGEN 36 MG/DL (7-18); BUN/CREATININE RATIO 52.2 (5.4-32.0); CALCIUM 8.1 MG/DL (8.5-10.1); CHLORIDE 105 MMOL/L (99-107); CREATININE 0.69 MG/DL (0.60-1.10); GLUCOSE 117 MG/DL (70-104); MAGNESIUM 1.6 MG/DL (1.5-2.4); PHOSPHORUS 3.3 MG/DL (2.3-4.5); POTASSIUM 3.6 MMOL/L (3.5-5.1); SODIUM 143 MMOL/L (135-145); TOTAL CARBON DIOXIDE 32.9 MMOL/L (24-32); TOTAL PROTEIN 5.7 G/DL (6.4-8.2); eGFR > 90 ML/MIN
[2020-07-08 02:16] LABS: BASOPHILS % (AUTO) 0.3 % (0-1); EOSINOPHILS # (AUTO) 0.3 X10'3 (0-0.9); EOSINOPHILS % (AUTO) 2.9 % (0-6); HEMATOCRIT 32.1 % (42.0-52.0); HEMOGLOBIN 10.5 g/dl (14.0-17.9); LYMPHOCYTES # (AUTO) 1.3 X10'3 (1.1-4.8); LYMPHOCYTES % (AUTO) 14.6 % (21-51); MEAN CORPUSCULAR HEMOGLOBIN 32.5 PG (27.0-31.0); MEAN CORPUSCULAR HGB CONC 32.9 g/dL (33.0-36.5); MEAN CORPUSCULAR VOLUME 98.8 FL (78-98); MEAN PLATELET VOLUME 10.4 FL (7.4-10.4); MONOCYTES # (AUTO) 1.2 X10'3 (0-0.9); MONOCYTES % (AUTO) 13.9 % (2-12); NEUTROPHILS # (AUTO) 6.1 X10'3 (1.8-7.7); NEUTROPHILS % (AUTO) 68.3 % (42-75); PLATELET COUNT 133 X10'3 (140-440); RED BLOOD COUNT 3.25 X10'6 (4.70-6.10); RED CELL DISTRIBUTION WIDTH 16.9 % (11.5-14.5); WHITE BLOOD COUNT 8.9 X10'3 (4.5-11.0)
[2020-07-08 03:46] LABS: ABG BASE EXCESS 1.7 mmol/L (-2.0-2.0); ABG HCO3 25.7 mmol/L (22.0-26.0); ABG OXYGEN SATURATION 88.1 % (94-97); ABG PCO2 (T) 36.1 mmHg (35.0-48.0); ALLEN'S TEST POSITIVE; FCOHb 0.2 % (0.0-3.9); FO2Hb 87.9 % (94-97); PATIENT TEMPERATURE 35.9; PEEP 8 cm H2O; RESPIRATORY RATE 14 b/min; TIDAL VOLUME 500 mL; TOTAL HEMOGLOBIN 11.4 G/dl (14.0-18.0)
[2020-07-08] MEDS: midazolam 100mg in NS 100ml 100 ML IV PRN ×2 (03:53→09:06)
[2020-07-08] MEDS: ipratropium/albuterol 3ml nebule NEB SCH ×6 (03:56→23:28)
[2020-07-08] MEDS: morphine/NS 100mg/100ml bag 100 ML IV SCH (07:50)
[2020-07-08] MEDS: K, MAG and/or Phos replacement - Verify level? MC SCH (08:00)
[2020-07-08] MEDS: docusate sodium 100mg/10ml UD cup OGT SCH ×2 (08:00→21:54)
[2020-07-08] MEDS: mupirocin 2% nasal ointment 1gm UD NS SCH ×3 (08:11→21:57)
[2020-07-08] MEDS: pantoprazole 40 MG vial IV SCH ×2 (08:11→21:54)
[2020-07-08] MEDS: fluconazole/NS 400mg/200ml bag 200 ML IV SCH (08:11)
[2020-07-08] MEDS: losartan 25mg tablet OGT SCH (08:12)
[2020-07-08] MEDS: sildenafil citrate 20mg tablet OGT SCH ×3 (08:12→21:54)
[2020-07-08] MEDS: amLODIPine 2.5mg tablet OGT SCH (08:12)
[2020-07-08] MEDS: furosemide 40mg/4ml inj IV SCH (08:12)
[2020-07-08] MEDS: lactobacillus rhamnosus 10,000 MMU CELLS/CAPSULE OGT SCH ×2 (08:17→21:54)
[2020-07-08] MEDS: methylnaltrexone br 12mg/0.6ml inj***SubQ only SQ SCH (08:18)
[2020-07-08] MEDS: enoxaparin 40mg/0.4ml syringe SUBCUT SCH ×2 (08:18→21:57)
--- NOTE | 2020-07-08 12:20 | NUR ---
F/u 07/08: Pt tolerating TF at goal GRV WNL. Rectal tube output 400ml 07/06 w/ no since and last significant output 07/02 following prior 17 days constipation. Will continue to monitor EN tolerance and additional protein needs on vent. Recommendations: 1) Continuous OGTF per MD using Vital High Protein at 75 ml/hr goal; to provide 1800 ml volume, 1512 ml water, 1800 kcals, and 158 g protein. 2) additional water flush per MD given CHF hx; monitor serum Na 3) prealbumin and TG q Wednesday/; daily weights 4) routine bowel care; opioid antagonist and prokinetic agent per MD 5) DM DX following extubation as medically indicated given A1C 7.2 w/ no hx DM Addendum: 07/08/20 at [address] Amended: Links added.
--- NOTE | 2020-07-08 12:30 | NUR ---
1230- Pt desating to 84- 85 % on FIO2 of 64, sat patient up higher, suctioned and alerted RT. Placed on 100% for a couple minutes for a sat of 89- 90
--- NOTE | 2020-07-08 13:35 | NUR ---
1330- Patient is much less responsive and resistant to care today, continue to wean off sedation.
--- NOTE | 2020-07-08 15:45 | NUR ---
1545- per RT, the ET tube was at 22, advanced to 24 at the teeth, sats now 88 % on 100 % FIO2 with a peep 8.
--- NOTE | 2020-07-08 16:44 | NUR ---
1353- 0161- Dr Schwartz here, bronchial wash with ET tube placement. Sputum sent
--- NOTE | 2020-07-08 18:30 | NUR ---
Patient in room [facility] 2008. I have received report from Myrna RANDALL and had the opportunity to ask questions and assume patient care. Addendum: 07/08/20 at 2252 by Kezia Batista RN Amended: Links added.
[2020-07-08] MEDS: insulin glargine (Lantus) pen - multi-dose SQ SCH (21:00)
[2020-07-09] VITALS (27 sets, daily range): BP systolic 86–100; BP diastolic 53–71
[2020-07-09] MEDS: acetaminophen 325mg/10.15ml oral unit dose solution OGT PRN (00:49)
[2020-07-09] MEDS: midazolam 100mg in NS 100ml 100 ML IV PRN ×2 (00:59→22:42)
[2020-07-09] MEDS: mineral oil/petrolatum ophthal oint EACHEYE SCH ×4 (02:00→22:42)
[2020-07-09] MEDS: ipratropium/albuterol 3ml nebule NEB SCH ×6 (03:16→23:24)
[2020-07-09] MEDS: morphine/NS 100mg/100ml bag 100 ML IV SCH (03:28)
[2020-07-09 04:26] LABS: ABG BASE EXCESS -1.2 mmol/L (-2.0-2.0); ABG HCO3 23.8 mmol/L (22.0-26.0); ABG OXYGEN SATURATION 93.3 % (94-97); ABG PCO2 (T) 39.6 mmHg (35.0-48.0); ABG PO2 (T) 72.3 mmHg (75.0-100.0); FCOHb 0.3 % (0.0-3.9); FMetHb 0.1 % (0.0-1.5); FO2Hb 92.9 % (94-97); PATIENT TEMPERATURE 36.3; PEEP 8 cm H2O; RESPIRATORY RATE 14 b/min; TIDAL VOLUME 500 mL; TOTAL HEMOGLOBIN 11.5 G/dl (14.0-18.0)
[2020-07-09 04:44] LABS: BASOPHILS % (AUTO) 0.3 % (0-1); EOSINOPHILS # (AUTO) 0.2 X10'3 (0-0.9); EOSINOPHILS % (AUTO) 1.5 % (0-6); HEMOGLOBIN 10.5 g/dl (14.0-17.9); LYMPHOCYTES # (AUTO) 1.2 X10'3 (1.1-4.8); LYMPHOCYTES % (AUTO) 11.4 % (21-51); MEAN CORPUSCULAR HEMOGLOBIN 32.5 PG (27.0-31.0); MEAN CORPUSCULAR HGB CONC 32.7 g/dL (33.0-36.5); MEAN CORPUSCULAR VOLUME 99.4 FL (78-98); MEAN PLATELET VOLUME 9.1 FL (7.4-10.4); MONOCYTES # (AUTO) 1.7 X10'3 (0-0.9); MONOCYTES % (AUTO) 16.3 % (2-12); NEUTROPHILS # (AUTO) 7.4 X10'3 (1.8-7.7); NEUTROPHILS % (AUTO) 70.5 % (42-75); PLATELET COUNT 174 X10'3 (140-440); RED BLOOD COUNT 3.22 X10'6 (4.70-6.10); RED CELL DISTRIBUTION WIDTH 16.8 % (11.5-14.5); WHITE BLOOD COUNT 10.4 X10'3 (4.5-11.0)
[2020-07-09 05:00] LABS: ALANINE AMINOTRANSFERASE 42 U/L (12-78); ALBUMIN 2.2 G/DL (3.4-5.0); ALBUMIN/GLOBULIN RATIO 0.6 (1.1-1.5); ALKALINE PHOSPHATASE 144 IU/L (46-116); ANION GAP 3 (8-16); ASPARTATE AMINO TRANSFERASE 22 U/L (10-37); BILIRUBIN,TOTAL 0.4 MG/DL (0.1-1.0); BLOOD UREA NITROGEN 51 MG/DL (7-18); BUN/CREATININE RATIO 42.1 (5.4-32.0); CALCIUM 8.2 MG/DL (8.5-10.1); CHLORIDE 105 MMOL/L (99-107); CREATININE 1.21 MG/DL (0.60-1.10); GLUCOSE 132 MG/DL (70-104); MAGNESIUM 1.7 MG/DL (1.5-2.4); PHOSPHORUS 4.8 MG/DL (2.3-4.5); POTASSIUM 4.2 MMOL/L (3.5-5.1); SODIUM 141 MMOL/L (135-145); TOTAL CARBON DIOXIDE 32.6 MMOL/L (24-32); TOTAL PROTEIN 5.9 G/DL (6.4-8.2); eGFR 62 ML/MIN
--- NOTE | 2020-07-09 06:38 | NUR ---
Problems reprioritized. Patient report given, questions answered & plan of care reviewed with Sarah RANDALL.
[2020-07-09] MEDS: amLODIPine 2.5mg tablet OGT SCH (08:00)
[2020-07-09] MEDS: K, MAG and/or Phos replacement - Verify level? MC SCH (08:00)
[2020-07-09] MEDS: losartan 25mg tablet OGT SCH (08:00)
[2020-07-09] MEDS: furosemide 40mg/4ml inj IV SCH (08:27)
[2020-07-09] MEDS: sildenafil citrate 20mg tablet OGT SCH ×3 (08:27→21:00)
[2020-07-09] MEDS: pantoprazole 40 MG vial IV SCH ×2 (08:27→22:42)
[2020-07-09] MEDS: enoxaparin 40mg/0.4ml syringe SUBCUT SCH ×2 (08:27→20:00)
[2020-07-09] MEDS: mupirocin 2% nasal ointment 1gm UD NS SCH ×3 (08:27→22:42)
[2020-07-09] MEDS: lactobacillus rhamnosus 10,000 MMU CELLS/CAPSULE OGT SCH ×2 (08:27→20:00)
[2020-07-09] MEDS: fluconazole/NS 400mg/200ml bag 200 ML IV SCH (08:27)
[2020-07-09] MEDS: docusate sodium 100mg/10ml UD cup OGT SCH ×2 (08:28→20:00)
[2020-07-09] MEDS ORDERED: LIDOcaine 1% 30ml preserv. free vial ONE (17:25)
--- NOTE | 2020-07-09 18:30 | NUR ---
Patient in room [facility] 2009. I have received report from Sarah RANDALL and had the opportunity to ask questions and assume patient care. Addendum: 07/09/20 at 2347 by Kezia Batista RN Amended: Links added.
[2020-07-09] MEDS ORDERED: sevoflurane 250ml liquid IH ONE (19:32)
[2020-07-09] MEDS ORDERED: rocuronium 10mg/ml inj IV ONE (19:42)
--- NOTE | 2020-07-09 19:45 | NUR ---
To OR with anesthesia and surgical crew via ICU bed.
[2020-07-09] MEDS ORDERED: ceFAZolin 1000mg inj ONE ×2 (20:07)
--- NOTE | 2020-07-09 20:45 | NUR ---
Received to room 2009 from OR accompanied by anesthesia and surgical crew. Placed on ventilator, to plant maintenance mechanic. Hilliard cath to gravity drainage. Received report from circulating RN and anesthesia. See assessment record.
[2020-07-09] MEDS: insulin glargine (Lantus) pen - multi-dose SQ SCH (21:00)
[2020-07-09 22:19] LABS: ABG BASE EXCESS -0.2 mmol/L (-2.0-2.0); ABG HCO3 25.6 mmol/L (22.0-26.0); ABG OXYGEN SATURATION 90.7 % (94-97); ABG PCO2 (T) 45.6 mmHg (35.0-48.0); ABG PO2 (T) 62.1 mmHg (75.0-100.0); ALLEN'S TEST POSITIVE; FCOHb 0.2 % (0.0-3.9); FMetHb 0.1 % (0.0-1.5); FO2Hb 90.4 % (94-97); PATIENT TEMPERATURE 36.7; PEEP 10 cm H2O; RESPIRATORY RATE 14 b/min; TIDAL VOLUME 500 mL; TOTAL HEMOGLOBIN 11.7 G/dl (14.0-18.0)
[2020-07-10] VITALS (24 sets, daily range): BP systolic 97–148; BP diastolic 57–92
[2020-07-10] MEDS: ipratropium/albuterol 3ml nebule NEB SCH ×6 (03:13→23:25)
[2020-07-10 03:48] LABS: BASOPHILS # (AUTO) 0.1 X10'3 (0-0.2); BASOPHILS % (AUTO) 0.6 % (0-1); EOSINOPHILS # (AUTO) 0.1 X10'3 (0-0.9); EOSINOPHILS % (AUTO) 1.4 % (0-6); HEMATOCRIT 33.4 % (42.0-52.0); HEMOGLOBIN 11.1 g/dl (14.0-17.9); LYMPHOCYTES # (AUTO) 1.4 X10'3 (1.1-4.8); LYMPHOCYTES % (AUTO) 13.7 % (21-51); MEAN CORPUSCULAR HEMOGLOBIN 32.6 PG (27.0-31.0); MEAN CORPUSCULAR HGB CONC 33.1 g/dL (33.0-36.5); MEAN CORPUSCULAR VOLUME 98.5 FL (78-98); MEAN PLATELET VOLUME 9.3 FL (7.4-10.4); MONOCYTES # (AUTO) 1.4 X10'3 (0-0.9); MONOCYTES % (AUTO) 14.6 % (2-12); NEUTROPHILS # (AUTO) 6.9 X10'3 (1.8-7.7); NEUTROPHILS % (AUTO) 69.7 % (42-75); PLATELET COUNT 199 X10'3 (140-440); RED BLOOD COUNT 3.39 X10'6 (4.70-6.10); RED CELL DISTRIBUTION WIDTH 16.8 % (11.5-14.5); WHITE BLOOD COUNT 9.9 X10'3 (4.5-11.0)
[2020-07-10 04:00] LABS: ALANINE AMINOTRANSFERASE 38 U/L (12-78); ALBUMIN 2.2 G/DL (3.4-5.0); ALBUMIN/GLOBULIN RATIO 0.6 (1.1-1.5); ALKALINE PHOSPHATASE 136 IU/L (46-116); ANION GAP 6 (8-16); ASPARTATE AMINO TRANSFERASE 24 U/L (10-37); BILIRUBIN,TOTAL 0.5 MG/DL (0.1-1.0); BLOOD UREA NITROGEN 59 MG/DL (7-18); BUN/CREATININE RATIO 56.2 (5.4-32.0); CALCIUM 8.7 MG/DL (8.5-10.1); CHLORIDE 104 MMOL/L (99-107); CREATININE 1.05 MG/DL (0.60-1.10); GLUCOSE 106 MG/DL (70-104); MAGNESIUM 1.8 MG/DL (1.5-2.4); PHOSPHORUS 4.3 MG/DL (2.3-4.5); POTASSIUM 4.7 MMOL/L (3.5-5.1); SODIUM 142 MMOL/L (135-145); TOTAL CARBON DIOXIDE 31.9 MMOL/L (24-32); eGFR 73 ML/MIN
[2020-07-10] MEDS: mineral oil/petrolatum ophthal oint EACHEYE SCH ×4 (04:38→20:36)
--- NOTE | 2020-07-10 06:35 | NUR ---
Problems reprioritized. Patient report given, questions answered & plan of care reviewed with Sheron RANDALL.
[2020-07-10] MEDS: K, MAG and/or Phos replacement - Verify level? MC SCH (08:00)
[2020-07-10] MEDS: furosemide 40mg/4ml inj IV SCH (10:17)
[2020-07-10] MEDS: methylnaltrexone br 12mg/0.6ml inj***SubQ only SQ SCH (10:17)
[2020-07-10] MEDS: metoclopramide 5 mg/ml inj IV PRN (10:17)
[2020-07-10] MEDS: sildenafil citrate 20mg tablet OGT SCH ×3 (10:17→20:36)
[2020-07-10] MEDS: fluconazole/NS 400mg/200ml bag 200 ML IV SCH (10:17)
[2020-07-10] MEDS: amLODIPine 2.5mg tablet OGT SCH (10:18)
[2020-07-10] MEDS: lactobacillus rhamnosus 10,000 MMU CELLS/CAPSULE OGT SCH ×2 (10:18→20:36)
[2020-07-10] MEDS: docusate sodium 100mg/10ml UD cup OGT SCH ×2 (10:18→20:36)
[2020-07-10] MEDS: enoxaparin 40mg/0.4ml syringe SUBCUT SCH ×2 (10:18→20:36)
[2020-07-10] MEDS: pantoprazole 40 MG vial IV SCH ×2 (10:18→20:36)
[2020-07-10] MEDS: mupirocin 2% nasal ointment 1gm UD NS SCH ×3 (10:23→20:36)
[2020-07-10] MEDS: losartan 25mg tablet OGT SCH (10:23)
[2020-07-10] MEDS: morphine/NS 100mg/100ml bag 100 ML IV SCH (11:18)
--- NOTE | 2020-07-10 11:25 | NUR ---
TF Consult: Pt s/p PEG and trach yesterday w/ TF to restart today per surgeon. TF recs below; will monitor for tolerance post-op. Recommendations: 1) Continuous PEG TF per MD using Vital High Protein at 75 ml/hr goal; to provide 1800 ml volume, 1512 ml water, 1800 kcals, and 158 g protein. Initiate at 30ml/hr and advance 20ml Q8 to goal as tolerated. 2) additional water flush per MD given CHF hx; +27L fluid balance receiving lasix 3) prealbumin and TG q Wednesday/; daily weights 4) routine bowel care; opioid antagonist and prokinetic agent per MD 5) DM DX following extubation as medically indicated given A1C 7.2 w/ no hx DM Addendum: 07/10/20 at [address] Amended: Links added.
[2020-07-10 12:26] LABS: D-DIMER 1.37 MG/L FEU (0-0.50)
--- NOTE | 2020-07-10 13:57 | NUR ---
5F DUAL LUMEN MIDLINE PLACEMENT TO LEFT BASILIC VEIN X'S 1 ATTEMPT WITH SUCCESS USING ULTRASOUND GUIDANCE, TIP ENDS MID-AXILLARY. BOTH LUMENS ASPIRATE BLOOD EASILY AND FLUSH WITHOUT DIFFICULTY. UNABLE TO TAKE PICTURE DUE TO COVID STATUS. Tim MCCLENDON PICC RN
[2020-07-10] MEDS: insulin glargine (Lantus) pen - multi-dose SQ SCH (20:35)
[2020-07-10] MEDS: midazolam 100mg in NS 100ml 100 ML IV PRN (20:46)
[2020-07-11] VITALS (24 sets, daily range): BP systolic 116–152; BP diastolic 63–95
[2020-07-11] MEDS: mineral oil/petrolatum ophthal oint EACHEYE SCH ×4 (02:21→21:41)
[2020-07-11] MEDS: ipratropium/albuterol 3ml nebule NEB SCH ×6 (02:36→23:31)
[2020-07-11 02:49] LABS: ABG BASE EXCESS 3.8 mmol/L (-2.0-2.0); ABG HCO3 26.6 mmol/L (22.0-26.0); ABG OXYGEN SATURATION 94.9 % (94-97); ABG PCO2 (T) 33.6 mmHg (35.0-48.0); ABG PO2 (T) 72.4 mmHg (75.0-100.0); ALLEN'S TEST POSITIVE; FO2Hb 94.9 % (94-97); PATIENT TEMPERATURE 36.7; PEEP 10 cm H2O; RESPIRATORY RATE 14 b/min; TIDAL VOLUME 500 mL; TOTAL HEMOGLOBIN 11.5 G/dl (14.0-18.0)
[2020-07-11 03:09] LABS: ALANINE AMINOTRANSFERASE 33 U/L (12-78); ALBUMIN 2.2 G/DL (3.4-5.0); ALBUMIN/GLOBULIN RATIO 0.6 (1.1-1.5); ALKALINE PHOSPHATASE 123 IU/L (46-116); ANION GAP 5 (8-16); ASPARTATE AMINO TRANSFERASE 21 U/L (10-37); BILIRUBIN,TOTAL 0.5 MG/DL (0.1-1.0); BLOOD UREA NITROGEN 50 MG/DL (7-18); BUN/CREATININE RATIO 52.1 (5.4-32.0); CALCIUM 8.4 MG/DL (8.5-10.1); CHLORIDE 105 MMOL/L (99-107); CREATININE 0.96 MG/DL (0.60-1.10); GLUCOSE 146 MG/DL (70-104); MAGNESIUM 1.8 MG/DL (1.5-2.4); PHOSPHORUS 2.8 MG/DL (2.3-4.5); POTASSIUM 3.9 MMOL/L (3.5-5.1); PREALBUMIN 13.4 MG/DL (19-36); SODIUM 142 MMOL/L (135-145); TOTAL CARBON DIOXIDE 32.3 MMOL/L (24-32); eGFR 81 ML/MIN
[2020-07-11 03:11] LABS: BASOPHILS % (AUTO) 0.5 % (0-1); EOSINOPHILS # (AUTO) 0.1 X10'3 (0-0.9); EOSINOPHILS % (AUTO) 1.2 % (0-6); HEMATOCRIT 31.7 % (42.0-52.0); HEMOGLOBIN 10.6 g/dl (14.0-17.9); LYMPHOCYTES # (AUTO) 1.1 X10'3 (1.1-4.8); LYMPHOCYTES % (AUTO) 11.2 % (21-51); MEAN CORPUSCULAR HEMOGLOBIN 32.6 PG (27.0-31.0); MEAN CORPUSCULAR HGB CONC 33.3 g/dL (33.0-36.5); MEAN CORPUSCULAR VOLUME 97.8 FL (78-98); MEAN PLATELET VOLUME 9.4 FL (7.4-10.4); MONOCYTES # (AUTO) 1.6 X10'3 (0-0.9); MONOCYTES % (AUTO) 15.8 % (2-12); NEUTROPHILS # (AUTO) 7.1 X10'3 (1.8-7.7); NEUTROPHILS % (AUTO) 71.3 % (42-75); PLATELET COUNT 212 X10'3 (140-440); RED BLOOD COUNT 3.24 X10'6 (4.70-6.10); RED CELL DISTRIBUTION WIDTH 16.5 % (11.5-14.5); WHITE BLOOD COUNT 9.9 X10'3 (4.5-11.0)
[2020-07-11] MEDS: K, MAG and/or Phos replacement - Verify level? MC SCH (08:00)
[2020-07-11] MEDS: fluconazole/NS 400mg/200ml bag 200 ML IV SCH (08:54)
[2020-07-11] MEDS: lactobacillus rhamnosus 10,000 MMU CELLS/CAPSULE OGT SCH ×2 (08:55→21:41)
[2020-07-11] MEDS: pantoprazole 40 MG vial IV SCH ×2 (08:55→21:41)
[2020-07-11] MEDS: sildenafil citrate 20mg tablet OGT SCH ×3 (08:55→21:41)
[2020-07-11] MEDS: furosemide 40mg/4ml inj IV SCH (08:55)
[2020-07-11] MEDS: enoxaparin 40mg/0.4ml syringe SUBCUT SCH ×2 (08:55→21:42)
[2020-07-11] MEDS: docusate sodium 100mg/10ml UD cup OGT SCH ×2 (08:55→21:41)
[2020-07-11] MEDS: losartan 25mg tablet OGT SCH (08:55)
[2020-07-11] MEDS: mupirocin 2% nasal ointment 1gm UD NS SCH ×3 (08:56→21:42)
[2020-07-11] MEDS: amLODIPine 2.5mg tablet OGT SCH (08:56)
--- NOTE | 2020-07-11 10:55 | NUR ---
Bjorn Consult: Bjorn 12; L calf abscess present otherwise skin intact per EMR. Addendum: 07/11/20 at [address] Amended: Links added.
[2020-07-11] MEDS: morphine/NS 100mg/100ml bag 100 ML IV SCH (12:46)
[2020-07-11] MEDS: midazolam 100mg in NS 100ml 100 ML IV PRN (18:55)
[2020-07-11] MEDS: insulin glargine (Lantus) pen - multi-dose SQ SCH (21:00)
[2020-07-12] VITALS (24 sets, daily range): BP systolic 90–156; BP diastolic 61–99
[2020-07-12] MEDS: mineral oil/petrolatum ophthal oint EACHEYE SCH ×4 (02:00→20:22)
[2020-07-12] MEDS: ipratropium/albuterol 3ml nebule NEB SCH ×6 (03:20→23:22)
[2020-07-12 03:33] LABS: ABG BASE EXCESS 3.9 mmol/L (-2.0-2.0); ABG HCO3 27.6 mmol/L (22.0-26.0); ABG PCO2 (T) 38.5 mmHg (35.0-48.0); ALLEN'S TEST POSITIVE; PATIENT TEMPERATURE 37.1; PEEP 10 cm H2O; RESPIRATORY RATE 12 b/min; TIDAL VOLUME 500 mL; TOTAL HEMOGLOBIN 11.1 G/dl (14.0-18.0)
[2020-07-12 03:56] LABS: ALANINE AMINOTRANSFERASE 31 U/L (12-78); ALBUMIN 2.2 G/DL (3.4-5.0); ALBUMIN/GLOBULIN RATIO 0.6 (1.1-1.5); ALKALINE PHOSPHATASE 114 IU/L (46-116); ANION GAP 7 (8-16); ASPARTATE AMINO TRANSFERASE 23 U/L (10-37); BILIRUBIN,TOTAL 0.5 MG/DL (0.1-1.0); BLOOD UREA NITROGEN 37 MG/DL (7-18); BUN/CREATININE RATIO 53.6 (5.4-32.0); C-REACTIVE PROTEIN 8.09 MG/DL (0.0-0.5); CALCIUM 8.5 MG/DL (8.5-10.1); CHLORIDE 108 MMOL/L (99-107); CREATININE 0.69 MG/DL (0.60-1.10); GLUCOSE 120 MG/DL (70-104); MAGNESIUM 1.9 MG/DL (1.5-2.4); PHOSPHORUS 2.5 MG/DL (2.3-4.5); POTASSIUM 3.4 MMOL/L (3.5-5.1); SODIUM 148 MMOL/L (135-145); TOTAL CARBON DIOXIDE 32.6 MMOL/L (24-32); TOTAL PROTEIN 6.1 G/DL (6.4-8.2); eGFR > 90 ML/MIN
[2020-07-12 03:59] LABS: BASOPHILS # (AUTO) 0.1 X10'3 (0-0.2); BASOPHILS % (AUTO) 0.7 % (0-1); EOSINOPHILS # (AUTO) 0.2 X10'3 (0-0.9); EOSINOPHILS % (AUTO) 1.7 % (0-6); LYMPHOCYTES # (AUTO) 1.5 X10'3 (1.1-4.8); LYMPHOCYTES % (AUTO) 15.1 % (21-51); MEAN CORPUSCULAR HEMOGLOBIN 32.6 PG (27.0-31.0); MEAN CORPUSCULAR HGB CONC 33.3 g/dL (33.0-36.5); MEAN CORPUSCULAR VOLUME 97.9 FL (78-98); MEAN PLATELET VOLUME 9.6 FL (7.4-10.4); MONOCYTES # (AUTO) 1.6 X10'3 (0-0.9); MONOCYTES % (AUTO) 15.8 % (2-12); NEUTROPHILS # (AUTO) 6.6 X10'3 (1.8-7.7); NEUTROPHILS % (AUTO) 66.7 % (42-75); PLATELET COUNT 215 X10'3 (140-440); RED BLOOD COUNT 3.06 X10'6 (4.70-6.10); RED CELL DISTRIBUTION WIDTH 16.8 % (11.5-14.5); WHITE BLOOD COUNT 9.9 X10'3 (4.5-11.0)
--- NOTE | 2020-07-12 06:30 | NUR ---
Received report from TONIA Rojas
[2020-07-12] MEDS: K, MAG and/or Phos replacement - Verify level? MC SCH (07:04)
[2020-07-12] MEDS: potassium Cl 20mEq/100mL bag 100 ML IV PRN (08:10)
[2020-07-12] MEDS: methylnaltrexone br 12mg/0.6ml inj***SubQ only SQ SCH (08:11)
[2020-07-12] MEDS: lactobacillus rhamnosus 10,000 MMU CELLS/CAPSULE OGT SCH ×2 (08:11→20:23)
[2020-07-12] MEDS: enoxaparin 40mg/0.4ml syringe SUBCUT SCH ×2 (08:11→20:24)
[2020-07-12] MEDS: pantoprazole 40 MG vial IV SCH ×2 (08:11→20:23)
[2020-07-12] MEDS: sildenafil citrate 20mg tablet OGT SCH ×3 (08:12→20:23)
[2020-07-12] MEDS: docusate sodium 100mg/10ml UD cup OGT SCH ×2 (08:12→20:23)
[2020-07-12] MEDS: furosemide 40mg/4ml inj IV SCH (08:12)
[2020-07-12] MEDS: losartan 25mg tablet OGT SCH (08:12)
[2020-07-12] MEDS: amLODIPine 2.5mg tablet OGT SCH (08:12)
[2020-07-12] MEDS: mupirocin 2% nasal ointment 1gm UD NS SCH ×3 (08:18→20:24)
[2020-07-12] MEDS: midazolam 100mg in NS 100ml 100 ML IV PRN (16:07)
--- NOTE | 2020-07-12 18:35 | NUR ---
Patient in room CICU 2008. I have received report from TONIA Gr and had the opportunity to ask questions and assume patient care.
--- NOTE | 2020-07-12 18:36 | NUR ---
Problems reprioritized. Patient report given, questions answered & plan of care reviewed with Rhea color worker [facility] .
[2020-07-12] MEDS ORDERED: furosemide 20 MG/2 ML vial IV ONE (19:40)
--- NOTE | 2020-07-12 19:40 | NUR ---
Spoke with Joey Hester NP re: urine output of 25ml/hr. Order for 20mg Lasix IV once.
[2020-07-12] MEDS: insulin glargine (Lantus) pen - multi-dose SQ SCH (21:00)
[2020-07-12] MEDS: POTASSIUM BICARB 20meq eff tab 20 MEQ TABLET.EFF OGT PRN (21:20)
--- NOTE | 2020-07-12 22:30 | NUR ---
Patient with a short 6 beat run of V-Tach. Joey Hester NP notified. Potassium is currently being replaced. No new orders.
[2020-07-13] VITALS (24 sets, daily range): BP systolic 98–128; BP diastolic 62–87
[2020-07-13] MEDS ORDERED: midazolam 2 mg/2 ml injection IV PRN (00:55)
[2020-07-13] MEDS: mineral oil/petrolatum ophthal oint EACHEYE SCH ×4 (01:54→20:24)
[2020-07-13] MEDS: POTASSIUM BICARB 20meq eff tab 20 MEQ TABLET.EFF OGT PRN ×4 (02:08→14:10)
[2020-07-13 02:29] LABS: ABG BASE EXCESS 5.5 mmol/L (-2.0-2.0); ABG HCO3 29.7 mmol/L (22.0-26.0); ABG OXYGEN SATURATION 97.4 % (94-97); ABG PCO2 (T) 41.2 mmHg (35.0-48.0); ABG PO2 (T) 97.5 mmHg (75.0-100.0); ALLEN'S TEST POSITIVE; FCOHb 0.3 % (0.0-3.9); FMetHb 0.3 % (0.0-1.5); FO2Hb 96.8 % (94-97); PATIENT TEMPERATURE 36.7; PEEP 10 cm H2O; RESPIRATORY RATE 12 b/min; TIDAL VOLUME 500 mL; TOTAL HEMOGLOBIN 10.7 G/dl (14.0-18.0)
--- NOTE | 2020-07-13 02:36 | NUR ---
Patient restless and at times agitated throughout shift. Continues to have eye contact and respond to his name. Patient not following commands. Patient moves all extremities independently. Patient pulling at wrist restraints and will attempt to sit up in bed. Patient over breathing the ventilator at a rate of 15-20 when agitated. Patient repositioned frequently, patient does not tolerate being on his left side and will desaturated to 88-90%. Patient requiring boluses of versed and increase in rate of Morphine secondary to agitation and increased restlessness and facial grimace. Patient with improved comfort and appears to have restful periods after increased rate. Please see IV spreadsheet for more information. Unable to draw 0200 labs from midline, line continues to flush well. During period of restlessness and agitation patient saturation maintained 90-91%, increased FiO2 over 2 hours to 70% with improved SpO2 to 93-94%. After morning ABG FiO2 was titrated back to 60% per RT patients pO2 97.5 mmHg.
[2020-07-13] MEDS: ipratropium/albuterol 3ml nebule NEB SCH ×6 (03:02→23:16)
--- NOTE | 2020-07-13 06:17 | NUR ---
Problems reprioritized. Patient report given, questions answered & plan of care reviewed with TONIA Rausch.
[2020-07-13 06:20] LABS: BASOPHILS # (AUTO) 0.1 X10'3 (0-0.2); BASOPHILS % (AUTO) 0.6 % (0-1); EOSINOPHILS # (AUTO) 0.3 X10'3 (0-0.9); EOSINOPHILS % (AUTO) 2.6 % (0-6); HEMATOCRIT 29.5 % (42.0-52.0); HEMOGLOBIN 9.7 g/dl (14.0-17.9); LYMPHOCYTES # (AUTO) 1.7 X10'3 (1.1-4.8); LYMPHOCYTES % (AUTO) 17.6 % (21-51); MEAN CORPUSCULAR HEMOGLOBIN 32.5 PG (27.0-31.0); MEAN CORPUSCULAR VOLUME 98.7 FL (78-98); MONOCYTES # (AUTO) 1.3 X10'3 (0-0.9); MONOCYTES % (AUTO) 13.6 % (2-12); NEUTROPHILS # (AUTO) 6.5 X10'3 (1.8-7.7); NEUTROPHILS % (AUTO) 65.6 % (42-75); PLATELET COUNT 220 X10'3 (140-440); RED BLOOD COUNT 2.99 X10'6 (4.70-6.10); RED CELL DISTRIBUTION WIDTH 17.1 % (11.5-14.5); WHITE BLOOD COUNT 9.9 X10'3 (4.5-11.0)
[2020-07-13 06:42] LABS: ALANINE AMINOTRANSFERASE 32 U/L (12-78); ALBUMIN 2.1 G/DL (3.4-5.0); ALBUMIN/GLOBULIN RATIO 0.5 (1.1-1.5); ALKALINE PHOSPHATASE 114 IU/L (46-116); ANION GAP 4 (8-16); ASPARTATE AMINO TRANSFERASE 20 U/L (10-37); BILIRUBIN,TOTAL 0.3 MG/DL (0.1-1.0); BLOOD UREA NITROGEN 36 MG/DL (7-18); BUN/CREATININE RATIO 56.3 (5.4-32.0); CALCIUM 8.1 MG/DL (8.5-10.1); CHLORIDE 107 MMOL/L (99-107); CREATININE 0.64 MG/DL (0.60-1.10); GLUCOSE 114 MG/DL (70-104); MAGNESIUM 1.8 MG/DL (1.5-2.4); PHOSPHORUS 2.8 MG/DL (2.3-4.5); POTASSIUM 3.4 MMOL/L (3.5-5.1); SODIUM 144 MMOL/L (135-145); TOTAL CARBON DIOXIDE 32.8 MMOL/L (24-32); eGFR > 90 ML/MIN
[2020-07-13] MEDS: furosemide 40mg/4ml inj IV SCH (07:42)
[2020-07-13] MEDS: enoxaparin 40mg/0.4ml syringe SUBCUT SCH ×2 (07:42→20:23)
[2020-07-13] MEDS: docusate sodium 100mg/10ml UD cup OGT SCH ×2 (07:42→20:23)
[2020-07-13] MEDS: pantoprazole 40 MG vial IV SCH ×2 (07:42→20:23)
[2020-07-13] MEDS: amLODIPine 2.5mg tablet OGT SCH (07:43)
[2020-07-13] MEDS: sildenafil citrate 20mg tablet OGT SCH ×3 (07:43→20:23)
[2020-07-13] MEDS: losartan 25mg tablet OGT SCH (07:43)
[2020-07-13] MEDS: lactobacillus rhamnosus 10,000 MMU CELLS/CAPSULE OGT SCH ×2 (07:43→20:23)
[2020-07-13] MEDS: mupirocin 2% nasal ointment 1gm UD NS SCH ×3 (07:44→20:24)
[2020-07-13] MEDS: K, MAG and/or Phos replacement - Verify level? MC SCH (07:44)
[2020-07-13] MEDS: midazolam 100mg in NS 100ml 100 ML IV PRN ×2 (10:26→22:48)
--- NOTE | 2020-07-13 13:56 | NUR ---
Reassessment: pt with trach and PEG. Pt tolerating TF at goal GRV WNL. Awaiting transfer to LTAC per MD note. Will continue to follow. Recommendations: 1) Continuous PEG TF per MD using Vital High Protein at 75 ml/hr goal; to provide 1800 ml volume, 1512 ml water, 1800 kcals, and 158 g protein. Initiate at 30ml/hr and advance 20ml Q8 to goal as tolerated. 2) additional water flush per MD given CHF hx; +27L fluid balance receiving lasix 3) prealbumin and TG q Wednesday/; daily weights 4) routine bowel care; opioid antagonist and prokinetic agent per MD Addendum: 07/13/20 at [address] Amended: Links added.
--- NOTE | 2020-07-13 15:39 | NUR ---
New 16fr valencia placed
[2020-07-13] MEDS: morphine/NS 100mg/100ml bag 100 ML IV SCH (17:45)
--- NOTE | 2020-07-13 18:20 | NUR ---
Patient in room CICU 2008. I have received report from TONIA Rausch and had the opportunity to ask questions and assume patient care.
--- NOTE | 2020-07-13 18:30 | NUR ---
Patient sitting with head of bed in high fowlers position. Patient is awake, able to nod head to yes and no questions. Patient follows commands to move extremities and squeeze hands. Patient is calm at this time. Patient remains on the ventilator at 60% FiO2 with oxygen saturation 88%-90%. Patient with sedation and pain medications infusing per MD order. See IV spreadsheet.
[2020-07-13] MEDS: insulin glargine (Lantus) pen - multi-dose SQ SCH (20:24)
--- NOTE | 2020-07-13 22:39 | NUR ---
Bed bath complete, Patient not tolerating turning on his left side. Desaturating to the low 80's with a purple color change to his face. Patient recovered when placed back supine. Patient tolerates a reposition with pillows to his right side to off load pressure. Addendum: 07/14/20 at 0620 by Chery Major RN Foot drop boots on patient. Arms and hands elevated on pillows and towels to allow for a reduction in swelling.
[2020-07-14] VITALS (23 sets, daily range): BP systolic 98–128; BP diastolic 57–88
[2020-07-14 02:05] LABS: ABG BASE EXCESS 9.2 mmol/L (-2.0-2.0); ABG HCO3 34.1 mmol/L (22.0-26.0); ABG OXYGEN SATURATION 95.3 % (94-97); ABG PCO2 (T) 48.4 mmHg (35.0-48.0); ABG PO2 (T) 75.9 mmHg (75.0-100.0); ALLEN'S TEST POSITIVE; FMetHb 0.3 % (0.0-1.5); PATIENT TEMPERATURE 37.1; PEEP 10 cm H2O; RESPIRATORY RATE 12 b/min; TIDAL VOLUME 500 mL; TOTAL HEMOGLOBIN 11.2 G/dl (14.0-18.0)
[2020-07-14] MEDS: mineral oil/petrolatum ophthal oint EACHEYE SCH ×4 (02:45→20:52)
[2020-07-14] MEDS: ipratropium/albuterol 3ml nebule NEB SCH ×6 (03:05→23:13)
--- NOTE | 2020-07-14 06:21 | NUR ---
Patient is awake and calm this morning. Attempting to mouth words. Reassurance and reorientation given. Raised head of bed. Patient appears to be watching TV. Denies any pain at this time.
--- NOTE | 2020-07-14 06:32 | NUR ---
Problems reprioritized. Patient report given, questions answered & plan of care reviewed with TONIA Lane.
[2020-07-14 07:00] LABS: BASOPHILS % (AUTO) 0.4 % (0-1); EOSINOPHILS # (AUTO) 0.3 X10'3 (0-0.9); EOSINOPHILS % (AUTO) 2.4 % (0-6); HEMATOCRIT 31.3 % (42.0-52.0); HEMOGLOBIN 10.3 g/dl (14.0-17.9); LYMPHOCYTES # (AUTO) 1.6 X10'3 (1.1-4.8); LYMPHOCYTES % (AUTO) 15.4 % (21-51); MEAN CORPUSCULAR HEMOGLOBIN 32.6 PG (27.0-31.0); MEAN CORPUSCULAR HGB CONC 32.9 g/dL (33.0-36.5); MEAN CORPUSCULAR VOLUME 99.2 FL (78-98); MEAN PLATELET VOLUME 9.5 FL (7.4-10.4); MONOCYTES # (AUTO) 1.4 X10'3 (0-0.9); MONOCYTES % (AUTO) 13.5 % (2-12); NEUTROPHILS # (AUTO) 7.2 X10'3 (1.8-7.7); NEUTROPHILS % (AUTO) 68.3 % (42-75); PLATELET COUNT 249 X10'3 (140-440); RED BLOOD COUNT 3.15 X10'6 (4.70-6.10); RED CELL DISTRIBUTION WIDTH 17.1 % (11.5-14.5); WHITE BLOOD COUNT 10.5 X10'3 (4.5-11.0)
[2020-07-14 07:22] LABS: ALANINE AMINOTRANSFERASE 31 U/L (12-78); ALBUMIN 2.1 G/DL (3.4-5.0); ALBUMIN/GLOBULIN RATIO 0.5 (1.1-1.5); ALKALINE PHOSPHATASE 112 IU/L (46-116); ANION GAP 3 (8-16); ASPARTATE AMINO TRANSFERASE 19 U/L (10-37); BILIRUBIN,TOTAL 0.3 MG/DL (0.1-1.0); BLOOD UREA NITROGEN 39 MG/DL (7-18); BUN/CREATININE RATIO 67.2 (5.4-32.0); CALCIUM 8.3 MG/DL (8.5-10.1); CHLORIDE 105 MMOL/L (99-107); CREATININE 0.58 MG/DL (0.60-1.10); GLUCOSE 104 MG/DL (70-104); MAGNESIUM 1.8 MG/DL (1.5-2.4); PHOSPHORUS 3.3 MG/DL (2.3-4.5); POTASSIUM 4.2 MMOL/L (3.5-5.1); SODIUM 142 MMOL/L (135-145); TOTAL CARBON DIOXIDE 34.2 MMOL/L (24-32); eGFR > 90 ML/MIN
[2020-07-14] MEDS: K, MAG and/or Phos replacement - Verify level? MC SCH (08:00)
[2020-07-14] MEDS: methylnaltrexone br 12mg/0.6ml inj***SubQ only SQ SCH (09:59)
[2020-07-14] MEDS: enoxaparin 40mg/0.4ml syringe SUBCUT SCH ×2 (09:59→20:52)
[2020-07-14] MEDS: docusate sodium 100mg/10ml UD cup OGT SCH ×2 (10:00→20:52)
[2020-07-14] MEDS: furosemide 40mg/4ml inj IV SCH (10:00)
[2020-07-14] MEDS: pantoprazole 40 MG vial IV SCH ×2 (10:00→20:52)
[2020-07-14] MEDS: losartan 25mg tablet OGT SCH (10:00)
[2020-07-14] MEDS: lactobacillus rhamnosus 10,000 MMU CELLS/CAPSULE OGT SCH ×2 (10:01→20:52)
[2020-07-14] MEDS: mupirocin 2% nasal ointment 1gm UD NS SCH ×3 (10:01→21:00)
[2020-07-14] MEDS: sildenafil citrate 20mg tablet OGT SCH ×3 (10:01→20:51)
[2020-07-14] MEDS: amLODIPine 2.5mg tablet OGT SCH (10:01)
[2020-07-14] MEDS: midazolam 100mg in NS 100ml 100 ML IV PRN ×2 (12:36→23:33)
[2020-07-14] MEDS: morphine/NS 100mg/100ml bag 100 ML IV SCH (16:39)
--- NOTE | 2020-07-14 18:12 | NUR ---
Patient in room CICU 2008. I have received report from TONIA Lane and had the opportunity to ask questions and assume patient care.
[2020-07-14] MEDS: insulin glargine (Lantus) pen - multi-dose SQ SCH (21:00)
[2020-07-15] VITALS (24 sets, daily range): BP systolic 105–134; BP diastolic 57–86
[2020-07-15] MEDS: mineral oil/petrolatum ophthal oint EACHEYE SCH ×4 (02:00→20:00)
[2020-07-15] MEDS: ipratropium/albuterol 3ml nebule NEB SCH ×6 (03:09→23:32)
[2020-07-15 03:26] LABS: ABG BASE EXCESS 0.4 mmol/L (-2.0-2.0); ABG HCO3 23.7 mmol/L (22.0-26.0); ABG OXYGEN SATURATION 96.3 % (94-97); ABG PCO2 (T) 34.1 mmHg (35.0-48.0); ABG PO2 (T) 91.4 mmHg (75.0-100.0); ALLEN'S TEST POSITIVE; FCOHb 0.3 % (0.0-3.9); FMetHb 0.2 % (0.0-1.5); FO2Hb 95.8 % (94-97); PATIENT TEMPERATURE 37.4; PEEP 10 cm H2O; RESPIRATORY RATE 12 b/min; TIDAL VOLUME 500 mL; TOTAL HEMOGLOBIN 10.7 G/dl (14.0-18.0)
[2020-07-15 06:03] LABS: BASOPHILS # (AUTO) 0.1 X10'3 (0-0.2); BASOPHILS % (AUTO) 0.5 % (0-1); EOSINOPHILS # (AUTO) 0.1 X10'3 (0-0.9); HEMATOCRIT 32.2 % (42.0-52.0); HEMOGLOBIN 10.5 g/dl (14.0-17.9); LYMPHOCYTES # (AUTO) 1.5 X10'3 (1.1-4.8); LYMPHOCYTES % (AUTO) 13.4 % (21-51); MEAN CORPUSCULAR HEMOGLOBIN 32.1 PG (27.0-31.0); MEAN CORPUSCULAR HGB CONC 32.6 g/dL (33.0-36.5); MEAN CORPUSCULAR VOLUME 98.5 FL (78-98); MEAN PLATELET VOLUME 8.7 FL (7.4-10.4); MONOCYTES # (AUTO) 1.5 X10'3 (0-0.9); MONOCYTES % (AUTO) 13.2 % (2-12); NEUTROPHILS # (AUTO) 8.2 X10'3 (1.8-7.7); NEUTROPHILS % (AUTO) 71.9 % (42-75); PLATELET COUNT 259 X10'3 (140-440); RED BLOOD COUNT 3.26 X10'6 (4.70-6.10); RED CELL DISTRIBUTION WIDTH 17.5 % (11.5-14.5); WHITE BLOOD COUNT 11.5 X10'3 (4.5-11.0)
[2020-07-15 06:19] LABS: ALANINE AMINOTRANSFERASE 30 U/L (12-78); ALBUMIN 2.1 G/DL (3.4-5.0); ALBUMIN/GLOBULIN RATIO 0.6 (1.1-1.5); ALKALINE PHOSPHATASE 128 IU/L (46-116); ANION GAP 3 (8-16); ASPARTATE AMINO TRANSFERASE 20 U/L (10-37); BILIRUBIN,TOTAL 0.3 MG/DL (0.1-1.0); BLOOD UREA NITROGEN 34 MG/DL (7-18); BUN/CREATININE RATIO 51.5 (5.4-32.0); CALCIUM 8.2 MG/DL (8.5-10.1); CHLORIDE 105 MMOL/L (99-107); CREATININE 0.66 MG/DL (0.60-1.10); GLUCOSE 106 MG/DL (70-104); MAGNESIUM 1.7 MG/DL (1.5-2.4); PHOSPHORUS 3.4 MG/DL (2.3-4.5); POTASSIUM 3.9 MMOL/L (3.5-5.1); SODIUM 141 MMOL/L (135-145); TOTAL CARBON DIOXIDE 32.7 MMOL/L (24-32); TOTAL PROTEIN 5.8 G/DL (6.4-8.2); eGFR > 90 ML/MIN
[2020-07-15] MEDS: furosemide 40mg/4ml inj IV SCH (10:57)
[2020-07-15] MEDS: pantoprazole 40 MG vial IV SCH ×2 (10:57→20:23)
[2020-07-15] MEDS: docusate sodium 100mg/10ml UD cup OGT SCH ×2 (10:57→20:23)
[2020-07-15] MEDS: losartan 25mg tablet OGT SCH (10:58)
[2020-07-15] MEDS: sildenafil citrate 20mg tablet OGT SCH ×3 (10:58→20:23)
[2020-07-15] MEDS: amLODIPine 2.5mg tablet OGT SCH (10:58)
[2020-07-15] MEDS: lactobacillus rhamnosus 10,000 MMU CELLS/CAPSULE OGT SCH ×2 (10:58→20:23)
[2020-07-15] MEDS: enoxaparin 40mg/0.4ml syringe SUBCUT SCH ×2 (10:59→20:24)
[2020-07-15] MEDS: mupirocin 2% nasal ointment 1gm UD NS SCH ×3 (11:09→20:23)
[2020-07-15] MEDS: midazolam 100mg in NS 100ml 100 ML IV PRN ×2 (12:17→23:46)
[2020-07-15] MEDS: morphine/NS 100mg/100ml bag 100 ML IV SCH (13:51)
--- NOTE | 2020-07-15 18:30 | NUR ---
Patient in room CICU 2008. I have received report from Ariana RANDALL and had the opportunity to ask questions and assume patient care.
[2020-07-15] MEDS: K, MAG and/or Phos replacement - Verify level? MC SCH (19:53)
[2020-07-15] MEDS: insulin glargine (Lantus) pen - multi-dose SQ SCH (21:00)
[2020-07-16] VITALS (24 sets, daily range): BP systolic 98–133; BP diastolic 64–91
[2020-07-16] MEDS: mineral oil/petrolatum ophthal oint EACHEYE SCH ×4 (02:00→22:05)
[2020-07-16] MEDS: ipratropium/albuterol 3ml nebule NEB SCH ×6 (03:06→23:37)
[2020-07-16 03:18] LABS: ABG BASE EXCESS 2.6 mmol/L (-2.0-2.0); ABG HCO3 26.1 mmol/L (22.0-26.0); ABG OXYGEN SATURATION 93.8 % (94-97); ABG PCO2 (T) 35.3 mmHg (35.0-48.0); ABG PO2 (T) 68.7 mmHg (75.0-100.0); ALLEN'S TEST POSITIVE; FCOHb 0.3 % (0.0-3.9); FMetHb 0.3 % (0.0-1.5); FO2Hb 93.2 % (94-97); PATIENT TEMPERATURE 36.3; PEEP 10 cm H2O; RESPIRATORY RATE 12 b/min; TIDAL VOLUME 500 mL; TOTAL HEMOGLOBIN 11.3 G/dl (14.0-18.0)
[2020-07-16 03:23] LABS: BASOPHILS # (AUTO) 0.1 X10'3 (0-0.2); BASOPHILS % (AUTO) 0.5 % (0-1); EOSINOPHILS # (AUTO) 0.1 X10'3 (0-0.9); HEMATOCRIT 32.1 % (42.0-52.0); HEMOGLOBIN 10.4 g/dl (14.0-17.9); LYMPHOCYTES # (AUTO) 1.7 X10'3 (1.1-4.8); LYMPHOCYTES % (AUTO) 13.5 % (21-51); MEAN CORPUSCULAR HEMOGLOBIN 32.2 PG (27.0-31.0); MEAN CORPUSCULAR HGB CONC 32.5 g/dL (33.0-36.5); MEAN CORPUSCULAR VOLUME 99.1 FL (78-98); MONOCYTES # (AUTO) 1.6 X10'3 (0-0.9); MONOCYTES % (AUTO) 12.5 % (2-12); NEUTROPHILS # (AUTO) 9.1 X10'3 (1.8-7.7); NEUTROPHILS % (AUTO) 72.5 % (42-75); PLATELET COUNT 261 X10'3 (140-440); RED BLOOD COUNT 3.24 X10'6 (4.70-6.10); WHITE BLOOD COUNT 12.5 X10'3 (4.5-11.0)
[2020-07-16 03:42] LABS: ALANINE AMINOTRANSFERASE 29 U/L (12-78); ALBUMIN 2.2 G/DL (3.4-5.0); ALBUMIN/GLOBULIN RATIO 0.6 (1.1-1.5); ALKALINE PHOSPHATASE 137 IU/L (46-116); ANION GAP 2 (8-16); ASPARTATE AMINO TRANSFERASE 21 U/L (10-37); BILIRUBIN,TOTAL 0.3 MG/DL (0.1-1.0); BLOOD UREA NITROGEN 33 MG/DL (7-18); BUN/CREATININE RATIO 48.5 (5.4-32.0); CALCIUM 8.2 MG/DL (8.5-10.1); CHLORIDE 105 MMOL/L (99-107); CREATININE 0.68 MG/DL (0.60-1.10); GLUCOSE 107 MG/DL (70-104); MAGNESIUM 1.6 MG/DL (1.5-2.4); PHOSPHORUS 3.7 MG/DL (2.3-4.5); POTASSIUM 3.9 MMOL/L (3.5-5.1); SODIUM 142 MMOL/L (135-145); TOTAL CARBON DIOXIDE 34.8 MMOL/L (24-32); eGFR > 90 ML/MIN
--- NOTE | 2020-07-16 06:30 | NUR ---
Received report from TONIA Holbrook.
--- NOTE | 2020-07-16 06:38 | NUR ---
Problems reprioritized. Patient report given, questions answered & plan of care reviewed with Norma RANDALL.
[2020-07-16] MEDS: K, MAG and/or Phos replacement - Verify level? MC SCH (08:00)
[2020-07-16] MEDS: amLODIPine 2.5mg tablet OGT SCH (08:00)
[2020-07-16] MEDS: losartan 25mg tablet OGT SCH (08:00)
[2020-07-16] MEDS: sildenafil citrate 20mg tablet OGT SCH ×3 (08:59→22:06)
[2020-07-16] MEDS: methylnaltrexone br 12mg/0.6ml inj***SubQ only SQ SCH (08:59)
[2020-07-16] MEDS: docusate sodium 100mg/10ml UD cup OGT SCH ×2 (08:59→22:05)
[2020-07-16] MEDS: pantoprazole 40 MG vial IV SCH ×2 (08:59→22:06)
[2020-07-16] MEDS: mupirocin 2% nasal ointment 1gm UD NS SCH ×3 (08:59→22:15)
[2020-07-16] MEDS: lactobacillus rhamnosus 10,000 MMU CELLS/CAPSULE OGT SCH ×2 (08:59→22:06)
[2020-07-16] MEDS: furosemide 40mg/4ml inj IV SCH (08:59)
[2020-07-16] MEDS: enoxaparin 40mg/0.4ml syringe SUBCUT SCH ×2 (09:00→22:07)
[2020-07-16] MEDS: morphine/NS 100mg/100ml bag 100 ML IV SCH (09:24)
[2020-07-16] MEDS: midazolam 100mg in NS 100ml 100 ML IV PRN ×2 (10:44→22:09)
--- NOTE | 2020-07-16 14:17 | NUR ---
Reassessment: Pt remains intubated with trach, tolerating TF via PEG at goal rate with GRV WNL. LBM 07/15, receiving routine bowel care. No changes to nutrition intervention at this time. Will continue to follow. Recommendations: 1) Continuous PEG TF per MD using Vital High Protein at 75 ml/hr goal; to provide 1800 ml volume, 1512 ml water, 1800 kcals, and 158 g protein. Initiate at 30ml/hr and advance 20ml Q8 to goal as tolerated. 2) additional water flush per MD given CHF hx; +27L fluid balance receiving lasix 3) prealbumin and TG q Wednesday/; daily weights 4) routine bowel care; opioid antagonist and prokinetic agent per MD Addendum: 07/16/20 at [address] Amended: Links added.
--- NOTE | 2020-07-16 18:30 | NUR ---
Patient in room CICU 2008. I have received report from TERI RANDALL and had the opportunity to ask questions and assume patient care.
[2020-07-16] MEDS: insulin glargine (Lantus) pen - multi-dose SQ SCH (21:00)
[2020-07-17] VITALS (24 sets, daily range): BP systolic 94–153; BP diastolic 57–93
[2020-07-17] MEDS: morphine/NS 100mg/100ml bag 100 ML IV SCH ×2 (01:51→17:10)
[2020-07-17] MEDS: ipratropium/albuterol 3ml nebule NEB SCH ×6 (03:16→23:36)
[2020-07-17 03:19] LABS: BASOPHILS # (AUTO) 0.1 X10'3 (0-0.2); BASOPHILS % (AUTO) 0.4 % (0-1); EOSINOPHILS # (AUTO) 0.1 X10'3 (0-0.9); EOSINOPHILS % (AUTO) 0.9 % (0-6); HEMATOCRIT 32.5 % (42.0-52.0); HEMOGLOBIN 10.6 g/dl (14.0-17.9); LYMPHOCYTES # (AUTO) 1.3 X10'3 (1.1-4.8); LYMPHOCYTES % (AUTO) 10.5 % (21-51); MEAN CORPUSCULAR HEMOGLOBIN 32.3 PG (27.0-31.0); MEAN CORPUSCULAR HGB CONC 32.6 g/dL (33.0-36.5); MEAN CORPUSCULAR VOLUME 99.3 FL (78-98); MEAN PLATELET VOLUME 9.7 FL (7.4-10.4); MONOCYTES # (AUTO) 1.4 X10'3 (0-0.9); MONOCYTES % (AUTO) 11.1 % (2-12); NEUTROPHILS # (AUTO) 9.7 X10'3 (1.8-7.7); NEUTROPHILS % (AUTO) 77.1 % (42-75); PLATELET COUNT 265 X10'3 (140-440); RED BLOOD COUNT 3.28 X10'6 (4.70-6.10); RED CELL DISTRIBUTION WIDTH 17.2 % (11.5-14.5); WHITE BLOOD COUNT 12.6 X10'3 (4.5-11.0)
[2020-07-17] MEDS: mineral oil/petrolatum ophthal oint EACHEYE SCH ×4 (03:29→21:34)
[2020-07-17 03:36] LABS: ALANINE AMINOTRANSFERASE 27 U/L (12-78); ALBUMIN 2.2 G/DL (3.4-5.0); ALBUMIN/GLOBULIN RATIO 0.6 (1.1-1.5); ALKALINE PHOSPHATASE 141 IU/L (46-116); ANION GAP 6 (8-16); ASPARTATE AMINO TRANSFERASE 25 U/L (10-37); BILIRUBIN,TOTAL 0.3 MG/DL (0.1-1.0); BLOOD UREA NITROGEN 30 MG/DL (7-18); BUN/CREATININE RATIO 45.5 (5.4-32.0); C-REACTIVE PROTEIN 5.09 MG/DL (0.0-0.5); CALCIUM 8.5 MG/DL (8.5-10.1); CHLORIDE 103 MMOL/L (99-107); CREATININE 0.66 MG/DL (0.60-1.10); GLUCOSE 110 MG/DL (70-104); MAGNESIUM 1.7 MG/DL (1.5-2.4); PHOSPHORUS 4.1 MG/DL (2.3-4.5); POTASSIUM 4.2 MMOL/L (3.5-5.1); SODIUM 142 MMOL/L (135-145); TOTAL CARBON DIOXIDE 33.4 MMOL/L (24-32); TOTAL PROTEIN 6.1 G/DL (6.4-8.2); eGFR > 90 ML/MIN
[2020-07-17 04:42] LABS: ABG BASE EXCESS 4.6 mmol/L (-2.0-2.0); ABG HCO3 29.1 mmol/L (22.0-26.0); ABG OXYGEN SATURATION 91.6 % (94-97); ABG PCO2 (T) 41.7 mmHg (35.0-48.0); ABG PO2 (T) 60.3 mmHg (75.0-100.0); ALLEN'S TEST POSITIVE; FCOHb 0.2 % (0.0-3.9); FMetHb 0.3 % (0.0-1.5); FO2Hb 91.1 % (94-97); PATIENT TEMPERATURE 36.3; PEEP 10 cm H2O; RESPIRATORY RATE 12 b/min; TIDAL VOLUME 500 mL; TOTAL HEMOGLOBIN 11.5 G/dl (14.0-18.0)
[2020-07-17] MEDS: K, MAG and/or Phos replacement - Verify level? MC SCH (08:00)
[2020-07-17] MEDS: mupirocin 2% nasal ointment 1gm UD NS SCH ×2 (08:00→13:00)
[2020-07-17] MEDS: amLODIPine 2.5mg tablet OGT SCH (08:42)
[2020-07-17] MEDS: lactobacillus rhamnosus 10,000 MMU CELLS/CAPSULE OGT SCH ×2 (08:42→21:35)
[2020-07-17] MEDS: sildenafil citrate 20mg tablet OGT SCH ×3 (08:42→21:33)
[2020-07-17] MEDS: pantoprazole 40 MG vial IV SCH ×2 (08:42→21:33)
[2020-07-17] MEDS: losartan 25mg tablet OGT SCH (08:42)
[2020-07-17] MEDS: furosemide 40mg/4ml inj IV SCH ×4 (08:43→21:33)
[2020-07-17] MEDS: midazolam 100mg in NS 100ml 100 ML IV PRN ×2 (08:43→17:09)
[2020-07-17] MEDS: docusate sodium 100mg/10ml UD cup OGT SCH ×2 (08:43→21:33)
[2020-07-17] MEDS: enoxaparin 40mg/0.4ml syringe SUBCUT SCH ×2 (08:43→21:33)
[2020-07-17] MEDS: OLANZAPINE 5 MG TABLET PO SCH (15:07)
--- NOTE | 2020-07-17 17:23 | NUR ---
stoma site red and crusty beginning to have slight odor. sutures removed with permission of Dr Vidales for more access to clean. flange beginning to create pressure sore now clean and properly protected. Addendum: 07/17/20 at 1725 by Dana Meyer RT Amended: Links added.
--- NOTE | 2020-07-17 18:30 | NUR ---
Patient in room CICU 2008. I have received report from Norma RANDALL and had the opportunity to ask questions and assume patient care.
[2020-07-17] MEDS: insulin glargine (Lantus) pen - multi-dose SQ SCH (21:00)
[2020-07-18] VITALS (23 sets, daily range): BP systolic 84–133; BP diastolic 52–88
[2020-07-18] MEDS: ipratropium/albuterol 3ml nebule NEB SCH ×6 (03:08→23:31)
[2020-07-18 03:22] LABS: BASOPHILS # (AUTO) 0.1 X10'3 (0-0.2); BASOPHILS % (AUTO) 0.8 % (0-1); EOSINOPHILS # (AUTO) 0.1 X10'3 (0-0.9); EOSINOPHILS % (AUTO) 0.4 % (0-6); HEMATOCRIT 32.7 % (42.0-52.0); HEMOGLOBIN 10.7 g/dl (14.0-17.9); LYMPHOCYTES # (AUTO) 1.6 X10'3 (1.1-4.8); LYMPHOCYTES % (AUTO) 10.4 % (21-51); MEAN CORPUSCULAR HEMOGLOBIN 31.9 PG (27.0-31.0); MEAN CORPUSCULAR HGB CONC 32.6 g/dL (33.0-36.5); MEAN CORPUSCULAR VOLUME 97.6 FL (78-98); MEAN PLATELET VOLUME 9.4 FL (7.4-10.4); MONOCYTES # (AUTO) 1.9 X10'3 (0-0.9); MONOCYTES % (AUTO) 12.4 % (2-12); NEUTROPHILS # (AUTO) 11.9 X10'3 (1.8-7.7); PLATELET COUNT 289 X10'3 (140-440); RED BLOOD COUNT 3.35 X10'6 (4.70-6.10); RED CELL DISTRIBUTION WIDTH 16.7 % (11.5-14.5); WHITE BLOOD COUNT 15.7 X10'3 (4.5-11.0)
[2020-07-18] MEDS: furosemide 40mg/4ml inj IV SCH ×4 (03:30→21:14)
[2020-07-18] MEDS: mineral oil/petrolatum ophthal oint EACHEYE SCH ×4 (03:30→21:14)
[2020-07-18 03:39] LABS: ALANINE AMINOTRANSFERASE 24 U/L (12-78); ALBUMIN 2.1 G/DL (3.4-5.0); ALBUMIN/GLOBULIN RATIO 0.5 (1.1-1.5); ALKALINE PHOSPHATASE 123 IU/L (46-116); ANION GAP 5 (8-16); ASPARTATE AMINO TRANSFERASE 19 U/L (10-37); BILIRUBIN,TOTAL 0.4 MG/DL (0.1-1.0); BLOOD UREA NITROGEN 30 MG/DL (7-18); BUN/CREATININE RATIO 46.9 (5.4-32.0); CALCIUM 8.3 MG/DL (8.5-10.1); CHLORIDE 102 MMOL/L (99-107); CREATININE 0.64 MG/DL (0.60-1.10); GLUCOSE 113 MG/DL (70-104); MAGNESIUM 1.7 MG/DL (1.5-2.4); PHOSPHORUS 3.7 MG/DL (2.3-4.5); SODIUM 141 MMOL/L (135-145); TOTAL CARBON DIOXIDE 34.1 MMOL/L (24-32); TOTAL PROTEIN 6.1 G/DL (6.4-8.2); eGFR > 90 ML/MIN
[2020-07-18 04:14] LABS: ABG BASE EXCESS 4.7 mmol/L (-2.0-2.0); ABG HCO3 28.4 mmol/L (22.0-26.0); ABG OXYGEN SATURATION 93.2 % (94-97); ABG PCO2 (T) 38.5 mmHg (35.0-48.0); ABG PO2 (T) 65.8 mmHg (75.0-100.0); FCOHb 0.4 % (0.0-3.9); FO2Hb 92.8 % (94-97); PATIENT TEMPERATURE 36.8; PEEP 10 cm H2O; RESPIRATORY RATE 12 b/min; TIDAL VOLUME 500 mL; TOTAL HEMOGLOBIN 12.1 G/dl (14.0-18.0)
[2020-07-18] MEDS: midazolam 100mg in NS 100ml 100 ML IV PRN ×2 (05:34→17:25)
--- NOTE | 2020-07-18 06:27 | NUR ---
Problems reprioritized. Patient report given, questions answered & plan of care reviewed with Nnamdi RANDALL.
[2020-07-18] MEDS: morphine/NS 100mg/100ml bag 100 ML IV SCH (06:47)
[2020-07-18] MEDS: losartan 25mg tablet OGT SCH (07:37)
[2020-07-18] MEDS: lactobacillus rhamnosus 10,000 MMU CELLS/CAPSULE OGT SCH ×2 (07:37→21:14)
[2020-07-18] MEDS: methylnaltrexone br 12mg/0.6ml inj***SubQ only SQ SCH (07:37)
[2020-07-18] MEDS: OLANZAPINE 5 MG TABLET PO SCH (07:37)
[2020-07-18] MEDS: amLODIPine 2.5mg tablet OGT SCH (07:37)
[2020-07-18] MEDS: pantoprazole 40 MG vial IV SCH ×2 (07:37→21:14)
[2020-07-18] MEDS: enoxaparin 40mg/0.4ml syringe SUBCUT SCH ×2 (07:38→21:32)
[2020-07-18] MEDS: sildenafil citrate 20mg tablet OGT SCH ×3 (07:41→21:14)
[2020-07-18] MEDS: K, MAG and/or Phos replacement - Verify level? MC SCH (07:41)
[2020-07-18] MEDS: docusate sodium 100mg/10ml UD cup OGT SCH ×2 (08:00→21:14)
[2020-07-18] MEDS: insulin glargine (Lantus) pen - multi-dose SQ SCH (21:00)
[2020-07-18] MEDS: acetaminophen 325mg/10.15ml oral unit dose solution OGT PRN (23:40)
[2020-07-19] VITALS (25 sets, daily range): BP systolic 84–150; BP diastolic 51–96
[2020-07-19] MEDS: furosemide 40mg/4ml inj IV SCH ×4 (03:07→20:43)
[2020-07-19] MEDS: mineral oil/petrolatum ophthal oint EACHEYE SCH ×4 (03:07→20:48)
[2020-07-19] MEDS: ipratropium/albuterol 3ml nebule NEB SCH ×6 (03:31→23:17)
[2020-07-19 03:43] LABS: BASOPHILS # (AUTO) 0.1 X10'3 (0-0.2); BASOPHILS % (AUTO) 0.7 % (0-1); EOSINOPHILS # (AUTO) 0.1 X10'3 (0-0.9); EOSINOPHILS % (AUTO) 0.5 % (0-6); HEMATOCRIT 33.7 % (42.0-52.0); LYMPHOCYTES # (AUTO) 1.8 X10'3 (1.1-4.8); LYMPHOCYTES % (AUTO) 9.4 % (21-51); MEAN CORPUSCULAR HEMOGLOBIN 31.7 PG (27.0-31.0); MEAN CORPUSCULAR HGB CONC 32.6 g/dL (33.0-36.5); MEAN CORPUSCULAR VOLUME 97.3 FL (78-98); MEAN PLATELET VOLUME 9.5 FL (7.4-10.4); MONOCYTES # (AUTO) 2.5 X10'3 (0-0.9); MONOCYTES % (AUTO) 13.3 % (2-12); NEUTROPHILS # (AUTO) 14.3 X10'3 (1.8-7.7); NEUTROPHILS % (AUTO) 76.1 % (42-75); PLATELET COUNT 351 X10'3 (140-440); RED BLOOD COUNT 3.46 X10'6 (4.70-6.10); RED CELL DISTRIBUTION WIDTH 16.8 % (11.5-14.5); WHITE BLOOD COUNT 18.8 X10'3 (4.5-11.0)
[2020-07-19 03:50] LABS: ALBUMIN 2.4 G/DL (3.4-5.0); ANION GAP 7 (8-16); BLOOD UREA NITROGEN 34 MG/DL (7-18); CALCIUM 8.9 MG/DL (8.5-10.1); CHLORIDE 100 MMOL/L (99-107); CREATININE 0.83 MG/DL (0.60-1.10); GLUCOSE 122 MG/DL (70-104); MAGNESIUM 1.7 MG/DL (1.5-2.4); POTASSIUM 3.8 MMOL/L (3.5-5.1); SODIUM 141 MMOL/L (135-145); TOTAL CARBON DIOXIDE 33.9 MMOL/L (24-32); eGFR > 90 ML/MIN
[2020-07-19] MEDS: midazolam 100mg in NS 100ml 100 ML IV PRN ×2 (05:02→14:55)
[2020-07-19 05:05] LABS: ABG BASE EXCESS 6.5 mmol/L (-2.0-2.0); ABG HCO3 29.7 mmol/L (22.0-26.0); ABG PCO2 (T) 37.2 mmHg (35.0-48.0); ABG PO2 (T) 63.7 mmHg (75.0-100.0); ALLEN'S TEST POSITIVE; FCOHb 0.3 % (0.0-3.9); FMetHb 0.1 % (0.0-1.5); FO2Hb 92.6 % (94-97); PATIENT TEMPERATURE 36.7; PEEP 10 cm H2O; RESPIRATORY RATE 12 b/min; TIDAL VOLUME 500 mL; TOTAL HEMOGLOBIN 11.7 G/dl (14.0-18.0)
[2020-07-19] MEDS: K, MAG and/or Phos replacement - Verify level? MC SCH (08:00)
[2020-07-19] MEDS: losartan 25mg tablet OGT SCH (08:00)
[2020-07-19] MEDS: amLODIPine 2.5mg tablet OGT SCH (08:00)
[2020-07-19] MEDS: docusate sodium 100mg/10ml UD cup OGT SCH ×2 (08:28→20:42)
[2020-07-19] MEDS: OLANZAPINE 5 MG TABLET PO SCH (08:28)
[2020-07-19] MEDS: lactobacillus rhamnosus 10,000 MMU CELLS/CAPSULE OGT SCH ×2 (08:28→20:42)
[2020-07-19] MEDS: enoxaparin 40mg/0.4ml syringe SUBCUT SCH ×2 (08:28→20:43)
[2020-07-19] MEDS: pantoprazole 40 MG vial IV SCH ×2 (08:28→20:43)
[2020-07-19] MEDS: sildenafil citrate 20mg tablet OGT SCH ×3 (08:28→20:47)
[2020-07-19] MEDS: FENTANYL-0.9 % NACL/PF 100 ML IV PRN ×2 (08:45→18:42)
[2020-07-19] MEDS ORDERED: olanzapine 10mg tablet PO SCH (10:30)
[2020-07-19] MEDS ORDERED: OLANZAPINE 5 MG TABLET PO ONE (10:35)
--- NOTE | 2020-07-19 10:43 | NUR ---
Notified MD that patient with decreased BP this morning; maintaining map of 60. orders for kirk culture.
--- NOTE | 2020-07-19 10:57 | NUR ---
Reassessment: Pt remains intubated with trach, tolerating TF via PEG at goal rate with GRV WNL. New order for 200 mL water flushes Q4H per MD. LBM 07/18, receiving routine bowel care. No changes to nutrition intervention at this time. Will continue to follow. Recommendations: 1) Continuous PEG TF per MD using Vital High Protein at 75 ml/hr goal; to provide 1800 ml volume, 1512 ml water, 1800 kcals, and 158 g protein. Initiate at 30ml/hr and advance 20ml Q8 to goal as tolerated. 2) additional 200 mL water flush Q4H per MD 3) prealbumin and TG q Wednesday/; daily weights 4) routine bowel care; opioid antagonist and prokinetic agent per MD Addendum: 07/19/20 at [address] Amended: Links added.
[2020-07-19 12:57] LABS: CLARITY,URINE CLOUDY (Clear); COLOR,URINE YELLOW (Yellow); GLUCOSE, URINE NEGATIVE (Neg); KETONES,URINE NEGATIVE (Neg); LEUKOCYTE ESTERASE ,URINE TRACE (Neg); NITRITES, URINE NEGATIVE (Neg); OCCULT BLOOD,URINE LARGE (Neg); PH,URINE 6.5 (4.8-8.0); PROTEIN,URINE 30 mg/dl (Neg); UROBILINOGEN,URINE >=8.0 E.U/dL (0.2-1.0)
[2020-07-19 13:07] LABS: BACTERIA,URINE NONE SEEN /HPF (Neg); RBC,URINE 50-100 /HPF (0-2); UA COLLECTION TYPE NON-SPECIFIED; WBC,URINE 0-4 /HPF (0-4)
[2020-07-19 13:08] LABS: MUCUS STRANDS NONE SEEN /LPF (Neg); SQUAMOUS EPITHELIAL CELL,UR NONE SEEN /LPF (FEW)
--- NOTE | 2020-07-19 18:15 | NUR ---
Patient in room CICU 2008. I have received report and had the opportunity to ask questions and assume patient care.
[2020-07-19] MEDS: insulin glargine (Lantus) pen - multi-dose SQ SCH (21:00)
--- NOTE | 2020-07-19 23:00 | NUR ---
Valencia cath found absent balloon inflation. Bed linen soaked with urine. Complete CHG bath rendered. New #16F valencia cath placed. Pt also moved bowels, soft brown stool passed.
[2020-07-20] VITALS (24 sets, daily range): BP systolic 90–128; BP diastolic 60–85
[2020-07-20] MEDS: midazolam 100mg in NS 100ml 100 ML IV PRN ×3 (00:02→18:25)
[2020-07-20] MEDS: furosemide 40mg/4ml inj IV SCH ×4 (02:00→19:42)
--- NOTE | 2020-07-20 02:00 | NUR ---
Douglas held pending K+ results.
[2020-07-20 02:33] LABS: BASOPHILS # (AUTO) 0.1 X10'3 (0-0.2); BASOPHILS % (AUTO) 0.4 % (0-1); EOSINOPHILS # (AUTO) 0.1 X10'3 (0-0.9); EOSINOPHILS % (AUTO) 0.4 % (0-6); HEMOGLOBIN 10.4 g/dl (14.0-17.9); LYMPHOCYTES # (AUTO) 1.3 X10'3 (1.1-4.8); LYMPHOCYTES % (AUTO) 7.1 % (21-51); MEAN CORPUSCULAR HEMOGLOBIN 32.5 PG (27.0-31.0); MEAN CORPUSCULAR HGB CONC 33.6 g/dL (33.0-36.5); MEAN CORPUSCULAR VOLUME 96.6 FL (78-98); MEAN PLATELET VOLUME 9.2 FL (7.4-10.4); MONOCYTES # (AUTO) 2.6 X10'3 (0-0.9); MONOCYTES % (AUTO) 13.7 % (2-12); NEUTROPHILS # (AUTO) 14.7 X10'3 (1.8-7.7); NEUTROPHILS % (AUTO) 78.4 % (42-75); PLATELET COUNT 306 X10'3 (140-440); RED BLOOD COUNT 3.21 X10'6 (4.70-6.10); WHITE BLOOD COUNT 18.8 X10'3 (4.5-11.0)
[2020-07-20 02:41] LABS: ALBUMIN 2.3 G/DL (3.4-5.0); ANION GAP 4 (8-16); BLOOD UREA NITROGEN 30 MG/DL (7-18); BUN/CREATININE RATIO 42.9 (5.4-32.0); CALCIUM 8.5 MG/DL (8.5-10.1); CHLORIDE 99 MMOL/L (99-107); GLUCOSE 114 MG/DL (70-104); MAGNESIUM 1.6 MG/DL (1.5-2.4); POTASSIUM 3.2 MMOL/L (3.5-5.1); SODIUM 135 MMOL/L (135-145); TOTAL CARBON DIOXIDE 32.4 MMOL/L (24-32); eGFR > 90 ML/MIN
[2020-07-20] MEDS: ipratropium/albuterol 3ml nebule NEB SCH ×6 (02:47→22:58)
[2020-07-20] MEDS: POTASSIUM BICARB 20meq eff tab 20 MEQ TABLET.EFF OGT PRN ×3 (03:23→13:36)
[2020-07-20] MEDS: mineral oil/petrolatum ophthal oint EACHEYE SCH ×4 (03:23→19:42)
[2020-07-20 04:28] LABS: ABG BASE EXCESS 5.2 mmol/L (-2.0-2.0); ABG HCO3 27.1 mmol/L (22.0-26.0); ABG PCO2 (T) 31.3 mmHg (35.0-48.0); ABG PO2 (T) 80.9 mmHg (75.0-100.0); ALLEN'S TEST POSITIVE; FCOHb 0.2 % (0.0-3.9); FMetHb 0.3 % (0.0-1.5); FO2Hb 95.5 % (94-97); PATIENT TEMPERATURE 37.4; PEEP 10 cm H2O; RESPIRATORY RATE 12 b/min; TIDAL VOLUME 500 mL; TOTAL HEMOGLOBIN 11.3 G/dl (14.0-18.0)
[2020-07-20] MEDS: docusate sodium 100mg/10ml UD cup OGT SCH ×2 (06:45→19:25)
[2020-07-20] MEDS: methylnaltrexone br 12mg/0.6ml inj***SubQ only SQ SCH (06:47)
[2020-07-20] MEDS: FENTANYL-0.9 % NACL/PF 100 ML IV PRN ×2 (07:58→18:24)
[2020-07-20] MEDS: pantoprazole 40 MG vial IV SCH ×2 (07:59→19:42)
[2020-07-20] MEDS: amLODIPine 2.5mg tablet OGT SCH (07:59)
[2020-07-20] MEDS: sildenafil citrate 20mg tablet OGT SCH ×3 (07:59→20:32)
[2020-07-20] MEDS: lactobacillus rhamnosus 10,000 MMU CELLS/CAPSULE OGT SCH ×2 (08:00→19:42)
[2020-07-20] MEDS: losartan 25mg tablet OGT SCH (08:00)
[2020-07-20] MEDS: olanzapine 10mg tablet OGT SCH (08:00)
[2020-07-20] MEDS: acetaminophen 325mg/10.15ml oral unit dose solution OGT PRN (08:01)
[2020-07-20] MEDS: K, MAG and/or Phos replacement - Verify level? MC SCH (08:03)
[2020-07-20] MEDS: enoxaparin 40mg/0.4ml syringe SUBCUT SCH ×2 (08:03→19:42)
--- NOTE | 2020-07-20 12:34 | NUR ---
Care of patient assumed by this nurse. Patient sedated on fentanyl and versed. Will open eyes spontaneously but no eye contact or tracking. Patient moves extremities. Unable to follow commands. Patient had large soft BM. 110cc residual. Patient had small emesis which looked like tube feed. Patient suctioned for scan amount clear sputum. Patient temp. 38.0. Tylenol given with good results. Will continue to monitor.
[2020-07-20] MEDS: insulin glargine (Lantus) pen - multi-dose SQ SCH (20:32)
[2020-07-21] VITALS (24 sets, daily range): BP systolic 91–126; BP diastolic 38–90
[2020-07-21] MEDS: mineral oil/petrolatum ophthal oint EACHEYE SCH ×4 (01:48→20:00)
[2020-07-21] MEDS: furosemide 40mg/4ml inj IV SCH ×4 (01:48→20:47)
[2020-07-21 02:55] LABS: ABG HCO3 28.8 mmol/L (22.0-26.0); ABG OXYGEN SATURATION 94.8 % (94-97); ABG PCO2 (T) 34.3 mmHg (35.0-48.0); ABG PO2 (T) 73.4 mmHg (75.0-100.0); ALLEN'S TEST POSITIVE; FMetHb 0.3 % (0.0-1.5); FO2Hb 94.5 % (94-97); PATIENT TEMPERATURE 36.7; PEEP 10 cm H2O; RESPIRATORY RATE 22 b/min; TIDAL VOLUME 500 mL; TOTAL HEMOGLOBIN 11.1 G/dl (14.0-18.0)
[2020-07-21] MEDS: ipratropium/albuterol 3ml nebule NEB SCH ×6 (03:20→23:50)
[2020-07-21 03:35] LABS: BASOPHILS % (AUTO) 0.1 % (0-1); EOSINOPHILS # (AUTO) 0.1 X10'3 (0-0.9); EOSINOPHILS % (AUTO) 0.3 % (0-6); HEMATOCRIT 31.9 % (42.0-52.0); HEMOGLOBIN 10.4 g/dl (14.0-17.9); LYMPHOCYTES # (AUTO) 1.4 X10'3 (1.1-4.8); LYMPHOCYTES % (AUTO) 6.7 % (21-51); MEAN CORPUSCULAR HEMOGLOBIN 31.8 PG (27.0-31.0); MEAN CORPUSCULAR HGB CONC 32.8 g/dL (33.0-36.5); MEAN CORPUSCULAR VOLUME 97.2 FL (78-98); MEAN PLATELET VOLUME 9.6 FL (7.4-10.4); MONOCYTES # (AUTO) 2.7 X10'3 (0-0.9); MONOCYTES % (AUTO) 12.7 % (2-12); NEUTROPHILS # (AUTO) 16.9 X10'3 (1.8-7.7); NEUTROPHILS % (AUTO) 80.2 % (42-75); PLATELET COUNT 316 X10'3 (140-440); RED BLOOD COUNT 3.28 X10'6 (4.70-6.10); RED CELL DISTRIBUTION WIDTH 16.8 % (11.5-14.5)
[2020-07-21 03:40] LABS: ALBUMIN 2.4 G/DL (3.4-5.0); ANION GAP 9 (8-16); BLOOD UREA NITROGEN 31 MG/DL (7-18); BUN/CREATININE RATIO 39.2 (5.4-32.0); CALCIUM 8.7 MG/DL (8.5-10.1); CHLORIDE 100 MMOL/L (99-107); CREATININE 0.79 MG/DL (0.60-1.10); GLUCOSE 142 MG/DL (70-104); MAGNESIUM 1.6 MG/DL (1.5-2.4); POTASSIUM 3.6 MMOL/L (3.5-5.1); SODIUM 141 MMOL/L (135-145); TOTAL CARBON DIOXIDE 31.8 MMOL/L (24-32); eGFR > 90 ML/MIN
[2020-07-21] MEDS: FENTANYL-0.9 % NACL/PF 100 ML IV PRN ×2 (04:55→16:40)
[2020-07-21] MEDS: enoxaparin 40mg/0.4ml syringe SUBCUT SCH ×2 (07:17→20:48)
[2020-07-21] MEDS: pantoprazole 40 MG vial IV SCH ×2 (07:17→20:47)
[2020-07-21] MEDS: losartan 25mg tablet OGT SCH (07:18)
[2020-07-21] MEDS: sildenafil citrate 20mg tablet OGT SCH ×3 (07:18→20:48)
[2020-07-21] MEDS: lactobacillus rhamnosus 10,000 MMU CELLS/CAPSULE OGT SCH ×2 (07:18→20:47)
[2020-07-21] MEDS: olanzapine 10mg tablet OGT SCH (07:18)
[2020-07-21] MEDS: amLODIPine 2.5mg tablet OGT SCH (07:18)
[2020-07-21] MEDS: docusate sodium 100mg/10ml UD cup OGT SCH ×2 (07:19→19:56)
[2020-07-21] MEDS: K, MAG and/or Phos replacement - Verify level? MC SCH (07:19)
[2020-07-21] MEDS: midazolam 100mg in NS 100ml 100 ML IV PRN (09:12)
[2020-07-21] MEDS: insulin glargine (Lantus) pen - multi-dose SQ SCH (20:48)
--- NOTE | 2020-07-21 21:43 | NUR ---
Upon assessment this evening patient is on versed at 10 and fentanyl at 100. Versed titrated to 6 and fentanyl left at 100. Patient is able to track and make eye contact, nod yes and no. Patient peg tube site has redness noted around it that was not present last night, purulent drainage that could be tube feed or infection, and hardness noted around site. NIP WRAPPER notified and came to bedside. No new orders. No residual at 1999. Patient with BM so Diya held this evening.
[2020-07-22] VITALS (24 sets, daily range): BP systolic 97–135; BP diastolic 63–85
[2020-07-22] MEDS: FENTANYL-0.9 % NACL/PF 100 ML IV PRN ×4 (00:42→22:28)
[2020-07-22] MEDS: furosemide 40mg/4ml inj IV SCH ×4 (01:56→20:35)
[2020-07-22] MEDS: mineral oil/petrolatum ophthal oint EACHEYE SCH ×4 (01:56→20:00)
[2020-07-22 02:40] LABS: BASOPHILS # (AUTO) 0.1 X10'3 (0-0.2); BASOPHILS % (AUTO) 0.3 % (0-1); EOSINOPHILS # (AUTO) 0.1 X10'3 (0-0.9); EOSINOPHILS % (AUTO) 0.5 % (0-6); HEMATOCRIT 32.3 % (42.0-52.0); HEMOGLOBIN 10.8 g/dl (14.0-17.9); LYMPHOCYTES # (AUTO) 1.8 X10'3 (1.1-4.8); LYMPHOCYTES % (AUTO) 8.5 % (21-51); MEAN CORPUSCULAR HEMOGLOBIN 32.2 PG (27.0-31.0); MEAN CORPUSCULAR HGB CONC 33.4 g/dL (33.0-36.5); MEAN CORPUSCULAR VOLUME 96.6 FL (78-98); MEAN PLATELET VOLUME 9.3 FL (7.4-10.4); MONOCYTES # (AUTO) 2.6 X10'3 (0-0.9); MONOCYTES % (AUTO) 11.9 % (2-12); NEUTROPHILS % (AUTO) 78.8 % (42-75); PLATELET COUNT 310 X10'3 (140-440); RED BLOOD COUNT 3.34 X10'6 (4.70-6.10); RED CELL DISTRIBUTION WIDTH 16.6 % (11.5-14.5); WHITE BLOOD COUNT 21.5 X10'3 (4.5-11.0)
[2020-07-22 02:53] LABS: ALANINE AMINOTRANSFERASE 30 U/L (12-78); ALBUMIN 2.3 G/DL (3.4-5.0); ALBUMIN/GLOBULIN RATIO 0.5 (1.1-1.5); ALKALINE PHOSPHATASE 134 IU/L (46-116); ANION GAP 7 (8-16); ASPARTATE AMINO TRANSFERASE 23 U/L (10-37); BILIRUBIN,TOTAL 0.5 MG/DL (0.1-1.0); BLOOD UREA NITROGEN 38 MG/DL (7-18); BUN/CREATININE RATIO 48.7 (5.4-32.0); CHLORIDE 100 MMOL/L (99-107); CREATININE 0.78 MG/DL (0.60-1.10); GLUCOSE 127 MG/DL (70-104); MAGNESIUM 1.7 MG/DL (1.5-2.4); PHOSPHORUS 3.8 MG/DL (2.3-4.5); POTASSIUM 3.5 MMOL/L (3.5-5.1); SODIUM 140 MMOL/L (135-145); TOTAL CARBON DIOXIDE 32.9 MMOL/L (24-32); TOTAL PROTEIN 6.7 G/DL (6.4-8.2); eGFR > 90 ML/MIN
[2020-07-22 02:54] LABS: CALCIUM 8.4 MG/DL (8.5-10.1)
[2020-07-22] MEDS: ipratropium/albuterol 3ml nebule NEB SCH ×6 (03:44→23:16)
[2020-07-22 03:54] LABS: ABG BASE EXCESS 6.2 mmol/L (-2.0-2.0); ABG HCO3 29.4 mmol/L (22.0-26.0); ABG OXYGEN SATURATION 95.5 % (94-97); ABG PCO2 (T) 37.7 mmHg (35.0-48.0); ABG PO2 (T) 79.1 mmHg (75.0-100.0); ALLEN'S TEST POSITIVE; FCOHb 0.2 % (0.0-3.9); FO2Hb 95.3 % (94-97); PATIENT TEMPERATURE 37.3; PEEP 10 cm H2O; TIDAL VOLUME 500 mL; TOTAL HEMOGLOBIN 11.5 G/dl (14.0-18.0)
[2020-07-22] MEDS: pantoprazole 40 MG vial IV SCH ×2 (07:46→20:34)
[2020-07-22] MEDS: sildenafil citrate 20mg tablet OGT SCH ×3 (07:46→20:35)
[2020-07-22] MEDS: losartan 25mg tablet OGT SCH (07:46)
[2020-07-22] MEDS: olanzapine 10mg tablet OGT SCH (07:46)
[2020-07-22] MEDS: enoxaparin 40mg/0.4ml syringe SUBCUT SCH ×2 (07:47→20:35)
[2020-07-22] MEDS: lactobacillus rhamnosus 10,000 MMU CELLS/CAPSULE OGT SCH ×2 (07:47→20:35)
[2020-07-22] MEDS: amLODIPine 2.5mg tablet OGT SCH (07:47)
[2020-07-22] MEDS: methylnaltrexone br 12mg/0.6ml inj***SubQ only SQ SCH (07:48)
[2020-07-22] MEDS: K, MAG and/or Phos replacement - Verify level? MC SCH (07:48)
[2020-07-22] MEDS: docusate sodium 100mg/10ml UD cup OGT SCH ×2 (07:48→20:35)
--- NOTE | 2020-07-22 11:02 | NUR ---
F/u 07/22: Pt tolerating tube feeds at goal GRV WNL. LBM 07/21 receiving routine colace and relistor. Will continue to monitor for TF tolerance and additional protein needs on vent. Recommendations: 1) Continuous PEG TF per MD using Vital High Protein at 75 ml/hr goal; to provide 1800 ml volume, 1512 ml water, 1800 kcals, and 158 g protein. Initiate at 30ml/hr and advance 20ml Q8 to goal as tolerated. 2) additional 200 mL water flush Q4H per MD 3) prealbumin and TG q Wednesday/; daily weights 4) routine bowel care; opioid antagonist and prokinetic agent per MD Addendum: 07/22/20 at [address] Amended: Links added.
[2020-07-22] MEDS: VANCOmycin 1250MG/NS 250ml Bag 250 ML IV SCH ×2 (11:49→22:28)
[2020-07-22] MEDS: midazolam 100mg in NS 100ml 100 ML IV PRN (12:35)
--- NOTE | 2020-07-22 18:57 | NUR ---
Patient is awake tonight, following simple commands, wiggle toes, thumbs up. Patient is trying to mouth words. Patient versed drip decreased to 2 mg/hr with goals of stopping drip overnight. Fentanyl drip is infusing at 150 mcg/hr. Patient has 2+ peripheral pulses x 4. Patient abdomen is red around PEG site with hardness noted around site as well. No obvious drainage noted. Patient is able to nod yes and no to simple questions. Patient has tenderness to palpation on the left side of the abdomen.
[2020-07-22] MEDS: insulin glargine (Lantus) pen - multi-dose SQ SCH (20:34)
[2020-07-22] MEDS: nystatin 15 GM powder TP SCH (20:35)
[2020-07-23] VITALS (24 sets, daily range): BP systolic 95–130; BP diastolic 60–88
[2020-07-23] MEDS: mineral oil/petrolatum ophthal oint EACHEYE SCH ×4 (01:54→20:13)
[2020-07-23] MEDS: furosemide 40mg/4ml inj IV SCH ×4 (02:27→20:25)
[2020-07-23] MEDS: ipratropium/albuterol 3ml nebule NEB SCH ×6 (03:11→23:12)
[2020-07-23 03:30] LABS: BASOPHILS # (AUTO) 0.1 X10'3 (0-0.2); BASOPHILS % (AUTO) 0.3 % (0-1); EOSINOPHILS # (AUTO) 0.1 X10'3 (0-0.9); EOSINOPHILS % (AUTO) 0.3 % (0-6); HEMATOCRIT 33.2 % (42.0-52.0); HEMOGLOBIN 10.7 g/dl (14.0-17.9); LYMPHOCYTES # (AUTO) 1.5 X10'3 (1.1-4.8); LYMPHOCYTES % (AUTO) 6.1 % (21-51); MEAN CORPUSCULAR HEMOGLOBIN 31.5 PG (27.0-31.0); MEAN CORPUSCULAR HGB CONC 32.3 g/dL (33.0-36.5); MEAN CORPUSCULAR VOLUME 97.7 FL (78-98); MEAN PLATELET VOLUME 8.9 FL (7.4-10.4); MONOCYTES # (AUTO) 2.9 X10'3 (0-0.9); NEUTROPHILS # (AUTO) 19.5 X10'3 (1.8-7.7); NEUTROPHILS % (AUTO) 81.3 % (42-75); PLATELET COUNT 389 X10'3 (140-440); RED CELL DISTRIBUTION WIDTH 16.4 % (11.5-14.5); WHITE BLOOD COUNT 23.9 X10'3 (4.5-11.0)
[2020-07-23 03:45] LABS: ALANINE AMINOTRANSFERASE 32 U/L (12-78); ALBUMIN 2.5 G/DL (3.4-5.0); ALBUMIN/GLOBULIN RATIO 0.6 (1.1-1.5); ALKALINE PHOSPHATASE 131 IU/L (46-116); ANION GAP 5 (8-16); ASPARTATE AMINO TRANSFERASE 24 U/L (10-37); BILIRUBIN,TOTAL 0.7 MG/DL (0.1-1.0); BLOOD UREA NITROGEN 30 MG/DL (7-18); BUN/CREATININE RATIO 39.5 (5.4-32.0); CALCIUM 9.1 MG/DL (8.5-10.1); CHLORIDE 99 MMOL/L (99-107); CREATININE 0.76 MG/DL (0.60-1.10); GLUCOSE 116 MG/DL (70-104); MAGNESIUM 1.7 MG/DL (1.5-2.4); PHOSPHORUS 3.7 MG/DL (2.3-4.5); SODIUM 135 MMOL/L (135-145); TOTAL CARBON DIOXIDE 30.7 MMOL/L (24-32); TOTAL PROTEIN 6.8 G/DL (6.4-8.2); eGFR > 90 ML/MIN
[2020-07-23] MEDS: POTASSIUM BICARB 20meq eff tab 20 MEQ TABLET.EFF OGT PRN ×3 (03:57→13:26)
[2020-07-23] MEDS: lactobacillus rhamnosus 10,000 MMU CELLS/CAPSULE OGT SCH ×2 (07:47→20:15)
[2020-07-23] MEDS: docusate sodium 100mg/10ml UD cup OGT SCH ×2 (07:47→20:15)
[2020-07-23] MEDS: amLODIPine 2.5mg tablet OGT SCH (07:48)
[2020-07-23] MEDS: sildenafil citrate 20mg tablet OGT SCH ×3 (07:48→20:15)
[2020-07-23] MEDS: olanzapine 10mg tablet OGT SCH (07:48)
[2020-07-23] MEDS: losartan 25mg tablet OGT SCH (07:48)
[2020-07-23] MEDS: pantoprazole 40 MG vial IV SCH ×2 (07:48→20:13)
[2020-07-23] MEDS: enoxaparin 40mg/0.4ml syringe SUBCUT SCH ×2 (07:55→20:25)
[2020-07-23] MEDS: nystatin 15 GM powder TP SCH ×3 (07:55→20:44)
[2020-07-23] MEDS: K, MAG and/or Phos replacement - Verify level? MC SCH (08:00)
[2020-07-23] MEDS: FENTANYL-0.9 % NACL/PF 100 ML IV PRN ×2 (08:13→17:19)
[2020-07-23] MEDS: VANCOmycin 1250MG/NS 250ml Bag 250 ML IV SCH ×2 (10:38→23:28)
[2020-07-23] MEDS: dexmedetomidine/D5W 100mL 100 ML IV SCH ×2 (10:38→17:19)
--- NOTE | 2020-07-23 18:10 | NUR ---
Problems reprioritized. Patient report given, questions answered & plan of care reviewed with TONIA Rojas.
--- NOTE | 2020-07-23 19:59 | NUR ---
Patient in room CICU 2008. I have received report from TONIA Polk and had the opportunity to ask questions and assume patient care.
[2020-07-23] MEDS: insulin glargine (Lantus) pen - multi-dose SQ SCH (20:37)
[2020-07-23] MEDS: LORazepam 2 mg/ml vial IV PRN (21:53)
[2020-07-23] MEDS ORDERED: VANCOMYCIN LEVEL IV ONE (22:30)
--- NOTE | 2020-07-23 23:12 | NUR ---
Please review vanco trough and order. Trough 19.7. Dose due now. Thank you Sharron RANDALL [phone]. Pharmacy response: Per Sema in Pharmacy, give this dose as ordered, pharmacy will adjust next dose.
--- NOTE | 2020-07-23 23:28 | NUR ---
Verbally notified July DUONG Keen of current vanco trough of 19.7. Provider indicated to proceed per pharmacy.
[2020-07-24] VITALS (23 sets, daily range): BP systolic 83–130; BP diastolic 43–90
[2020-07-24] MEDS: LORazepam 2 mg/ml vial IV PRN ×3 (01:33→22:14)
[2020-07-24] MEDS: mineral oil/petrolatum ophthal oint EACHEYE SCH ×4 (01:34→20:00)
--- NOTE | 2020-07-24 02:09 | NUR ---
Paged RT: Dennys Watt 2009: order for sputum culture. Please see humidifier. Keeps alarming. Thank you!
[2020-07-24] MEDS: furosemide 40mg/4ml inj IV SCH ×4 (02:18→20:49)
[2020-07-24 02:40] LABS: BASOPHILS # (AUTO) 0.1 X10'3 (0-0.2); BASOPHILS % (AUTO) 0.7 % (0-1); EOSINOPHILS # (AUTO) 0.1 X10'3 (0-0.9); EOSINOPHILS % (AUTO) 0.8 % (0-6); HEMATOCRIT 30.1 % (42.0-52.0); HEMOGLOBIN 9.8 g/dl (14.0-17.9); LYMPHOCYTES % (AUTO) 10.8 % (21-51); MEAN CORPUSCULAR HEMOGLOBIN 31.8 PG (27.0-31.0); MEAN CORPUSCULAR HGB CONC 32.6 g/dL (33.0-36.5); MEAN CORPUSCULAR VOLUME 97.7 FL (78-98); MEAN PLATELET VOLUME 9.4 FL (7.4-10.4); MONOCYTES # (AUTO) 2.2 X10'3 (0-0.9); NEUTROPHILS # (AUTO) 13.9 X10'3 (1.8-7.7); NEUTROPHILS % (AUTO) 75.7 % (42-75); PLATELET COUNT 258 X10'3 (140-440); RED BLOOD COUNT 3.08 X10'6 (4.70-6.10); RED CELL DISTRIBUTION WIDTH 16.3 % (11.5-14.5); WHITE BLOOD COUNT 18.3 X10'3 (4.5-11.0)
[2020-07-24 02:55] LABS: ALANINE AMINOTRANSFERASE 29 U/L (12-78); ALBUMIN 2.4 G/DL (3.4-5.0); ALBUMIN/GLOBULIN RATIO 0.6 (1.1-1.5); ALKALINE PHOSPHATASE 114 IU/L (46-116); ANION GAP 10 (8-16); ASPARTATE AMINO TRANSFERASE 15 U/L (10-37); BILIRUBIN,TOTAL 0.4 MG/DL (0.1-1.0); BLOOD UREA NITROGEN 38 MG/DL (7-18); BUN/CREATININE RATIO 49.4 (5.4-32.0); CALCIUM 8.8 MG/DL (8.5-10.1); CHLORIDE 100 MMOL/L (99-107); CREATININE 0.77 MG/DL (0.60-1.10); GLUCOSE 150 MG/DL (70-104); MAGNESIUM 1.8 MG/DL (1.5-2.4); PHOSPHORUS 3.5 MG/DL (2.3-4.5); POTASSIUM 3.4 MMOL/L (3.5-5.1); SODIUM 142 MMOL/L (135-145); TOTAL CARBON DIOXIDE 32.1 MMOL/L (24-32); TOTAL PROTEIN 6.5 G/DL (6.4-8.2); eGFR > 90 ML/MIN
[2020-07-24] MEDS: ipratropium/albuterol 3ml nebule NEB SCH ×6 (03:06→23:00)
[2020-07-24 03:18] LABS: ABG HCO3 28.8 mmol/L (22.0-26.0); ABG OXYGEN SATURATION 96.4 % (94-97); ABG PCO2 (T) 33.9 mmHg (35.0-48.0); ABG PO2 (T) 80.5 mmHg (75.0-100.0); ALLEN'S TEST POSITIVE; FCOHb 0.3 % (0.0-3.9); FMetHb 0.1 % (0.0-1.5); PATIENT TEMPERATURE 36.2; PEEP 10 cm H2O; RESPIRATORY RATE 12 b/min; TIDAL VOLUME 500 mL
[2020-07-24] MEDS: potassium Cl 20mEq/100mL bag 100 ML IV PRN ×2 (03:27→04:38)
--- NOTE | 2020-07-24 04:38 | NUR ---
K+ 3.4 per 0200 lab draw. Replacement per protocol initiated: 20 mEq x2 doses.
[2020-07-24] MEDS: dexmedetomidine/D5W 100mL 100 ML IV SCH ×3 (05:04→19:02)
--- NOTE | 2020-07-24 06:15 | NUR ---
Patient in room [facility] 2008. I have received report from TONIA Altman and had the opportunity to ask questions and assume patient care. Addendum: 07/24/20 at 0616 by Sharron Delcid RN Addendum d/t note indicates receiving report, report was given. Problems reprioritized. Patient report given, questions answered & plan of care reviewed with TONIA Altman.
[2020-07-24] MEDS: olanzapine 10mg tablet OGT SCH (07:41)
[2020-07-24] MEDS: lactobacillus rhamnosus 10,000 MMU CELLS/CAPSULE OGT SCH ×2 (07:41→20:49)
[2020-07-24] MEDS: sildenafil citrate 20mg tablet OGT SCH ×3 (07:41→20:49)
[2020-07-24] MEDS: losartan 25mg tablet OGT SCH (07:42)
[2020-07-24] MEDS: enoxaparin 40mg/0.4ml syringe SUBCUT SCH ×2 (07:42→20:49)
[2020-07-24] MEDS: pantoprazole 40 MG vial IV SCH ×2 (07:42→20:49)
[2020-07-24] MEDS: amLODIPine 2.5mg tablet OGT SCH (07:42)
[2020-07-24] MEDS: nystatin 15 GM powder TP SCH ×3 (07:43→20:49)
[2020-07-24] MEDS: methylnaltrexone br 12mg/0.6ml inj***SubQ only SQ SCH (07:43)
[2020-07-24] MEDS: docusate sodium 100mg/10ml UD cup OGT SCH ×2 (07:43→20:49)
[2020-07-24] MEDS: K, MAG and/or Phos replacement - Verify level? MC SCH (07:44)
[2020-07-24] MEDS: FENTANYL-0.9 % NACL/PF 100 ML IV PRN (08:38)
[2020-07-24] MEDS: VANCOmycin 1250MG/NS 250ml Bag 250 ML IV SCH ×2 (10:36→22:52)
--- NOTE | 2020-07-24 15:45 | NUR ---
I have reviewed and agree with all medications administered and interventions performed by [facility] Student Gabriela Mendoza Addendum: 07/24/20 at 1545 by Dana Meyer RT Amended: Links added.
[2020-07-24] MEDS: insulin glargine (Lantus) pen - multi-dose SQ SCH (21:00)
--- NOTE | 2020-07-24 22:14 | NUR ---
Patient messing with trach and ventilator tubing. RN went into room and patient trach collar off, vent tubing off. Vent tubing reconnected and trach in place. Trach assessed and not dislodged. Patient did not have a change in vital signs and no desaturation. patient given 1 mg of Ativan.
[2020-07-25] VITALS (24 sets, daily range): BP systolic 84–123; BP diastolic 57–85
[2020-07-25] MEDS: mineral oil/petrolatum ophthal oint EACHEYE SCH ×4 (01:21→20:00)
[2020-07-25] MEDS: furosemide 40mg/4ml inj IV SCH ×4 (02:24→20:43)
[2020-07-25 02:59] LABS: BASOPHILS # (AUTO) 0.2 X10'3 (0-0.2); BASOPHILS % (AUTO) 0.8 % (0-1); EOSINOPHILS # (AUTO) 0.2 X10'3 (0-0.9); EOSINOPHILS % (AUTO) 1.1 % (0-6); HEMATOCRIT 31.4 % (42.0-52.0); HEMOGLOBIN 10.5 g/dl (14.0-17.9); LYMPHOCYTES # (AUTO) 2.9 X10'3 (1.1-4.8); LYMPHOCYTES % (AUTO) 16.2 % (21-51); MEAN CORPUSCULAR HEMOGLOBIN 32.6 PG (27.0-31.0); MEAN CORPUSCULAR HGB CONC 33.3 g/dL (33.0-36.5); MEAN CORPUSCULAR VOLUME 97.8 FL (78-98); MEAN PLATELET VOLUME 8.5 FL (7.4-10.4); MONOCYTES # (AUTO) 2.1 X10'3 (0-0.9); MONOCYTES % (AUTO) 11.9 % (2-12); NEUTROPHILS # (AUTO) 12.5 X10'3 (1.8-7.7); PLATELET COUNT 357 X10'3 (140-440); RED BLOOD COUNT 3.21 X10'6 (4.70-6.10); RED CELL DISTRIBUTION WIDTH 16.4 % (11.5-14.5); WHITE BLOOD COUNT 17.9 X10'3 (4.5-11.0)
[2020-07-25 03:18] LABS: ALANINE AMINOTRANSFERASE 30 U/L (12-78); ALBUMIN 2.4 G/DL (3.4-5.0); ALBUMIN/GLOBULIN RATIO 0.6 (1.1-1.5); ALKALINE PHOSPHATASE 118 IU/L (46-116); ANION GAP 8 (8-16); ASPARTATE AMINO TRANSFERASE 16 U/L (10-37); BILIRUBIN,TOTAL 0.4 MG/DL (0.1-1.0); BLOOD UREA NITROGEN 48 MG/DL (7-18); BUN/CREATININE RATIO 71.6 (5.4-32.0); CALCIUM 8.6 MG/DL (8.5-10.1); CHLORIDE 101 MMOL/L (99-107); CREATININE 0.67 MG/DL (0.60-1.10); GLUCOSE 136 MG/DL (70-104); MAGNESIUM 1.7 MG/DL (1.5-2.4); PHOSPHORUS 4.1 MG/DL (2.3-4.5); POTASSIUM 3.8 MMOL/L (3.5-5.1); SODIUM 140 MMOL/L (135-145); TOTAL CARBON DIOXIDE 31.1 MMOL/L (24-32); TOTAL PROTEIN 6.4 G/DL (6.4-8.2); eGFR > 90 ML/MIN
[2020-07-25] MEDS: ipratropium/albuterol 3ml nebule NEB SCH ×6 (03:32→23:26)
[2020-07-25] MEDS: LORazepam 2 mg/ml vial IV PRN ×6 (04:57→18:37)
[2020-07-25] MEDS: dexmedetomidine/D5W 100mL 100 ML IV SCH ×3 (05:57→21:41)
--- NOTE | 2020-07-25 06:30 | NUR ---
Patient in room CICU 2008. I have received report from RN and had the opportunity to ask questions and assume patient care.
[2020-07-25] MEDS: pantoprazole 40 MG vial IV SCH ×2 (07:26→20:43)
[2020-07-25] MEDS: docusate sodium 100mg/10ml UD cup OGT SCH ×2 (07:27→20:43)
[2020-07-25] MEDS: losartan 25mg tablet OGT SCH ×3 (07:27→07:31)
[2020-07-25] MEDS: enoxaparin 40mg/0.4ml syringe SUBCUT SCH ×2 (07:27→20:43)
[2020-07-25] MEDS: sildenafil citrate 20mg tablet OGT SCH ×3 (07:28→20:43)
[2020-07-25] MEDS: olanzapine 10mg tablet OGT SCH (07:28)
[2020-07-25] MEDS: lactobacillus rhamnosus 10,000 MMU CELLS/CAPSULE OGT SCH ×2 (07:28→20:43)
[2020-07-25] MEDS: amLODIPine 2.5mg tablet OGT SCH (07:29)
[2020-07-25] MEDS: K, MAG and/or Phos replacement - Verify level? MC SCH (08:00)
[2020-07-25] MEDS: nystatin 15 GM powder TP SCH ×3 (08:00→20:43)
--- NOTE | 2020-07-25 10:52 | NUR ---
Reassessment: Pt tolerating tube feeds at goal rate with GRV WNL. LBM 07/23 receiving routine Colace and Relistor though Relistor documented to be held 07/24 d/t pt with diarrhea. No GI symptoms documented at this time. No changes to nutrition intervention at this time. Will continue to follow closely. Recommendations: 1) Continuous PEG TF per MD using Vital High Protein at 75 ml/hr goal; to provide 1800 ml volume, 1512 ml water, 1800 kcals, and 158 g protein. Initiate at 30ml/hr and advance 20ml Q8 to goal as tolerated. 2) additional 200 mL water flush Q4H per MD 3) prealbumin and TG q Wednesday/; daily weights 4) routine bowel care; opioid antagonist per MD Addendum: 07/25/20 at [address] Amended: Links added.
[2020-07-25] MEDS: VANCOmycin 1250MG/NS 250ml Bag 250 ML IV SCH ×2 (10:58→22:55)
[2020-07-25] MEDS: FENTANYL-0.9 % NACL/PF 100 ML IV PRN (11:12)
--- NOTE | 2020-07-25 18:01 | NUR ---
I have reviewed and agree with all medications administered and interventions performed by [facility] Student Gabriela Mendoza Addendum: 07/25/20 at 1801 by Dana Meyer RT Amended: Links added.
--- NOTE | 2020-07-25 18:37 | NUR ---
Patient pulling himself off ventilator, trying to climb out of bed. Patient given 1 mg of Ativan.
--- NOTE | 2020-07-25 19:03 | NUR ---
Patient continues to pull at trach and attempts to get out of bed despite Ativan. Multiple attempts to redirect patient. Patient is extremely impulsive and difficult to console. Patient placed in bilateral soft wrist restraints at this time for his protection and for protection of his airway. Patient has made multiple attempts to pull at his trach since change of shift. Joey Hester notified.
[2020-07-25] MEDS: insulin glargine (Lantus) pen - multi-dose SQ SCH (20:45)
[2020-07-26] VITALS (24 sets, daily range): BP systolic 91–132; BP diastolic 61–90
[2020-07-26] MEDS: mineral oil/petrolatum ophthal oint EACHEYE SCH ×4 (01:29→19:33)
[2020-07-26] MEDS: furosemide 40mg/4ml inj IV SCH ×4 (02:00→19:11)
[2020-07-26] MEDS: ipratropium/albuterol 3ml nebule NEB SCH ×6 (03:22→22:36)
[2020-07-26 04:42] LABS: BASOPHILS % (AUTO) 0.2 % (0-1); EOSINOPHILS # (AUTO) 0.2 X10'3 (0-0.9); EOSINOPHILS % (AUTO) 1.2 % (0-6); HEMATOCRIT 33.2 % (42.0-52.0); HEMOGLOBIN 10.9 g/dl (14.0-17.9); LYMPHOCYTES # (AUTO) 2.5 X10'3 (1.1-4.8); LYMPHOCYTES % (AUTO) 15.8 % (21-51); MEAN CORPUSCULAR HGB CONC 32.7 g/dL (33.0-36.5); MEAN CORPUSCULAR VOLUME 97.8 FL (78-98); MEAN PLATELET VOLUME 8.8 FL (7.4-10.4); MONOCYTES # (AUTO) 1.9 X10'3 (0-0.9); MONOCYTES % (AUTO) 12.1 % (2-12); NEUTROPHILS # (AUTO) 11.1 X10'3 (1.8-7.7); NEUTROPHILS % (AUTO) 70.7 % (42-75); PLATELET COUNT 370 X10'3 (140-440); RED CELL DISTRIBUTION WIDTH 16.1 % (11.5-14.5); WHITE BLOOD COUNT 15.6 X10'3 (4.5-11.0)
--- NOTE | 2020-07-26 04:42 | NUR ---
RN attempted to change midline dressing as due to be changed today, but site was red. Midline D/C. 18g placed in right forearm
[2020-07-26 05:02] LABS: ALANINE AMINOTRANSFERASE 35 U/L (12-78); ALBUMIN 2.6 G/DL (3.4-5.0); ALBUMIN/GLOBULIN RATIO 0.7 (1.1-1.5); ALKALINE PHOSPHATASE 118 IU/L (46-116); ANION GAP 10 (8-16); ASPARTATE AMINO TRANSFERASE 21 U/L (10-37); BILIRUBIN,TOTAL 0.4 MG/DL (0.1-1.0); BLOOD UREA NITROGEN 48 MG/DL (7-18); CALCIUM 8.9 MG/DL (8.5-10.1); CHLORIDE 101 MMOL/L (99-107); GLUCOSE 131 MG/DL (70-104); MAGNESIUM 1.7 MG/DL (1.5-2.4); PHOSPHORUS 4.3 MG/DL (2.3-4.5); POTASSIUM 3.3 MMOL/L (3.5-5.1); SODIUM 141 MMOL/L (135-145); TOTAL CARBON DIOXIDE 30.3 MMOL/L (24-32); TOTAL PROTEIN 6.6 G/DL (6.4-8.2); eGFR > 90 ML/MIN
[2020-07-26] MEDS: POTASSIUM BICARB 20meq eff tab 20 MEQ TABLET.EFF OGT PRN ×3 (05:17→13:45)
--- NOTE | 2020-07-26 06:30 | NUR ---
Patient in room CICU 2008. I have received report from Rn and had the opportunity to ask questions and assume patient care.
[2020-07-26] MEDS: dexmedetomidine/D5W 100mL 100 ML IV SCH ×3 (06:31→21:48)
[2020-07-26] MEDS: pantoprazole 40 MG vial IV SCH ×2 (08:00→19:12)
[2020-07-26] MEDS: K, MAG and/or Phos replacement - Verify level? MC SCH (08:00)
[2020-07-26] MEDS: olanzapine 10mg tablet OGT SCH (08:26)
[2020-07-26] MEDS: sildenafil citrate 20mg tablet OGT SCH ×3 (08:26→21:42)
[2020-07-26] MEDS: amLODIPine 2.5mg tablet OGT SCH (08:26)
[2020-07-26] MEDS: methylnaltrexone br 12mg/0.6ml inj***SubQ only SQ SCH (08:26)
[2020-07-26] MEDS: lactobacillus rhamnosus 10,000 MMU CELLS/CAPSULE OGT SCH ×2 (08:26→19:12)
[2020-07-26] MEDS: losartan 25mg tablet OGT SCH (08:26)
[2020-07-26] MEDS: docusate sodium 100mg/10ml UD cup OGT SCH ×2 (08:27→19:12)
[2020-07-26] MEDS: enoxaparin 40mg/0.4ml syringe SUBCUT SCH ×2 (08:27→19:12)
[2020-07-26] MEDS: nystatin 15 GM powder TP SCH ×3 (08:28→21:51)
[2020-07-26] MEDS: VANCOmycin 1250MG/NS 250ml Bag 250 ML IV SCH ×2 (12:57→22:09)
[2020-07-26] MEDS: LORazepam 2 mg/ml vial IV PRN ×2 (15:33→19:11)
[2020-07-26] MEDS: insulin glargine (Lantus) pen - multi-dose SQ SCH (21:00)
[2020-07-27] VITALS (24 sets, daily range): BP systolic 90–134; BP diastolic 63–89
[2020-07-27] MEDS: mineral oil/petrolatum ophthal oint EACHEYE SCH ×4 (02:00→20:00)
[2020-07-27] MEDS: ipratropium/albuterol 3ml nebule NEB SCH ×6 (02:53→23:44)
[2020-07-27] MEDS: furosemide 40mg/4ml inj IV SCH ×4 (04:06→21:44)
[2020-07-27] MEDS: LORazepam 2 mg/ml vial IV PRN ×5 (04:50→21:45)
[2020-07-27] MEDS: dexmedetomidine/D5W 100mL 100 ML IV SCH (05:23)
--- NOTE | 2020-07-27 06:30 | NUR ---
Received report from shift leader RN. On assessment, PT is complaining about feeling SOB. He is diaphoretic and possible st changes visualized. RT and charge notified. CBG 153. EKG being done. Monitoring.
--- NOTE | 2020-07-27 06:50 | NUR ---
precedex turned off. PT slightly lexus.
[2020-07-27 07:03] LABS: BASOPHILS # (AUTO) 0.1 X10'3 (0-0.2); BASOPHILS % (AUTO) 0.5 % (0-1); EOSINOPHILS # (AUTO) 0.2 X10'3 (0-0.9); EOSINOPHILS % (AUTO) 1.2 % (0-6); HEMATOCRIT 30.5 % (42.0-52.0); HEMOGLOBIN 10.1 g/dl (14.0-17.9); LYMPHOCYTES # (AUTO) 2.1 X10'3 (1.1-4.8); LYMPHOCYTES % (AUTO) 11.1 % (21-51); MEAN CORPUSCULAR HEMOGLOBIN 32.4 PG (27.0-31.0); MEAN CORPUSCULAR HGB CONC 33.1 g/dL (33.0-36.5); MEAN CORPUSCULAR VOLUME 98.1 FL (78-98); MEAN PLATELET VOLUME 8.8 FL (7.4-10.4); MONOCYTES # (AUTO) 2.6 X10'3 (0-0.9); MONOCYTES % (AUTO) 13.6 % (2-12); NEUTROPHILS # (AUTO) 13.9 X10'3 (1.8-7.7); NEUTROPHILS % (AUTO) 73.6 % (42-75); PLATELET COUNT 398 X10'3 (140-440); RED CELL DISTRIBUTION WIDTH 16.1 % (11.5-14.5); WHITE BLOOD COUNT 18.9 X10'3 (4.5-11.0)
[2020-07-27 07:34] LABS: ALANINE AMINOTRANSFERASE 29 U/L (12-78); ALBUMIN 2.7 G/DL (3.4-5.0); ALBUMIN/GLOBULIN RATIO 0.7 (1.1-1.5); ALKALINE PHOSPHATASE 115 IU/L (46-116); ANION GAP 11 (8-16); ASPARTATE AMINO TRANSFERASE 14 U/L (10-37); BILIRUBIN,TOTAL 0.4 MG/DL (0.1-1.0); BLOOD UREA NITROGEN 42 MG/DL (7-18); BUN/CREATININE RATIO 55.3 (5.4-32.0); CALCIUM 8.4 MG/DL (8.5-10.1); CHLORIDE 99 MMOL/L (99-107); CREATININE 0.76 MG/DL (0.60-1.10); GLUCOSE 117 MG/DL (70-104); MAGNESIUM 1.7 MG/DL (1.5-2.4); PHOSPHORUS 3.7 MG/DL (2.3-4.5); POTASSIUM 3.3 MMOL/L (3.5-5.1); SODIUM 139 MMOL/L (135-145); TOTAL CARBON DIOXIDE 29.4 MMOL/L (24-32); TOTAL PROTEIN 6.6 G/DL (6.4-8.2); eGFR > 90 ML/MIN
[2020-07-27] MEDS: pantoprazole 40 MG vial IV SCH ×2 (07:45→21:43)
[2020-07-27] MEDS: docusate sodium 100mg/10ml UD cup OGT SCH ×2 (07:45→20:00)
[2020-07-27] MEDS: POTASSIUM BICARB 20meq eff tab 20 MEQ TABLET.EFF OGT PRN ×4 (07:46→17:24)
[2020-07-27] MEDS: lactobacillus rhamnosus 10,000 MMU CELLS/CAPSULE OGT SCH ×2 (07:46→21:45)
[2020-07-27] MEDS: enoxaparin 40mg/0.4ml syringe SUBCUT SCH ×2 (07:46→21:44)
[2020-07-27] MEDS: K, MAG and/or Phos replacement - Verify level? MC SCH (07:50)
[2020-07-27] MEDS: nystatin 15 GM powder TP SCH ×3 (07:51→21:45)
[2020-07-27] MEDS: FENTANYL-0.9 % NACL/PF 100 ML IV PRN (07:54)
[2020-07-27] MEDS: OLANZAPINE 5 MG TABLET PO SCH (08:00)
[2020-07-27 08:37] LABS: ABG BASE EXCESS 4.2 mmol/L (-2.0-2.0); ABG HCO3 27.2 mmol/L (22.0-26.0); ABG OXYGEN SATURATION 98.8 % (94-97); ABG PCO2 (T) 33.9 mmHg (35.0-48.0); ABG PO2 (T) 138.2 mmHg (75.0-100.0); ALLEN'S TEST POSITIVE; FCOHb 0.3 % (0.0-3.9); FMetHb 0.2 % (0.0-1.5); FO2Hb 98.3 % (94-97); PATIENT TEMPERATURE 36.3; RESPIRATORY RATE 12 b/min; TOTAL HEMOGLOBIN 11.9 G/dl (14.0-18.0)
[2020-07-27] MEDS: losartan 25mg tablet OGT SCH (10:27)
[2020-07-27] MEDS: sildenafil citrate 20mg tablet OGT SCH ×3 (10:28→21:45)
[2020-07-27] MEDS: amLODIPine 2.5mg tablet OGT SCH (10:28)
[2020-07-27] MEDS: VANCOmycin 1250MG/NS 250ml Bag 250 ML IV SCH (11:42)
[2020-07-27 12:02] LABS: TROPONIN I < 0.04 NG/ML (0.0-0.05)
[2020-07-27] MEDS: ondansetron/PF 4mg/2ml inj IV PRN (15:50)
[2020-07-27] MEDS: acetaminophen 325mg/10.15ml oral unit dose solution OGT PRN (16:31)
--- NOTE | 2020-07-27 16:44 | NUR ---
PT spiked a rapid fever, threw up approximately 500ml of tube feed. (Note that Residuals have been 0) Zofran provided (per MD order). Tube feed turned off for 30 minutes. HR elevated.Treated with tylenol (per md order) and a fan. Re-Cleansed soiled Peg tube site and dressed with foam. PT is doing a little better , fever coming down. Re started tube feed.
[2020-07-27] MEDS: metoclopramide 5 mg/ml inj IV PRN (18:00)
[2020-07-27] MEDS: insulin glargine (Lantus) pen - multi-dose SQ SCH (21:00)
[2020-07-28] VITALS (23 sets, daily range): BP systolic 85–131; BP diastolic 52–94
[2020-07-28] MEDS: VANCOmycin 1250MG/NS 250ml Bag 250 ML IV SCH ×2 (00:42→11:55)
[2020-07-28] MEDS: LORazepam 2 mg/ml vial IV PRN ×5 (00:56→20:39)
[2020-07-28] MEDS: mineral oil/petrolatum ophthal oint EACHEYE SCH ×4 (01:00→19:51)
[2020-07-28] MEDS: furosemide 40mg/4ml inj IV SCH ×4 (01:03→19:48)
[2020-07-28] MEDS: ipratropium/albuterol 3ml nebule NEB SCH ×6 (02:56→22:28)
[2020-07-28] MEDS: metoclopramide 5 mg/ml inj IV PRN (03:47)
[2020-07-28] MEDS: dexmedetomidine/D5W 100mL 100 ML IV SCH ×2 (03:52→20:19)
[2020-07-28 06:46] LABS: BASOPHILS # (AUTO) 0.1 X10'3 (0-0.2); BASOPHILS % (AUTO) 0.5 % (0-1); EOSINOPHILS # (AUTO) 0.3 X10'3 (0-0.9); EOSINOPHILS % (AUTO) 1.8 % (0-6); HEMATOCRIT 29.2 % (42.0-52.0); HEMOGLOBIN 9.9 g/dl (14.0-17.9); MEAN CORPUSCULAR HEMOGLOBIN 32.6 PG (27.0-31.0); MEAN CORPUSCULAR HGB CONC 33.8 g/dL (33.0-36.5); MEAN CORPUSCULAR VOLUME 96.5 FL (78-98); MEAN PLATELET VOLUME 8.6 FL (7.4-10.4); MONOCYTES # (AUTO) 2.5 X10'3 (0-0.9); MONOCYTES % (AUTO) 14.8 % (2-12); NEUTROPHILS % (AUTO) 70.9 % (42-75); PLATELET COUNT 373 X10'3 (140-440); RED BLOOD COUNT 3.02 X10'6 (4.70-6.10); RED CELL DISTRIBUTION WIDTH 16.4 % (11.5-14.5)
[2020-07-28 07:11] LABS: ALANINE AMINOTRANSFERASE 26 U/L (12-78); ALBUMIN 2.6 G/DL (3.4-5.0); ALBUMIN/GLOBULIN RATIO 0.7 (1.1-1.5); ALKALINE PHOSPHATASE 107 IU/L (46-116); ANION GAP 8 (8-16); ASPARTATE AMINO TRANSFERASE 13 U/L (10-37); BILIRUBIN,TOTAL 0.4 MG/DL (0.1-1.0); BLOOD UREA NITROGEN 33 MG/DL (7-18); BUN/CREATININE RATIO 39.8 (5.4-32.0); CALCIUM 8.7 MG/DL (8.5-10.1); CHLORIDE 102 MMOL/L (99-107); CREATININE 0.83 MG/DL (0.60-1.10); GLUCOSE 133 MG/DL (70-104); MAGNESIUM 1.8 MG/DL (1.5-2.4); PHOSPHORUS 3.8 MG/DL (2.3-4.5); POTASSIUM 3.4 MMOL/L (3.5-5.1); SODIUM 141 MMOL/L (135-145); TOTAL CARBON DIOXIDE 30.8 MMOL/L (24-32); TOTAL PROTEIN 6.3 G/DL (6.4-8.2); eGFR > 90 ML/MIN
[2020-07-28 07:39] LABS: ANISOCYTOSIS 1+; PLATELET ESTIMATE NORMAL; TOTAL CELLS COUNTED 100
[2020-07-28 07:40] LABS: POLYCHROMASIA 2+
[2020-07-28] MEDS: losartan 25mg tablet OGT SCH (08:00)
[2020-07-28] MEDS: amLODIPine 2.5mg tablet OGT SCH (08:00)
[2020-07-28] MEDS: K, MAG and/or Phos replacement - Verify level? MC SCH (08:00)
--- NOTE | 2020-07-28 08:30 | NUR ---
Received report from TONIA Millard. Assumed care of pt.
[2020-07-28] MEDS: pantoprazole 40 MG vial IV SCH ×2 (08:52→19:49)
[2020-07-28] MEDS: OLANZAPINE 5 MG TABLET PO SCH (08:52)
[2020-07-28] MEDS: lactobacillus rhamnosus 10,000 MMU CELLS/CAPSULE OGT SCH ×2 (08:52→19:48)
[2020-07-28] MEDS: methylnaltrexone br 12mg/0.6ml inj***SubQ only SQ SCH (08:52)
[2020-07-28] MEDS: docusate sodium 100mg/10ml UD cup OGT SCH ×2 (08:52→19:51)
[2020-07-28] MEDS: enoxaparin 40mg/0.4ml syringe SUBCUT SCH ×2 (08:54→19:49)
[2020-07-28] MEDS: sildenafil citrate 20mg tablet OGT SCH ×3 (09:07→20:30)
[2020-07-28] MEDS: nystatin 15 GM powder TP SCH ×3 (09:08→20:32)
--- NOTE | 2020-07-28 10:49 | NUR ---
F/u: Pt tolerating TF at goal GRV WNL. LBM 07/27 receiving routine colace and relistor. Will continue to monitor for additional protein needs on vent. Recommendations: 1) Continuous PEG TF per MD using Vital High Protein at 75 ml/hr goal; to provide 1800 ml volume, 1512 ml water, 1800 kcals, and 158 g protein. Initiate at 30ml/hr and advance 20ml Q8 to goal as tolerated. 2) additional 200 mL water flush Q4H per MD 3) prealbumin and TG q Wednesday/; daily weights 4) routine bowel care; opioid antagonist per MD Addendum: 07/28/20 at [address] Amended: Links added.
[2020-07-28] MEDS: POTASSIUM BICARB 20meq eff tab 20 MEQ TABLET.EFF OGT PRN (12:00)
--- NOTE | 2020-07-28 17:52 | NUR ---
PT off restraints. Pt alert and oriented x4. Cooperative with care. Sitter at bedside. Will continue to monitor.
--- NOTE | 2020-07-28 18:30 | NUR ---
Problems reprioritized. Patient report given, questions answered & plan of care reviewed with TONIA Mae.
[2020-07-28] MEDS: insulin glargine (Lantus) pen - multi-dose SQ SCH (20:31)
[2020-07-29] VITALS (24 sets, daily range): BP systolic 103–134; BP diastolic 63–87
[2020-07-29] MEDS: mineral oil/petrolatum ophthal oint EACHEYE SCH ×4 (02:18→20:00)
[2020-07-29] MEDS: furosemide 40mg/4ml inj IV SCH ×4 (02:18→20:28)
[2020-07-29] MEDS: VANCOmycin 1250MG/NS 250ml Bag 250 ML IV SCH ×3 (02:22→23:01)
[2020-07-29] MEDS: ipratropium/albuterol 3ml nebule NEB SCH ×6 (02:48→22:43)
[2020-07-29 06:34] LABS: BASOPHILS # (AUTO) 0.1 X10'3 (0-0.2); BASOPHILS % (AUTO) 0.9 % (0-1); EOSINOPHILS # (AUTO) 0.3 X10'3 (0-0.9); EOSINOPHILS % (AUTO) 1.8 % (0-6); HEMATOCRIT 31.8 % (42.0-52.0); HEMOGLOBIN 10.5 g/dl (14.0-17.9); LYMPHOCYTES # (AUTO) 2.4 X10'3 (1.1-4.8); LYMPHOCYTES % (AUTO) 14.2 % (21-51); MEAN CORPUSCULAR HEMOGLOBIN 31.8 PG (27.0-31.0); MEAN CORPUSCULAR VOLUME 96.6 FL (78-98); MEAN PLATELET VOLUME 8.6 FL (7.4-10.4); MONOCYTES # (AUTO) 2.2 X10'3 (0-0.9); NEUTROPHILS # (AUTO) 11.7 X10'3 (1.8-7.7); NEUTROPHILS % (AUTO) 70.1 % (42-75); PLATELET COUNT 362 X10'3 (140-440); RED BLOOD COUNT 3.29 X10'6 (4.70-6.10); RED CELL DISTRIBUTION WIDTH 16.4 % (11.5-14.5); WHITE BLOOD COUNT 16.6 X10'3 (4.5-11.0)
[2020-07-29 06:57] LABS: ALANINE AMINOTRANSFERASE 27 U/L (12-78); ALBUMIN 2.9 G/DL (3.4-5.0); ALBUMIN/GLOBULIN RATIO 0.8 (1.1-1.5); ALKALINE PHOSPHATASE 104 IU/L (46-116); ANION GAP 9 (8-16); ASPARTATE AMINO TRANSFERASE 17 U/L (10-37); BILIRUBIN,TOTAL 0.5 MG/DL (0.1-1.0); BLOOD UREA NITROGEN 28 MG/DL (7-18); BUN/CREATININE RATIO 35.4 (5.4-32.0); CALCIUM 8.8 MG/DL (8.5-10.1); CHLORIDE 103 MMOL/L (99-107); CREATININE 0.79 MG/DL (0.60-1.10); GLUCOSE 124 MG/DL (70-104); MAGNESIUM 1.7 MG/DL (1.5-2.4); PHOSPHORUS 3.8 MG/DL (2.3-4.5); POTASSIUM 3.2 MMOL/L (3.5-5.1); SODIUM 141 MMOL/L (135-145); TOTAL CARBON DIOXIDE 29.5 MMOL/L (24-32); TOTAL PROTEIN 6.6 G/DL (6.4-8.2); eGFR > 90 ML/MIN
[2020-07-29] MEDS: enoxaparin 40mg/0.4ml syringe SUBCUT SCH ×2 (07:16→20:28)
[2020-07-29] MEDS: docusate sodium 100mg/10ml UD cup OGT SCH ×2 (07:17→20:00)
[2020-07-29] MEDS: lactobacillus rhamnosus 10,000 MMU CELLS/CAPSULE OGT SCH ×2 (07:18→20:27)
[2020-07-29] MEDS: sildenafil citrate 20mg tablet OGT SCH ×3 (07:18→20:27)
[2020-07-29] MEDS: LORazepam 2 mg/ml vial IV PRN ×4 (07:18→23:00)
[2020-07-29] MEDS: pantoprazole 40 MG vial IV SCH ×2 (07:30→20:28)
[2020-07-29] MEDS: POTASSIUM BICARB 20meq eff tab 20 MEQ TABLET.EFF OGT PRN ×2 (07:37→17:29)
[2020-07-29] MEDS: nystatin 15 GM powder TP SCH ×3 (08:00→23:01)
[2020-07-29] MEDS: OLANZAPINE 5 MG TABLET PO SCH (08:00)
[2020-07-29] MEDS: K, MAG and/or Phos replacement - Verify level? MC SCH (08:00)
--- NOTE | 2020-07-29 08:34 | NUR ---
Patient in room CICU 2008. I have received report from TONIA Mae and had the opportunity to ask questions and assume patient care.
[2020-07-29] MEDS ORDERED: metoclopramide 5 mg/ml inj IV PRN (08:35)
--- NOTE | 2020-07-29 08:35 | NUR ---
New orders from Dr. Taylor for Reglan 10mg q. 6 hours and hold olanzapine until tomorrow.
[2020-07-29] MEDS: amLODIPine 2.5mg tablet OGT SCH (09:58)
[2020-07-29] MEDS: losartan 25mg tablet OGT SCH (09:58)
--- NOTE | 2020-07-29 11:20 | NUR ---
Patient in room CICU 2008. I have received report from tim acevedo and had the opportunity to ask questions and assume patient care.
--- NOTE | 2020-07-29 11:20 | NUR ---
Patient in room CICU 2008. I have received report from TONIA Stallwotrh and had the opportunity to ask questions and assume patient care.
--- NOTE | 2020-07-29 12:36 | NUR ---
DM Consult: A1C result 7.2; likely steroid-induced per import/export clerk at rounds. Pt has no DM hx pending official DX and is not appropriate for DM ed at this time. Addendum: 07/29/20 at [address] Amended: Links added.
--- NOTE | 2020-07-29 12:40 | NUR ---
Patient in room [facility] 2008. I have received report from TONIA Dumont and had the opportunity to ask questions and assume patient care. Addendum: 07/29/20 at 1318 by Monique Moreno RN VOID incorrect pt.
--- NOTE | 2020-07-29 12:49 | NUR ---
Pt arrived to unit via aviva with TONIA Taylor, finishing lab technician, and RT. Assessed vitals, 2 RN skin check, and physical assessment. VS: 123/59-105-94% HFNC 60% and 100% FiO2d- RR 33 Addendum: 07/29/20 at 1315 by Monique Moreno RN incorrect pt VOID
--- NOTE | 2020-07-29 18:29 | NUR ---
Problems reprioritized. Patient report given, questions answered & plan of care reviewed with TONIA Mae.
[2020-07-29] MEDS: dexmedetomidine/D5W 100mL 100 ML IV SCH (19:57)
[2020-07-29] MEDS: insulin glargine (Lantus) pen - multi-dose SQ SCH (21:00)
[2020-07-30] VITALS (24 sets, daily range): BP systolic 103–142; BP diastolic 68–99
[2020-07-30] MEDS ORDERED: ziprasidone IM 20mg inj **IM only IM ONE ×2 (00:35→00:50)
--- NOTE | 2020-07-30 00:51 | NUR ---
RN received order for Geodon 10 mg IM from REPRESENTATIVE. First med pull was reconstituted incorrectly and discarded with witness Jaylin RANDALL,, RN called pharmacy and was instructed to re-enter the order for a new med draw
[2020-07-30] MEDS: furosemide 40mg/4ml inj IV SCH ×4 (01:34→20:15)
[2020-07-30] MEDS: mineral oil/petrolatum ophthal oint EACHEYE SCH ×4 (01:34→20:00)
[2020-07-30] MEDS: LORazepam 2 mg/ml vial IV PRN ×3 (01:34→12:17)
[2020-07-30] MEDS: POTASSIUM BICARB 20meq eff tab 20 MEQ TABLET.EFF OGT PRN ×4 (02:18→17:41)
--- NOTE | 2020-07-30 02:30 | NUR ---
RN notifies DIRECTOR OF PUBLIC WORKS. Pt not following commands, little to no safety awareness, continuously pulling trach collar and IV lines, Pt attempting to get out of bed. Pt has sitter but still pulling after reorienting, seemingly on purpose. Pt was adamantly trying to get out of bed. DIRECTOR OF PUBLIC WORKS ordered soft wrist restraints.
[2020-07-30] MEDS: ipratropium/albuterol 3ml nebule NEB SCH ×6 (03:44→22:52)
[2020-07-30 06:05] LABS: BASOPHILS # (AUTO) 0.1 X10'3 (0-0.2); BASOPHILS % (AUTO) 0.5 % (0-1); EOSINOPHILS # (AUTO) 0.4 X10'3 (0-0.9); EOSINOPHILS % (AUTO) 2.2 % (0-6); HEMATOCRIT 34.4 % (42.0-52.0); HEMOGLOBIN 11.4 g/dl (14.0-17.9); LYMPHOCYTES # (AUTO) 2.1 X10'3 (1.1-4.8); LYMPHOCYTES % (AUTO) 10.6 % (21-51); MEAN CORPUSCULAR HEMOGLOBIN 31.8 PG (27.0-31.0); MEAN CORPUSCULAR HGB CONC 33.1 g/dL (33.0-36.5); MEAN CORPUSCULAR VOLUME 96.1 FL (78-98); MEAN PLATELET VOLUME 8.4 FL (7.4-10.4); MONOCYTES # (AUTO) 2.5 X10'3 (0-0.9); MONOCYTES % (AUTO) 12.3 % (2-12); NEUTROPHILS # (AUTO) 14.9 X10'3 (1.8-7.7); NEUTROPHILS % (AUTO) 74.4 % (42-75); PLATELET COUNT 448 X10'3 (140-440); RED BLOOD COUNT 3.58 X10'6 (4.70-6.10); RED CELL DISTRIBUTION WIDTH 16.6 % (11.5-14.5)
[2020-07-30 06:13] LABS: ALANINE AMINOTRANSFERASE 25 U/L (12-78); ALBUMIN/GLOBULIN RATIO 0.8 (1.1-1.5); ALKALINE PHOSPHATASE 101 IU/L (46-116); ANION GAP 11 (8-16); ASPARTATE AMINO TRANSFERASE 14 U/L (10-37); BILIRUBIN,TOTAL 0.6 MG/DL (0.1-1.0); BLOOD UREA NITROGEN 22 MG/DL (7-18); BUN/CREATININE RATIO 23.9 (5.4-32.0); CALCIUM 8.8 MG/DL (8.5-10.1); CHLORIDE 103 MMOL/L (99-107); CREATININE 0.92 MG/DL (0.60-1.10); GLUCOSE 127 MG/DL (70-104); MAGNESIUM 1.7 MG/DL (1.5-2.4); PHOSPHORUS 3.8 MG/DL (2.3-4.5); POTASSIUM 3.3 MMOL/L (3.5-5.1); SODIUM 142 MMOL/L (135-145); TOTAL CARBON DIOXIDE 28.3 MMOL/L (24-32); TOTAL PROTEIN 6.9 G/DL (6.4-8.2); eGFR 85 ML/MIN
[2020-07-30] MEDS: enoxaparin 40mg/0.4ml syringe SUBCUT SCH ×2 (07:22→20:15)
[2020-07-30] MEDS: pantoprazole 40 MG vial IV SCH ×2 (07:22→20:15)
[2020-07-30] MEDS: docusate sodium 100mg/10ml UD cup OGT SCH ×2 (07:22→20:00)
[2020-07-30] MEDS: sildenafil citrate 20mg tablet OGT SCH ×3 (07:23→20:15)
[2020-07-30] MEDS: losartan 25mg tablet OGT SCH (07:23)
[2020-07-30] MEDS: OLANZAPINE 5 MG TABLET PO SCH (07:23)
[2020-07-30] MEDS: lactobacillus rhamnosus 10,000 MMU CELLS/CAPSULE OGT SCH ×2 (07:24→20:15)
[2020-07-30] MEDS: amLODIPine 2.5mg tablet OGT SCH (07:24)
[2020-07-30] MEDS: nystatin 15 GM powder TP SCH ×3 (07:26→20:16)
[2020-07-30] MEDS: dexmedetomidine/D5W 100mL 100 ML IV SCH ×4 (07:46→21:08)
[2020-07-30] MEDS: methylnaltrexone br 12mg/0.6ml inj***SubQ only SQ SCH (08:00)
[2020-07-30] MEDS: K, MAG and/or Phos replacement - Verify level? MC SCH (08:00)
[2020-07-30] MEDS ORDERED: VANCOMYCIN LEVEL IV ONE (10:30)
--- NOTE | 2020-07-30 18:24 | NUR ---
Problems reprioritized. Patient report given, questions answered & plan of care reviewed with TONIA Talavera.
[2020-07-30] MEDS: insulin glargine (Lantus) pen - multi-dose SQ SCH (20:32)
[2020-07-30] MEDS: vancomycin/NS 1 GM ADD-VANTAGE 250 ML IV SCH (23:52)
[2020-07-31] VITALS (24 sets, daily range): BP systolic 101–137; BP diastolic 67–94
[2020-07-31] MEDS: mineral oil/petrolatum ophthal oint EACHEYE SCH ×4 (02:00→20:00)
[2020-07-31] MEDS: furosemide 40mg/4ml inj IV SCH ×4 (02:21→20:30)
[2020-07-31] MEDS: ipratropium/albuterol 3ml nebule NEB SCH ×6 (03:14→23:34)
[2020-07-31] MEDS: dexmedetomidine/D5W 100mL 100 ML IV SCH ×2 (03:21→11:45)
[2020-07-31 06:19] LABS: BASOPHILS # (AUTO) 0.1 X10'3 (0-0.2); BASOPHILS % (AUTO) 0.7 % (0-1); EOSINOPHILS # (AUTO) 0.7 X10'3 (0-0.9); EOSINOPHILS % (AUTO) 4.2 % (0-6); HEMATOCRIT 34.4 % (42.0-52.0); HEMOGLOBIN 11.2 g/dl (14.0-17.9); LYMPHOCYTES # (AUTO) 2.2 X10'3 (1.1-4.8); LYMPHOCYTES % (AUTO) 14.3 % (21-51); MEAN CORPUSCULAR HEMOGLOBIN 31.5 PG (27.0-31.0); MEAN CORPUSCULAR HGB CONC 32.6 g/dL (33.0-36.5); MEAN CORPUSCULAR VOLUME 96.7 FL (78-98); MEAN PLATELET VOLUME 8.5 FL (7.4-10.4); NEUTROPHILS # (AUTO) 10.6 X10'3 (1.8-7.7); NEUTROPHILS % (AUTO) 67.8 % (42-75); PLATELET COUNT 342 X10'3 (140-440); RED BLOOD COUNT 3.56 X10'6 (4.70-6.10); RED CELL DISTRIBUTION WIDTH 16.7 % (11.5-14.5); WHITE BLOOD COUNT 15.6 X10'3 (4.5-11.0)
[2020-07-31 06:43] LABS: ALANINE AMINOTRANSFERASE 25 U/L (12-78); ALBUMIN/GLOBULIN RATIO 0.8 (1.1-1.5); ALKALINE PHOSPHATASE 94 IU/L (46-116); ANION GAP 10 (8-16); ASPARTATE AMINO TRANSFERASE 12 U/L (10-37); BILIRUBIN,TOTAL 0.4 MG/DL (0.1-1.0); BLOOD UREA NITROGEN 21 MG/DL (7-18); BUN/CREATININE RATIO 26.6 (5.4-32.0); CALCIUM 8.9 MG/DL (8.5-10.1); CHLORIDE 103 MMOL/L (99-107); CREATININE 0.79 MG/DL (0.60-1.10); GLUCOSE 132 MG/DL (70-104); PHOSPHORUS 5.4 MG/DL (2.3-4.5); POTASSIUM 3.3 MMOL/L (3.5-5.1); SODIUM 143 MMOL/L (135-145); TOTAL CARBON DIOXIDE 30.1 MMOL/L (24-32); TOTAL PROTEIN 6.9 G/DL (6.4-8.2); eGFR > 90 ML/MIN
[2020-07-31] MEDS: pantoprazole 40 MG vial IV SCH ×2 (07:06→20:30)
[2020-07-31] MEDS: enoxaparin 40mg/0.4ml syringe SUBCUT SCH ×2 (07:07→20:31)
[2020-07-31] MEDS: sildenafil citrate 20mg tablet OGT SCH ×3 (07:07→20:30)
[2020-07-31] MEDS: amLODIPine 2.5mg tablet OGT SCH (07:08)
[2020-07-31] MEDS: lactobacillus rhamnosus 10,000 MMU CELLS/CAPSULE OGT SCH ×2 (07:08→20:30)
[2020-07-31] MEDS: OLANZAPINE 5 MG TABLET PO SCH (07:08)
[2020-07-31] MEDS: losartan 25mg tablet OGT SCH (07:08)
[2020-07-31] MEDS: docusate sodium 100mg/10ml UD cup OGT SCH ×2 (07:09→20:00)
[2020-07-31] MEDS: nystatin 15 GM powder TP SCH ×3 (07:13→20:31)
[2020-07-31] MEDS: POTASSIUM BICARB 20meq eff tab 20 MEQ TABLET.EFF OGT PRN ×3 (07:13→17:42)
[2020-07-31] MEDS: K, MAG and/or Phos replacement - Verify level? MC SCH (08:09)
[2020-07-31] MEDS: LORazepam 2 mg/ml vial IV PRN (11:05)
[2020-07-31] MEDS: vancomycin/NS 1 GM ADD-VANTAGE 250 ML IV SCH ×2 (11:05→23:24)
--- NOTE | 2020-07-31 13:10 | NUR ---
F/u: Pt tolerating TF at goal GRV WNL. Last BM 07/27 receiving routine colace and relistor. Continues to be confused and has sitter. Awaiting placement. Recommendations: 1) Continuous PEG TF per MD using Vital High Protein at 75 ml/hr goal; to provide 1800 ml volume, 1512 ml water, 1800 kcals, and 158 g protein. Initiate at 30ml/hr and advance 20ml Q8 to goal as tolerated. 2) additional 200 mL water flush Q4H per MD 3) prealbumin and TG q Wednesday/; daily weights 4) routine bowel care Addendum: 07/31/20 at [address] Amended: Links added.
--- NOTE | 2020-07-31 18:20 | NUR ---
Problems reprioritized. Patient report given, questions answered & plan of care reviewed with TONIA Mae.
[2020-07-31] MEDS: insulin glargine (Lantus) pen - multi-dose SQ SCH (20:33)
[2020-08-01] VITALS (20 sets, daily range): BP systolic 99–138; BP diastolic 68–88
[2020-08-01] MEDS: furosemide 40mg/4ml inj IV SCH ×4 (01:42→19:49)
[2020-08-01] MEDS: mineral oil/petrolatum ophthal oint EACHEYE SCH ×3 (01:42→20:00)
[2020-08-01] MEDS: dexmedetomidine/D5W 100mL 100 ML IV SCH (01:56)
[2020-08-01] MEDS: ipratropium/albuterol 3ml nebule NEB SCH ×6 (03:07→22:56)
[2020-08-01 06:26] LABS: BASOPHILS # (AUTO) 0.1 X10'3 (0-0.2); BASOPHILS % (AUTO) 0.5 % (0-1); EOSINOPHILS # (AUTO) 0.7 X10'3 (0-0.9); EOSINOPHILS % (AUTO) 3.5 % (0-6); HEMATOCRIT 36.8 % (42.0-52.0); HEMOGLOBIN 12.1 g/dl (14.0-17.9); LYMPHOCYTES % (AUTO) 10.4 % (21-51); MEAN CORPUSCULAR HEMOGLOBIN 32.2 PG (27.0-31.0); MEAN CORPUSCULAR VOLUME 97.7 FL (78-98); MEAN PLATELET VOLUME 8.5 FL (7.4-10.4); MONOCYTES # (AUTO) 2.1 X10'3 (0-0.9); MONOCYTES % (AUTO) 10.9 % (2-12); NEUTROPHILS # (AUTO) 14.3 X10'3 (1.8-7.7); NEUTROPHILS % (AUTO) 74.7 % (42-75); PLATELET COUNT 336 X10'3 (140-440); RED BLOOD COUNT 3.76 X10'6 (4.70-6.10); RED CELL DISTRIBUTION WIDTH 17.4 % (11.5-14.5); WHITE BLOOD COUNT 19.1 X10'3 (4.5-11.0)
[2020-08-01 06:44] LABS: ALANINE AMINOTRANSFERASE 22 U/L (12-78); ALBUMIN 3.2 G/DL (3.4-5.0); ALBUMIN/GLOBULIN RATIO 0.8 (1.1-1.5); ALKALINE PHOSPHATASE 96 IU/L (46-116); ANION GAP 12 (8-16); ASPARTATE AMINO TRANSFERASE 14 U/L (10-37); BILIRUBIN,TOTAL 0.5 MG/DL (0.1-1.0); BLOOD UREA NITROGEN 26 MG/DL (7-18); BUN/CREATININE RATIO 30.2 (5.4-32.0); CALCIUM 9.2 MG/DL (8.5-10.1); CHLORIDE 101 MMOL/L (99-107); CREATININE 0.86 MG/DL (0.60-1.10); GLUCOSE 96 MG/DL (70-104); MAGNESIUM 1.9 MG/DL (1.5-2.4); PHOSPHORUS 4.2 MG/DL (2.3-4.5); POTASSIUM 3.7 MMOL/L (3.5-5.1); SODIUM 139 MMOL/L (135-145); TOTAL CARBON DIOXIDE 25.6 MMOL/L (24-32); TOTAL PROTEIN 7.4 G/DL (6.4-8.2); eGFR > 90 ML/MIN
[2020-08-01] MEDS: K, MAG and/or Phos replacement - Verify level? MC SCH (08:00)
[2020-08-01] MEDS: docusate sodium 100mg/10ml UD cup OGT SCH ×2 (08:44→19:49)
[2020-08-01] MEDS: sildenafil citrate 20mg tablet OGT SCH ×3 (08:44→19:49)
[2020-08-01] MEDS: pantoprazole 40 MG vial IV SCH ×2 (08:44→19:49)
[2020-08-01] MEDS: OLANZAPINE 5 MG TABLET PO SCH (08:44)
[2020-08-01] MEDS: methylnaltrexone br 12mg/0.6ml inj***SubQ only SQ SCH (08:45)
[2020-08-01] MEDS: nystatin 15 GM powder TP SCH ×3 (08:45→19:49)
[2020-08-01] MEDS: losartan 25mg tablet OGT SCH (08:46)
[2020-08-01] MEDS: lactobacillus rhamnosus 10,000 MMU CELLS/CAPSULE OGT SCH ×2 (08:46→19:49)
[2020-08-01] MEDS: amLODIPine 2.5mg tablet OGT SCH (08:47)
[2020-08-01] MEDS: enoxaparin 40mg/0.4ml syringe SUBCUT SCH ×2 (08:48→19:50)
[2020-08-01 09:21] LABS: ANISOCYTOSIS 1+; BURR CELLS FEW; PLATELET ESTIMATE NORMAL
--- NOTE | 2020-08-01 10:02 | NUR ---
rounded with Dr. Taylor, EMAR reviewed, plan of care updated, sbar given.
[2020-08-01] MEDS ORDERED: VANCOMYCIN LEVEL IV ONE (10:30)
[2020-08-01] MEDS: vancomycin/NS 1 GM ADD-VANTAGE 250 ML IV SCH (10:56)
--- NOTE | 2020-08-01 11:10 | NUR ---
as per benjie "dont hold vancomycin while waiting for results", vancomycin stopped due to critical trough of 29. Spoke to Josué from pharmacy who stated it will get redosed.
[2020-08-01] MEDS: LORazepam 2 mg/ml vial IV PRN ×3 (15:33→23:44)
[2020-08-01] MEDS: insulin glargine (Lantus) pen - multi-dose SQ SCH (21:00)
[2020-08-02] VITALS (24 sets, daily range): BP systolic 110–136; BP diastolic 61–93
[2020-08-02] MEDS: ipratropium/albuterol 3ml nebule NEB SCH ×6 (03:00→23:00)
[2020-08-02] MEDS: furosemide 40mg/4ml inj IV SCH ×4 (03:38→19:41)
[2020-08-02 06:06] LABS: BASOPHILS # (AUTO) 0.1 X10'3 (0-0.2); BASOPHILS % (AUTO) 0.6 % (0-1); EOSINOPHILS # (AUTO) 0.5 X10'3 (0-0.9); EOSINOPHILS % (AUTO) 2.5 % (0-6); HEMATOCRIT 40.5 % (42.0-52.0); HEMOGLOBIN 13.2 g/dl (14.0-17.9); LYMPHOCYTES # (AUTO) 2.2 X10'3 (1.1-4.8); LYMPHOCYTES % (AUTO) 10.8 % (21-51); MEAN CORPUSCULAR HEMOGLOBIN 31.5 PG (27.0-31.0); MEAN CORPUSCULAR HGB CONC 32.7 g/dL (33.0-36.5); MEAN CORPUSCULAR VOLUME 96.6 FL (78-98); MEAN PLATELET VOLUME 7.9 FL (7.4-10.4); MONOCYTES # (AUTO) 2.4 X10'3 (0-0.9); MONOCYTES % (AUTO) 11.3 % (2-12); NEUTROPHILS # (AUTO) 15.5 X10'3 (1.8-7.7); NEUTROPHILS % (AUTO) 74.8 % (42-75); PLATELET COUNT 415 X10'3 (140-440); WHITE BLOOD COUNT 20.8 X10'3 (4.5-11.0)
[2020-08-02 06:42] LABS: ALANINE AMINOTRANSFERASE 26 U/L (12-78); ALBUMIN 3.6 G/DL (3.4-5.0); ALBUMIN/GLOBULIN RATIO 0.8 (1.1-1.5); ALKALINE PHOSPHATASE 104 IU/L (46-116); ANION GAP 12 (8-16); ASPARTATE AMINO TRANSFERASE 15 U/L (10-37); BILIRUBIN,TOTAL 0.7 MG/DL (0.1-1.0); BLOOD UREA NITROGEN 25 MG/DL (7-18); BUN/CREATININE RATIO 28.7 (5.4-32.0); CALCIUM 9.5 MG/DL (8.5-10.1); CHLORIDE 100 MMOL/L (99-107); CREATININE 0.87 MG/DL (0.60-1.10); GLUCOSE 111 MG/DL (70-104); MAGNESIUM 1.9 MG/DL (1.5-2.4); PHOSPHORUS 4.1 MG/DL (2.3-4.5); SODIUM 141 MMOL/L (135-145); TOTAL CARBON DIOXIDE 28.8 MMOL/L (24-32); TOTAL PROTEIN 7.9 G/DL (6.4-8.2); eGFR > 90 ML/MIN
--- NOTE | 2020-08-02 06:43 | NUR ---
Patient in room CICU 2008. I have received report from TONIA Barcenas and had the opportunity to ask questions and assume patient care. Patient awake in bed and in no acute distress.
[2020-08-02 06:48] LABS: TOTAL CELLS COUNTED 100
[2020-08-02 06:49] LABS: ANISOCYTOSIS 1+; PLATELET ESTIMATE NORMAL
[2020-08-02 06:50] LABS: BURR CELLS FEW
--- NOTE | 2020-08-02 07:26 | NUR ---
Critical results of K 3.0 told to July DUONG Keen. Will replace per protocol.
[2020-08-02] MEDS: vancomycin/NS 1 GM ADD-VANTAGE 250 ML IV SCH (07:36)
[2020-08-02] MEDS: enoxaparin 40mg/0.4ml syringe SUBCUT SCH ×2 (07:41→19:42)
[2020-08-02] MEDS: docusate sodium 100mg/10ml UD cup OGT SCH ×2 (07:42→19:41)
[2020-08-02] MEDS: losartan 25mg tablet OGT SCH (07:43)
[2020-08-02] MEDS: amLODIPine 2.5mg tablet OGT SCH (07:43)
[2020-08-02] MEDS: sildenafil citrate 20mg tablet OGT SCH ×3 (07:43→21:00)
[2020-08-02] MEDS: OLANZAPINE 5 MG TABLET PO SCH (07:45)
[2020-08-02] MEDS: lactobacillus rhamnosus 10,000 MMU CELLS/CAPSULE OGT SCH ×2 (07:46→19:41)
[2020-08-02] MEDS: pantoprazole 40 MG vial IV SCH ×2 (07:48→19:41)
[2020-08-02] MEDS: POTASSIUM BICARB 20meq eff tab 20 MEQ TABLET.EFF OGT PRN ×3 (07:50→19:41)
[2020-08-02] MEDS: nystatin 15 GM powder TP SCH ×3 (07:51→21:00)
[2020-08-02] MEDS: mineral oil/petrolatum ophthal oint EACHEYE SCH ×5 (08:00→19:41)
[2020-08-02] MEDS: K, MAG and/or Phos replacement - Verify level? MC SCH (08:05)
[2020-08-02] MEDS: LORazepam 2 mg/ml vial IV PRN ×3 (10:47→23:30)
[2020-08-02] MEDS: dexmedetomidine/D5W 100mL 100 ML IV SCH ×2 (11:34→18:29)
--- NOTE | 2020-08-02 18:11 | NUR ---
Problems reprioritized. Patient report given, questions answered & plan of care reviewed with TONIA Oakley. Patient stable at transfer of care.
[2020-08-02] MEDS: insulin glargine (Lantus) pen - multi-dose SQ SCH (21:00)
[2020-08-03] VITALS (24 sets, daily range): BP systolic 95–145; BP diastolic 58–87
[2020-08-03] MEDS: LORazepam 2 mg/ml vial IV PRN ×4 (01:29→21:00)
[2020-08-03] MEDS: mineral oil/petrolatum ophthal oint EACHEYE SCH ×4 (01:29→19:46)
[2020-08-03] MEDS: furosemide 40mg/4ml inj IV SCH ×4 (01:29→19:46)
[2020-08-03] MEDS: ipratropium/albuterol 3ml nebule NEB SCH ×6 (02:56→23:00)
--- NOTE | 2020-08-03 06:30 | NUR ---
Patient in room CICU 2008. I have received report from RN and had the opportunity to ask questions and assume patient care.
--- NOTE | 2020-08-03 06:52 | NUR ---
Problems reprioritized. Patient report given, questions answered & plan of care reviewed with TONIA Rice.
[2020-08-03] MEDS: methylnaltrexone br 12mg/0.6ml inj***SubQ only SQ SCH (08:00)
[2020-08-03] MEDS: K, MAG and/or Phos replacement - Verify level? MC SCH (08:00)
[2020-08-03] MEDS: vancomycin/NS 1 GM ADD-VANTAGE 250 ML IV SCH (08:29)
[2020-08-03] MEDS: docusate sodium 100mg/10ml UD cup OGT SCH ×2 (08:32→19:45)
[2020-08-03] MEDS: pantoprazole 40 MG vial IV SCH ×2 (08:36→19:45)
[2020-08-03] MEDS: OLANZAPINE 5 MG TABLET PO SCH (08:37)
[2020-08-03] MEDS: sildenafil citrate 20mg tablet OGT SCH ×3 (08:38→19:45)
[2020-08-03] MEDS: lactobacillus rhamnosus 10,000 MMU CELLS/CAPSULE OGT SCH ×2 (08:38→19:46)
[2020-08-03] MEDS: losartan 25mg tablet OGT SCH (08:38)
[2020-08-03] MEDS: enoxaparin 40mg/0.4ml syringe SUBCUT SCH ×2 (08:39→19:46)
[2020-08-03] MEDS: amLODIPine 2.5mg tablet OGT SCH (08:39)
[2020-08-03] MEDS: nystatin 15 GM powder TP SCH ×3 (08:40→19:47)
[2020-08-03 09:09] LABS: BASOPHILS # (AUTO) 0.3 X10'3 (0-0.2); BASOPHILS % (AUTO) 1.2 % (0-1); EOSINOPHILS # (AUTO) 0.8 X10'3 (0-0.9); EOSINOPHILS % (AUTO) 3.6 % (0-6); HEMATOCRIT 43.5 % (42.0-52.0); HEMOGLOBIN 14.2 g/dl (14.0-17.9); LYMPHOCYTES # (AUTO) 2.4 X10'3 (1.1-4.8); LYMPHOCYTES % (AUTO) 11.6 % (21-51); MEAN CORPUSCULAR HEMOGLOBIN 31.6 PG (27.0-31.0); MEAN CORPUSCULAR HGB CONC 32.6 g/dL (33.0-36.5); MEAN CORPUSCULAR VOLUME 96.9 FL (78-98); MEAN PLATELET VOLUME 7.6 FL (7.4-10.4); MONOCYTES # (AUTO) 2.3 X10'3 (0-0.9); NEUTROPHILS # (AUTO) 15.3 X10'3 (1.8-7.7); NEUTROPHILS % (AUTO) 72.6 % (42-75); PLATELET COUNT 395 X10'3 (140-440); RED BLOOD COUNT 4.48 X10'6 (4.70-6.10); RED CELL DISTRIBUTION WIDTH 17.1 % (11.5-14.5)
[2020-08-03 09:24] LABS: ALANINE AMINOTRANSFERASE 31 U/L (12-78); ALBUMIN 3.9 G/DL (3.4-5.0); ALBUMIN/GLOBULIN RATIO 0.9 (1.1-1.5); ALKALINE PHOSPHATASE 105 IU/L (46-116); ANION GAP 11 (8-16); ASPARTATE AMINO TRANSFERASE 20 U/L (10-37); BILIRUBIN,TOTAL 0.8 MG/DL (0.1-1.0); BLOOD UREA NITROGEN 24 MG/DL (7-18); BUN/CREATININE RATIO 25.3 (5.4-32.0); CALCIUM 9.7 MG/DL (8.5-10.1); CHLORIDE 101 MMOL/L (99-107); CREATININE 0.95 MG/DL (0.60-1.10); GLUCOSE 120 MG/DL (70-104); MAGNESIUM 2.1 MG/DL (1.5-2.4); PHOSPHORUS 4.1 MG/DL (2.3-4.5); POTASSIUM 3.7 MMOL/L (3.5-5.1); SODIUM 141 MMOL/L (135-145); TOTAL PROTEIN 8.1 G/DL (6.4-8.2); eGFR 82 ML/MIN
--- NOTE | 2020-08-03 11:33 | NUR ---
Reassessment: Pt is on passy thomas valve now and off the ventilator per MD notes. TF has been discontinued. Pt s/p BSS 07/[address]s minced and moist grind all food with thin liquids. Pt with 25% PO intake first meal however with average 75-100% PO intake the following meals meeting estimated nutrient needs. LBM 08/02. No nutrition intervention warranted at this time. Will continue to follow. Recommendations: 1) Continue minced and moist grind all diet with thin liquids per ST recs 2) Monitor need for additional protein 3) Routine bowel care 4) Scaled weights per rx Addendum: 08/03/20 at [address] Amended: Links added.
--- NOTE | 2020-08-03 20:00 | NUR ---
RADHA Keen advised not to give any insulins tonight secondary to not meeting protocol and is eating. last FSBS 128.
[2020-08-03] MEDS ORDERED: acetaminophen 325mg tablet PO PRN (20:10)
[2020-08-03] MEDS: acetaminophen 325mg tablet PO PRN (21:00)
[2020-08-03] MEDS: insulin glargine (Lantus) pen - multi-dose SQ SCH (21:00)
[2020-08-04] VITALS (24 sets, daily range): BP systolic 0–127; BP diastolic 63–88
[2020-08-04] MEDS: furosemide 40mg/4ml inj IV SCH ×4 (02:00→20:46)
[2020-08-04] MEDS: mineral oil/petrolatum ophthal oint EACHEYE SCH ×4 (02:00→20:00)
[2020-08-04] MEDS: ipratropium/albuterol 3ml nebule NEB SCH ×6 (03:00→23:14)
[2020-08-04] MEDS: dexmedetomidine/D5W 100mL 100 ML IV SCH ×2 (05:56→17:00)
[2020-08-04 06:48] LABS: BASOPHILS # (AUTO) 0.1 X10'3 (0-0.2); BASOPHILS % (AUTO) 0.6 % (0-1); EOSINOPHILS # (AUTO) 1.1 X10'3 (0-0.9); EOSINOPHILS % (AUTO) 5.5 % (0-6); HEMATOCRIT 42.6 % (42.0-52.0); HEMOGLOBIN 14.2 g/dl (14.0-17.9); LYMPHOCYTES # (AUTO) 2.6 X10'3 (1.1-4.8); LYMPHOCYTES % (AUTO) 13.3 % (21-51); MEAN CORPUSCULAR HGB CONC 33.3 g/dL (33.0-36.5); MEAN CORPUSCULAR VOLUME 96.1 FL (78-98); MEAN PLATELET VOLUME 8.5 FL (7.4-10.4); MONOCYTES # (AUTO) 2.2 X10'3 (0-0.9); MONOCYTES % (AUTO) 11.2 % (2-12); NEUTROPHILS # (AUTO) 13.6 X10'3 (1.8-7.7); NEUTROPHILS % (AUTO) 69.4 % (42-75); PLATELET COUNT 373 X10'3 (140-440); RED BLOOD COUNT 4.43 X10'6 (4.70-6.10); WHITE BLOOD COUNT 19.6 X10'3 (4.5-11.0)
[2020-08-04 07:08] LABS: ALANINE AMINOTRANSFERASE 29 U/L (12-78); ALBUMIN 3.7 G/DL (3.4-5.0); ALBUMIN/GLOBULIN RATIO 0.9 (1.1-1.5); ALKALINE PHOSPHATASE 104 IU/L (46-116); ANION GAP 14 (8-16); ASPARTATE AMINO TRANSFERASE 20 U/L (10-37); BILIRUBIN,TOTAL 0.6 MG/DL (0.1-1.0); BLOOD UREA NITROGEN 25 MG/DL (7-18); BUN/CREATININE RATIO 29.8 (5.4-32.0); CALCIUM 9.4 MG/DL (8.5-10.1); CHLORIDE 99 MMOL/L (99-107); CREATININE 0.84 MG/DL (0.60-1.10); GLUCOSE 105 MG/DL (70-104); PHOSPHORUS 4.1 MG/DL (2.3-4.5); POTASSIUM 3.3 MMOL/L (3.5-5.1); SODIUM 139 MMOL/L (135-145); eGFR > 90 ML/MIN
[2020-08-04 07:35] LABS: PLATELET ESTIMATE NORMAL; TOTAL CELLS COUNTED 100
[2020-08-04] MEDS: pantoprazole 40 MG vial IV SCH ×2 (07:35→20:45)
[2020-08-04 07:36] LABS: ANISOCYTOSIS 1+; BURR CELLS 1+; POLYCHROMASIA FEW; ROULEAUX 1+
[2020-08-04] MEDS: losartan 25mg tablet OGT SCH (07:37)
[2020-08-04] MEDS: enoxaparin 40mg/0.4ml syringe SUBCUT SCH ×2 (07:38→20:45)
[2020-08-04] MEDS: sildenafil citrate 20mg tablet OGT SCH ×3 (07:38→20:46)
[2020-08-04] MEDS: OLANZAPINE 5 MG TABLET PO SCH (07:38)
[2020-08-04] MEDS: amLODIPine 2.5mg tablet OGT SCH (07:38)
[2020-08-04] MEDS: docusate sodium 100mg/10ml UD cup OGT SCH ×2 (07:38→20:45)
[2020-08-04] MEDS: POTASSIUM BICARB 20meq eff tab 20 MEQ TABLET.EFF OGT PRN ×3 (07:39→17:18)
[2020-08-04] MEDS: lactobacillus rhamnosus 10,000 MMU CELLS/CAPSULE OGT SCH ×2 (07:39→20:46)
[2020-08-04] MEDS: nystatin 15 GM powder TP SCH ×3 (07:39→20:45)
[2020-08-04] MEDS: K, MAG and/or Phos replacement - Verify level? MC SCH (07:39)
[2020-08-04] MEDS: vancomycin/NS 1 GM ADD-VANTAGE 250 ML IV SCH (08:01)
--- NOTE | 2020-08-04 11:14 | NUR ---
Patient OOB to BSC and chair asst x1. Patient had medium soft brown BM. Dr. Schwartz in for rounds. Patient decannulated at approximately 1100. Sats 93% on 8L high flow NC. Resting comfortably in chair. Will continue to monitor.
[2020-08-04] MEDS: acetaminophen 325mg tablet PO PRN (11:19)
[2020-08-04] MEDS: insulin glargine (Lantus) pen - multi-dose SQ SCH (21:00)
--- NOTE | 2020-08-04 22:00 | NUR ---
Patient in room CICU 2008. I have received report from FRED RN and had the opportunity to ask questions and assume patient care.
--- NOTE | 2020-08-04 22:20 | NUR ---
report received at 1830, pt assisted to chair with stand by assist, BCNA at bedside, no distress noted, 2129 report given torjusta rn plan of care reviewed
[2020-08-05] VITALS (21 sets, daily range): BP systolic 103–148; BP diastolic 67–88
[2020-08-05] MEDS: furosemide 40mg/4ml inj IV SCH ×4 (02:00→21:36)
[2020-08-05] MEDS: mineral oil/petrolatum ophthal oint EACHEYE SCH ×4 (02:00→20:00)
[2020-08-05] MEDS: ipratropium/albuterol 3ml nebule NEB SCH ×6 (03:00→22:55)
[2020-08-05] MEDS: acetaminophen 325mg tablet PO PRN (04:25)
[2020-08-05] MEDS: LORazepam 2 mg/ml vial IV PRN ×2 (04:52→21:37)
--- NOTE | 2020-08-05 06:30 | NUR ---
Problems reprioritized. Patient report given, questions answered & plan of care reviewed with MANUEL RANDALL.
[2020-08-05] MEDS: dexmedetomidine/D5W 100mL 100 ML IV SCH ×2 (07:15→17:23)
[2020-08-05] MEDS: docusate sodium 100mg/10ml UD cup OGT SCH ×2 (07:22→21:36)
[2020-08-05] MEDS: amLODIPine 2.5mg tablet OGT SCH (07:25)
[2020-08-05] MEDS: losartan 25mg tablet OGT SCH (07:26)
[2020-08-05] MEDS: enoxaparin 40mg/0.4ml syringe SUBCUT SCH (07:26)
[2020-08-05] MEDS: OLANZAPINE 5 MG TABLET PO SCH (07:26)
[2020-08-05] MEDS: methylnaltrexone br 12mg/0.6ml inj***SubQ only SQ SCH (07:27)
[2020-08-05] MEDS: sildenafil citrate 20mg tablet OGT SCH ×3 (07:27→21:36)
[2020-08-05] MEDS: pantoprazole 40 MG vial IV SCH ×2 (07:27→20:00)
[2020-08-05] MEDS: lactobacillus rhamnosus 10,000 MMU CELLS/CAPSULE OGT SCH ×2 (07:27→21:36)
[2020-08-05] MEDS: nystatin 15 GM powder TP SCH ×3 (07:28→21:37)
[2020-08-05 07:30] LABS: BASOPHILS # (AUTO) 0.2 X10'3 (0-0.2); BASOPHILS % (AUTO) 0.8 % (0-1); EOSINOPHILS # (AUTO) 0.9 X10'3 (0-0.9); EOSINOPHILS % (AUTO) 4.8 % (0-6); HEMATOCRIT 41.3 % (42.0-52.0); HEMOGLOBIN 13.6 g/dl (14.0-17.9); LYMPHOCYTES # (AUTO) 2.6 X10'3 (1.1-4.8); LYMPHOCYTES % (AUTO) 14.2 % (21-51); MEAN CORPUSCULAR HEMOGLOBIN 32.2 PG (27.0-31.0); MEAN CORPUSCULAR VOLUME 97.3 FL (78-98); MEAN PLATELET VOLUME 7.9 FL (7.4-10.4); MONOCYTES # (AUTO) 2.3 X10'3 (0-0.9); MONOCYTES % (AUTO) 12.4 % (2-12); NEUTROPHILS # (AUTO) 12.4 X10'3 (1.8-7.7); NEUTROPHILS % (AUTO) 67.8 % (42-75); PLATELET COUNT 294 X10'3 (140-440); RED BLOOD COUNT 4.24 X10'6 (4.70-6.10); RED CELL DISTRIBUTION WIDTH 16.9 % (11.5-14.5); WHITE BLOOD COUNT 18.3 X10'3 (4.5-11.0)
[2020-08-05] MEDS ORDERED: VANCOMYCIN LEVEL IV ONE (07:30)
[2020-08-05 07:48] LABS: ALANINE AMINOTRANSFERASE 27 U/L (12-78); ALBUMIN 3.6 G/DL (3.4-5.0); ALBUMIN/GLOBULIN RATIO 0.9 (1.1-1.5); ALKALINE PHOSPHATASE 92 IU/L (46-116); ANION GAP 11 (8-16); ASPARTATE AMINO TRANSFERASE 13 U/L (10-37); BILIRUBIN,TOTAL 0.5 MG/DL (0.1-1.0); BLOOD UREA NITROGEN 26 MG/DL (7-18); BUN/CREATININE RATIO 31.3 (5.4-32.0); CALCIUM 9.2 MG/DL (8.5-10.1); CHLORIDE 99 MMOL/L (99-107); CREATININE 0.83 MG/DL (0.60-1.10); GLUCOSE 116 MG/DL (70-104); MAGNESIUM 1.9 MG/DL (1.5-2.4); PHOSPHORUS 4.1 MG/DL (2.3-4.5); POTASSIUM 3.5 MMOL/L (3.5-5.1); SODIUM 137 MMOL/L (135-145); TOTAL CARBON DIOXIDE 27.4 MMOL/L (24-32); TOTAL PROTEIN 7.7 G/DL (6.4-8.2); eGFR > 90 ML/MIN
[2020-08-05] MEDS: vancomycin/NS 1 GM ADD-VANTAGE 250 ML IV SCH (07:53)
[2020-08-05] MEDS: K, MAG and/or Phos replacement - Verify level? MC SCH (07:54)
--- NOTE | 2020-08-05 17:42 | NUR ---
Patient ambulated in hallway with PT. Tolerated well. Hilliard catheter DC'd at approximately 1500. No void as of this time. 1:[address] Taylor at approximately 1730. Patient counseled on importance of using call lujan and waiting for assistance prior to getting OOB. Will continue to monitor.
[2020-08-05] MEDS: insulin glargine (Lantus) pen - multi-dose SQ SCH (21:00)
[2020-08-06] VITALS (19 sets, daily range): BP systolic 83–129; BP diastolic 49–90
[2020-08-06] MEDS: mineral oil/petrolatum ophthal oint EACHEYE SCH ×4 (02:55→19:35)
[2020-08-06] MEDS: furosemide 40mg/4ml inj IV SCH ×4 (02:55→19:35)
[2020-08-06] MEDS: ipratropium/albuterol 3ml nebule NEB SCH ×6 (03:00→23:00)
[2020-08-06 06:19] LABS: BASOPHILS # (AUTO) 0.1 X10'3 (0-0.2); BASOPHILS % (AUTO) 0.7 % (0-1); EOSINOPHILS # (AUTO) 0.9 X10'3 (0-0.9); HEMATOCRIT 41.7 % (42.0-52.0); HEMOGLOBIN 13.8 g/dl (14.0-17.9); LYMPHOCYTES # (AUTO) 2.3 X10'3 (1.1-4.8); LYMPHOCYTES % (AUTO) 13.1 % (21-51); MEAN CORPUSCULAR HEMOGLOBIN 31.8 PG (27.0-31.0); MEAN CORPUSCULAR VOLUME 96.5 FL (78-98); MEAN PLATELET VOLUME 8.9 FL (7.4-10.4); MONOCYTES # (AUTO) 2.5 X10'3 (0-0.9); MONOCYTES % (AUTO) 14.4 % (2-12); NEUTROPHILS # (AUTO) 11.8 X10'3 (1.8-7.7); NEUTROPHILS % (AUTO) 66.8 % (42-75); PLATELET COUNT 306 X10'3 (140-440); RED BLOOD COUNT 4.32 X10'6 (4.70-6.10); RED CELL DISTRIBUTION WIDTH 16.5 % (11.5-14.5); WHITE BLOOD COUNT 17.6 X10'3 (4.5-11.0)
[2020-08-06 06:31] LABS: ALANINE AMINOTRANSFERASE 26 U/L (12-78); ALBUMIN 3.5 G/DL (3.4-5.0); ALBUMIN/GLOBULIN RATIO 0.9 (1.1-1.5); ALKALINE PHOSPHATASE 113 IU/L (46-116); ANION GAP 13 (8-16); ASPARTATE AMINO TRANSFERASE 14 U/L (10-37); BILIRUBIN,TOTAL 0.4 MG/DL (0.1-1.0); BLOOD UREA NITROGEN 29 MG/DL (7-18); BUN/CREATININE RATIO 30.9 (5.4-32.0); CALCIUM 8.8 MG/DL (8.5-10.1); CHLORIDE 99 MMOL/L (99-107); CREATININE 0.94 MG/DL (0.60-1.10); GLUCOSE 131 MG/DL (70-104); MAGNESIUM 1.6 MG/DL (1.5-2.4); POTASSIUM 3.4 MMOL/L (3.5-5.1); SODIUM 137 MMOL/L (135-145); TOTAL CARBON DIOXIDE 25.1 MMOL/L (24-32); TOTAL PROTEIN 7.6 G/DL (6.4-8.2); eGFR 83 ML/MIN
[2020-08-06] MEDS: docusate sodium 100mg/10ml UD cup OGT SCH ×2 (07:30→19:34)
[2020-08-06] MEDS: pantoprazole 40 MG vial IV SCH ×2 (07:30→19:35)
[2020-08-06] MEDS: OLANZAPINE 5 MG TABLET PO SCH (07:31)
[2020-08-06] MEDS: sildenafil citrate 20mg tablet OGT SCH ×3 (07:31→23:25)
[2020-08-06] MEDS: enoxaparin 40mg/0.4ml syringe SUBCUT SCH (07:31)
[2020-08-06] MEDS: nystatin 15 GM powder TP SCH ×2 (07:32→13:10)
[2020-08-06] MEDS: lactobacillus rhamnosus 10,000 MMU CELLS/CAPSULE OGT SCH ×2 (07:32→19:34)
[2020-08-06] MEDS: losartan 25mg tablet OGT SCH (07:35)
[2020-08-06] MEDS: amLODIPine 2.5mg tablet OGT SCH (07:36)
[2020-08-06] MEDS ORDERED: VANCOmycin 1250MG/NS 250ml Bag 250 ML IV SCH (08:00)
[2020-08-06] MEDS: POTASSIUM BICARB 20meq eff tab 20 MEQ TABLET.EFF OGT PRN ×3 (08:01→23:25)
[2020-08-06] MEDS: K, MAG and/or Phos replacement - Verify level? MC SCH (08:01)
[2020-08-06] MEDS: LORazepam 2 mg/ml vial IV PRN (09:24)
--- NOTE | 2020-08-06 17:42 | NUR ---
Patient transferred to telemetry via wheelchair with all belongings. No problems noted at that time.
--- NOTE | 2020-08-06 17:50 | NUR ---
Patient arrived to the floor with ICU personnel, O2 connected, patient oriented to room and call light. iPad, iPhone, and wallet in closet.
--- NOTE | 2020-08-06 18:29 | NUR ---
Problems reprioritized. Patient report given, questions answered & plan of care reviewed with Kezia RANDLAL.
--- NOTE | 2020-08-06 18:33 | NUR ---
Patient in room PCU 3009. I have received report from TONIA Richardson and had the opportunity to ask questions and assume patient care.
[2020-08-06] MEDS: insulin glargine (Lantus) pen - multi-dose SQ SCH (21:00)
--- NOTE | 2020-08-06 22:14 | NUR ---
Page Sent to Dr. Quintero PAGER ID: [phone] MESSAGE: Dennys Adorno Rm [phone] tr from ICU 08/06 Had a HR in the 130s and 13 beat run of Vtach. Pt denies chest pain. He feels nauseous. Sildenifil scheduled for 2100 has not been administered. Current vitals are: HR 111; BP 127/89; 92% on 2.5L.
[2020-08-07 02:00] VITALS: BP 127/88
[2020-08-07] MEDS: mineral oil/petrolatum ophthal oint EACHEYE SCH ×2 (02:00→07:34)
[2020-08-07] MEDS: ipratropium/albuterol 3ml nebule NEB SCH ×3 (03:00→10:36)
[2020-08-07] MEDS: furosemide 40mg/4ml inj IV SCH ×2 (03:12→07:34)
[2020-08-07] MEDS: acetaminophen 325mg tablet PO PRN ×2 (03:13→09:36)
[2020-08-07 03:57] LABS: URINE AMPHETAMINE SCREEN NEGATIVE (Neg); URINE BARBITUATE SCREEN NEGATIVE (Neg); URINE BENZODIAZEPINES SCREEN NEGATIVE (Neg); URINE CANNABINOID SCREEN NEGATIVE (Neg); URINE COCAINE SCREEN NEGATIVE (Neg); URINE METHADONE SCREEN NEGATIVE (Neg); URINE OPIATE SCREEN NEGATIVE (Neg); URINE PHENCYCLIDINE SCREEN NEGATIVE (Neg)
[2020-08-07] MEDS: nystatin 15 GM powder TP SCH ×2 (05:40→08:00)
[2020-08-07 06:23] LABS: BASOPHILS # (AUTO) 0.2 X10'3 (0-0.2); EOSINOPHILS # (AUTO) 0.8 X10'3 (0-0.9); EOSINOPHILS % (AUTO) 4.6 % (0-6); HEMOGLOBIN 14.1 g/dl (14.0-17.9); LYMPHOCYTES # (AUTO) 2.5 X10'3 (1.1-4.8); LYMPHOCYTES % (AUTO) 15.6 % (21-51); MEAN CORPUSCULAR HEMOGLOBIN 32.1 PG (27.0-31.0); MEAN CORPUSCULAR HGB CONC 33.5 g/dL (33.0-36.5); MEAN CORPUSCULAR VOLUME 95.8 FL (78-98); MEAN PLATELET VOLUME 9.1 FL (7.4-10.4); MONOCYTES # (AUTO) 2.2 X10'3 (0-0.9); MONOCYTES % (AUTO) 13.3 % (2-12); NEUTROPHILS # (AUTO) 10.7 X10'3 (1.8-7.7); NEUTROPHILS % (AUTO) 65.5 % (42-75); PLATELET COUNT 307 X10'3 (140-440); RED BLOOD COUNT 4.38 X10'6 (4.70-6.10); RED CELL DISTRIBUTION WIDTH 16.8 % (11.5-14.5); WHITE BLOOD COUNT 16.4 X10'3 (4.5-11.0)
--- NOTE | 2020-08-07 06:31 | NUR ---
Problems reprioritized. Patient report given, questions answered & plan of care reviewed with TONIA Baird.
[2020-08-07 06:45] LABS: ALANINE AMINOTRANSFERASE 26 U/L (12-78); ALBUMIN 3.6 G/DL (3.4-5.0); ALBUMIN/GLOBULIN RATIO 0.9 (1.1-1.5); ALKALINE PHOSPHATASE 113 IU/L (46-116); ANION GAP 13 (8-16); ASPARTATE AMINO TRANSFERASE 18 U/L (10-37); BILIRUBIN,TOTAL 0.4 MG/DL (0.1-1.0); BLOOD UREA NITROGEN 31 MG/DL (7-18); BUN/CREATININE RATIO 36.9 (5.4-32.0); CALCIUM 9.4 MG/DL (8.5-10.1); CHLORIDE 99 MMOL/L (99-107); CREATININE 0.84 MG/DL (0.60-1.10); GLUCOSE 118 MG/DL (70-104); MAGNESIUM 1.9 MG/DL (1.5-2.4); PHOSPHORUS 2.9 MG/DL (2.3-4.5); POTASSIUM 3.7 MMOL/L (3.5-5.1); SODIUM 136 MMOL/L (135-145); TOTAL CARBON DIOXIDE 24.1 MMOL/L (24-32); TOTAL PROTEIN 7.7 G/DL (6.4-8.2); eGFR > 90 ML/MIN
--- NOTE | 2020-08-07 06:51 | NUR ---
Patient in room PCU 3009. I have received report from Kezia RANDALL and had the opportunity to ask questions and assume patient care.
--- NOTE | 2020-08-07 07:31 | NUR ---
Spoke to Dr Taylor regarding patients BP is 111/75 HR 88. Patient is ordered to get 40 IV lasix , Cozaar 50 mg po and Norvasc 2.[address] Taylor hold all these medications. Dr Taylor is aware patient had a 13 Beat run of Vtach last night. Per Dr Taylor keep a close eye on this patient worried for patient if he has to come back to the unit. Per Dr Taylor I am signed out now to Hospitalist. Contact Dr Jhaveri regarding G-Tube DC.
[2020-08-07 07:33] VITALS: BP 111/75
[2020-08-07] MEDS: losartan 25mg tablet OGT SCH (07:34)
[2020-08-07] MEDS: amLODIPine 2.5mg tablet OGT SCH (07:34)
[2020-08-07] MEDS: docusate sodium 100mg/10ml UD cup OGT SCH (07:40)
[2020-08-07] MEDS: OLANZAPINE 5 MG TABLET PO SCH (07:40)
[2020-08-07] MEDS: pantoprazole 40 MG vial IV SCH (07:40)
[2020-08-07] MEDS: lactobacillus rhamnosus 10,000 MMU CELLS/CAPSULE OGT SCH (07:40)
[2020-08-07] MEDS: enoxaparin 40mg/0.4ml syringe SUBCUT SCH (08:00)
[2020-08-07] MEDS: K, MAG and/or Phos replacement - Verify level? MC SCH (08:00)
[2020-08-07] MEDS: methylnaltrexone br 12mg/0.6ml inj***SubQ only SQ SCH (08:00)
[2020-08-07] MEDS: sildenafil citrate 20mg tablet OGT SCH (09:48)
--- NOTE | 2020-08-07 10:12 | NUR ---
Reassessment: Trach removed, PEG ordered to be removed. Eating 100% of soft bite sized diet per ST recs. No nutrition intervention warranted at this time. Will continue to follow. Recommendations: 1) Continue soft bite sized diet with thin liquids per ST recs 2) Monitor need for additional protein 3) Routine bowel care 4) Scaled weights per rx Addendum: 08/07/20 at [address] Amended: Links added.
--- NOTE | 2020-08-07 10:28 | NUR ---
PEG tube pulled per Dr Jhaveri orders. Patient tolerated well 4x4 dressing and opti foam applied to PEG site .
[2020-08-07 11:00] VITALS: BP 121/82
--- NOTE | 2020-08-07 12:22 | NUR ---
PAGER ID: [phone] MESSAGE: Brie-Kriit [phone] Re: Shukri 3007 just had an 11 beat run of Vtach Vitals are 121/81 HR 95 do you still want to do Discharge/
--- NOTE | 2020-08-07 12:44 | NUR ---
PAGER ID: [phone] MESSAGE: Brie Beth [phone] Re: Shukri please call re: discharge Addendum: 08/07/20 at 1247 by Brie Shipman RN Per Dr Chris romero to send patient home.
--- NOTE | 2020-08-07 13:00 | NUR ---
Patients discharge instructions reviewed with patient and patient verbalized understanding. Patients Tele was Dc'd cannula intact. Tele Dc'd. Patients dressing to his stoma site changed and to his left abdomen where PEG tube was dc'd Dressing supplies for both sent home with patient and patient verbalized understanding on how to change dressing. Patient will contact Dr Schwartz office for follow up phone number provided. Patients had a walker delivered and that was sent home with him with all his belongings. Per Patient he has all belongings. Patient taken to [facility] where ride was waiting for him via wheelchair.
[2020-08-09] MEDS ORDERED: VANCOMYCIN LEVEL IV ONE (07:30)
== END 2020-08-07 13:08 | disposition home health service (06) | DRG 5 ==
LOC: ER 00:47 → ED HOLD 04:08 → CICU 2S 17:31 → PCU 3S 08-06 17:26
PROVIDERS: ADMIT Internal Medicine Critical Care Medicine; ATTEND Internal Medicine Critical Care Medicine
PROC: 5A09457 Assistance with Respiratory Ventilation, 24-96 Consecutive Hours, Continuous Positive Airway Pressure (ICD-10-PCS; 2020-06-05)
PROC: XW033E5 Introduction of Remdesivir Anti-infective into Peripheral Vein, Percutaneous Approach, New Technology Group 5 (ICD-10-PCS; 2020-06-06)
PROC: 5A09457 Assistance with Respiratory Ventilation, 24-96 Consecutive Hours, Continuous Positive Airway Pressure (ICD-10-PCS; 2020-06-08)
PROC: 5A1955Z Respiratory Ventilation, Greater than 96 Consecutive Hours (ICD-10-PCS; 2020-06-09)
PROC: 0BH17EZ Insertion of Endotracheal Airway into Trachea, Via Natural or Artificial Opening (ICD-10-PCS; 2020-06-09)
PROC: BW251ZZ Computerized Tomography (CT Scan) of Chest, Abdomen and Pelvis using Low Osmolar Contrast (ICD-10-PCS; 2020-06-15)
PROC: 0B928ZZ Drainage of Carina, Via Natural or Artificial Opening Endoscopic (ICD-10-PCS; 2020-07-08)
PROC: 0DH63UZ Insertion of Feeding Device into Stomach, Percutaneous Approach (ICD-10-PCS; 2020-07-09)
PROC: 0B110F4 Bypass Trachea to Cutaneous with Tracheostomy Device, Open Approach (ICD-10-PCS; principal; 2020-07-09 19:32)
PROC: 5A0935A Assistance with Respiratory Ventilation, Less than 24 Consecutive Hours, High Flow/Velocity Cannula (ICD-10-PCS; 2020-08-01)
PROC: 5A0935A Assistance with Respiratory Ventilation, Less than 24 Consecutive Hours, High Flow/Velocity Cannula (ICD-10-PCS; 2020-08-02)
PROC: 5A0935A Assistance with Respiratory Ventilation, Less than 24 Consecutive Hours, High Flow/Velocity Cannula (ICD-10-PCS; 2020-08-03)
PROC: 5A0935A Assistance with Respiratory Ventilation, Less than 24 Consecutive Hours, High Flow/Velocity Cannula (ICD-10-PCS; 2020-08-04)
PROC: 5A0935A Assistance with Respiratory Ventilation, Less than 24 Consecutive Hours, High Flow/Velocity Cannula (ICD-10-PCS; 2020-08-05)
PROC: 02HV33Z Insertion of Infusion Device into Superior Vena Cava, Percutaneous Approach (ICD-10-PCS; 2020-08-07)
PROC: 4A02X4A Measurement of Cardiac Electrical Activity, Guidance, External Approach (ICD-10-PCS; 2020-08-07)
DX: U07.1 COVID-19 (principal); J12.82 Pneumonia due to coronavirus disease 2019; G93.40 Encephalopathy, unspecified; J15.212 Pneumonia due to Methicillin resistant Staphylococcus aureus; F15.90 Other stimulant use, unspecified, uncomplicated; F17.210 Nicotine dependence, cigarettes, uncomplicated; F41.9 Anxiety disorder, unspecified; I13.0 Hypertensive heart and chronic kidney disease with heart failure and stage 1 through stage 4 chronic kidney disease, or unspecified chronic kidney disease; I25.10 Atherosclerotic heart disease of native coronary artery without angina pectoris; I27.20 Pulmonary hypertension, unspecified; I42.9 Cardiomyopathy, unspecified; N17.9 Acute kidney failure, unspecified; R21 Rash and other nonspecific skin eruption; I50.810 Right heart failure, unspecified; J44.0 Chronic obstructive pulmonary disease with (acute) lower respiratory infection; J96.01 Acute respiratory failure with hypoxia; K56.7 Ileus, unspecified; N18.30 Chronic kidney disease, stage 3 unspecified; L02.416 Cutaneous abscess of left lower limb; I25.2 Old myocardial infarction; Z82.3 Family history of stroke; Z82.41 Family history of sudden cardiac death; Z82.49 Family history of ischemic heart disease and other diseases of the circulatory system; Z99.11 Dependence on respirator [ventilator] status; Z88.0 Allergy status to penicillin; Z91.19 Patient's noncompliance with other medical treatment and regimen; Z79.899 Other long term (current) drug therapy
CPT/HCPCS: 31645; 36415; 36573; 36600; 43246; 71045; 71250; 74018; 74176; 76937; 80048; 80053; 80202; 80305; 81001; 82728; 82803; 82810; 82948; 83036; 83605; 83615; 83735; 83880; 84100; 84132; 84134; 84145; 84478; 84484; 85007; 85008; 85018; 85025; 85379; 85384; 85610; 85730; 86140; 86885; 86900; 86901; 87040; 87070; 87077; 87081; 87088; 87186; 87635; 92508; 92616; 93005; 93308; 94002; 94003; 94640; 94660; 94760; 94799; 96365; 96375; 96376; 97110; 97116; 97162; 97530; 99285; A4215; A4618; A7000; A7521; A7526; B4087; C1773; C9113; C9803; G0378; J0690; J0692; J1100; J1170; J1450; J1650; J1815; J1940; J1956; J2001; J2020; J2060; J2212; J2250; J2270; J2405; J2710; J2765; J3010; J3370; J3480; J3486; J3490; J7030; J7042; Q9963

== ENCOUNTER 2021-09-15 13:11 | Outpatient (CLI) | payer MEDICAID ==
[~2021-09-15 13:11] MED LIST changes: +LOSA25TA96 PO; -UBID100C16 PO
== END 2021-09-15 23:59 | disposition home or self-care (01) ==
LOC: CARD DIAG 13:11
PROVIDERS: ATTEND Internal Medicine Critical Care Medicine
DX: I08.1 Rheumatic disorders of both mitral and tricuspid valves (principal); I27.0 Primary pulmonary hypertension
CPT/HCPCS: 93306

== ENCOUNTER 2022-01-10 07:25 | Emergency (ER) | payer MEDICAID ==
[~2022-01-10] VITALS: Ht 177.8 cm; Wt 79.5 kg
[2022-01-10 07:26] VITALS: BP 114/81
== END 2022-01-10 12:49 | disposition left against medical advice (07) ==
LOC: ER 07:25
DX: R07.81 Pleurodynia (principal); Z53.21 Procedure and treatment not carried out due to patient leaving prior to being seen by health care provider
CPT/HCPCS: 71045

== ENCOUNTER 2022-01-12 08:11 | Inpatient (IN) | payer MEDICAID ==
[~2022-01-12] VITALS: Ht 172.7 cm; Wt 84.0 kg
[2022-01-12] VITALS (16 sets, daily range): BP systolic 89–128; BP diastolic 54–69
[2022-01-12 08:36] LABS: BASOPHILS % (AUTO) 0.2 % (0-1); EOSINOPHILS % (AUTO) 0.2 % (0-6); HEMATOCRIT 50.9 % (42.0-52.0); HEMOGLOBIN 16.9 g/dl (14.0-17.9); LYMPHOCYTES # (AUTO) 1.2 X10'3 (1.1-4.8); LYMPHOCYTES % (AUTO) 6.8 % (21-51); MEAN CORPUSCULAR HEMOGLOBIN 30.3 PG (27.0-31.0); MEAN CORPUSCULAR HGB CONC 33.2 g/dL (33.0-36.5); MEAN CORPUSCULAR VOLUME 91.5 FL (78-98); MEAN PLATELET VOLUME 8.3 FL (7.4-10.4); MONOCYTES # (AUTO) 2.9 X10'3 (0-0.9); MONOCYTES % (AUTO) 15.7 % (2-12); NEUTROPHILS # (AUTO) 14.2 X10'3 (1.8-7.7); NEUTROPHILS % (AUTO) 77.1 % (42-75); PLATELET COUNT 230 X10'3 (140-440); RED BLOOD COUNT 5.56 X10'6 (4.70-6.10); RED CELL DISTRIBUTION WIDTH 14.7 % (11.5-14.5); WHITE BLOOD COUNT 18.4 X10'3 (4.5-11.0)
[2022-01-12] MEDS ORDERED: morphine 4 MG/ML inj SYRINge IV PRN (08:50)
[2022-01-12] MEDS ORDERED: normal saline 1000ML IV soln IVB ONE (08:50)
[2022-01-12] MEDS ORDERED: aspirin 81mg tab.chew PO ONE (08:50)
[2022-01-12] MEDS ORDERED: ondansetron/PF 4mg/2ml inj IV ONE (08:50)
[2022-01-12] MEDS ORDERED: nitroGLYCERIN 0.4mg SUBLingual tab SL PRN (08:50)
[2022-01-12 08:52] LABS: ALANINE AMINOTRANSFERASE 36 U/L (12-78); ALBUMIN 3.3 G/DL (3.4-5.0); ALBUMIN/GLOBULIN RATIO 0.8 (1.1-1.5); ALKALINE PHOSPHATASE 124 IU/L (46-116); ANION GAP 13 (8-16); ASPARTATE AMINO TRANSFERASE 28 U/L (10-37); BILIRUBIN,TOTAL 1.4 MG/DL (0.1-1.0); BLOOD UREA NITROGEN 33 MG/DL (7-18); BUN/CREATININE RATIO 21.9 (5.4-32.0); CALCIUM 8.8 MG/DL (8.5-10.1); CHLORIDE 98 MMOL/L (99-107); CREATININE 1.51 MG/DL (0.60-1.10); GLUCOSE 143 MG/DL (70-104); POTASSIUM 3.5 MMOL/L (3.5-5.1); SODIUM 133 MMOL/L (135-145); TOTAL CARBON DIOXIDE 22.5 MMOL/L (24-32); TOTAL PROTEIN 7.6 G/DL (6.4-8.2); eGFR 48 ML/MIN
[2022-01-12] MEDS ORDERED: etomidate 2mg/ml inj. ONE (09:00)
[2022-01-12 09:02] LABS: LIPASE 200 U/L (73-393)
[2022-01-12 09:18] LABS: PLATELET ESTIMATE NORMAL; TOTAL CELLS COUNTED 100
[2022-01-12] MEDS ORDERED: iohexol 300mg/ml 100ml inj. ONE (09:25)
[2022-01-12] MEDS ORDERED: ipratropium/albuterol 3ml nebule NEB ONE (10:05)
[2022-01-12] MEDS ORDERED: furosemide 10 MG/1 ML 10ml inj IV ONE (10:05)
[2022-01-12] MEDS ORDERED: levoFLOXACIN-Levaquin 750MG/D5 150 ML IV ONE (10:05)
[2022-01-12] MEDS ORDERED: cefepime 1GM/NS ADD-VANTAGE 100 ML IV STA (10:17)
[2022-01-12] MEDS ORDERED: vancomycin/NS 1 GM ADD-VANTAGE 250 ML IV ONE (10:20)
--- NOTE | 2022-01-12 10:21 | NUR ---
RT PAGED FOR SVN AND ABG. LIDIAO NEB SVN NOT ADMINISTERED DUE TO PATIENTS INCREASED HEART RATE. PT'S HR CURRENTLY IN THE 130'S-150'S. RT WILL RETURN FOR SVN WHEN HR IS STABLE.
[2022-01-12] MEDS ORDERED: diltiazem 5mg/ml 5ml inj. IV ONE (10:25)
[2022-01-12 10:33] LABS: ABG BASE EXCESS -6.6 mmol/L (-2.0-2.0); ABG HCO3 17.4 mmol/L (22.0-26.0); ABG OXYGEN SATURATION 74.6 % (94-97); ABG PCO2 (T) 31.5 mmHg (35.0-48.0); ABG PO2 (T) 42.8 mmHg (75.0-100.0); ALLEN'S TEST POSITIVE; FCOHb 0.8 % (0.0-3.9); FMetHb 0.2 % (0.0-1.5); FO2Hb 73.9 % (94-97); TOTAL HEMOGLOBIN 16.7 G/dl (14.0-18.0)
[2022-01-12] MEDS ORDERED: succinylcholine 20mg/ml inj IV ONE (10:40)
[2022-01-12] MEDS ORDERED: etomidate 2mg/ml inj. IV ONE ×2 (10:40→11:05)
--- NOTE | 2022-01-12 10:42 | NUR ---
1048: 20MG ETOM, 100MG SUCC ADMINISTERED FOR INTUBATION 1050: PT INTUBATED WITH 8.0 ETT, MAC 4, 22 AT THE TEETH.
[2022-01-12] MEDS ORDERED: midazolam 100mg in NS 100ml 100 ML IV PRN (10:55)
[2022-01-12] MEDS ORDERED: FENTANYL-0.9 % NACL/PF 100 ML IV PRN ×2 (10:55)
--- NOTE | 2022-01-12 10:56 | NUR ---
TOOK VERBAL ORDER FOR FENTANYL AND VERSED WOOD AND HARDWARE OUTFITTER SEDATION DRIPS. ORDERS PLACED RECEIVED
[2022-01-12] MEDS ORDERED: midazolam 1 mg/ML 2ml injection ONE ×2 (11:01→11:15)
--- NOTE | 2022-01-12 11:01 | NUR ---
10MG OF ETOMIDATE PUSHED FOR FUTHER SEDATION PER DARLYN PT IS WAKING UP AND PHARMACY MEDS NOT VERIFIED
[2022-01-12] MEDS ORDERED: midazolam 1 mg/ML 2ml injection IV ONE ×2 (11:05→11:18)
--- NOTE | 2022-01-12 11:05 | NUR ---
4MG VERSED GIVEN PUSH FOR FURTHER SEDATION
--- NOTE | 2022-01-12 11:12 | NUR ---
PT CONTINUES TO WAKE UP DUE TO LACK OF SEDIATION MEDICATION DRIP. WAITING FOR PHARMACY TO MAKE MEDICATION. VERBAL ORDER OF 10MG VERSED RECEIVED FROM DARLYN GARCIA A IV PUSH TO SEDATE PATIENT
--- NOTE | 2022-01-12 11:14 | NUR ---
NO SEDATION MEDICATION READY YET ,CALLED PHARMACY BY GUS RANDALL TO VERIFY THE SEDATION MEDS ,STILL WAITING ,KEEP GIVING VIAL PUSH MED TO SEDATE THE PT.
--- NOTE | 2022-01-12 11:31 | NUR ---
GUS RANDALL IS WORKING ON GETTING SEDATION MEDS AT THIS TIME FROM [facility] .WILL CONT TO MONITOR.PROVIDER MADE AWARE REGARDING THE SITUATION.
--- NOTE | 2022-01-12 11:36 | NUR ---
notified dejah cm the sedation meds are still not ready yet ,he need to contact the after school program director .
[2022-01-12 11:40] LABS: CLARITY,URINE CLEAR (Clear); COLOR,URINE YELLOW (Yellow); GLUCOSE, URINE NEGATIVE (Neg); KETONES,URINE NEGATIVE (Neg); LEUKOCYTE ESTERASE ,URINE NEGATIVE (Neg); NITRITES, URINE NEGATIVE (Neg); OCCULT BLOOD,URINE TRACE-INTACT (Neg); PH,URINE 5.5 (4.8-8.0); PROTEIN,URINE 30 mg/dl (Neg); UA COLLECTION TYPE FOLEY CATH; UROBILINOGEN,URINE 0.2 E.U/dL (0.2-1.0)
[2022-01-12 11:45] LABS: BACTERIA,URINE NONE SEEN /HPF (Neg); HYALINE CASTS 0-3 /LPF (NEGATIVE); MUCUS STRANDS NONE SEEN /LPF (Neg); RBC,URINE 0-2 /HPF (0-2); SQUAMOUS EPITHELIAL CELL,UR NONE SEEN /LPF (FEW); WBC,URINE 0-4 /HPF (0-4)
[2022-01-12] MEDS ORDERED: NORepinephrine inj. 32 MG in normal saline 250ml IV soln 218 ML IV SCH (11:45)
[2022-01-12] MEDS ORDERED: normal saline 1000ml 1,000 ML IV ONE (11:55)
[2022-01-12] MEDS ORDERED: acetaminophen 1,000mg/100ml IV 100 ML IV STA (11:57)
[2022-01-12 12:01] LABS: URINE AMPHETAMINE SCREEN POSITIVE (Neg); URINE BARBITUATE SCREEN NEGATIVE (Neg); URINE BENZODIAZEPINES SCREEN NEGATIVE (Neg); URINE CANNABINOID SCREEN NEGATIVE (Neg); URINE COCAINE SCREEN NEGATIVE (Neg); URINE METHADONE SCREEN NEGATIVE (Neg); URINE OPIATE SCREEN NEGATIVE (Neg); URINE PHENCYCLIDINE SCREEN NEGATIVE (Neg)
--- NOTE | 2022-01-12 12:42 | NUR ---
pt sister tonio gisselle{next to kin} - [phone].
--- NOTE | 2022-01-12 12:42 | NUR ---
next to kin [phone].
--- NOTE | 2022-01-12 12:45 | NUR ---
MD CONFIRMED THE PLACEMENT OF CENTRAL LINE .WILL SWITCH THE CRITICAL DRIP TO CENTRAL LINE AND START GIVING THE ABX AND PENDING MEDS AT THIS TIME.
[2022-01-12 12:59] LABS: ABG BASE EXCESS -8.2 mmol/L (-2.0-2.0); ABG PCO2 (T) 36.8 mmHg (35.0-48.0); ABG PO2 (T) 56.5 mmHg (75.0-100.0); ALLEN'S TEST POSITIVE; FCOHb 0.6 % (0.0-3.9); FMetHb 0.2 % (0.0-1.5); FO2Hb 80.4 % (94-97); PATIENT TEMPERATURE 38.4; TOTAL HEMOGLOBIN 16.2 G/dl (14.0-18.0)
[2022-01-12] MEDS ORDERED: PERFLUTREN PROTEIN-A MICROSPHR (Optison) 0.22 MG/ML 3ML VIAL IV ONE (14:30)
[2022-01-12] MEDS ORDERED: potassium CL 10mEq/100ml bag 100 ML IV PRN (14:30)
[2022-01-12] MEDS ORDERED: LIDOcaine 2% 10ml TOPICAL JELLY (Urojet) TP ONE (14:30)
[2022-01-12] MEDS ORDERED: mag hydrox/Alum hydrox/simeth 30ml oral suspension PO PRN (14:30)
[2022-01-12] MEDS ORDERED: magnesium hydroxide 30ml (MOM) UD suspension PO PRN (14:30)
[2022-01-12] MEDS ORDERED: POTASSIUM BICARB 20meq eff tab 20 MEQ TABLET.EFF PO PRN ×2 (14:30)
[2022-01-12] MEDS ORDERED: ondansetron/PF 4mg/2ml inj IV PRN (14:30)
[2022-01-12] MEDS ORDERED: magnesium Cl slow-release 64mg tablet PO PRN (14:30)
[2022-01-12] MEDS ORDERED: acetaminophen 325mg tablet PO PRN (14:30)
[2022-01-12] MEDS ORDERED: magnesium 4gm in 100ml NS 100 ML IV PRN (14:30)
[2022-01-12] MEDS ORDERED: magnesium 2GM in 50ml NS 50 ML IV PRN (14:30)
[2022-01-12] MEDS ORDERED: FENTANYL-0.9 % NACL/PF 100 ML IV SCH (14:35)
[2022-01-12] MEDS ORDERED: enoxaparin 30mg/0.3ml syringe SUBCUT ONE (14:35)
--- NOTE | 2022-01-12 14:45 | NUR ---
Rec'd pt from ED into 2013. Art line placed into right femoral per Dr. Garduno. Pt. hooked up to monitor. Pt. proned since Sp02 83% on 100% Fi02.
[2022-01-12] MEDS ORDERED: propofol 1000mg/100ml bottle 100 ML IV ONE (14:54)
[2022-01-12 15:02] LABS: TRIGLYCERIDES 50 MG/DL (20-135)
[2022-01-12] MEDS: propofol 1000mg/100ml bottle 100 ML IV SCH (15:38)
[2022-01-12 15:41] LABS: UA COLLECTION TYPE FOLEY CATH
[2022-01-12 15:42] LABS: CLARITY,URINE CLEAR (Clear); COLOR,URINE YELLOW (Yellow); GLUCOSE, URINE NEGATIVE (Neg); KETONES,URINE NEGATIVE (Neg); LEUKOCYTE ESTERASE ,URINE NEGATIVE (Neg); OCCULT BLOOD,URINE TRACE-INTACT (Neg); PROTEIN,URINE TRACE mg/dl (Neg); UROBILINOGEN,URINE 0.2 E.U/dL (0.2-1.0)
[2022-01-12 15:47] LABS: NITRITES, URINE NEGATIVE (Neg)
[2022-01-12 15:49] LABS: BACTERIA,URINE FEW /HPF (Neg); RBC,URINE 0-2 /HPF (0-2); SQUAMOUS EPITHELIAL CELL,UR FEW /LPF (FEW); WBC,URINE 0-4 /HPF (0-4)
[2022-01-12] MEDS ORDERED: enoxaparin 40mg/0.4ml syringe SUBCUT ONE (16:00)
[2022-01-12] MEDS: cefepime 1GM/NS ADD-VANTAGE 100 ML IV SCH (16:00)
[2022-01-12] MEDS: heparin, porcine 5000 units/ml vial SQ SCH (16:29)
[2022-01-12 16:45] LABS: ABG BASE EXCESS -7.7 mmol/L (-2.0-2.0); ABG HCO3 18.4 mmol/L (22.0-26.0); ABG OXYGEN SATURATION 93.6 % (94-97); ABG PCO2 (T) 38.2 mmHg (35.0-48.0); ABG PO2 (T) 73.8 mmHg (75.0-100.0); FCOHb 0.3 % (0.0-3.9); FMetHb 0.3 % (0.0-1.5); PATIENT TEMPERATURE 36.1; PEEP 10 cm H2O; RESPIRATORY RATE 18 b/min; TIDAL VOLUME 650 mL; TOTAL HEMOGLOBIN 16.3 G/dl (14.0-18.0)
--- NOTE | 2022-01-12 18:05 | NUR ---
Problems reprioritized. Patient report given, questions answered & plan of care reviewed with Johnathon RANDALL.
[2022-01-12] MEDS: FENTANYL-0.9 % NACL/PF 100 ML IV SCH (18:30)
[2022-01-12] MEDS: docusate sod 100mg capsule PO SCH (19:23)
[2022-01-12] MEDS ORDERED: DEXTROSE 15 GM of carb/4 tabs (each vial/BOTTLE has 4 tablets) PO PRN ×2 (19:45)
[2022-01-12] MEDS ORDERED: MESSAGE TO PHARMACY PO ONE (19:45)
[2022-01-12] MEDS ORDERED: insulin regular, human U-100 3ml vial - multi-dose SQ SCH (19:45)
[2022-01-12] MEDS ORDERED: glucagon, human recombinant 1mg kit SUBCUT PRN (19:45)
[2022-01-12 19:54] LABS: POTASSIUM 4.1 MMOL/L (3.5-5.1)
[2022-01-12] MEDS: K and/or MAG REPLACEMENT MC SCH (20:00)
[2022-01-12] MEDS ORDERED: insulin glargine (Lantus) pen - multi-dose SQ SCH (21:00)
[2022-01-13] VITALS (37 sets, daily range): BP systolic 75–106; BP diastolic 48–70
[2022-01-13] MEDS: cefepime 1GM/NS ADD-VANTAGE 100 ML IV SCH ×4 (00:07→20:05)
[2022-01-13] MEDS: heparin, porcine 5000 units/ml vial SQ SCH ×2 (00:08→07:17)
[2022-01-13] MEDS: propofol 1000mg/100ml bottle 100 ML IV SCH ×4 (00:18→20:05)
[2022-01-13] MEDS: vancomycin/NS 1 GM ADD-VANTAGE 250 ML IV SCH ×2 (00:39→12:53)
[2022-01-13] MEDS: FENTANYL-0.9 % NACL/PF 100 ML IV SCH ×2 (00:51→06:33)
[2022-01-13 02:04] LABS: BASOPHILS % (AUTO) 0.2 % (0-1); EOSINOPHILS % (AUTO) 0.1 % (0-6); HEMATOCRIT 44.5 % (42.0-52.0); HEMOGLOBIN 14.5 g/dl (14.0-17.9); LYMPHOCYTES # (AUTO) 1.7 X10'3 (1.1-4.8); LYMPHOCYTES % (AUTO) 10.3 % (21-51); MEAN CORPUSCULAR HEMOGLOBIN 30.6 PG (27.0-31.0); MEAN CORPUSCULAR HGB CONC 32.6 g/dL (33.0-36.5); MEAN CORPUSCULAR VOLUME 94.1 FL (78-98); MEAN PLATELET VOLUME 8.1 FL (7.4-10.4); MONOCYTES # (AUTO) 2.7 X10'3 (0-0.9); NEUTROPHILS # (AUTO) 12.2 X10'3 (1.8-7.7); NEUTROPHILS % (AUTO) 73.4 % (42-75); PLATELET COUNT 228 X10'3 (140-440); RED BLOOD COUNT 4.73 X10'6 (4.70-6.10); RED CELL DISTRIBUTION WIDTH 15.3 % (11.5-14.5); WHITE BLOOD COUNT 16.6 X10'3 (4.5-11.0)
[2022-01-13 02:06] LABS: ALANINE AMINOTRANSFERASE 28 U/L (12-78); ALBUMIN 2.4 G/DL (3.4-5.0); ALBUMIN/GLOBULIN RATIO 0.6 (1.1-1.5); ALKALINE PHOSPHATASE 93 IU/L (46-116); ANION GAP 15 (8-16); ASPARTATE AMINO TRANSFERASE 20 U/L (10-37); BILIRUBIN,TOTAL 1.3 MG/DL (0.1-1.0); BLOOD UREA NITROGEN 38 MG/DL (7-18); BUN/CREATININE RATIO 24.4 (5.4-32.0); CALCIUM 8.2 MG/DL (8.5-10.1); CHLORIDE 104 MMOL/L (99-107); CREATININE 1.56 MG/DL (0.60-1.10); GLUCOSE 103 MG/DL (70-104); POTASSIUM 3.8 MMOL/L (3.5-5.1); SODIUM 138 MMOL/L (135-145); TOTAL PROTEIN 6.1 G/DL (6.4-8.2); eGFR 46 ML/MIN
[2022-01-13 02:09] LABS: TRIGLYCERIDES 68 MG/DL (20-135)
[2022-01-13 03:29] LABS: ABG BASE EXCESS -6.7 mmol/L (-2.0-2.0); ABG HCO3 17.7 mmol/L (22.0-26.0); ABG OXYGEN SATURATION 94.9 % (94-97); ABG PCO2 (T) 32.5 mmHg (35.0-48.0); ABG PO2 (T) 74.8 mmHg (75.0-100.0); ALLEN'S TEST NEGATIVE; FCOHb 0.3 % (0.0-3.9); FMetHb 0.2 % (0.0-1.5); FO2Hb 94.4 % (94-97); PATIENT TEMPERATURE 36.6; TOTAL HEMOGLOBIN 15.8 G/dl (14.0-18.0)
[2022-01-13] MEDS: pantoprazole 40MG/NS 100ML BAG 100 ML IV SCH (06:48)
[2022-01-13] MEDS: K and/or MAG REPLACEMENT MC SCH ×2 (06:53→20:00)
[2022-01-13] MEDS: docusate sod 100mg capsule PO SCH (07:18)
[2022-01-13] MEDS: levoFLOXACIN-Levaquin 750MG/D5 150 ML IV SCH (07:36)
--- NOTE | 2022-01-13 07:43 | NUR ---
RN notified Dr. Garduno of CXR. Order rec'd to supine pt. and obtain another CXR.
[2022-01-13] MEDS ORDERED: mineral oil/petrolatum ophthal oint EACHEYE PRN (08:25)
--- NOTE | 2022-01-13 08:44 | NUR ---
CXR obtained in supine position to potentially clarify previous report of pneumo.
[2022-01-13] MEDS ORDERED: heparin 10,000 units/1 ML INJ IV ONE (09:30)
[2022-01-13] MEDS ORDERED: heparin 25,000 UNIT/250ml bag 250 ML IV SCH (09:30)
[2022-01-13] MEDS: heparin 25,000 UNIT/250ml bag 250 ML IV SCH (09:53)
[2022-01-13] MEDS: mineral oil/petrolatum ophthal oint EACHEYE SCH ×3 (10:00→20:05)
--- NOTE | 2022-01-13 10:31 | NUR ---
ROUNDS NOTE: CT to be placed on right side for tension pneumo. Nutrition to start. Prone schedule will be proned for 18 hours, supine for 6 hours.
[2022-01-13] MEDS: fentaNYL/NS/PF 2,500 mcg/250mL 250 ML IV SCH ×2 (11:58→22:56)
--- NOTE | 2022-01-13 12:34 | NUR ---
Left chest tube (size 32) placed buy Dr. Garduno. Fluid sent to lab for culture, gram stain, CXR obtained per Dr. Garduno's request. Pt. proned at [address] Garduno's request.
--- NOTE | 2022-01-13 12:59 | NUR ---
TF consult: Pt admit for acute respiratory failure secondary to bilat septic emboli, ARDS secondary to bilat PNA, A. fib with RVR, and septic shock. Left pneumothorax confirmed at critical care rounds per MD. Pt intubated, with and OGT in place and to begin TF per MD, see TF recommendations below. Propofol visualized at bedside to be running at 14.76 mL/hr providing 390 kcal/day, TF recommendations adjusted accordingly. Will monitor for changes in Propofol rate and need to further adjust TF recs. No documented BM since admit though pt with routine and PRN bowel care available. Noted pt with a low Bjorn of 12 though no documented edema and skin is intact per RN. Will continue to follow closely. Recommendations: 1) Given Propofol at 14.76 mL/hr (390 kcal/day), continuous TF using Vital AF with 70 mL/hr goal rate to provide 1680 mL total volume/day, 2016 kcal, 126 g protein, and 1362 mL water 2) Monitor for changes in Propofol rate and needs to adjust TF recs; If Propofol discontinued, increase goal rate to 80 mL/hr 3) Monitor serum Na for water flush recommendations; hyponatremia on admit 4) Prealbumin q Wednesday/ 5) Daily scaled weights 6) Routine bowel care Addendum: 01/13/22 at [address] Amended: Links added.
--- NOTE | 2022-01-13 13:39 | NUR ---
Tube Feeds started at 30cc per hour per order.
[2022-01-13] MEDS ORDERED: mineral oil/petrolatum ophthal oint EACHEYE SCH ×2 (14:00→20:00)
--- NOTE | 2022-01-13 15:03 | NUR ---
Suzanne Turner here for cardiology consult. No new orders received.
[2022-01-13] MEDS ORDERED: acetaminophen 325mg/10.15ml oral unit dose solution PO PRN (15:20)
[2022-01-13] MEDS: aspirin 81mg tab.chew NG SCH (15:51)
[2022-01-13] MEDS ORDERED: NORepinephrine 8mg/ 250ml NS 250 ML IV SCH (16:25)
[2022-01-13] MEDS: heparin 10,000 units/1 ML INJ IV PRN ×2 (16:35→23:01)
[2022-01-13] MEDS: NORepinephrine inj. 32 MG in normal saline 250ml IV soln 218 ML IV SCH (16:50)
--- NOTE | 2022-01-13 18:01 | NUR ---
Problems reprioritized. Patient report given, questions answered & plan of care reviewed with Gege RANDALL.
--- NOTE | 2022-01-13 18:10 | NUR ---
Patient in room CICU 2013. I have received report from [place] RANDALL and had the opportunity to ask questions and assume patient care.
--- NOTE | 2022-01-13 18:50 | NUR ---
Pt is in Prone position and with RT, CRN and Resource RN at bedside PT's head was repositioned to the Left as well as Left arm placed on swimmers position. PT tolerated well, O2 sat remained >92%. Will continue to monitor.
[2022-01-13] MEDS: docusate sodium 100mg/10ml UD cup PO SCH (20:05)
[2022-01-14] VITALS (34 sets, daily range): BP systolic 70–150; BP diastolic 48–90
[2022-01-14] MEDS ORDERED: VANCOMYCIN LEVEL IV ONE (00:30)
[2022-01-14 01:22] LABS: ALANINE AMINOTRANSFERASE 34 U/L (12-78); ALBUMIN 2.3 G/DL (3.4-5.0); ALBUMIN/GLOBULIN RATIO 0.5 (1.1-1.5); ALKALINE PHOSPHATASE 92 IU/L (46-116); ANION GAP 16 (8-16); ASPARTATE AMINO TRANSFERASE 31 U/L (10-37); BILIRUBIN,TOTAL 1.1 MG/DL (0.1-1.0); BLOOD UREA NITROGEN 51 MG/DL (7-18); BUN/CREATININE RATIO 21.6 (5.4-32.0); CALCIUM 8.4 MG/DL (8.5-10.1); CHLORIDE 103 MMOL/L (99-107); CREATININE 2.36 MG/DL (0.60-1.10); GLUCOSE 149 MG/DL (70-104); MAGNESIUM 2.3 MG/DL (1.5-2.4); POTASSIUM 4.8 MMOL/L (3.5-5.1); SODIUM 136 MMOL/L (135-145); TOTAL CARBON DIOXIDE 17.3 MMOL/L (24-32); TOTAL PROTEIN 6.5 G/DL (6.4-8.2); eGFR 28 ML/MIN
[2022-01-14 01:25] LABS: VANCOMYCIN,TROUGH 24.1 UG/ML (6.0-14.0)
--- NOTE | 2022-01-14 01:45 | NUR ---
Call placed to Dr Tipton d/t PT BP decreasing after repositioning face and arm into swimmers position. Titrated Quad Levo from 0.17 to 0.6 MD did not answer and message was left.
[2022-01-14] MEDS: mineral oil/petrolatum ophthal oint EACHEYE SCH ×4 (02:00→20:12)
--- NOTE | 2022-01-14 03:10 | NUR ---
0100 dose of Vanco was not given after call to Pharmacy. Pharmacist held dose d/t Vanco Trough being critical at 24.1 and CRE increasing to 2.36. Will continue to monitor.
[2022-01-14 03:24] LABS: ABG BASE EXCESS -11.3 mmol/L (-2.0-2.0); ABG HCO3 15.6 mmol/L (22.0-26.0); ABG OXYGEN SATURATION 97.6 % (94-97); ABG PCO2 (T) 39.7 mmHg (35.0-48.0); FCOHb 0.1 % (0.0-3.9); FMetHb 0.3 % (0.0-1.5); FO2Hb 97.2 % (94-97); PATIENT TEMPERATURE 37.6; PEEP 10 cm H2O; RESPIRATORY RATE 18 b/min; TIDAL VOLUME 600 mL; TOTAL HEMOGLOBIN 16.3 G/dl (14.0-18.0)
[2022-01-14] MEDS: NORepinephrine inj. 32 MG in normal saline 250ml IV soln 218 ML IV SCH (04:00)
[2022-01-14] MEDS: propofol 1000mg/100ml bottle 100 ML IV SCH ×4 (04:30→20:57)
--- NOTE | 2022-01-14 06:00 | NUR ---
PT supine and morning chest x-ray taken. PT began to De-Sat to low 80's. RT at bed side and bagging PT with no real effect, O2 sat stayed in low-mid 80's. Repeat ABG done and it is worse than previous with critical PH of 7.09. CRN called DR Tipton. Order received to Prone PT again and to have day shift check with Day MD. Once PT prone again O2 sat is >95% with FiO2 of 100%. Prior to Supine FiO2 was 70%.
[2022-01-14 06:01] LABS: ABG HCO3 16.1 mmol/L (22.0-26.0); ABG OXYGEN SATURATION 87.8 % (94-97); ABG PCO2 (T) 55.7 mmHg (35.0-48.0); ABG PO2 (T) 71.9 mmHg (75.0-100.0); FMetHb 0.4 % (0.0-1.5); FO2Hb 87.4 % (94-97); PEEP 10 cm H2O; RESPIRATORY RATE 18 b/min; TIDAL VOLUME 600 mL; TOTAL HEMOGLOBIN 17.5 G/dl (14.0-18.0)
[2022-01-14] MEDS: heparin 25,000 UNIT/250ml bag 250 ML IV SCH ×2 (06:27→23:40)
--- NOTE | 2022-01-14 06:30 | NUR ---
Patient in room CICU 2013. I have received report from Gege RANDALL and had the opportunity to ask questions and assume patient care.
--- NOTE | 2022-01-14 07:01 | NUR ---
Problems reprioritized. Patient report given, questions answered & plan of care reviewed with Shonda RANDALL. Addendum: 01/14/22 at 0703 by Gege Silverman RN Report given to Eriberto RANDALL
[2022-01-14] MEDS: aspirin 81mg tab.chew NG SCH (07:41)
[2022-01-14] MEDS: pantoprazole 40MG/NS 100ML BAG 100 ML IV SCH (07:41)
[2022-01-14] MEDS: docusate sodium 100mg/10ml UD cup PO SCH ×2 (07:41→20:15)
[2022-01-14] MEDS: levoFLOXACIN-Levaquin 750MG/D5 150 ML IV SCH (07:42)
[2022-01-14] MEDS: cefepime 1GM/NS ADD-VANTAGE 100 ML IV SCH ×2 (07:48→20:15)
[2022-01-14 07:50] LABS: BASOPHILS # (AUTO) 0.1 X10'3 (0-0.2); BASOPHILS % (AUTO) 0.3 % (0-1); EOSINOPHILS % (AUTO) 0.1 % (0-6); HEMATOCRIT 48.2 % (42.0-52.0); HEMOGLOBIN 15.6 g/dl (14.0-17.9); LYMPHOCYTES # (AUTO) 1.7 X10'3 (1.1-4.8); MEAN CORPUSCULAR HEMOGLOBIN 30.6 PG (27.0-31.0); MEAN CORPUSCULAR HGB CONC 32.4 g/dL (33.0-36.5); MEAN CORPUSCULAR VOLUME 94.5 FL (78-98); MEAN PLATELET VOLUME 8.6 FL (7.4-10.4); MONOCYTES # (AUTO) 3.2 X10'3 (0-0.9); MONOCYTES % (AUTO) 14.9 % (2-12); NEUTROPHILS # (AUTO) 16.5 X10'3 (1.8-7.7); NEUTROPHILS % (AUTO) 76.7 % (42-75); PLATELET COUNT 348 X10'3 (140-440); RED CELL DISTRIBUTION WIDTH 15.3 % (11.5-14.5); WHITE BLOOD COUNT 21.5 X10'3 (4.5-11.0)
[2022-01-14] MEDS: K and/or MAG REPLACEMENT MC SCH ×2 (08:39→20:00)
[2022-01-14 09:12] LABS: TOTAL CELLS COUNTED 100
[2022-01-14 09:13] LABS: BURR CELLS 1+; PLATELET ESTIMATE NORMAL
--- NOTE | 2022-01-14 09:42 | NUR ---
AM note Pt in prone positions with reported intolerance of supine. Left nails are thick, dark with rough contours. AM care provided with tech. FRIAS to see briefly.
[2022-01-14] MEDS: fentaNYL/NS/PF 2,500 mcg/250mL 250 ML IV SCH ×2 (10:23→21:14)
[2022-01-14 10:40] LABS: ABG HCO3 15.3 mmol/L (22.0-26.0); ABG OXYGEN SATURATION 98.8 % (94-97); ABG PCO2 (T) 41.6 mmHg (35.0-48.0); ABG PO2 (T) 157.2 mmHg (75.0-100.0); FCOHb 0.3 % (0.0-3.9); FMetHb 0.4 % (0.0-1.5); FO2Hb 98.1 % (94-97); PEEP 10 cm H2O; RESPIRATORY RATE 18 b/min; TIDAL VOLUME 650 mL
[2022-01-14] MEDS: sodium bicarbonate (8.4%) inj. 150 MEQ in dextrose 5%-water 1,000 ML IV SCH (12:44)
[2022-01-14] MEDS: vancomycin inj 500 MG in normal saline 100ml IV soln 100 ML IV SCH (12:44)
[2022-01-14] MEDS ORDERED: heparin, porcine 5000 units/ml vial SQ ONE (13:35)
[2022-01-14] MEDS: heparin 10,000 units/1 ML INJ IV PRN ×2 (14:16→21:17)
[2022-01-14] MEDS ORDERED: albumin (human) 25% 100 ML IV solution IV ONE (15:50)
[2022-01-14] MEDS ORDERED: vasopressin inj. 40 UNIT in dextrose 5%-water 50ml 38 ML IV SCH (15:50)
[2022-01-14] MEDS ORDERED: normal saline 1000ml 1,000 ML IVB ONE (15:50)
[2022-01-14 16:22] LABS: ABG BASE EXCESS -11.1 mmol/L (-2.0-2.0); ABG HCO3 15.3 mmol/L (22.0-26.0); ABG OXYGEN SATURATION 98.2 % (94-97); ABG PCO2 (T) 37.8 mmHg (35.0-48.0); ABG PO2 (T) 123.3 mmHg (75.0-100.0); FCOHb 0.2 % (0.0-3.9); FMetHb 0.3 % (0.0-1.5); FO2Hb 97.7 % (94-97); PEEP 10 cm H2O; RESPIRATORY RATE 18 b/min; TIDAL VOLUME 650 mL; TOTAL HEMOGLOBIN 15.7 G/dl (14.0-18.0)
[2022-01-14] MEDS ORDERED: NORepinephrine inj. 32 MG in normal saline 250ml IV soln 218 ML IV SCH (17:15)
--- NOTE | 2022-01-14 17:21 | NUR ---
Hypotension Pt repositioned to his right. BP dropped with MAP less than 60. Levo titrated up. CN notified. Repositioned pt with face to his left again with not change in BP. Call to MD, orders received. Call to Pharm for order of 5% albumin continuous drip.
--- NOTE | 2022-01-14 17:53 | NUR ---
MD Called MD at CN request as maxed out on Levo and Vaso. Pts lungs with very course sounds after aggressive suctioning.
--- NOTE | 2022-01-14 18:22 | NUR ---
MD to visit. He contacted pts sister and on speaker phone discussed pts deteriorating condition. Sister said her and pts mother discussed DNR options. With this call she agreed to make pt DNR. Order per MD entered and arm band placed on pts right arm. Problems reprioritized. Patient report given, questions answered & plan of care reviewed with Gege RANDALL.
--- NOTE | 2022-01-14 18:26 | NUR ---
Patient in room CICU 2013. I have received report from Agustín RANDALL and had the opportunity to ask questions and assume patient care.
[2022-01-14] MEDS: albumin (Human) 5% 250ml 250 ML IV SCH ×2 (18:42→22:18)
--- NOTE | 2022-01-14 21:30 | NUR ---
BP improved and all pressors have been titrated down and are now off. PT is tolerating well. Will continue to monitor.
[2022-01-15] VITALS (35 sets, daily range): BP systolic 77–125; BP diastolic 58–76
[2022-01-15] MEDS: propofol 1000mg/100ml bottle 100 ML IV SCH ×5 (00:11→22:35)
[2022-01-15] MEDS: vancomycin inj 500 MG in normal saline 100ml IV soln 100 ML IV SCH ×2 (01:05→14:44)
[2022-01-15] MEDS: mineral oil/petrolatum ophthal oint EACHEYE SCH ×4 (01:27→20:00)
[2022-01-15] MEDS: sodium bicarbonate (8.4%) inj. 150 MEQ in dextrose 5%-water 1,000 ML IV SCH ×2 (01:38→19:07)
[2022-01-15] MEDS: albumin (Human) 5% 250ml 250 ML IV SCH ×4 (01:39→14:45)
[2022-01-15 03:48] LABS: ABG BASE EXCESS -9.3 mmol/L (-2.0-2.0); ABG OXYGEN SATURATION 98.9 % (94-97); ABG PCO2 (T) 32.5 mmHg (35.0-48.0); ABG PO2 (T) 141.6 mmHg (75.0-100.0); FCOHb 0.1 % (0.0-3.9); FMetHb 0.2 % (0.0-1.5); FO2Hb 98.6 % (94-97); PATIENT TEMPERATURE 36.6; PEEP 10 cm H2O; RESPIRATORY RATE 18 b/min; TIDAL VOLUME 650 mL; TOTAL HEMOGLOBIN 14.8 G/dl (14.0-18.0)
[2022-01-15 04:12] LABS: BASOPHILS % (AUTO) 0.2 % (0-1); EOSINOPHILS % (AUTO) 0.2 % (0-6); HEMATOCRIT 42.8 % (42.0-52.0); HEMOGLOBIN 13.8 g/dl (14.0-17.9); LYMPHOCYTES # (AUTO) 1.1 X10'3 (1.1-4.8); LYMPHOCYTES % (AUTO) 6.2 % (21-51); MEAN CORPUSCULAR HEMOGLOBIN 29.9 PG (27.0-31.0); MEAN CORPUSCULAR HGB CONC 32.2 g/dL (33.0-36.5); MEAN CORPUSCULAR VOLUME 92.9 FL (78-98); MEAN PLATELET VOLUME 7.9 FL (7.4-10.4); MONOCYTES # (AUTO) 2.4 X10'3 (0-0.9); MONOCYTES % (AUTO) 13.4 % (2-12); NEUTROPHILS # (AUTO) 14.5 X10'3 (1.8-7.7); PLATELET COUNT 241 X10'3 (140-440); RED BLOOD COUNT 4.61 X10'6 (4.70-6.10); RED CELL DISTRIBUTION WIDTH 15.3 % (11.5-14.5); WHITE BLOOD COUNT 18.1 X10'3 (4.5-11.0)
[2022-01-15 04:28] LABS: ALANINE AMINOTRANSFERASE 101 U/L (12-78); ALBUMIN 3.2 G/DL (3.4-5.0); ALKALINE PHOSPHATASE 79 IU/L (46-116); ANION GAP 14 (8-16); ASPARTATE AMINO TRANSFERASE 84 U/L (10-37); BILIRUBIN,TOTAL 1.1 MG/DL (0.1-1.0); BLOOD UREA NITROGEN 61 MG/DL (7-18); BUN/CREATININE RATIO 31.6 (5.4-32.0); CALCIUM 8.2 MG/DL (8.5-10.1); CHLORIDE 106 MMOL/L (99-107); CREATININE 1.93 MG/DL (0.60-1.10); GLUCOSE 167 MG/DL (70-104); MAGNESIUM 2.3 MG/DL (1.5-2.4); POTASSIUM 3.5 MMOL/L (3.5-5.1); PREALBUMIN 9.3 MG/DL (19-36); SODIUM 139 MMOL/L (135-145); TOTAL PROTEIN 6.3 G/DL (6.4-8.2); TRIGLYCERIDES 62 MG/DL (20-135); eGFR 36 ML/MIN
[2022-01-15] MEDS: fentaNYL/NS/PF 2,500 mcg/250mL 250 ML IV SCH ×3 (04:49→23:24)
[2022-01-15] MEDS: heparin 10,000 units/1 ML INJ IV PRN (04:53)
--- NOTE | 2022-01-15 06:26 | NUR ---
Problems reprioritized. Patient report given, questions answered & plan of care reviewed with Agustín RANDALL.
[2022-01-15] MEDS: docusate sodium 100mg/10ml UD cup PO SCH ×2 (07:43→20:42)
[2022-01-15] MEDS: aspirin 81mg tab.chew NG SCH (07:43)
[2022-01-15] MEDS: cefepime 1GM/NS ADD-VANTAGE 100 ML IV SCH ×2 (07:44→20:43)
[2022-01-15] MEDS: pantoprazole 40MG/NS 100ML BAG 100 ML IV SCH (07:44)
[2022-01-15] MEDS: K and/or MAG REPLACEMENT MC SCH ×2 (08:00→20:00)
[2022-01-15] MEDS ORDERED: albumin (human) 25% 100ml IV 100 ML IV ONE (08:12)
[2022-01-15 08:46] LABS: PHOSPHORUS 4.9 MG/DL (2.3-4.5)
--- NOTE | 2022-01-15 10:42 | NUR ---
Patient in room CICU 2013. I have received report from Gege RANDALL and had the opportunity to ask questions and assume patient care.
--- NOTE | 2022-01-15 10:43 | NUR ---
Mid shift note Pts central line leaking. IVs moved to pts PIVs after compatibility check. CN notified and MD notified. BP was slowly decreasing and MD had Levo started PIV until line could be addresses. MD to see and line replaced and sutured securely. Vasoactive med moved to CL.
[2022-01-15] MEDS: vasopressin inj. 40 UNIT in normal saline 50ml IV soln 38 ML IV SCH (12:54)
--- NOTE | 2022-01-15 15:10 | NUR ---
Supine note Pt placed supine at about 1355 with RT & 4 RNs. Tolerated turn well, sats maintained at low 90s post supination on 100% FiO2. Lines repositioned, chest tube with moderate output post turn. Facial edema post proning. Girl friend to see and freaked out a little seeing the swelling. She recovered and was able to be at bedside. Sats maintaining low 90s. Addendum: 01/15/22 at 1526 by Agustín Milligan RN Pts breath sounds equal bilat.
[2022-01-15] MEDS: heparin, porcine 5000 units/ml vial SQ SCH (16:13)
--- NOTE | 2022-01-15 17:13 | NUR ---
Prone Pts sats were low 90s. Placed 2 pillow under pts rt side while supine and sats dropped to mid 80s. Pillows removed but pt did not recover sats. With RT and 3 RN's pt proned. Lines/tubes repositioned. Lung sounds equal bilat & tube position unchanged. Sat to upper 80s post proning. MD & CN notified of desaturation a Skin note: sharon size abrasion on pts lt thigh.
--- NOTE | 2022-01-15 18:17 | NUR ---
Problems reprioritized. Patient report given, questions answered & plan of care reviewed with Janeth RANDALL.
[2022-01-15] MEDS: NORepinephrine inj. 32 MG in normal saline 250ml IV soln 218 ML IV SCH (21:51)
[2022-01-15] MEDS ORDERED: furosemide 40mg/4ml inj IV ONE (22:20)
--- NOTE | 2022-01-15 22:20 | NUR ---
Spoke with Dr. Reaves on phone regarding pt's O2 sat mid 70's to mid80's with 100% FiO2 on vent. Orders noted and lasix IVP given. Started on Nimbex at this time
[2022-01-16] VITALS (35 sets, daily range): BP systolic 77–116; BP diastolic 50–75
[2022-01-16] MEDS: CISatracurium besylate inj. 100 MG in normal saline 100ml IV soln 90 ML IV PRN ×2 (00:05→23:55)
[2022-01-16] MEDS: heparin, porcine 5000 units/ml vial SQ SCH ×4 (00:26→23:28)
[2022-01-16] MEDS ORDERED: VANCOMYCIN LEVEL IV ONE (00:30)
[2022-01-16] MEDS: vancomycin inj 500 MG in normal saline 100ml IV soln 100 ML IV SCH (01:14)
[2022-01-16 01:29] LABS: ANION GAP 10 (8-16); BLOOD UREA NITROGEN 67 MG/DL (7-18); BUN/CREATININE RATIO 34.7 (5.4-32.0); CHLORIDE 104 MMOL/L (99-107); CREATININE 1.93 MG/DL (0.60-1.10); GLUCOSE 138 MG/DL (70-104); POTASSIUM 3.6 MMOL/L (3.5-5.1); SODIUM 137 MMOL/L (135-145); TOTAL CARBON DIOXIDE 22.8 MMOL/L (24-32)
[2022-01-16 01:30] LABS: ALANINE AMINOTRANSFERASE 80 U/L (12-78); ALBUMIN 3.1 G/DL (3.4-5.0); ALKALINE PHOSPHATASE 75 IU/L (46-116); ASPARTATE AMINO TRANSFERASE 64 U/L (10-37); BILIRUBIN,TOTAL 0.9 MG/DL (0.1-1.0); MAGNESIUM 2.4 MG/DL (1.5-2.4); TOTAL PROTEIN 6.2 G/DL (6.4-8.2); eGFR 36 ML/MIN
[2022-01-16 01:32] LABS: VANCOMYCIN,TROUGH 22.1 UG/ML (6.0-14.0)
[2022-01-16 02:51] LABS: BASOPHILS % (AUTO) 0.1 % (0-1); EOSINOPHILS # (AUTO) 0.1 X10'3 (0-0.9); EOSINOPHILS % (AUTO) 0.6 % (0-6); HEMATOCRIT 42.6 % (42.0-52.0); HEMOGLOBIN 13.8 g/dl (14.0-17.9); LYMPHOCYTES # (AUTO) 1.6 X10'3 (1.1-4.8); LYMPHOCYTES % (AUTO) 7.6 % (21-51); MEAN CORPUSCULAR HEMOGLOBIN 30.3 PG (27.0-31.0); MEAN CORPUSCULAR HGB CONC 32.4 g/dL (33.0-36.5); MEAN CORPUSCULAR VOLUME 93.6 FL (78-98); MEAN PLATELET VOLUME 7.7 FL (7.4-10.4); MONOCYTES % (AUTO) 14.4 % (2-12); NEUTROPHILS # (AUTO) 16.2 X10'3 (1.8-7.7); NEUTROPHILS % (AUTO) 77.3 % (42-75); PLATELET COUNT 281 X10'3 (140-440); RED BLOOD COUNT 4.55 X10'6 (4.70-6.10); RED CELL DISTRIBUTION WIDTH 15.1 % (11.5-14.5)
[2022-01-16 03:10] LABS: ABG BASE EXCESS -7.5 mmol/L (-2.0-2.0); ABG HCO3 19.8 mmol/L (22.0-26.0); ABG OXYGEN SATURATION 91.8 % (94-97); ABG PCO2 (T) 47.6 mmHg (35.0-48.0); ABG PO2 (T) 70.1 mmHg (75.0-100.0); FCOHb 0.3 % (0.0-3.9); FMetHb 0.3 % (0.0-1.5); FO2Hb 91.2 % (94-97); PATIENT TEMPERATURE 37.7; PEEP 10 cm H2O; RESPIRATORY RATE 18 b/min; TIDAL VOLUME 650 mL; TOTAL HEMOGLOBIN 15.1 G/dl (14.0-18.0)
[2022-01-16] MEDS: propofol 1000mg/100ml bottle 100 ML IV SCH ×3 (03:28→21:31)
[2022-01-16] MEDS ORDERED: propofol 1000mg/100ml bottle 100 ML IV SCH (03:40)
[2022-01-16 04:04] LABS: NUCLEATED RED BLOOD CELLS 1 /100WBC (0-0); PLATELET ESTIMATE NORMAL; POLYCHROMASIA 1+; TOTAL CELLS COUNTED 100
[2022-01-16] MEDS: K and/or MAG REPLACEMENT MC SCH ×2 (08:00→20:00)
[2022-01-16] MEDS: mineral oil/petrolatum ophthal oint EACHEYE SCH ×3 (08:00→20:01)
[2022-01-16] MEDS: pantoprazole 40MG/NS 100ML BAG 100 ML IV SCH (08:28)
[2022-01-16] MEDS: levoFLOXACIN-Levaquin 750MG/D5 150 ML IV SCH (08:28)
[2022-01-16] MEDS: cefepime 1GM/NS ADD-VANTAGE 100 ML IV SCH ×2 (08:29→20:01)
[2022-01-16] MEDS: aspirin 81mg tab.chew NG SCH (08:29)
[2022-01-16] MEDS: docusate sodium 100mg/10ml UD cup PO SCH ×2 (08:30→20:00)
[2022-01-16] MEDS: sodium bicarbonate (8.4%) inj. 150 MEQ in dextrose 5%-water 1,000 ML IV SCH (08:31)
[2022-01-16] MEDS ORDERED: vasopressin inj. 40 UNIT in dextrose 5%-water 50ml 38 ML IV SCH (10:25)
--- NOTE | 2022-01-16 11:25 | NUR ---
Reassessment: Pt remains intubated and tolerating TF at goal rate with GRV WNL. Propofol visualized at bedside to be running at 17.22 mL/hr providing 454 kcal/day. No adjustments to TF recommendations warranted at this time. No BM since admit. Pt receiving routine bowel care with PRN bowel care available though no given per EMR, d/w who states will wait a couple more days to see if pt has a BM. Will continue to follow closely. Recommendations: 1) Given Propofol at 17.22 mL/hr (454 kcal/day), continuous TF using Vital AF with 70 mL/hr goal rate to provide 1680 mL total volume/day, 2016 kcal, 126 g protein, and 1362 mL water 2) Monitor for changes in Propofol rate and needs to adjust TF recs; If Propofol discontinued, increase goal rate to 80 mL/hr 3) Monitor serum Na for water flush recommendations; hyponatremia on admit 4) Prealbumin q Wednesday/ 5) Daily scaled weights 6) Routine bowel care Addendum: 01/16/22 at [address] Amended: Links added.
[2022-01-16] MEDS: furosemide 20 MG/2 ML vial IV SCH (20:01)
[2022-01-16 21:57] LABS: SODIUM,URINE RANDOM < 15 MEQ/L; TOTAL PROTEIN,URINE RANDOM 181.6 MG/DL
[2022-01-16] MEDS: NORepinephrine 8mg/ 250ml NS 250 ML IV SCH (23:00)
[2022-01-16] MEDS: vasopressin inj. 40 UNIT in normal saline 50ml IV soln 38 ML IV SCH (23:20)
[2022-01-16] MEDS: fentaNYL/NS/PF 2,500 mcg/250mL 250 ML IV SCH (23:30)
[2022-01-17] VITALS (34 sets, daily range): BP systolic 102–129; BP diastolic 69–84
[2022-01-17] MEDS: vancomycin inj 500 MG in normal saline 100ml IV soln 100 ML IV SCH (00:03)
[2022-01-17] MEDS: sodium bicarbonate (8.4%) inj. 150 MEQ in dextrose 5%-water 1,000 ML IV SCH ×2 (01:16→16:03)
[2022-01-17] MEDS: mineral oil/petrolatum ophthal oint EACHEYE SCH ×4 (02:00→20:28)
[2022-01-17] MEDS: furosemide 20 MG/2 ML vial IV SCH ×4 (02:00→20:26)
[2022-01-17] MEDS: propofol 1000mg/100ml bottle 100 ML IV SCH ×3 (02:09→20:26)
--- NOTE | 2022-01-17 02:10 | NUR ---
Call in to Dr. Tipton to report elevated blood sugar. phone call goes to voicemail. message left.
--- NOTE | 2022-01-17 02:15 | NUR ---
Second call to Dr. Tipton to report elevated blood sugar. Call continues to go to , message left
[2022-01-17 03:18] LABS: ABG BASE EXCESS -5.1 mmol/L (-2.0-2.0); ABG HCO3 19.8 mmol/L (22.0-26.0); ABG OXYGEN SATURATION 93.5 % (94-97); ABG PCO2 (T) 36.8 mmHg (35.0-48.0); ABG PO2 (T) 71.7 mmHg (75.0-100.0); FCOHb 0.1 % (0.0-3.9); FMetHb 0.2 % (0.0-1.5); FO2Hb 93.2 % (94-97); PATIENT TEMPERATURE 37.1; PEEP 10 cm H2O; RESPIRATORY RATE 18 b/min; TIDAL VOLUME 650 mL
[2022-01-17 03:20] LABS: ALANINE AMINOTRANSFERASE 111 U/L (12-78); ALBUMIN 2.4 G/DL (3.4-5.0); ALBUMIN/GLOBULIN RATIO 0.8 (1.1-1.5); ALKALINE PHOSPHATASE 82 IU/L (46-116); ANION GAP 13 (8-16); ASPARTATE AMINO TRANSFERASE 99 U/L (10-37); BLOOD UREA NITROGEN 75 MG/DL (7-18); BUN/CREATININE RATIO 42.4 (5.4-32.0); CALCIUM 8.2 MG/DL (8.5-10.1); CHLORIDE 104 MMOL/L (99-107); CREATININE 1.77 MG/DL (0.60-1.10); GLUCOSE 155 MG/DL (70-104); POTASSIUM 3.3 MMOL/L (3.5-5.1); SODIUM 140 MMOL/L (135-145); TOTAL CARBON DIOXIDE 23.5 MMOL/L (24-32); TOTAL PROTEIN 5.6 G/DL (6.4-8.2); eGFR 40 ML/MIN
[2022-01-17 03:30] LABS: BASOPHILS # (AUTO) 0.1 X10'3 (0-0.2); EOSINOPHILS # (AUTO) 0.2 X10'3 (0-0.9); EOSINOPHILS % (AUTO) 0.7 % (0-6); MEAN CORPUSCULAR HEMOGLOBIN 30.1 PG (27.0-31.0); MEAN CORPUSCULAR HGB CONC 32.5 g/dL (33.0-36.5)
[2022-01-17 03:32] LABS: BASOPHILS % (AUTO) 0.6 % (0-1); HEMATOCRIT 42.1 % (42.0-52.0); HEMOGLOBIN 13.7 g/dl (14.0-17.9); LYMPHOCYTES # (AUTO) 1.3 X10'3 (1.1-4.8); LYMPHOCYTES % (AUTO) 4.7 % (21-51); MEAN CORPUSCULAR VOLUME 92.8 FL (78-98); MEAN PLATELET VOLUME 7.7 FL (7.4-10.4); MONOCYTES # (AUTO) 3.9 X10'3 (0-0.9); MONOCYTES % (AUTO) 14.6 % (2-12); NEUTROPHILS % (AUTO) 79.4 % (42-75); PLATELET COUNT 324 X10'3 (140-440); RED BLOOD COUNT 4.54 X10'6 (4.70-6.10)
[2022-01-17 03:46] LABS: WHITE BLOOD COUNT 26.5 X10'3 (4.5-11.0)
--- NOTE | 2022-01-17 04:20 | NUR ---
3rd call to Dr. Tipton, now to report low potassium with no replacement orders. Calls continue to go to . message left
[2022-01-17 05:23] LABS: TOTAL CELLS COUNTED 100
[2022-01-17 05:24] LABS: PLATELET ESTIMATE NORMAL
[2022-01-17] MEDS ORDERED: dextrose 50%-water 50ml dispensing syringe IV PRN ×2 (05:30)
[2022-01-17] MEDS ORDERED: magnesium 4gm in 100ml NS 100 ML IV PRN (05:30)
[2022-01-17] MEDS ORDERED: magnesium 2GM in 50ml NS 50 ML IV PRN (05:30)
[2022-01-17] MEDS ORDERED: glucagon, human recombinant 1mg kit SUBCUT PRN (05:30)
[2022-01-17] MEDS ORDERED: DEXTROSE 15 GM of carb/4 tabs (each vial/BOTTLE has 4 tablets) PO PRN ×2 (05:30)
[2022-01-17] MEDS: cefepime 1GM/NS ADD-VANTAGE 100 ML IV SCH ×2 (06:28→20:26)
[2022-01-17] MEDS: CISatracurium besylate inj. 100 MG in normal saline 100ml IV soln 90 ML IV PRN (06:28)
[2022-01-17] MEDS: pantoprazole 40MG/NS 100ML BAG 100 ML IV SCH (06:28)
[2022-01-17] MEDS: potassium Cl 20mEq/100mL bag 100 ML IV PRN (06:32)
[2022-01-17] MEDS: K and/or MAG REPLACEMENT MC SCH ×3 (06:32→06:34)
[2022-01-17] MEDS: vasopressin inj. 40 UNIT in normal saline 50ml IV soln 38 ML IV SCH ×2 (07:29→20:27)
[2022-01-17] MEDS: insulin regular, human U-100 3ml vial - multi-dose SQ SCH ×3 (08:34→21:09)
[2022-01-17] MEDS: aspirin 81mg tab.chew NG SCH (08:56)
[2022-01-17] MEDS: heparin, porcine 5000 units/ml vial SQ SCH ×2 (08:56→15:26)
[2022-01-17] MEDS: docusate sodium 100mg/10ml UD cup PO SCH ×2 (08:56→20:26)
[2022-01-17 15:31] LABS: ABG BASE EXCESS -1.3 mmol/L (-2.0-2.0); ABG HCO3 22.8 mmol/L (22.0-26.0); ABG OXYGEN SATURATION 93.7 % (94-97); ABG PCO2 (T) 36.5 mmHg (35.0-48.0); ABG PO2 (T) 68.9 mmHg (75.0-100.0); FCOHb 0.2 % (0.0-3.9); FMetHb 0.2 % (0.0-1.5); FO2Hb 93.3 % (94-97); PEEP 10 cm H2O; RESPIRATORY RATE 18 b/min; TIDAL VOLUME 650 mL; TOTAL HEMOGLOBIN 15.3 G/dl (14.0-18.0)
[2022-01-17] MEDS ORDERED: albumin (human) 25% 100 ML IV solution IV SCH (16:00)
[2022-01-17] MEDS: fentaNYL/NS/PF 2,500 mcg/250mL 250 ML IV SCH (20:58)
[2022-01-17] MEDS: insulin glargine (Lantus) pen - multi-dose SQ SCH (21:10)
--- NOTE | 2022-01-17 22:30 | NUR ---
O2 sats drifting to mid 70's with FiO2 at 100% on vent. Sx'd of sm, thick henry secretions with no improvement in O2Sat
[2022-01-18] VITALS (35 sets, daily range): BP systolic 77–139; BP diastolic 50–79
[2022-01-18] MEDS: vancomycin inj 500 MG in normal saline 100ml IV soln 100 ML IV SCH (00:07)
--- NOTE | 2022-01-18 00:30 | NUR ---
TF residual 430 ml nondigested formula. 300ml returned, TF continued
[2022-01-18] MEDS: propofol 1000mg/100ml bottle 100 ML IV SCH ×5 (01:12→23:38)
[2022-01-18] MEDS: furosemide 20 MG/2 ML vial IV SCH ×4 (02:05→19:23)
[2022-01-18] MEDS: mineral oil/petrolatum ophthal oint EACHEYE SCH ×4 (02:05→20:31)
[2022-01-18] MEDS: albumin (human) 25% 100 ML IV solution IV SCH ×4 (02:12→23:39)
[2022-01-18] MEDS: insulin regular, human U-100 3ml vial - multi-dose SQ SCH ×2 (02:29→21:20)
[2022-01-18 02:59] LABS: ABG BASE EXCESS 0.7 mmol/L (-2.0-2.0); ABG HCO3 24.5 mmol/L (22.0-26.0); ABG OXYGEN SATURATION 94.9 % (94-97); ABG PCO2 (T) 37.3 mmHg (35.0-48.0); FCOHb 0.3 % (0.0-3.9); FMetHb 0.2 % (0.0-1.5); FO2Hb 94.4 % (94-97); PATIENT TEMPERATURE 37.4; PEEP 10 cm H2O; RESPIRATORY RATE 18 b/min; TIDAL VOLUME 650 mL; TOTAL HEMOGLOBIN 14.2 G/dl (14.0-18.0)
[2022-01-18 03:42] LABS: EOSINOPHILS # (AUTO) 0.2 X10'3 (0-0.9); HEMOGLOBIN 13.8 g/dl (14.0-17.9); MEAN CORPUSCULAR HEMOGLOBIN 30.2 PG (27.0-31.0); RED BLOOD COUNT 4.57 X10'6 (4.70-6.10)
[2022-01-18 03:44] LABS: BASOPHILS % (AUTO) 0.1 % (0-1); EOSINOPHILS % (AUTO) 0.9 % (0-6); HEMATOCRIT 42.2 % (42.0-52.0); LYMPHOCYTES # (AUTO) 1.8 X10'3 (1.1-4.8); LYMPHOCYTES % (AUTO) 6.8 % (21-51); MEAN CORPUSCULAR HGB CONC 32.7 g/dL (33.0-36.5); MEAN CORPUSCULAR VOLUME 92.4 FL (78-98); MEAN PLATELET VOLUME 7.4 FL (7.4-10.4); MONOCYTES # (AUTO) 3.2 X10'3 (0-0.9); MONOCYTES % (AUTO) 11.8 % (2-12); NEUTROPHILS % (AUTO) 80.4 % (42-75); PLATELET COUNT 321 X10'3 (140-440); RED CELL DISTRIBUTION WIDTH 15.1 % (11.5-14.5)
[2022-01-18 03:53] LABS: ALBUMIN 2.9 G/DL (3.4-5.0); ANION GAP 11 (8-16); BLOOD UREA NITROGEN 70 MG/DL (7-18); BUN/CREATININE RATIO 51.5 (5.4-32.0); CALCIUM 8.6 MG/DL (8.5-10.1); CHLORIDE 103 MMOL/L (99-107); CREATININE 1.36 MG/DL (0.60-1.10); GLUCOSE 129 MG/DL (70-104); POTASSIUM 3.2 MMOL/L (3.5-5.1); SODIUM 140 MMOL/L (135-145); TOTAL CARBON DIOXIDE 26.5 MMOL/L (24-32); TRIGLYCERIDES 113 MG/DL (20-135); eGFR 54 ML/MIN
[2022-01-18 04:08] LABS: WHITE BLOOD COUNT 27.3 X10'3 (4.5-11.0)
--- NOTE | 2022-01-18 04:30 | NUR ---
TF 475 ml non-digested TF. 300ml returned TF held at this time
[2022-01-18] MEDS: potassium Cl 20mEq/100mL bag 100 ML IV PRN ×2 (05:35→07:11)
--- NOTE | 2022-01-18 06:30 | NUR ---
Patient in room CICU 2013. I have received report and had the opportunity to ask questions and assume patient care.
[2022-01-18] MEDS: CISatracurium besylate inj. 100 MG in normal saline 100ml IV soln 90 ML IV PRN ×4 (06:46→23:45)
[2022-01-18] MEDS: sodium bicarbonate (8.4%) inj. 150 MEQ in dextrose 5%-water 1,000 ML IV SCH ×2 (07:00→22:20)
[2022-01-18] MEDS: heparin, porcine 5000 units/ml vial SQ SCH ×4 (07:27→23:39)
[2022-01-18] MEDS: docusate sodium 100mg/10ml UD cup PO SCH ×2 (07:28→19:23)
[2022-01-18] MEDS: NORepinephrine 8mg/ 250ml NS 250 ML IV SCH ×2 (07:32→23:48)
[2022-01-18] MEDS: K and/or MAG REPLACEMENT MC SCH ×3 (08:00→20:00)
[2022-01-18 08:19] LABS: NUCLEATED RED BLOOD CELLS 1 /100WBC (0-0); TOTAL CELLS COUNTED 100
[2022-01-18 08:20] LABS: PLATELET ESTIMATE NORMAL
[2022-01-18 08:21] LABS: POLYCHROMASIA FEW; STOMATOCYTES FEW; TEAR DROP CELLS FEW
[2022-01-18] MEDS: fentaNYL/NS/PF 2,500 mcg/250mL 250 ML IV SCH (08:21)
[2022-01-18] MEDS: levoFLOXACIN-Levaquin 750MG/D5 150 ML IV SCH (08:21)
[2022-01-18] MEDS: aspirin 81mg tab.chew NG SCH (08:30)
[2022-01-18] MEDS: cefepime 1GM/NS ADD-VANTAGE 100 ML IV SCH ×2 (10:14→19:22)
--- NOTE | 2022-01-18 10:40 | NUR ---
Dr Garduno rounded. Informed him that pt is in atrial fibrillation. Discussed current ventilator settings, gtts and dosages, urinary output, nutrition, and positioning. Received orders to keep pt flat. Supinating pt will not be attempted today per Dr Garduno.
[2022-01-18] MEDS: pantoprazole 40MG/NS 100ML BAG 100 ML IV SCH (11:23)
[2022-01-18 12:52] LABS: MAGNESIUM 2.2 MG/DL (1.5-2.4); PHOSPHORUS 4.3 MG/DL (2.3-4.5); POTASSIUM 3.8 MMOL/L (3.5-5.1)
[2022-01-18] MEDS: metolazone 2.5mg tablet PO SCH ×2 (13:19→19:23)
[2022-01-18] MEDS ORDERED: magnesium 2GM in 50ml NS 50 ML IV PRN (17:35)
[2022-01-18] MEDS ORDERED: magnesium 4gm in 100ml NS 100 ML IV PRN (17:35)
[2022-01-18] MEDS ORDERED: Dextrose 10%-water IV solution 1,000 ML IV PRN (17:35)
[2022-01-18] MEDS ORDERED: magnesium Cl slow-release 64mg tablet PO PRN (17:35)
[2022-01-18] MEDS: ZINC/COPPER/MANGANESE/SELENIUM 1 ML, chromic chloride inj. 10 MCG in AMINO ACIDS 5 %/DE... IV SCH (20:17)
[2022-01-18] MEDS: insulin glargine (Lantus) pen - multi-dose SQ SCH (21:21)
[2022-01-19] VITALS (34 sets, daily range): BP systolic 88–111; BP diastolic 66–85
[2022-01-19] MEDS: furosemide 20 MG/2 ML vial IV SCH ×4 (02:00→19:37)
[2022-01-19] MEDS: mineral oil/petrolatum ophthal oint EACHEYE SCH ×4 (02:00→19:38)
[2022-01-19] MEDS: vancomycin inj 500 MG in normal saline 100ml IV soln 100 ML IV SCH (02:03)
[2022-01-19] MEDS: insulin regular, human U-100 3ml vial - multi-dose SQ SCH ×4 (02:12→21:57)
[2022-01-19 02:41] LABS: BASOPHILS # (AUTO) 0.1 X10'3 (0-0.2); EOSINOPHILS # (AUTO) 0.1 X10'3 (0-0.9); HEMOGLOBIN 13.2 g/dl (14.0-17.9); LYMPHOCYTES # (AUTO) 1.4 X10'3 (1.1-4.8); LYMPHOCYTES % (AUTO) 4.5 % (21-51)
[2022-01-19 02:42] LABS: BASOPHILS % (AUTO) 0.3 % (0-1); EOSINOPHILS % (AUTO) 0.5 % (0-6); HEMATOCRIT 40.7 % (42.0-52.0); MEAN CORPUSCULAR HEMOGLOBIN 29.9 PG (27.0-31.0); MEAN CORPUSCULAR HGB CONC 32.5 g/dL (33.0-36.5); MEAN CORPUSCULAR VOLUME 92.1 FL (78-98); MEAN PLATELET VOLUME 7.7 FL (7.4-10.4); MONOCYTES # (AUTO) 3.1 X10'3 (0-0.9); MONOCYTES % (AUTO) 10.1 % (2-12); NEUTROPHILS # (AUTO) 25.8 X10'3 (1.8-7.7); NEUTROPHILS % (AUTO) 84.6 % (42-75); PLATELET COUNT 283 X10'3 (140-440); RED BLOOD COUNT 4.42 X10'6 (4.70-6.10); RED CELL DISTRIBUTION WIDTH 14.9 % (11.5-14.5)
[2022-01-19 02:47] LABS: WHITE BLOOD COUNT 30.4 X10'3 (4.5-11.0)
[2022-01-19 02:47] LABS: ABG BASE EXCESS -4.7 mmol/L (-2.0-2.0); ABG HCO3 19.1 mmol/L (22.0-26.0); ABG OXYGEN SATURATION 93.5 % (94-97); ABG PCO2 (T) 31.4 mmHg (35.0-48.0); ABG PO2 (T) 70.4 mmHg (75.0-100.0); FCOHb 0.1 % (0.0-3.9); FMetHb 0.2 % (0.0-1.5); FO2Hb 93.2 % (94-97); PATIENT TEMPERATURE 36.5; PEEP 10 cm H2O; RESPIRATORY RATE 18 b/min; TIDAL VOLUME 650 mL; TOTAL HEMOGLOBIN 14.3 G/dl (14.0-18.0)
[2022-01-19 02:59] LABS: ALANINE AMINOTRANSFERASE 92 U/L (12-78); ALBUMIN 4.2 G/DL (3.4-5.0); ALBUMIN/GLOBULIN RATIO 1.7 (1.1-1.5); ALKALINE PHOSPHATASE 68 IU/L (46-116); ANION GAP 16 (8-16); ASPARTATE AMINO TRANSFERASE 85 U/L (10-37); BILIRUBIN,TOTAL 2.5 MG/DL (0.1-1.0); BLOOD UREA NITROGEN 80 MG/DL (7-18); BUN/CREATININE RATIO 54.1 (5.4-32.0); CHLORIDE 103 MMOL/L (99-107); CREATININE 1.48 MG/DL (0.60-1.10); GLUCOSE 129 MG/DL (70-104); MAGNESIUM 2.2 MG/DL (1.5-2.4); PHOSPHORUS 4.8 MG/DL (2.3-4.5); POTASSIUM 3.4 MMOL/L (3.5-5.1); SODIUM 142 MMOL/L (135-145); TOTAL CARBON DIOXIDE 23.3 MMOL/L (24-32); TOTAL PROTEIN 6.7 G/DL (6.4-8.2); eGFR 49 ML/MIN
[2022-01-19] MEDS: CISatracurium besylate inj. 100 MG in normal saline 100ml IV soln 90 ML IV PRN ×5 (04:30→22:03)
[2022-01-19] MEDS: fentaNYL/NS/PF 2,500 mcg/250mL 250 ML IV SCH ×3 (05:37→23:24)
[2022-01-19] MEDS: vasopressin inj. 40 UNIT in normal saline 50ml IV soln 38 ML IV SCH (06:06)
[2022-01-19 06:12] LABS: ABG BASE EXCESS -0.7 mmol/L (-2.0-2.0); ABG HCO3 23.8 mmol/L (22.0-26.0); ABG OXYGEN SATURATION 94.2 % (94-97); ABG PCO2 (T) 39.3 mmHg (35.0-48.0); ABG PO2 (T) 73.1 mmHg (75.0-100.0); FCOHb 0.3 % (0.0-3.9); FMetHb 0.2 % (0.0-1.5); FO2Hb 93.7 % (94-97); PATIENT TEMPERATURE 37.1; PEEP 10 cm H2O; RESPIRATORY RATE 18 b/min; TIDAL VOLUME 650 mL; TOTAL HEMOGLOBIN 14.1 G/dl (14.0-18.0)
[2022-01-19] MEDS: NORepinephrine 8mg/ 250ml NS 250 ML IV SCH ×2 (06:50→16:04)
[2022-01-19] MEDS: K and/or MAG REPLACEMENT MC SCH ×3 (08:00→20:00)
[2022-01-19] MEDS: pantoprazole 40MG/NS 100ML BAG 100 ML IV SCH (08:17)
[2022-01-19] MEDS: docusate sodium 100mg/10ml UD cup PO SCH ×2 (08:19→19:38)
[2022-01-19] MEDS: metolazone 2.5mg tablet PO SCH ×2 (08:19→19:37)
[2022-01-19] MEDS: heparin, porcine 5000 units/ml vial SQ SCH ×2 (08:19→15:27)
[2022-01-19] MEDS: aspirin 81mg tab.chew NG SCH (08:19)
[2022-01-19] MEDS: cefepime 1GM/NS ADD-VANTAGE 100 ML IV SCH ×2 (08:47→19:37)
[2022-01-19] MEDS: albumin (human) 25% 100 ML IV solution IV SCH (09:28)
[2022-01-19] MEDS: potassium Cl 20mEq/100mL bag 100 ML IV PRN ×2 (09:30→11:14)
[2022-01-19] MEDS: propofol 1000mg/100ml bottle 100 ML IV SCH ×3 (09:44→22:40)
[2022-01-19 10:18] LABS: PLATELET ESTIMATE NORMAL; TOTAL CELLS COUNTED 100
[2022-01-19] MEDS: metroNIDAZOLE 500mg tablet PO SCH ×2 (13:02→17:06)
[2022-01-19] MEDS: lactulose 20gm/30ml cup PO SCH ×2 (13:37→19:38)
[2022-01-19] MEDS: sodium bicarbonate (8.4%) inj. 150 MEQ in dextrose 5%-water 1,000 ML IV SCH (13:40)
--- NOTE | 2022-01-19 13:54 | NUR ---
TPN Consult: Pt remains intubated currently proned this AM during rounds. GRV's elevated yesterday AM 430-475ml w/ TF diet cancelled and TPN started yesterday now to be at 50ml/hr goal this AM per playground director request. Noted Propofol running at 22.14ml/hr during rounds this AM providing additional 584 kcals/day; no intralipids w/ PN given this. Only able to meet 80% estimated kcal and 48% estimated protein needs given PN rate restriction per MD including Propofol kcals. Pt GRV's otherwise WNL throughout LOS and tolerating TF at goal remains NPO at this time. No BM this admit at least 7 days receiving routine colace w/ routine lactulose Q6H to start today per playground director. Would benefit from EN restarting per MD discretion given no signs of EN intolerance documented this LOS outside of two GRV's 400's 7/10 less than 500ml cutoff per GRV policy and for prevention of bacterial translocation. Will continue to monitor. Recommendations: 1) Continuous TPN via central access using 2:1 Clinimix non-E 5/20 at 50ml/hr goal per MD request; to provide 1200ml volume/day, 60g AA, 240g DEX (2.13 mg/kg/min), and 1056 total kcals. NO additional intralipids at this time given pt receiving 584 kcals/day via Propofol. 2) Restart EN per MD discretion; given Propofol at 22.14 mL/hr (584 kcal/day) continuous TF using Vital AF at 70 mL/hr goal rate to provide 1680 mL total volume/day, 2016 kcal, 126 g protein, and 1362 mL water. Advance to 80ml/hr goal if Propofol discontinued. 3) Monitor for changes in Propofol rate and needs to adjust PN/EN recs 4) PALB/TG q Wednesday/; daily scaled weights 5) Routine bowel care; at least 7 days constipation Addendum: 01/19/22 at [address] Amended: Links added.
--- NOTE | 2022-01-19 14:46 | NUR ---
Dr. Garduno and Case management attempting to get pt. transferred to [facility] or [facility] for ECMO.
--- NOTE | 2022-01-19 17:50 | NUR ---
Per case management and Dr. Garduno, both [facility] and [facility] have declined pt's transfer for ecmo. Awaiting [facility].
[2022-01-19] MEDS: insulin glargine (Lantus) pen - multi-dose SQ SCH (21:58)
[2022-01-19] MEDS: ZINC/COPPER/MANGANESE/SELENIUM 1 ML, chromic chloride inj. 10 MCG in AMINO ACIDS 5 %/DE... IV SCH (22:34)
[2022-01-20] VITALS (36 sets, daily range): BP systolic 85–109; BP diastolic 58–73
[2022-01-20] MEDS ORDERED: VANCOMYCIN LEVEL IV ONE (00:30)
[2022-01-20] MEDS: vancomycin inj 500 MG in normal saline 100ml IV soln 100 ML IV SCH (00:53)
[2022-01-20] MEDS: heparin, porcine 5000 units/ml vial SQ SCH ×3 (00:53→15:17)
[2022-01-20] MEDS: CISatracurium besylate inj. 100 MG in normal saline 100ml IV soln 90 ML IV PRN ×2 (00:56→19:16)
[2022-01-20 01:13] LABS: EOSINOPHILS # (AUTO) 0.3 X10'3 (0-0.9); EOSINOPHILS % (AUTO) 0.6 % (0-6); HEMATOCRIT 41.9 % (42.0-52.0); MONOCYTES % (AUTO) 9.5 % (2-12)
[2022-01-20 01:15] LABS: BASOPHILS # (AUTO) 0.2 X10'3 (0-0.2); BASOPHILS % (AUTO) 0.6 % (0-1); HEMOGLOBIN 13.8 g/dl (14.0-17.9); LYMPHOCYTES # (AUTO) 2.5 X10'3 (1.1-4.8); LYMPHOCYTES % (AUTO) 6.1 % (21-51); MEAN CORPUSCULAR HEMOGLOBIN 30.7 PG (27.0-31.0); MEAN PLATELET VOLUME 7.2 FL (7.4-10.4); NEUTROPHILS # (AUTO) 34.7 X10'3 (1.8-7.7); NEUTROPHILS % (AUTO) 83.2 % (42-75); PLATELET COUNT 313 X10'3 (140-440); RED CELL DISTRIBUTION WIDTH 15.1 % (11.5-14.5)
[2022-01-20 01:22] LABS: WHITE BLOOD COUNT 41.7 X10'3 (4.5-11.0)
[2022-01-20 01:31] LABS: ALANINE AMINOTRANSFERASE 91 U/L (12-78); ALBUMIN 3.7 G/DL (3.4-5.0); ALBUMIN/GLOBULIN RATIO 1.3 (1.1-1.5); ALKALINE PHOSPHATASE 62 IU/L (46-116); ANION GAP 14 (8-16); ASPARTATE AMINO TRANSFERASE 115 U/L (10-37); BILIRUBIN,TOTAL 1.5 MG/DL (0.1-1.0); BLOOD UREA NITROGEN 98 MG/DL (7-18); CALCIUM 8.6 MG/DL (8.5-10.1); CHLORIDE 102 MMOL/L (99-107); CREATININE 1.92 MG/DL (0.60-1.10); GLUCOSE 127 MG/DL (70-104); MAGNESIUM 2.2 MG/DL (1.5-2.4); PHOSPHORUS 5.4 MG/DL (2.3-4.5); POTASSIUM 3.8 MMOL/L (3.5-5.1); SODIUM 138 MMOL/L (135-145); TOTAL CARBON DIOXIDE 21.8 MMOL/L (24-32); TOTAL PROTEIN 6.5 G/DL (6.4-8.2); TRIGLYCERIDES 93 MG/DL (20-135); VANCOMYCIN,TROUGH 14.7 UG/ML (6.0-14.0); eGFR 36 ML/MIN
[2022-01-20 01:53] LABS: NUCLEATED RED BLOOD CELLS 3 /100WBC (0-0); PLATELET ESTIMATE NORMAL; TOTAL CELLS COUNTED 100
[2022-01-20] MEDS: propofol 1000mg/100ml bottle 100 ML IV SCH ×4 (02:02→16:08)
[2022-01-20] MEDS: mineral oil/petrolatum ophthal oint EACHEYE SCH ×4 (02:03→20:00)
[2022-01-20] MEDS: furosemide 20 MG/2 ML vial IV SCH ×4 (02:03→20:44)
[2022-01-20] MEDS: lactulose 20gm/30ml cup PO SCH ×4 (02:43→20:44)
[2022-01-20] MEDS: insulin regular, human U-100 3ml vial - multi-dose SQ SCH ×2 (02:46→20:53)
[2022-01-20 03:01] LABS: ABG BASE EXCESS -6.8 mmol/L (-2.0-2.0); ABG HCO3 18.3 mmol/L (22.0-26.0); ABG PCO2 (T) 35.8 mmHg (35.0-48.0); ABG PO2 (T) 65.7 mmHg (75.0-100.0); FCOHb 0.3 % (0.0-3.9); FMetHb 0.2 % (0.0-1.5); FO2Hb 90.5 % (94-97); PATIENT TEMPERATURE 36.9; PEEP 10 cm H2O; RESPIRATORY RATE 18 b/min; TIDAL VOLUME 650 mL; TOTAL HEMOGLOBIN 14.9 G/dl (14.0-18.0)
[2022-01-20] MEDS: K and/or MAG REPLACEMENT MC SCH ×2 (08:00→20:00)
[2022-01-20] MEDS: sodium bicarbonate (8.4%) inj. 150 MEQ in dextrose 5%-water 1,000 ML IV SCH ×2 (08:30→23:22)
[2022-01-20] MEDS: pantoprazole 40MG/NS 100ML BAG 100 ML IV SCH (08:42)
[2022-01-20] MEDS: cefepime 1GM/NS ADD-VANTAGE 100 ML IV SCH ×2 (08:42→20:00)
[2022-01-20] MEDS: docusate sodium 100mg/10ml UD cup PO SCH ×2 (08:42→20:44)
[2022-01-20] MEDS: vasopressin inj. 40 UNIT in normal saline 50ml IV soln 38 ML IV SCH (08:48)
[2022-01-20] MEDS: metolazone 2.5mg tablet PO SCH ×2 (08:49→20:45)
[2022-01-20] MEDS: levoFLOXACIN-Levaquin 750MG/D5 150 ML IV SCH (08:49)
[2022-01-20] MEDS: metroNIDAZOLE 500mg tablet PO SCH ×3 (08:50→17:30)
[2022-01-20] MEDS: aspirin 81mg tab.chew NG SCH (08:58)
[2022-01-20] MEDS: NORepinephrine 8mg/ 250ml NS 250 ML IV SCH (09:00)
[2022-01-20] MEDS: fentaNYL/NS/PF 2,500 mcg/250mL 250 ML IV SCH ×2 (09:29→19:17)
[2022-01-20] MEDS ORDERED: ZINC/COPPER/MANGANESE/SELENIUM 1 ML, chromic chloride inj. 10 MCG in AMINO ACIDS 5 %/DE... IV SCH (17:00)
[2022-01-20] MEDS: insulin glargine (Lantus) pen - multi-dose SQ SCH (20:54)
[2022-01-20] MEDS ORDERED: CISatracurium besylate inj. 100 MG in normal saline 100ml IV soln 90 ML IV PRN (23:25)
[2022-01-21] VITALS (14 sets, daily range): BP systolic 98–120; BP diastolic 65–80
[2022-01-21] MEDS: propofol 1000mg/100ml bottle 100 ML IV SCH ×2 (00:21→05:34)
[2022-01-21] MEDS: heparin, porcine 5000 units/ml vial SQ SCH (00:39)
[2022-01-21] MEDS ORDERED: VANCOMYCIN 750MG IV in NS 250 ML IV SCH (01:00)
[2022-01-21 01:43] LABS: UREA NITROGEN 24HR,URINE 3.2 GM/24HR (7-20)
[2022-01-21 02:30] LABS: ABG BASE EXCESS -6.2 mmol/L (-2.0-2.0); ABG HCO3 19.1 mmol/L (22.0-26.0); ABG OXYGEN SATURATION 89.3 % (94-97); ABG PCO2 (T) 37.4 mmHg (35.0-48.0); ABG PO2 (T) 59.4 mmHg (75.0-100.0); FCOHb 0.1 % (0.0-3.9); FMetHb 0.1 % (0.0-1.5); FO2Hb 89.1 % (94-97); PATIENT TEMPERATURE 37.1; PEEP 12 cm H2O; RESPIRATORY RATE 18 b/min; TIDAL VOLUME 650 mL; TOTAL HEMOGLOBIN 15.2 G/dl (14.0-18.0)
[2022-01-21] MEDS: insulin regular, human U-100 3ml vial - multi-dose SQ SCH (02:50)
[2022-01-21] MEDS: furosemide 20 MG/2 ML vial IV SCH (02:58)
[2022-01-21] MEDS: lactulose 20gm/30ml cup PO SCH (02:58)
[2022-01-21] MEDS: mineral oil/petrolatum ophthal oint EACHEYE SCH (02:58)
[2022-01-21 03:18] LABS: EOSINOPHILS # (AUTO) 0.3 X10'3 (0-0.9); EOSINOPHILS % (AUTO) 0.6 % (0-6); HEMATOCRIT 43.1 % (42.0-52.0); LYMPHOCYTES % (AUTO) 4.4 % (21-51)
[2022-01-21 03:20] LABS: BASOPHILS # (AUTO) 0.2 X10'3 (0-0.2); BASOPHILS % (AUTO) 0.4 % (0-1); HEMOGLOBIN 14.1 g/dl (14.0-17.9); LYMPHOCYTES # (AUTO) 2.2 X10'3 (1.1-4.8); MEAN CORPUSCULAR HEMOGLOBIN 30.9 PG (27.0-31.0); MEAN CORPUSCULAR HGB CONC 32.6 g/dL (33.0-36.5); MEAN CORPUSCULAR VOLUME 94.9 FL (78-98); MEAN PLATELET VOLUME 7.5 FL (7.4-10.4); MONOCYTES # (AUTO) 3.9 X10'3 (0-0.9); MONOCYTES % (AUTO) 7.7 % (2-12); NEUTROPHILS # (AUTO) 44.2 X10'3 (1.8-7.7); NEUTROPHILS % (AUTO) 86.9 % (42-75); PLATELET COUNT 290 X10'3 (140-440); RED BLOOD COUNT 4.54 X10'6 (4.70-6.10); RED CELL DISTRIBUTION WIDTH 15.7 % (11.5-14.5)
[2022-01-21 03:26] LABS: ALBUMIN 3.1 G/DL (3.4-5.0); ANION GAP 12 (8-16); BLOOD UREA NITROGEN 102 MG/DL (7-18); CALCIUM 8.4 MG/DL (8.5-10.1); CHLORIDE 101 MMOL/L (99-107); CREATININE 1.96 MG/DL (0.60-1.10); GLUCOSE 142 MG/DL (70-104); POTASSIUM 3.1 MMOL/L (3.5-5.1); SODIUM 136 MMOL/L (135-145); TOTAL CARBON DIOXIDE 23.3 MMOL/L (24-32); TRIGLYCERIDES 86 MG/DL (20-135); eGFR 35 ML/MIN
[2022-01-21 03:31] LABS: WHITE BLOOD COUNT 50.8 X10'3 (4.5-11.0)
[2022-01-21 03:47] LABS: PLATELET ESTIMATE NORMAL; TOTAL CELLS COUNTED 100
[2022-01-21] MEDS: potassium Cl 20mEq/100mL bag 100 ML IV PRN ×2 (03:47→05:34)
[2022-01-21] MEDS: fentaNYL/NS/PF 2,500 mcg/250mL 250 ML IV SCH (05:41)
[2022-01-21] MEDS ORDERED: propofol 1000mg/100ml bottle 100 ML IV SCH (06:00)
[2022-01-21] MEDS ORDERED: morphine 10mg/0.5ml (conc. morphine) oral syringe PO PRN (10:30)
[2022-01-21] MEDS ORDERED: LORazepam 2 mg/ml vial IV PRN (10:30)
[2022-01-21] MEDS ORDERED: morphine 10mg/ml inj. IV PRN (10:30)
--- NOTE | 2022-01-21 11:15 | NUR ---
Pt's family (Sister Kesha and His mother Mary were here for physician conference, plan of care options and condition past and present were discussed, it was determined that related to the apparent futility of this declining case that the compassionate option of comfort care was our best option, family was able to visit pt but declined presence during demise,Belongings sent home with family. Pt given Mso4 and Ativan, Pt's IV's off for 20 min. Pt was extubated, he took no breaths, became asystolic without pulse or breath movement or sounds and was pronounced at 1115 by Yosi borges RN, Post mortem care done, [facility] was called along with [facility]. Body was picked up at 1212
[2022-01-24] MEDS ORDERED: VANCOMYCIN LEVEL IV ONE (00:30)
== END 2022-01-21 12:26 | DRG 720 ==
LOC: ER 08:11 → CICU 2S 14:35
PROVIDERS: ADMIT Internal Medicine Critical Care Medicine; ATTEND Internal Medicine Critical Care Medicine
PROC: 5A1955Z Respiratory Ventilation, Greater than 96 Consecutive Hours (ICD-10-PCS; principal; 2022-01-12)
PROC: 0BH17EZ Insertion of Endotracheal Airway into Trachea, Via Natural or Artificial Opening (ICD-10-PCS; 2022-01-12)
PROC: 0D9670Z Drainage of Stomach with Drainage Device, Via Natural or Artificial Opening (ICD-10-PCS; 2022-01-12)
PROC: BW251ZZ Computerized Tomography (CT Scan) of Chest, Abdomen and Pelvis using Low Osmolar Contrast (ICD-10-PCS; 2022-01-12)
PROC: 05HY33Z Insertion of Infusion Device into Upper Vein, Percutaneous Approach (ICD-10-PCS; 2022-01-12)
PROC: 0W9B30Z Drainage of Left Pleural Cavity with Drainage Device, Percutaneous Approach (ICD-10-PCS; 2022-01-13)
DX: A41.9 Sepsis, unspecified organism (principal); I26.90 Septic pulmonary embolism without acute cor pulmonale; J80 Acute respiratory distress syndrome; R65.21 Severe sepsis with septic shock; I21.4 Non-ST elevation (NSTEMI) myocardial infarction; J18.9 Pneumonia, unspecified organism; I50.23 Acute on chronic systolic (congestive) heart failure; E87.4 Mixed disorder of acid-base balance; I13.0 Hypertensive heart and chronic kidney disease with heart failure and stage 1 through stage 4 chronic kidney disease, or unspecified chronic kidney disease; I25.110 Atherosclerotic heart disease of native coronary artery with unstable angina pectoris; Z66 Do not resuscitate; N17.9 Acute kidney failure, unspecified; N18.9 Chronic kidney disease, unspecified; I42.0 Dilated cardiomyopathy; J93.9 Pneumothorax, unspecified; F41.9 Anxiety disorder, unspecified; Z20.822 Contact with and (suspected) exposure to COVID-19; F15.10 Other stimulant abuse, uncomplicated; B95.62 Methicillin resistant Staphylococcus aureus infection as the cause of diseases classified elsewhere; M54.9 Dorsalgia, unspecified; R23.0 Cyanosis; I48.91 Unspecified atrial fibrillation; I07.1 Rheumatic tricuspid insufficiency; I25.2 Old myocardial infarction; Z51.5 Encounter for palliative care; Z82.3 Family history of stroke; Z82.49 Family history of ischemic heart disease and other diseases of the circulatory system; Z86.16 Personal history of COVID-19; Z87.01 Personal history of pneumonia (recurrent); Z91.19 Patient's noncompliance with other medical treatment and regimen; Z88.0 Allergy status to penicillin; Z79.899 Other long term (current) drug therapy
CPT/HCPCS: 36415; 36600; 71045; 71260; 72020; 74177; 80048; 80053; 80202; 80305; 81001; 82570; 82803; 82948; 83605; 83690; 83735; 83880; 84100; 84132; 84134; 84145; 84156; 84300; 84478; 84484; 84540; 84560; 85007; 85018; 85025; 85610; 85730; 87040; 87070; 87077; 87081; 93005; 93308; 94002; 94003; 94760; 96361; 96365; 96375; 99285; A4333; A6213; A6223; A6449; A7048; A7526; C1758; C9113; G0378; J0131; J0330; J0692; J1644; J1815; J1940; J1956; J2060; J2250; J2270; J2274; J2405; J2704; J3010; J3370; J3480; J3490; J7030; J7040; J7050; J7060; J7070; P9045; P9047; Q9967